=== PATIENT | male | born 1960 | race American Indian/Alaskan Native ===

== ENCOUNTER 2016-04-18 22:01 | Emergency (ER) | payer MEDICAID ==
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
--- NOTE | 2016-04-19 03:00 | XRay Report ---
FINAL REPORT EXAM: XR ELBOW 3 LT HISTORY: Injury - Pain TECHNIQUE: Three views of the left elbow PRIORS: None. FINDINGS: The bones are normally aligned and mineralized. The joint spaces are well-preserved. There is no evidence of acute fracture. There is diffuse atherosclerotic calcification. IMPRESSION: No evidence of acute fracture or subluxation.
--- NOTE | 2016-04-19 03:55 | XRay Report ---
FINAL REPORT PROCEDURE: XR ANKLE 3 LT TECHNIQUE: Left ankle radiographs, AP, lateral, and oblique views. CPT 87865 HISTORY: Injury - Pain LT ANKLE COMPARISON: No prior studies are available for comparison. FINDINGS: Fracture (s) and/or Dislocation(s): There is a fracture of the left in the fibula. The tibia is intact.. Alignment: Normal . Joint space(s): Normal . Soft tissues: There are diffuse vascular calcifications.. Bone mineralization: Normal . Foreign bodies: None . Calcaneal spurring: None . IMPRESSION: The nondisplaced fracture of the fibula..
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
[2016-04-19] MEDS ORDERED: CATAPRES PO ONE (04:15)
[2016-04-19 05:15] VITALS: BP 159/108
== END 2016-04-19 06:08 | disposition home or self-care (01) ==
LOC: ED 22:01
DX: S82.832A Other fracture of upper and lower end of left fibula, initial encounter for closed fracture (principal); I10 Essential (primary) hypertension; S50.312A Abrasion of left elbow, initial encounter; X58.XXXA Exposure to other specified factors, initial encounter; Y93.89 Activity, other specified; Y99.8 Other external cause status; Y92.89 Other specified places as the place of occurrence of the external cause
CPT/HCPCS: 99283

== ENCOUNTER 2016-04-19 20:11 | Emergency (ER) | payer MEDICAID ==
[~2016-04-19 20:11] MED LIST: AMIDATE IV ONE; ZEMURON IV ONE
[2016-04-19] MEDS ORDERED: SUBLIMAZE IV ONE ×2 (20:45→23:27)
[2016-04-19] MEDS ORDERED: VASELINE LIP THERAPY TP PRN (20:45)
[2016-04-19] MEDS ORDERED: ZEMURON IV ONE (20:45)
[2016-04-19] MEDS ORDERED: DECADRON IV ONE (20:45)
[2016-04-19] MEDS ORDERED: KEPPRA 1,000 MG/NS 0.75% 100ML 1,000 MG/100 ML BAG IV ONE (20:45)
[2016-04-19] MEDS ORDERED: ARTIFICIAL TEARS OPHTH OINT OU PRN (20:45)
[2016-04-19] MEDS ORDERED: VANCOMYCIN VIAL IV ONE (20:45)
[2016-04-19] MEDS ORDERED: AMIDATE IV ONE (20:45)
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
[2016-04-19] MEDS ORDERED: NACL 0.9% 500 ML IV SCH (21:00)
[2016-04-19] MEDS ORDERED: VANCOMYCIN PHARMACY TO DOSE IV SCH (21:00)
[2016-04-19] MEDS ORDERED: DIPRIVAN 10 MG/ML 1,000 MG/100 ML BOTTLE IV SCH (21:00)
[2016-04-19] MEDS ORDERED: ROCEPHIN/NS 2 GM/100 ML 2 GM/100 ML BAG IV ONE (21:45)
[2016-04-19 22:01] LABS: Basophils % (Auto) 0.5 % (0.0-1.8); Mean Corpuscular HGB Conc 33 % (32-34); Mean Corpuscular Hemoglobin 30 pg (28-32); Mean Corpuscular Volume 94 fl (84-94); Red Cell Distribution Width 12.6 % (13.2-15.2); White Blood Count 7.5 K/mm3 (4.5-11.0)
[2016-04-19 22:10] LABS: INR 1.02 (0.87-1.13); Partial Thromboplastin Time 23.6 Sec. (24.2-36.6)
[2016-04-19] MEDS ORDERED: VANCOMYCIN VIAL 1,750 MG in NACL 0.9% 500 ML 500 ML IV ONE (22:15)
--- NOTE | 2016-04-19 22:20 | XRay Report ---
FINAL REPORT EXAM: XR CHEST 1V AP HISTORY: ETT placement TECHNIQUE: AP portable view of the chest. PRIORS: None. FINDINGS: There is endotracheal tube in place which appears adequately positioned in the mid to distal trachea. The cardiac appears normal. There is a right upper lobe opacification most likely representing complete right upper lobe atelectasis. The bones and soft tissues are unremarkable. IMPRESSION: Right upper lobe opacity may represent complete right upper lobe atelectasis that may be due to bronchial obstruction. Further evaluation with CT of the chest is recommended.
[2016-04-19 22:27] LABS: Magnesium 2.7 mg/dL (1.7-2.3)
[2016-04-19 22:28] LABS: Alanine Aminotransferase 116 units/L (7-56); Albumin 4.8 g/dL (3.9-5); Albumin/Globulin Ratio 1.2 %; Alkaline Phosphatase 77 units/L (35-129); Anion Gap 29 mmol/L; BUN/Creatinine Ratio 11.66; Bilirubin,Total 0.6 mg/dL (0.1-1.2); Blood Urea Nitrogen 14 mg/dL (9-20); Calcium 9.2 mg/dL (8.4-10.2); Carbon Dioxide 19 mmol/L (22-30); Chloride 90.5 mmol/L (98-107); Glucose 169 mg/dL (75-100); Potassium 4.5 mmol/L (3.6-5.0); Sodium 134 mmol/L (137-145); Total Protein 8.8 g/dL (6.3-8.2)
[2016-04-19 22:32] LABS: Platelet Count 72 K/mm3 (140-440)
[2016-04-19] MEDS ORDERED: SUBLIMAZE 2,000 MCG in NACL 0.9% 60 ML IV SCH (23:00)
[2016-04-19] MEDS ORDERED: CARDENE DRIP 40 MG/200 ML 40 MG/200 ML BAG IV SCH (23:00)
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
--- NOTE | 2016-04-19 23:31 | Cat Scan Report ---
FINAL REPORT EXAM: CT CERVICAL SPINE WO CON HISTORY: ams TECHNIQUE: Helical axial CT imaging of the cervical spine. Images are reconstructed in the sagittal and coronal planes. PRIORS: 04/01/2015 FINDINGS: There is reversal of cervical lordosis at C6 secondary to advanced degenerative disc disease. There is severe loss of disc height at C5-6, C6-7 and C7-T1. These findings are unchanged. The vertebral bodies are normal in height. There is no evidence of fracture or subluxation. There is atherosclerotic calcification in the bilateral carotid bulbs. At C2-3 there is posterior osteophyte disc complex and bilateral uncovertebral hypertrophy with bilateral facet hypertrophy. At C3-4 there is prominent right uncovertebral and facet hypertrophy resulting in moderate to severe right neural foraminal stenosis. At C5-6 there is posterior osteophyte disc complex without spinal or foraminal stenosis. At C6-7 there is posterior osteophyte disc complex and bilateral facet and ligamentum flavum hypertrophy with mild bilateral neural foraminal narrowing. At C7-T1 there is posterior osteophyte disc complex and uncovertebral hypertrophy with moderate to severe right neural foraminal narrowing. Images through the lung apices show a patchy posterior right upper lobe infiltrate and parenchymal thickening. IMPRESSION: 1. No evidence of acute fracture or subluxation 2. Multilevel degenerative disc and facet disease of the cervical spine without significant interval change. Please see the full description of findings above. 3. Patchy posterior right upper lobe infiltrate and parenchymal thickening. The lungs were not completely evaluated.
[2016-04-19 23:33] LABS: ISTAT Base Excess 1; ISTAT HCO3 26.5; ISTAT PCO2 47.6 (35-45); ISTAT PH 7.353 (7.35-7.45); ISTAT PO2 370 (80-105); ISTAT SO2 100; ISTAT TCO2 28
[2016-04-19 23:39] LABS: Urine Drugs of Abuse Note Disclamer
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
[2016-04-19 23:53] LABS: Bilirubin,Urine NEG (Negative); Blood,Urine LG (Negative); Ketones,Urine TR mg/dL (Negative); Leukocyte Esterase,Urine NEG (Negative); Mucus,Urine FEW /HPF; Nitrite,Urine NEG (Negative); Urobilinogen,Urine < 2.0 mg/dL (<2.0)
[2016-04-20 00:39] VITALS: BP 154/101
--- NOTE | 2016-04-20 09:58 | XRay Report ---
LEFT ELBOW, 2 VIEWS History: Ecchymosis, pain. Findings: 2 nonstandard views of the left shoulder demonstrate moderate subcutaneous edema in the medial soft tissues. No acute osseous findings are appreciated. The joint space is unremarkable. Impression: Soft tissue swelling. No acute osseous findings are appreciated.
== END 2016-04-20 01:46 | disposition short-term general hospital (02) ==
LOC: ED 20:11
DX: I62.9 Nontraumatic intracranial hemorrhage, unspecified (principal); G40.901 Epilepsy, unspecified, not intractable, with status epilepticus; I10 Essential (primary) hypertension
CPT/HCPCS: 31500; 36569; 51702; 70450; 71010; 72125; 73070; 74176; 80053; 80307; 81001; 82140; 82550; 82803; 83735; 84443; 84484; 85025; 85610; 85730; 87040; 87070; 87086; 87205; 93005; 93010; 96361; 96365; 96366; 96375; 96376; 99291; G0480; J0696; J1100; J1953; J2704; J3010; J3370; J7040; 80320; 94002

== ENCOUNTER 2016-07-07 02:43 | Emergency (ER) | payer MEDICAID ==
[2016-07-07] MEDS ORDERED: CATAPRES PO ONE (03:02)
[2016-07-07 04:42] VITALS: BP 162/96
[2016-07-07] MEDS ORDERED: DECADRON IM ONE (05:53)
--- NOTE | 2016-07-07 06:02 | Emergency Department Report ---
- General Chief Complaint: Upper Respiratory Infection Stated Complaint: JONES Time Seen by Provider: 07/07/16 05:35 Source: patient Mode of arrival: Ambulatory Limitations: No Limitations - History of Present Illness Initial Comments: Patient comes in the ER tonight with complaints of shortness of breath, cough, nasal congestion, sore throat for the past 2 days. Patient states that he felt like he was running a fever the other night. Patient in the room with his sister who states that patient is very noncompliant with his medicines. Sister states that patient has been prescribed Symbicort but that he does not take it on a regular basis as well as he has been prescribed some blood pressure medicines in the past but patient does not take those either. Patient denies any chest pain, edema, hemoptysis. MD Complaint: cough, sore throat, nasal congestion -: days(s) (2) Consistency: intermittent Treatments Prior to Arrival: none - Related Data Previous Rx's Medication Instructions Recorded Last Taken Type Azithromycin [Zithromax TAB] 500 mg PO QDAY #5 tablet 07/07/16 Unknown Rx Lisinopril [Zestril TAB] 20 mg PO QDAY #30 tablet 07/07/16 Unknown Rx Allergies Allergy/AdvReac Type Severity Reaction Status Date / Time No Known Allergies Allergy Verified 10/24/14 23:18 ED Review of Systems ROS: Stated complaint: JONES Other details as noted in HPI Constitutional: fever. denies: chills Eyes: denies: eye pain, eye discharge, vision change ENT: throat pain, congestion. denies: ear pain, epistaxis Respiratory: cough. denies: shortness of breath, SOB with exertion, SOB at rest , wheezing Cardiovascular: denies: chest pain, palpitations, dyspnea on exertion, edema, syncope Endocrine: no symptoms reported Gastrointestinal: denies: abdominal pain, nausea, diarrhea Genitourinary: denies: urgency, dysuria Musculoskeletal: denies: back pain, joint swelling, arthralgia Skin: denies: rash, lesions Neurological: denies: headache, weakness, paresthesias Psychiatric: denies: anxiety, depression Hematological/Lymphatic: denies: easy bleeding, easy bruising ED Past Medical Hx - Past Medical History Hx Hypertension: Yes - Surgical History Additional Surgical History: PEG tube - Social History Smoking Status: Never Smoker Substance Use Type: None - Medications Home Medications: Home Medications Medication Instructions Recorded Confirmed Last Taken Type Azithromycin [Zithromax TAB] 500 mg PO QDAY #5 tablet 07/07/16 Unknown Rx Lisinopril [Zestril TAB] 20 mg PO QDAY #30 tablet 07/07/16 Unknown Rx ED Physical Exam - General Limitations: No Limitations General appearance: alert, in no apparent distress - Head Head exam: Present: atraumatic, normocephalic - Eye Eye exam: Present: normal appearance - ENT ENT exam: Present: mucous membranes moist, TM's normal bilaterally, normal external ear exam, other (bilateral nasal mucosa erythematous with turbinate swelling.) - Neck Neck exam: Present: normal inspection, full ROM. Absent: tenderness, lymphadenopathy, thyromegaly - Respiratory Respiratory exam: Present: normal lung sounds bilaterally, rhonchi. Absent: respiratory distress, wheezes, rales - Cardiovascular Cardiovascular Exam: Present: regular rate, normal rhythm, normal heart sounds. Absent: systolic murmur, diastolic murmur, rubs, gallop - GI/Abdominal GI/Abdominal exam: Present: soft, distended, normal bowel sounds, other (intact and in place feeding tube noted just left lateral of midline upper abdomen. Non -tender, non-erythematous at insertion.). Absent: tenderness, guarding, rebound - Rectal Rectal exam: Present: deferred - Extremities Exam Extremities exam: Present: normal inspection, normal capillary refill. Absent: pedal edema, joint swelling, calf tenderness - Back Exam Back exam: Present: normal inspection - Neurological Exam Neurological exam: Present: alert, oriented X3 - Psychiatric Psychiatric exam: Present: normal affect, normal mood - Skin Skin exam: Present: warm, dry, intact, normal color. Absent: rash ED Course Vital Signs 07/07/16 07/07/16 07/07/16 02:50 03:07 04:42 Temperature 98.9 F Pulse Rate 99 H 99 H 81 Respiratory 20 18 Rate Blood Pressure 185/114 185/114 Blood Pressure 162/96 [Right] O2 Sat by Pulse 98 96 Oximetry ED Medical Decision Making - Radiology Data Radiology results: image reviewed interpreted by me: Increased bronchial markings suggestive of bronchitis. No obvious infiltrate noted. - Medical Decision Making Upon triage in the ER, patient noted to have elevated blood pressure. Patient is very noncompliant with any prescribed medications. Patient has not taken his blood pressure medicines ever since they were prescribed. Patient was given 0.2 mg of clonidine here in the ER with improvement to his blood pressure. Patient was given Decadron 10 mg IM in the ER to help open up his chest and sinus congestion. I spent several minutes with patient discussing with him the importance of controlling his blood pressure. I will start patient on a short course of antibiotics as I don't believe he will maintain compliance with a long course of antibiotic. I will also prescribe patient some more blood pressure medicine with hopes that he will follow-up with his primary care physician to ensure adequate control. Patient is nontoxic and hemodynamically stable. Patient and sister are in agreement with treatment plan and patient is stable for discharge. Critical care attestation.: If time is entered above; I have spent that time in minutes in the direct care of this critically ill patient, excluding procedure time. ED Disposition Clinical Impression: Bronchitis, Sinusitis, HTN (hypertension) Disposition: DISCHARGED TO HOME OR SELFCARE Is pt being admited?: No Does the pt Need Aspirin: No Condition: Stable Instructions: Chronic Bronchitis (ED), Hypertension (ED), Acute Bronchitis (ED) , Sinusitis (ED) Prescriptions: Azithromycin [Zithromax TAB] 500 mg PO QDAY #5 tablet Lisinopril [Zestril TAB] 20 mg PO QDAY #30 tablet Referrals: KARINA HUNT MD [Primary Care Provider] - 3-5 Days Time of Disposition: 06:07
--- NOTE | 2016-07-07 10:09 | XRay Report ---
CHEST TWO VIEWS: 07/07/16 02:43:00 CLINICAL: Difficulty breathing and cough. COMPARISON: 04/19/16 FINDINGS: No tubes or lines. The right upper lobe has reexpanded since the prior exam. Both lungs are normally expanded and clear. Normal heart and pulmonary vessels. The bones and soft tissues are normal. IMPRESSION: Normal chest.
== END 2016-07-07 06:17 | disposition home or self-care (01) ==
LOC: ED 02:43
DX: J40 Bronchitis, not specified as acute or chronic (principal); I10 Essential (primary) hypertension; J32.9 Chronic sinusitis, unspecified
CPT/HCPCS: 71020; 93005; 93010; 96372; 99283; J1100

== ENCOUNTER 2018-04-09 10:01 | Inpatient (IN) | payer MEDICAID ==
[2018-04-09] MEDS ORDERED: ATIVAN IV ONE ×4 (10:06→11:40)
[2018-04-09] MEDS ORDERED: ATIVAN ONE ×2 (10:06→14:52)
[2018-04-09] MEDS ORDERED: KEPPRA 1,000 MG/NS 0.75% 100ML 1,000 MG/100 ML BAG IV ONE ×2 (10:39→10:58)
[2018-04-09 10:48] LABS: Hematocrit 47.9 % (35.5-45.6); Mean Corpuscular HGB Conc 31 % (32-34); Mean Corpuscular Volume 102 fl (84-94); Platelet Count 134 K/mm3 (140-440); Red Blood Count 4.69 M/mm3 (3.65-5.03); Red Cell Distribution Width 13.7 % (13.2-15.2)
[2018-04-09] MEDS ORDERED: QUELICIN IV ONE (10:48)
[2018-04-09] MEDS ORDERED: AMIDATE IV ONE ×2 (10:48→22:53)
[2018-04-09] MEDS ORDERED: DIPRIVAN 10 MG/ML 1,000 MG/100 ML BOTTLE IV ONE ×2 (10:56→21:09)
[2018-04-09] MEDS ORDERED: ARTIFICIAL TEARS OPHTH OINT OU PRN (11:00)
[2018-04-09] MEDS ORDERED: VASELINE LIP THERAPY TP PRN (11:00)
[2018-04-09] MEDS: DIPRIVAN 10 MG/ML 1,000 MG/100 ML BOTTLE IV SCH (11:00)
[2018-04-09 11:09] LABS: INR 1.12 (0.87-1.13)
[2018-04-09 11:09] LABS: BUN/Creatinine Ratio 10; Blood Urea Nitrogen 12 mg/dL (9-20); Calcium 9.8 mg/dL (8.4-10.2); Hemolysis Index 19
[2018-04-09 11:10] LABS: Partial Thromboplastin Time 24.1 Sec. (24.2-36.6)
[2018-04-09 11:17] LABS: Creatine Kinase MB 9.6 ng/mL (0.0-4.0)
[2018-04-09] MEDS ORDERED: VITAMIN B-1 100 MG, FOLVITE 1 MG, INFUVITE 10 ML in NACL 0.9% 1000 ML 1,000 ML IV ONE (11:24)
[2018-04-09 11:32] LABS: Albumin 4.7 g/dL (3.9-5); Bilirubin,Direct 0.2 mg/dL (0-0.2)
--- NOTE | 2018-04-09 11:51 | XRay Report ---
AP CHEST: HISTORY: Altered mental status, endotracheal tube placement Compared to 05/15/17. The endotracheal tube is in good position terminating 3.2 cm superior to the helen. The nasogastric tube terminates in the antrum of the stomach. The lungs are clear. Heart and mediastinal structures are within normal limits. The bony thorax is grossly intact. IMPRESSION: Unremarkable AP chest. Adequate placement of lines and tubes.
[2018-04-09 11:52] LABS: Bilirubin,Urine NEG (Negative); Blood,Urine MOD (Negative); Color,Urine Straw (Yellow); Mucus,Urine FEW /HPF; Urobilinogen,Urine < 2.0 mg/dL (<2.0); WBC,Urine < 1.0 /HPF (0.0-6.0)
[2018-04-09 11:59] LABS: Amphetamine Screen,Urine PRESUMPTIVE NEGATIVE; Benzodiazepines Screen,Urine PRESUMPTIVE NEGATIVE; Cannabinoid Screen,Urine PRESUMPTIVE NEGATIVE; Cocaine Screen,Urine PRESUMPTIVE NEGATIVE; Methadone Screen,Urine PRESUMPTIVE NEGATIVE; Opiate Screen,Urine PRESUMPTIVE NEGATIVE
[2018-04-09] MEDS ORDERED: NACL 0.9% 1000 ML 1,000 ML IV ONE (12:51)
[2018-04-09] MEDS ORDERED: FOLVITE 1 MG, INFUVITE 10 ML in NACL 0.9% 1000 ML 1,000 ML IV ONE (13:00)
[2018-04-09] MEDS ORDERED: TYLENOL PR ONE ×4 (13:52→19:08)
[2018-04-09] MEDS ORDERED: VANCOMYCIN/NS 1 GM/250 ML 1 GM/250 ML BAG IV ONE (13:53)
[2018-04-09] MEDS ORDERED: ROCEPHIN/NS 2 GM/100 ML 2 GM/100 ML BAG IV ONE (14:00)
[2018-04-09] MEDS ORDERED: VANCOMYCIN 2,000 MG in NACL 0.9% 500 ML 500 ML IV ONE (14:30)
[2018-04-09] MEDS ORDERED: VITAMIN B-1 FEEDTUBE ONE (14:40)
--- NOTE | 2018-04-09 14:42 | Emergency Department Report ---
ED Seizure HPI - General Chief Complaint: Seizure Stated Complaint: SEIZURES Time Seen by Provider: 04/09/18 10:30 Source: EMS Mode of arrival: Stretcher Limitations: No Limitations - History of Present Illness Initial Comments: 58yo male with a past medical history alcohol abuse, hepatitis, alcohol withdrawal and hypertension presents with complaints of seizures, alterations in mental status. Patient received 2 mg of Ativan just prior to my evaluation he continues to have seizure activity with left gaze preference. Additional Ativan provided medication he continues to seize. Further history of present illness is available at this time. - Related Data Previous Rx's Medication Instructions Recorded Last Taken Type ALBUTEROL NEB's [Proventil 0.083% 2.5 mg IH Q6HRT PRN nebu 05/22/17 Unknown Rx NEBS] Apixaban [Eliquis] 5 mg PO Q12HR tablet 05/22/17 Unknown Rx Docusate Sodium [Colace ORAL LIQ] 100 mg PO BID oral.liqd 05/22/17 Unknown Rx Famotidine [Pepcid] 20 mg PO BID tablet 05/22/17 Unknown Rx Metoprolol [Lopressor TAB] 25 mg PO BID tablet 05/22/17 Unknown Rx Min Oil/Petrolatum [Artificial 1 applic OU Q4HR PRN tube 05/22/17 Unknown Rx Tears Ophth Oint] Sennosides/Docusate [Senokot S] 2 tab PO BID tablet 05/22/17 Unknown Rx cloNIDine [Catapres] 0.1 mg PO Q8H tablet 05/22/17 Unknown Rx hydrALAZINE [Apresoline TAB] 25 mg PO Q8HR tablet 05/22/17 Unknown Rx Allergies Allergy/AdvReac Type Severity Reaction Status Date / Time No Known Allergies Allergy Verified 10/24/14 23:18 ED Review of Systems ROS: Stated complaint: SEIZURES Other details as noted in HPI Comment: Unobtainable due to pts medical conditions ED Past Medical Hx - Past Medical History Previous Medical History?: Yes Hx Hypertension: Yes Hx Seizures: Yes Additional medical history: hepatitis. history obtained by sister - Surgical History Past Surgical History?: Yes Additional Surgical History: PEG tube - Social History Smoking Status: Unknown if ever smoked - Medications Home Medications: Home Medications Medication Instructions Recorded Confirmed Last Taken Type ALBUTEROL NEB's [Proventil 0.083% 2.5 mg IH Q6HRT PRN nebu 05/22/17 Unknown Rx NEBS] Apixaban [Eliquis] 5 mg PO Q12HR tablet 05/22/17 Unknown Rx Docusate Sodium [Colace ORAL LIQ] 100 mg PO BID oral.liqd 05/22/17 Unknown Rx Famotidine [Pepcid] 20 mg PO BID tablet 05/22/17 Unknown Rx Metoprolol [Lopressor TAB] 25 mg PO BID tablet 05/22/17 Unknown Rx Min Oil/Petrolatum [Artificial 1 applic OU Q4HR PRN tube 05/22/17 Unknown Rx Tears Ophth Oint] Sennosides/Docusate [Senokot S] 2 tab PO BID tablet 05/22/17 Unknown Rx cloNIDine [Catapres] 0.1 mg PO Q8H tablet 05/22/17 Unknown Rx hydrALAZINE [Apresoline TAB] 25 mg PO Q8HR tablet 05/22/17 Unknown Rx ED Physical Exam - General Limitations: No Limitations - Other Other exam information: General: No limitations, patient is alert in no acute distress Head exam: Atraumatic, normocephalic Eyes exam: Normal appearance, left gaze preference during seizure ENT: Moist mucous membrane Neck exam: Normal inspection Respiratory exam: Clear to auscultation bilateral, no wheezes, rales, crackles Cardiovascular: Tachycardic regular rhythm Abdomen: Soft, nondistended, and nontender, with normal bowel sounds, no rebound, or guarding Extremity: Right arm yaritza during seizure activity Back: Normal Inspection, full range of motion, no tenderness Neurologic: Unresponsive, actively seizing Skin: Warm, dry, intact ED Course Vital Signs 04/09/18 04/09/18 04/09/18 10:00 10:44 10:45 Temperature Pulse Rate 131 H 134 H 135 H Respiratory 26 H 20 23 Rate Blood Pressure 176/96 155/105 O2 Sat by Pulse 96 91 Oximetry 04/09/18 04/09/18 04/09/18 11:00 11:01 11:07 Temperature Pulse Rate 145 H 142 H Respiratory 20 Rate Blood Pressure 221/141 172/103 O2 Sat by Pulse 100 99 96 Oximetry 04/09/18 04/09/18 04/09/18 11:16 11:30 11:45 Temperature Pulse Rate 146 H 142 H 137 H Respiratory 53 H 15 19 Rate Blood Pressure 172/103 145/110 134/107 O2 Sat by Pulse 95 96 97 Oximetry 04/09/18 04/09/18 04/09/18 12:00 12:15 12:30 Temperature Pulse Rate 125 H 115 H 110 H Respiratory 19 18 18 Rate Blood Pressure 140/103 147/108 154/109 O2 Sat by Pulse 100 99 100 Oximetry 04/09/18 04/09/18 04/09/18 12:45 13:00 13:15 Temperature Pulse Rate 112 H 114 H 124 H Respiratory 17 13 21 Rate Blood Pressure 165/117 165/117 173/116 O2 Sat by Pulse 100 100 100 Oximetry 04/09/18 04/09/18 04/09/18 13:30 13:42 13:45 Temperature 102.3 F H Pulse Rate 123 H 120 H Respiratory 11 L 15 Rate Blood Pressure 159/127 179/122 O2 Sat by Pulse 99 99 Oximetry 04/09/18 04/09/18 04/09/18 14:00 14:15 14:30 Temperature Pulse Rate 127 H 121 H 126 H Respiratory 21 15 13 Rate Blood Pressure 172/121 180/113 182/118 O2 Sat by Pulse 100 100 100 Oximetry 04/09/18 04/09/18 04/09/18 15:12 15:16 15:30 Temperature Pulse Rate 135 H 134 H 129 H Respiratory 24 22 22 Rate Blood Pressure 182/118 152/103 146/102 O2 Sat by Pulse 99 99 100 Oximetry 04/09/18 04/09/18 04/09/18 15:45 16:00 16:15 Temperature Pulse Rate 124 H 111 H 115 H Respiratory 22 22 22 Rate Blood Pressure 142/99 158/109 154/107 O2 Sat by Pulse 99 100 100 Oximetry 04/09/18 04/09/18 04/09/18 16:22 16:30 16:44 Temperature Pulse Rate 117 H 116 H 110 H Respiratory 22 Rate Blood Pressure 154/107 138/99 138/99 O2 Sat by Pulse 100 100 Oximetry 04/09/18 04/09/18 04/09/18 16:45 18:11 18:54 Temperature 103 F H Pulse Rate 108 H 109 H Respiratory 22 Rate Blood Pressure 148/103 162/11 O2 Sat by Pulse 100 100 Oximetry - Reevaluation(s) Reevaluation #1: 04/09/18 14:41 Injectable thiamine is not available at the hospital. Banana bag prepared without thiamine and thiamine by mouth ordered via NG tube. Reevaluation #2: 04/09/18 19:09 Patient still has a fever. Additional rectal Tylenol order. I'm hesitant to provide ibuprofen and given coffee ground gastric aspirate - Consultations Consultation #1: 04/09/18 18:[address] 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 - Intubation Time Out Performed: Yes Sedative: Etomidate Mg Given: 20 Paralytic: Succinylcholine Mg Given: 100 Size: 4 ET Tube Size: 7.5 Tube Secured Depth (cm): 22 Tube Secured Location: lips Tube Placement Confirmation: visualized tube passing t, equal breath sounds bilat, no breath sounds over epi, confirmation by capnometr Patient Tolerated Procedure: well Intubation Complications: none - Lumbar Puncture Consent Obtained: emergent situation Time Out Performed: Yes Indication for Procedure: fever work up Patient Position: left lateral decubitus Skin Prep: Povidone-Iodine 1% Local Anesthetic Used: Lidocaine 1% Spinal Needle Gauge: 20G Spinal Needle Length: 3.5in Interspace Used: L3-L4 Fluid Initially Obtained: bloody, other (traumatic tap) Complications: none Patient Tolerated Procedure: well ED Medical Decision Making - Lab Data Result diagrams: 04/09/18 10:15 04/09/18 15:25 Lab Results 04/09/18 04/09/18 04/09/18 Range/Units 10:15 10:15 10:15 WBC 8.2 (4.5-11.0) K/mm3 RBC 4.69 (3.65-5.03) M/mm3 Hgb 15.0 (11.8-15.2) gm/dl Hct 47.9 H (35.5-45.6) % MCV 102 H (84-94) fl MCH 32 (28-32) pg MCHC 31 L (32-34) % RDW 13.7 (13.2-15.2) % Plt Count 134 L (140-440) K/mm3 PT (12.2-14.9) Sec. INR (0.87-1.13) APTT (24.2-36.6) Sec. POC ABG pH (7.35-7.45) POC ABG pCO2 (35-45) POC ABG pO2 (80-105) POC ABG HCO3 POC ABG Total CO2 POC ABG O2 Sat POC ABG Base Excess VBG pH (7.320-7.420) FiO2 % Sodium 146 H (137-145) mmol/L Potassium 4.0 (3.6-5.0) mmol/L Chloride 100.5 (98-107) mmol/L Carbon Dioxide 7 L* (22-30) mmol/L Anion Gap 43 mmol/L BUN 12 (9-20) mg/dL Creatinine 1.2 (0.8-1.5) mg/dL Estimated GFR > 60 ml/min BUN/Creatinine Ratio 10 % Glucose 160 H (75-100) mg/dL Lactic Acid (0.7-2.0) mmol/L Calcium 9.8 (8.4-10.2) mg/dL Magnesium 2.20 (1.7-2.3) mg/dL Total Bilirubin 0.40 (0.1-1.2) mg/dL Direct Bilirubin 0.2 (0-0.2) mg/dL Indirect Bilirubin 0.2 mg/dL AST 184 H (5-40) units/L ALT 116 H (7-56) units/L Alkaline Phosphatase 83 (35-129) units/L Total Creatine Kinase (55-170) units/L CK-MB (CK-2) (0.0-4.0) ng/mL CK-MB (CK-2) Rel Index (0-4) Total Protein 8.8 H (6.3-8.2) g/dL Albumin 4.7 (3.9-5) g/dL Albumin/Globulin Ratio 1.1 % Urine Color (Yellow) Urine Turbidity (Clear) Urine pH (5.0-7.0) Ur Specific [place] (1.003-1.030) Urine Protein (Negative) mg/dL Urine Glucose (UA) (Negative) mg/dL Urine Ketones (Negative) mg/dL Urine Blood (Negative) Urine Nitrite (Negative) Urine Bilirubin (Negative) Urine Urobilinogen (<2.0) mg/dL Ur Leukocyte Esterase (Negative) Urine WBC (Auto) (0.0-6.0) /HPF Urine RBC (Auto) (0.0-6.0) /HPF Urine Mucus /HPF Urine Opiates Screen Urine Methadone Screen Ur Barbiturates Screen Ur Phencyclidine Scrn Ur Amphetamines Screen U Benzodiazepines Scrn Urine Cocaine Screen U Marijuana (THC) Screen Drugs of Abuse Note Plasma/Serum Alcohol (0-0.07) % 04/09/18 04/09/18 04/09/18 Range/Units 10:38 10:57 11:15 WBC (4.5-11.0) K/mm3 RBC (3.65-5.03) M/mm3 Hgb (11.8-15.2) gm/dl Hct (35.5-45.6) % MCV (84-94) fl MCH (28-32) pg MCHC (32-34) % RDW (13.2-15.2) % Plt Count (140-440) K/mm3 PT 15.1 H (12.2-14.9) Sec. INR 1.12 (0.87-1.13) APTT 24.1 L (24.2-36.6) Sec. POC ABG pH (7.35-7.45) POC ABG pCO2 (35-45) POC ABG pO2 (80-105) POC ABG HCO3 POC ABG Total CO2 POC ABG O2 Sat POC ABG Base Excess VBG pH (7.320-7.420) FiO2 % Sodium (137-145) mmol/L Potassium (3.6-5.0) mmol/L Chloride (98-107) mmol/L Carbon Dioxide (22-30) mmol/L Anion Gap mmol/L BUN (9-20) mg/dL Creatinine (0.8-1.5) mg/dL Estimated GFR ml/min BUN/Creatinine Ratio % Glucose (75-100) mg/dL Lactic Acid (0.7-2.0) mmol/L Calcium (8.4-10.2) mg/dL Magnesium (1.7-2.3) mg/dL Total Bilirubin (0.1-1.2) mg/dL Direct Bilirubin (0-0.2) mg/dL Indirect Bilirubin mg/dL AST (5-40) units/L ALT (7-56) units/L Alkaline Phosphatase (35-129) units/L Total Creatine Kinase 913 H (55-170) units/L CK-MB (CK-2) 9.6 H (0.0-4.0) ng/mL CK-MB (CK-2) Rel Index 1.0 (0-4) Total Protein (6.3-8.2) g/dL Albumin (3.9-5) g/dL Albumin/Globulin Ratio % Urine Color Straw (Yellow) Urine Turbidity Clear (Clear) Urine pH 6.0 (5.0-7.0) Ur Specific [place] 1.009 (1.003-1.030) Urine Protein 100 mg/dl (Negative) mg/dL Urine Glucose (UA) Neg (Negative) mg/dL Urine Ketones Neg (Negative) mg/dL Urine Blood Mod (Negative) Urine Nitrite Neg (Negative) Urine Bilirubin Neg (Negative) Urine Urobilinogen < 2.0 (<2.0) mg/dL Ur Leukocyte Esterase Neg (Negative) Urine WBC (Auto) < 1.0 (0.0-6.0) /HPF Urine RBC (Auto) 2.0 (0.0-6.0) /HPF Urine Mucus Few /HPF Urine Opiates Screen Urine Methadone Screen Ur Barbiturates Screen Ur Phencyclidine Scrn Ur Amphetamines Screen U Benzodiazepines Scrn Urine Cocaine Screen U Marijuana (THC) Screen Drugs of Abuse Note Plasma/Serum Alcohol (0-0.07) % 04/09/18 04/09/18 04/09/18 Range/Units 11:15 11:36 11:36 WBC (4.5-11.0) K/mm3 RBC (3.65-5.03) M/mm3 Hgb (11.8-15.2) gm/dl Hct (35.5-45.6) % MCV (84-94) fl MCH (28-32) pg MCHC (32-34) % RDW (13.2-15.2) % Plt Count (140-440) K/mm3 PT (12.2-14.9) Sec. INR (0.87-1.13) APTT (24.2-36.6) Sec. POC ABG pH (7.35-7.45) POC ABG pCO2 (35-45) POC ABG pO2 (80-105) POC ABG HCO3 POC ABG Total CO2 POC ABG O2 Sat POC ABG Base Excess VBG pH (7.320-7.420) FiO2 % Sodium (137-145) mmol/L Potassium (3.6-5.0) mmol/L Chloride (98-107) mmol/L Carbon Dioxide (22-30) mmol/L Anion Gap mmol/L BUN (9-20) mg/dL Creatinine (0.8-1.5) mg/dL Estimated GFR ml/min BUN/Creatinine Ratio % Glucose (75-100) mg/dL Lactic Acid 5.10 H* (0.7-2.0) mmol/L Calcium (8.4-10.2) mg/dL Magnesium (1.7-2.3) mg/dL Total Bilirubin (0.1-1.2) mg/dL Direct Bilirubin (0-0.2) mg/dL Indirect Bilirubin mg/dL AST (5-40) units/L ALT (7-56) units/L Alkaline Phosphatase (35-129) units/L Total Creatine Kinase (55-170) units/L CK-MB (CK-2) (0.0-4.0) ng/mL CK-MB (CK-2) Rel Index (0-4) Total Protein (6.3-8.2) g/dL Albumin (3.9-5) g/dL Albumin/Globulin Ratio % Urine Color (Yellow) Urine Turbidity (Clear) Urine pH (5.0-7.0) Ur Specific [place] (1.003-1.030) Urine Protein (Negative) mg/dL Urine Glucose (UA) (Negative) mg/dL Urine Ketones (Negative) mg/dL Urine Blood (Negative) Urine Nitrite (Negative) Urine Bilirubin (Negative) Urine Urobilinogen (<2.0) mg/dL Ur Leukocyte Esterase (Negative) Urine WBC (Auto) (0.0-6.0) /HPF Urine RBC (Auto) (0.0-6.0) /HPF Urine Mucus /HPF Urine Opiates Screen Presumptive negative Urine Methadone Screen Presumptive negative Ur Barbiturates Screen Presumptive negative Ur Phencyclidine Scrn Presumptive negative Ur Amphetamines Screen Presumptive negative U Benzodiazepines Scrn Presumptive negative Urine Cocaine Screen Presumptive negative U Marijuana (THC) Screen Presumptive negative Drugs of Abuse Note Disclamer Plasma/Serum Alcohol < 0.01 (0-0.07) % 04/09/18 04/09/18 04/09/18 Range/Units 11:36 12:24 12:44 WBC (4.5-11.0) K/mm3 RBC (3.65-5.03) M/mm3 Hgb (11.8-15.2) gm/dl Hct (35.5-45.6) % MCV (84-94) fl MCH (28-32) pg MCHC (32-34) % RDW (13.2-15.2) % Plt Count (140-440) K/mm3 PT (12.2-14.9) Sec. INR (0.87-1.13) APTT (24.2-36.6) Sec. POC ABG pH 7.282 L (7.35-7.45) POC ABG pCO2 55.1 H (35-45) POC ABG pO2 96 (80-105) POC ABG HCO3 26.0 POC ABG Total CO2 28 POC ABG O2 Sat 96 POC ABG Base Excess -1 VBG pH 7.296 L (7.320-7.420) FiO2 50 % Sodium (137-145) mmol/L Potassium (3.6-5.0) mmol/L Chloride (98-107) mmol/L Carbon Dioxide (22-30) mmol/L Anion Gap mmol/L BUN (9-20) mg/dL Creatinine (0.8-1.5) mg/dL Estimated GFR ml/min BUN/Creatinine Ratio % Glucose (75-100) mg/dL Lactic Acid 1.50 (0.7-2.0) mmol/L Calcium (8.4-10.2) mg/dL Magnesium (1.7-2.3) mg/dL Total Bilirubin (0.1-1.2) mg/dL Direct Bilirubin (0-0.2) mg/dL Indirect Bilirubin mg/dL AST (5-40) units/L ALT (7-56) units/L Alkaline Phosphatase (35-129) units/L Total Creatine Kinase (55-170) units/L CK-MB (CK-2) (0.0-4.0) ng/mL CK-MB (CK-2) Rel Index (0-4) Total Protein (6.3-8.2) g/dL Albumin (3.9-5) g/dL Albumin/Globulin Ratio % Urine Color (Yellow) Urine Turbidity (Clear) Urine pH (5.0-7.0) Ur Specific [place] (1.003-1.030) Urine Protein (Negative) mg/dL Urine Glucose (UA) (Negative) mg/dL Urine Ketones (Negative) mg/dL Urine Blood (Negative) Urine Nitrite (Negative) Urine Bilirubin (Negative) Urine Urobilinogen (<2.0) mg/dL Ur Leukocyte Esterase (Negative) Urine WBC (Auto) (0.0-6.0) /HPF Urine RBC (Auto) (0.0-6.0) /HPF Urine Mucus /HPF Urine Opiates Screen Urine Methadone Screen Ur Barbiturates Screen Ur Phencyclidine Scrn Ur Amphetamines Screen U Benzodiazepines Scrn Urine Cocaine Screen U Marijuana (THC) Screen Drugs of Abuse Note Plasma/Serum Alcohol (0-0.07) % 04/09/18 04/09/18 Range/Units 15:25 18:11 WBC (4.5-11.0) K/mm3 RBC (3.65-5.03) M/mm3 Hgb (11.8-15.2) gm/dl Hct (35.5-45.6) % MCV (84-94) fl MCH (28-32) pg MCHC (32-34) % RDW (13.2-15.2) % Plt Count (140-440) K/mm3 PT (12.2-14.9) Sec. INR (0.87-1.13) APTT (24.2-36.6) Sec. POC ABG pH 7.397 (7.35-7.45) POC ABG pCO2 39.6 (35-45) POC ABG pO2 160 H (80-105) POC ABG HCO3 24.4 POC ABG Total CO2 26 POC ABG O2 Sat 99 POC ABG Base Excess 0 VBG pH (7.320-7.420) FiO2 50 % Sodium 141 (137-145) mmol/L Potassium 4.7 (3.6-5.0) mmol/L Chloride 100.6 (98-107) mmol/L Carbon Dioxide 25 D (22-30) mmol/L Anion Gap 20 mmol/L BUN 13 (9-20) mg/dL Creatinine 1.1 (0.8-1.5) mg/dL Estimated GFR > 60 ml/min BUN/Creatinine Ratio 12 % Glucose 100 (75-100) mg/dL Lactic Acid (0.7-2.0) mmol/L Calcium 10.0 (8.4-10.2) mg/dL Magnesium (1.7-2.3) mg/dL Total Bilirubin (0.1-1.2) mg/dL Direct Bilirubin (0-0.2) mg/dL Indirect Bilirubin mg/dL AST (5-40) units/L ALT (7-56) units/L Alkaline Phosphatase (35-129) units/L Total Creatine Kinase (55-170) units/L CK-MB (CK-2) (0.0-4.0) ng/mL CK-MB (CK-2) Rel Index (0-4) Total Protein (6.3-8.2) g/dL Albumin (3.9-5) g/dL Albumin/Globulin Ratio % Urine Color (Yellow) Urine Turbidity (Clear) Urine pH (5.0-7.0) Ur Specific [place] (1.003-1.030) Urine Protein (Negative) mg/dL Urine Glucose (UA) (Negative) mg/dL Urine Ketones (Negative) mg/dL Urine Blood (Negative) Urine Nitrite (Negative) Urine Bilirubin (Negative) Urine Urobilinogen (<2.0) mg/dL Ur Leukocyte Esterase (Negative) Urine WBC (Auto) (0.0-6.0) /HPF Urine RBC (Auto) (0.0-6.0) /HPF Urine Mucus /HPF Urine Opiates Screen Urine Methadone Screen Ur Barbiturates Screen Ur Phencyclidine Scrn Ur Amphetamines Screen U Benzodiazepines Scrn Urine Cocaine Screen U Marijuana (THC) Screen Drugs of Abuse Note Plasma/Serum Alcohol (0-0.07) % - EKG Data -: EKG Interpreted by Ar EKG shows normal: sinus rhythm, axis, intervals (qrs 65), QRS complexes (qrsd 80), ST-T waves (no stemi) Rate: tachycardia (133) - Radiology Data Radiology results: report reviewed AP CHEST: HISTORY: Altered mental status, endotracheal tube placement Compared to 05/15/17. The endotracheal tube is in good position terminating 3.2 cm superior to the helen. The nasogastric tube terminates in the antrum of the stomach. The lungs are clear. Heart and mediastinal structures are within normal limits. The bony thorax is grossly intact. IMPRESSION: Unremarkable AP chest. Adequate placement of lines and tubes. CT HEAD WITHOUT CONTRAST: HISTORY: Prolonged seizures, alcohol abuse history. TECHNIQUE: Sequential CT images without contrast. FINDINGS: Compared to 05/05/17. Mild cortical volume loss and mild chronic white matter changes are again noted and unchanged. A chronic focal infarct in the posterior, inferior right frontal white matter measures 2.0 x 1.9 cm on image 34 which is also unchanged. There is no evidence for hemorrhage, mass, large area of acute ischemia or extra axial fluid collection. The posterior fossa and contents are unremarkable. The visualized sinuses and mastoid air cells are well-aerated. Chronic left inferior orbital wall fracture and atrophy of the left eye is noted. IMPRESSION: No acute intracranial process. No significant change since 05/05/17. Mild volume loss and chronic white matter changes. 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 - Medical Decision Making Patient was intubated for airway protection. He received Ativan 4 mg and Keppra 1 g was initiated and he continued to be have seizures with alteration in mental status. Saturation 100% on nasal cannula 2-4 L However, decision made to intubate for airway protection and for status epilepticus. Patient remained agitated and fighting the vent despite being maxed out on propofol and required multiple boluses of Ativan IV push for adequate sedation. Once adequately sedated, patient's blood pressure still remained elevated uncontrolled. They've been a large drip ordered for additional blood pressure control. Once fever was identified, Tylenol, Rocephin and vancomycin ordered empirically since no signs of infection on chest x-ray or urine patient has seizures with alteration in mental status. Fever could also be due to recurrent seizures. Initial lactic acidosis improved with IV hydration intubation. Patient's CT head without acute findings and awaiting fluoroscopy guided LP for CSF fluid. Patient does have a history of alcohol abuse and alcohol withdrawal seizures. Dr. Webb was not able to perform LP tonight. LP was performed in the ED. Traumatic tap noted initially bloody but cleared by tube 4. Sent to the lab for evaluation. - Differential Diagnosis intracranial hemorrhage, primary seizure, alcohol withdrawal, encephalopath Critical Care Time: No Critical care attestation.: If time is entered above; I have spent that time in minutes in the direct care of this critically ill patient, excluding procedure time. ED Disposition Clinical Impression: EtOH dependence, Encephalopathy, Schizophrenia, Status epilepticus, HTN (hypertension), malignant, Fever Disposition: OP ADMIT IP TO THIS HOSP Is pt being admited?: Yes Condition: Stable Referrals: PRIMARY CARE, [Primary Care Provider] - 3-5 Days Time of Disposition: 16:08 (DR kim/hosp)
[2018-04-09] MEDS ORDERED: NORMODYNE 200 MG in D5W 160 ML IV ONE (15:00)
--- NOTE | 2018-04-09 15:27 | Cat Scan Report ---
CT HEAD WITHOUT CONTRAST: HISTORY: Prolonged seizures, alcohol abuse history. TECHNIQUE: Sequential CT images without contrast. FINDINGS: Compared to 05/05/17. Mild cortical volume loss and mild chronic white matter changes are again noted and unchanged. A chronic focal infarct in the posterior, inferior right frontal white matter measures 2.0 x 1.9 cm on image 34 which is also unchanged. There is no evidence for hemorrhage, mass, large area of acute ischemia or extra axial fluid collection. The posterior fossa and contents are unremarkable. The visualized sinuses and mastoid air cells are well-aerated. Chronic left inferior orbital wall fracture and atrophy of the left eye is noted. IMPRESSION: No acute intracranial process. No significant change since 05/05/17. Mild volume loss and chronic white matter changes. 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
[2018-04-09] MEDS ORDERED: XYLOCAINE 1% 20 mL ONE (15:32)
[2018-04-09 15:57] LABS: BUN/Creatinine Ratio 12; Blood Urea Nitrogen 13 mg/dL (9-20); Hemolysis Index 20
[2018-04-09] MEDS ORDERED: MOTRIN FEEDTUBE ONE (19:08)
[2018-04-09 19:50] LABS: Glucose,CSF 82 mg/dL
--- NOTE | 2018-04-09 19:54 | History and Physical Report ---
History of Present Illness Chief complaint: He had a seizure History of present illness: 58 YO Male with HTN, Seizure Disorder, ETOH Dependence, Hepatitis, Cirrhosis, RUE DVT on Therapeutic Anticoagulation presents to ED for evaluation. Pt is intubated at time of exam and unable to provide history. Pt history provided by ED staff, EMS, and family members. As per family, the patient had a witnessed seizure this morning. EMS notified and uopn arrival the patient was found to be post ictal, and transported to [facility] for further care and evaluation. Pt seen and evaluated in ED and found to have ETOH Withdrawl seizures, Sepsis, Acidosis, as well as Acute Respiratory Failure. Pt underwent Lumbar puncture in ED. Pt admi tted to ICU. Pulmonary team consulted in ED. Pt initiated on sepsis protocol. No further history obtainable. Medications Reviewed. Past History Past Medical History: DVT, hepatitis, hypertension, seizures Past Surgical History: Other (PEG tube) Social history: single, alcohol abuse Family history: hypertension Medications and Allergies Allergies Allergy/AdvReac Type Severity Reaction Status Date / Time No Known Allergies Allergy Verified 10/24/14 23:18 Home Medications Medication Instructions Recorded Confirmed Last Taken Type Unobtainable 04/09/18 04/09/18 Unknown History Active Meds: Active Medications Hydrophilic Ointment (Vaseline Lip Therapy) 1 applic TP Q2HR PRN PRN Reason: Dry Lips Propofol (Diprivan 10 Mg/Ml) 1,000 mg in 100 mls @ 3.078 mls/hr IV TITR MINGO; Protocol Last Titration: 04/09/18 11:50 Dose: 50 mcg/kg/min, 30.78 mls/hr Documented by: Multi-Ingred Cream/Lotion/Oil/Oint (Artificial Tears Ophth Oint) 1 applic OU Q4HR PRN PRN Reason: Dry Eye(s) Review of Systems ROS unobtainable: due to endotracheal tube Exam - Constitutional Vitals: Temp Pulse Resp BP Pulse Ox 103 F H 109 H 22 143/99 100 04/09/18 18:54 04/09/18 19:32 04/09/18 19:32 04/09/18 19:32 04/09/18 19:32 General appearance: Present: severe distress - EENT Eyes: Present: miosis - Neck Neck: Present: supple, normal ROM - Respiratory Respiratory effort: labored Respiratory: bilateral: diminished, rhonchi - Cardiovascular Rhythm: other (tachycardia) Heart Sounds: Present: S1 & S2. Absent: rub, click - Extremities Extremities: pulses symmetrical, No edema Extremity abnormal: edema Peripheral Pulses: abnormal (capillary refill greater than 3.5 seconds') - Abdominal General gastrointestinal: Present: soft, non-tender, non-distended, normal bowel sounds Male genitourinary: Present: normal - Integumentary Integumentary: Present: clear, dry, clammy, decreased turgor - Musculoskeletal Musculoskeletal: generalized weakness - Psychiatric Psychiatric: no appropriate mood/affect, no intact judgment & insight, no memory intact - Neurologic Neurologic: CNII-XII intact, moves all extremities, no gait normal Results - Labs CBC & Chem 7: 04/09/18 10:15 04/09/18 15:25 Labs: Abnormal lab results 04/09/18 04/09/18 04/09/18 Range/Units 10:15 10:15 10:15 Hct 47.9 H (35.5-45.6) % MCV 102 H (84-94) fl MCHC 31 L (32-34) % Plt Count 134 L (140-440) K/mm3 PT (12.2-14.9) Sec. APTT (24.2-36.6) Sec. POC ABG pH (7.35-7.45) POC ABG pCO2 (35-45) POC ABG pO2 (80-105) VBG pH (7.320-7.420) Sodium 146 H (137-145) mmol/L Carbon Dioxide 7 L* (22-30) mmol/L Glucose 160 H (75-100) mg/dL Lactic Acid (0.7-2.0) mmol/L AST 184 H (5-40) units/L ALT 116 H (7-56) units/L Total Creatine Kinase (55-170) units/L CK-MB (CK-2) (0.0-4.0) ng/mL Total Protein 8.8 H (6.3-8.2) g/dL 04/09/18 04/09/18 04/09/18 Range/Units 10:38 10:57 11:36 Hct (35.5-45.6) % MCV (84-94) fl MCHC (32-34) % Plt Count (140-440) K/mm3 PT 15.1 H (12.2-14.9) Sec. APTT 24.1 L (24.2-36.6) Sec. POC ABG pH (7.35-7.45) POC ABG pCO2 (35-45) POC ABG pO2 (80-105) VBG pH (7.320-7.420) Sodium (137-145) mmol/L Carbon Dioxide (22-30) mmol/L Glucose (75-100) mg/dL Lactic Acid 5.10 H* (0.7-2.0) mmol/L AST (5-40) units/L ALT (7-56) units/L Total Creatine Kinase 913 H (55-170) units/L CK-MB (CK-2) 9.6 H (0.0-4.0) ng/mL Total Protein (6.3-8.2) g/dL 04/09/18 04/09/18 04/09/18 Range/Units 11:36 12:24 18:11 Hct (35.5-45.6) % MCV (84-94) fl MCHC (32-34) % Plt Count (140-440) K/mm3 PT (12.2-14.9) Sec. APTT (24.2-36.6) Sec. POC ABG pH 7.282 L (7.35-7.45) POC ABG pCO2 55.1 H (35-45) POC ABG pO2 160 H (80-105) VBG pH 7.296 L (7.320-7.420) Sodium (137-145) mmol/L Carbon Dioxide (22-30) mmol/L Glucose (75-100) mg/dL Lactic Acid (0.7-2.0) mmol/L AST (5-40) units/L ALT (7-56) units/L Total Creatine Kinase (55-170) units/L CK-MB (CK-2) (0.0-4.0) ng/mL Total Protein (6.3-8.2) g/dL Assessment and Plan - Patient Problems (1) Sepsis Current Visit: Yes Status: Acute Qualifiers: Sepsis type: sepsis due to unspecified organism Qualified Code(s): A41.9 - Sepsis, unspecified organism Plan to address problem: IV antibiotic therapy, serial lactic acid, monitor uop q shift, blood cultures, urinalysis, CBC, CMP, chest x ray, urinalysis, Lumbar Puncture, The high probability of a clinically significant, sudden or life threatening deterioration of the [neuro, respiratory, pulmonary] system(s) required my full and direct attention, intervention and personal management. The aggregate critical care time was [65] minutes. This time is in addition to time spent performing reported procedures but includes the following: [x] Data Review and interpretation [x] Patient assessment and monitoring of vital signs [x] Documentation [x] Medication orders and management (2) Respiratory failure Current Visit: Yes Status: Acute Qualifiers: Chronicity: acute Respiratory failure complication: hypoxia Qualified Code(s): J96.01 - Acute respiratory failure with hypoxia Plan to address problem: Pt intubated, placed on vent support, ABG, Pulmonary team consulted, chest x ray, wean vent as tolerated, daily SBT, sedation holiday, pulse oximetry, (3) Acidosis Current Visit: Yes Status: Acute Plan to address problem: IVF resuscitation therapy, monitor serial lactic acid level (4) Encephalopathy Current Visit: Yes Status: Acute Plan to address problem: CT Head, neuro check, Lumbar puncture, IV antibiotic therapy. treat sepsis, neuro checks, (5) EtOH dependence Current Visit: Yes Status: Chronic Qualifiers: Complication of substance-induced condition: with unspecified complication Plan to address problem: CIWA protocol, banana bag, supportive care. (6) DVT prophylaxis Current Visit: No Status: Acute Plan to address problem: SCD to BLE while in bed.
--- NOTE | 2018-04-09 19:56 | Consultation ---
History of Present Illness Consult date: 04/09/18 Requesting physician: URBANO SANDERS Reason for consult: other (Acute Hypoxemic Respiratory Failure on MVS) History of present illness: PCCM Consult note (Full dictation # [id number]) Please see dictated notes for full details Medications and Allergies Allergies Allergy/AdvReac Type Severity Reaction Status Date / Time No Known Allergies Allergy Verified 10/24/14 23:18 Home Medications Medication Instructions Recorded Confirmed Last Taken Type Unobtainable 04/09/18 04/09/18 Unknown History Active Meds: Active Medications Hydrophilic Ointment (Vaseline Lip Therapy) 1 applic TP Q2HR PRN PRN Reason: Dry Lips Propofol (Diprivan 10 Mg/Ml) 1,000 mg in 100 mls @ 3.078 mls/hr IV TITR MINGO; Protocol Last Titration: 04/09/18 11:50 Dose: 50 mcg/kg/min, 30.78 mls/hr Documented by: Multi-Ingred Cream/Lotion/Oil/Oint (Artificial Tears Ophth Oint) 1 applic OU Q4HR PRN PRN Reason: Dry Eye(s) Physical Examination Vital signs: Vital Signs Pulse Resp BP 131 H 26 H 176/96 04/09/18 10:00 04/09/18 10:00 04/09/18 10:00 Results - Laboratory Findings CBC and BMP: 04/10/18 08:24 04/10/18 08:24 ABG POC ABG pH 7.397 (7.35-7.45) 04/09/18 18:11 POC ABG pCO2 39.6 (35-45) 04/09/18 18:11 POC ABG pO2 160 (80-105) H 04/09/18 18:11 POC ABG HCO3 24.4 04/09/18 18:11 POC ABG Total CO2 26 04/09/18 18:11 POC ABG O2 Sat 99 04/09/18 18:11 PT/INR, D-dimer PT 15.1 Sec. (12.2-14.9) H 04/09/18 10:38 INR 1.12 (0.87-1.13) 04/09/18 10:38 Abnormal lab findings: Abnormal Labs 04/09/18 04/09/18 04/09/18 10:15 10:15 10:15 Hct 47.9 H MCV 102 H MCHC 31 L Plt Count 134 L PT APTT POC ABG pH POC ABG pCO2 POC ABG pO2 VBG pH Sodium 146 H Carbon Dioxide 7 L* Glucose 160 H Lactic Acid AST 184 H ALT 116 H Total Creatine Kinase CK-MB (CK-2) Total Protein 8.8 H 04/09/18 04/09/18 04/09/18 10:38 10:57 11:36 Hct MCV MCHC Plt Count PT 15.1 H APTT 24.1 L POC ABG pH POC ABG pCO2 POC ABG pO2 VBG pH Sodium Carbon Dioxide Glucose Lactic Acid 5.10 H* AST ALT Total Creatine Kinase 913 H CK-MB (CK-2) 9.6 H Total Protein 04/09/18 04/09/18 04/09/18 11:36 12:24 18:11 Hct MCV MCHC Plt Count PT APTT POC ABG pH 7.282 L POC ABG pCO2 55.1 H POC ABG pO2 160 H VBG pH 7.296 L Sodium Carbon Dioxide Glucose Lactic Acid AST ALT Total Creatine Kinase CK-MB (CK-2) Total Protein
[2018-04-09] MEDS ORDERED: SODIUM CHLORIDE FLUSH SYRINGE 10 ML IV PRN (19:57)
[2018-04-09] MEDS ORDERED: NACL 0.9% 1000 ML IV ONE (19:57)
[2018-04-09] MEDS ORDERED: PROVENTIL IH PRN (19:57)
[2018-04-09 20:40] LABS: Appearance,CSF Clear; Red Blood Cell,CSF 63 /mm3 (0-0); White Blood Cell,CSF 1 /mm3 (1-10)
[2018-04-09 20:41] LABS: Appearance,CSF Hazy
[2018-04-09 20:42] LABS: Red Blood Cell,CSF 1675 /mm3 (0-0)
[2018-04-09 20:43] LABS: White Blood Cell,CSF 3 /mm3 (1-10)
[2018-04-09 21:02] LABS: Total Cells Counted 5 /mm3
[2018-04-09 21:04] LABS: Total Cells Counted 5 /mm3
[2018-04-09 21:06] LABS: Basophils CSF 0 %
[2018-04-09 21:07] LABS: Basophils CSF 0 %
[2018-04-09] MEDS ORDERED: NACL 0.9% 1000 ML 3,000 ML ONE (22:18)
[2018-04-09] MEDS: SODIUM CHLORIDE FLUSH SYRINGE 10 ML IV SCH (22:20)
[2018-04-09] MEDS ORDERED: QUELICIN ONE (22:53)
[2018-04-10] MEDS: LOPRESSOR IV PRN ×3 (01:19→11:13)
[2018-04-10] MEDS: DIPRIVAN 10 MG/ML 1,000 MG/100 ML BOTTLE IV SCH ×3 (03:06→17:22)
[2018-04-10] MEDS: PEPCID IV SCH ×2 (10:27→22:07)
[2018-04-10] MEDS: SODIUM CHLORIDE FLUSH SYRINGE 10 ML IV SCH ×2 (10:28→22:13)
[2018-04-10] MEDS: ROCEPHIN/NS 2 GM/100 ML 2 GM/100 ML BAG IV SCH (10:28)
[2018-04-10 11:01] LABS: Hematocrit 41.2 % (35.5-45.6); Hemoglobin 13.7 gm/dl (11.8-15.2); Mean Corpuscular HGB Conc 33 % (32-34); Mean Corpuscular Volume 96 fl (84-94); Red Blood Count 4.29 M/mm3 (3.65-5.03); Red Cell Distribution Width 13.4 % (13.2-15.2)
[2018-04-10 11:18] LABS: Alanine Aminotransferase 78 units/L (7-56); Albumin 3.7 g/dL (3.9-5); BUN/Creatinine Ratio 16; Blood Urea Nitrogen 14 mg/dL (9-20); Calcium 8.9 mg/dL (8.4-10.2); Hemolysis Index 29
[2018-04-10 11:43] LABS: Basophils % (Manual) 0 % (0.0-1.8); Eosinophils % (Manual) 0 % (0.0-4.3); Total Cells Counted 100
[2018-04-10 11:47] LABS: Anisocytosis 1+; Macrocytosis 1+
[2018-04-10 11:48] LABS: Ovalocytes Few; Platelet Estimate Consistent w Auto; Poikilocytosis 1+; Smudge Cells Few; Tear Drop Cells Few
[2018-04-10 11:49] LABS: Mean Platelet Volume 8.7 fl (6-12); Platelet Count 96 K/mm3 (140-440)
--- NOTE | 2018-04-10 11:57 | Progress Note ---
Assessment and Plan Assessment and plan: SIRS/Suspected sepsis -exact source of infection unknown -Urinalysis and chest x-ray negative -On IV antibiotic with Rocephin -Off vancomycin since CSF analysis not indicative of bacterial meningitis -CSF culture negative so far -Blood and sputum cultures pending Acute respiratory failure with hypoxia and hypercapnea -s/p intubation and on MV -Pulmonology following Acute alcohol withdrawal -On CIWA protocol Seizure disorder with breakthrough seizure -Seizure likely 2/2 to alcohol withdrawal -On propofol drip Lactic acidosis -Probably secondary to the seizures -Level trended down Hypernatremia -Improved, will monitor Severe acute metabolic acidosis -Resolved Uncontrolled hypertension -On when necessary antihypertensives History of right upper extremity DVT -Home anticoagulation to be reconciled when available History of cirrhosis/hepatitis -For outpatient follow-up History of alcohol dependence -Cessation recommended GI prophylaxis with Protonix Disp: pt remains critical. Cont management in the ICU TIME SPENT: 38 minutes History Interval history: Patient is intubated and sedated. Hospitalist Physical - Constitutional Vitals: Temp Pulse Resp BP Pulse Ox 98.9 F 79 20 172/111 100 04/10/18 02:52 04/10/18 11:13 04/10/18 09:02 04/10/18 11:13 04/10/18 10:21 General appearance: Present: no acute distress, other (patient is intubated and sedated) - EENT Eyes: Present: PERRL, EOM intact ENT: other (patient is intubated) - Neck Neck: Present: supple - Respiratory Respiratory: bilateral: CTA - Cardiovascular Rhythm: regular Heart Sounds: Present: S1 & S2 - Extremities Extremities: No edema - Abdominal General gastrointestinal: soft, non-tender, normal bowel sounds - Neurologic Neurologic: other (patient is intubated and sedated but opens eyes intermittently) Results - Labs CBC & Chem 7: 04/10/18 08:24 04/10/18 08:24 Labs: Laboratory Last Values WBC 4.5 K/mm3 (4.5-11.0) 04/10/18 08:24 RBC 4.29 M/mm3 (3.65-5.03) 04/10/18 08:24 Hgb 13.7 gm/dl (11.8-15.2) 04/10/18 08:24 Hct 41.2 % (35.5-45.6) D 04/10/18 08:24 MCV 96 fl (84-94) H 04/10/18 08:24 MCH 32 pg (28-32) 04/10/18 08:24 MCHC 33 % (32-34) 04/10/18 08:24 RDW 13.4 % (13.2-15.2) 04/10/18 08:24 Plt Count 96 K/mm3 (140-440) L 04/10/18 08:24 Lymph % (Auto) Facing [place]aster 04/10/18 08:24 [place] % (Auto) Facing Baster 04/10/18 08:24 Eos % (Auto) Facing [place]aster 04/10/18 08:24 Baso % (Auto) Facing [place]aster 04/10/18 08:24 Lymph # Facing [place]aster 04/10/18 08:24 [place] # Facing Baster 04/10/18 08:24 Eos # Facing [place]aster 04/10/18 08:24 Baso # Facing [place]aster 04/10/18 08:24 Add Manual Diff Complete 04/10/18 08:24 Total Counted 100 04/10/18 08:24 Seg Neutrophils % Facing [place] 04/10/18 08:24 Seg Neuts % (Manual) 69.0 % (40.0-70.0) 04/10/18 08:24 Band Neutrophils % 0 % 04/10/18 08:24 Lymphocytes % (Manual) 16.0 % (13.4-35.0) 04/10/18 08:24 Reactive Lymphs % (Man) 3.0 % 04/10/18 08:24 Monocytes % (Manual) 12.0 % (0.0-7.3) H 04/10/18 08:24 Eosinophils % (Manual) 0 % (0.0-4.3) 04/10/18 08:24 Basophils % (Manual) 0 % (0.0-1.8) 04/10/18 08:24 Metamyelocytes % 0 % 04/10/18 08:24 Myelocytes % 0 % 04/10/18 08:24 Promyelocytes % 0 % 04/10/18 08:24 Blast Cells % 0 % 04/10/18 08:24 Nucleated RBC % Not Reportable 04/10/18 08:24 Seg Neutrophils # Facing [place] 04/10/18 08:24 Seg Neutrophils # Man 3.1 K/mm3 (1.8-7.7) 04/10/18 08:24 Band Neutrophils # 0.0 K/mm3 04/10/18 08:24 Lymphocytes # (Manual) 0.7 K/mm3 (1.2-5.4) L 04/10/18 08:24 Abs React Lymphs (Man) 0.1 K/mm3 04/10/18 08:24 Monocytes # (Manual) 0.5 K/mm3 (0.0-0.8) 04/10/18 08:24 Eosinophils # (Manual) 0.0 K/mm3 (0.0-0.4) 04/10/18 08:24 Basophils # (Manual) 0.0 K/mm3 (0.0-0.1) 04/10/18 08:24 Metamyelocytes # 0.0 K/mm3 04/10/18 08:24 Myelocytes # 0.0 K/mm3 04/10/18 08:24 Promyelocytes # 0.0 K/mm3 04/10/18 08:24 Blast Cells # 0.0 K/mm3 04/10/18 08:24 WBC Morphology Not Reportable 04/10/18 08:24 Hypersegmented Neuts Not Reportable 04/10/18 08:24 Hyposegmented Neuts Not Reportable 04/10/18 08:24 Hypogranular Neuts Not Reportable 04/10/18 08:24 Smudge Cells Few 04/10/18 08:24 Toxic Granulation Not Reportable 04/10/18 08:24 Toxic Vacuolation Not Reportable 04/10/18 08:24 Dohle Bodies Not Reportable 04/10/18 08:24 Pelger-Huet Anomaly Not Reportable 04/10/18 08:24 [place]o Rods Not Reportable 04/10/18 08:24 Platelet Estimate Consistent w auto 04/10/18 08:24 Clumped Platelets Not Reportable 04/10/18 08:24 Plt Clumps, EDTA Not Reportable 04/10/18 08:24 Large Platelets Not Reportable 04/10/18 08:24 Giant Platelets Not Reportable 04/10/18 08:24 Platelet Satelliting Not Reportable 04/10/18 08:24 Plt Morphology Comment Not Reportable 04/10/18 08:24 RBC Morphology Not Reportable 04/10/18 08:24 Dimorphic RBCs Not Reportable 04/10/18 08:24 Polychromasia Not Reportable 04/10/18 08:24 Hypochromasia Not Reportable 04/10/18 08:24 Poikilocytosis 1+ 04/10/18 08:24 Anisocytosis 1+ 04/10/18 08:24 Microcytosis Not Reportable 04/10/18 08:24 Macrocytosis 1+ 04/10/18 08:24 Spherocytes Not Reportable 04/10/18 08:24 Pappenheimer Bodies Not Reportable 04/10/18 08:24 Sickle Cells Not Reportable 04/10/18 08:24 Target Cells Not Reportable 04/10/18 08:24 Tear Drop Cells Few 04/10/18 08:24 Ovalocytes Few 04/10/18 08:24 Helmet Cells Not Reportable 04/10/18 08:24 [place] Bodies Not Reportable 04/10/18 08:24 [place] Rings Not Reportable 04/10/18 08:24 [place] Cells Not Reportable 04/10/18 08:24 Bite Cells Not Reportable 04/10/18 08:24 Crenated Cell Not Reportable 04/10/18 08:24 Elliptocytes Not Reportable 04/10/18 08:24 Acanthocytes (Spur) Not Reportable 04/10/18 08:24 Rouleaux Not Reportable 04/10/18 08:24 Hemoglobin C Crystals Not Reportable 04/10/18 08:24 Schistocytes Not Reportable 04/10/18 08:24 Malaria parasites Not Reportable 04/10/18 08:24 Angus Bodies Not Reportable 04/10/18 08:24 Hem Pathologist Commnt No 04/10/18 08:24 PT 15.1 Sec. (12.2-14.9) H 04/09/18 10:38 INR 1.12 (0.87-1.13) 04/09/18 10:38 APTT 24.1 Sec. (24.2-36.6) L 04/09/18 10:38 POC ABG pH 7.450 (7.35-7.45) 04/10/18 04:42 POC ABG pCO2 32.7 (35-45) L 04/10/18 04:42 POC ABG pO2 117 (80-105) H 04/10/18 04:42 POC ABG HCO3 22.8 04/10/18 04:42 POC ABG Total CO2 24 04/10/18 04:42 POC ABG O2 Sat 99 04/10/18 04:42 POC ABG Base Excess -1 04/10/18 04:42 VBG pH 7.296 (7.320-7.420) L 04/09/18 11:36 FiO2 30 % 04/10/18 04:42 Sodium 141 mmol/L (137-145) 04/10/18 08:24 Potassium 3.7 mmol/L (3.6-5.0) D 04/10/18 08:24 Chloride 105.7 mmol/L (98-107) 04/10/18 08:24 Carbon Dioxide 21 mmol/L (22-30) L 04/10/18 08:24 Anion Gap 18 mmol/L 04/10/18 08:24 BUN 14 mg/dL (9-20) 04/10/18 08:24 Creatinine 0.9 mg/dL (0.8-1.5) 04/10/18 08:24 Estimated GFR > 60 ml/min 04/10/18 08:24 BUN/Creatinine Ratio 16 % 04/10/18 08:24 Glucose 92 mg/dL (75-100) 04/10/18 08:24 Lactic Acid 1.80 mmol/L (0.7-2.0) 04/10/18 01:25 Calcium 8.9 mg/dL (8.4-10.2) 04/10/18 08:24 Magnesium 2.20 mg/dL (1.7-2.3) 04/09/18 10:15 Total Bilirubin 0.80 mg/dL (0.1-1.2) 04/10/18 08:24 Direct Bilirubin 0.2 mg/dL (0-0.2) 04/09/18 10:15 Indirect Bilirubin 0.2 mg/dL 04/09/18 10:15 AST 101 units/L (5-40) H 04/10/18 08:24 ALT 78 units/L (7-56) H 04/10/18 08:24 Alkaline Phosphatase 52 units/L (35-129) 04/10/18 08:24 Total Creatine Kinase 913 units/L (55-170) H 04/09/18 10:57 CK-MB (CK-2) 9.6 ng/mL (0.0-4.0) H 04/09/18 10:57 CK-MB (CK-2) Rel Index 1.0 (0-4) 04/09/18 10:57 Total Protein 6.9 g/dL (6.3-8.2) D 04/10/18 08:24 Albumin 3.7 g/dL (3.9-5) L 04/10/18 08:24 Albumin/Globulin Ratio 1.2 % 04/10/18 08:24 Urine Color Straw (Yellow) 04/09/18 11:15 Urine Turbidity Clear (Clear) 04/09/18 11:15 Urine pH 6.0 (5.0-7.0) 04/09/18 11:15 Ur Specific [place] 1.009 (1.003-1.030) 04/09/18 11:15 Urine Protein 100 mg/dl mg/dL (Negative) 04/09/18 11:15 Urine Glucose (UA) Neg mg/dL (Negative) 04/09/18 11:15 Urine Ketones Neg mg/dL (Negative) 04/09/18 11:15 Urine Blood Mod (Negative) 04/09/18 11:15 Urine Nitrite Neg (Negative) 04/09/18 11:15 Urine Bilirubin Neg (Negative) 04/09/18 11:15 Urine Urobilinogen < 2.0 mg/dL (<2.0) 04/09/18 11:15 Ur Leukocyte Esterase Neg (Negative) 04/09/18 11:15 Urine WBC (Auto) < 1.0 /HPF (0.0-6.0) 04/09/18 11:15 Urine RBC (Auto) 2.0 /HPF (0.0-6.0) 04/09/18 11:15 Urine Mucus Few /HPF 04/09/18 11:15 CSF Appearance Hazy 04/09/18 19:06 CSF Color [place] 04/09/18 19:06 CSF WBC 3 /mm3 (1-10) 04/09/18 19:06 CSF RBC 1675 /mm3 (0-0) 04/09/18 19:06 CSF Seg Neutrophils 40.0 % (0-6) 04/09/18 19:06 CSF Lymphocytes % 0 % (40-80) 04/09/18 19:06 CSF Reactive Lymphs 0 % 04/09/18 19:06 CSF Monocytes % 40.0 % (15-45) 04/09/18 19:06 CSF Eosinophils % 0 % 04/09/18 19:06 CSF Basophils 0 % 04/09/18 19:06 CSF Comment Less than 10 04/09/18 19:06 CSF Pathologist Review C 04/09/18 19:06 CSF Glucose 82 mg/dL 04/09/18 19:06 CSF Total Protein 88 mg/dL 04/09/18 19:06 Urine Opiates Screen Presumptive negative 04/09/18 11:15 Urine Methadone Screen Presumptive negative 04/09/18 11:15 Ur Barbiturates Screen Presumptive negative 04/09/18 11:15 Ur Phencyclidine Scrn Presumptive negative 04/09/18 11:15 Ur Amphetamines Screen Presumptive negative 04/09/18 11:15 U Benzodiazepines Scrn Presumptive negative 04/09/18 11:15 Urine Cocaine Screen Presumptive negative 04/09/18 11:15 U Marijuana (THC) Screen Presumptive negative 04/09/18 11:15 Drugs of Abuse Note Disclamer 04/09/18 11:15 Plasma/Serum Alcohol < 0.01 % (0-0.07) 04/09/18 11:36
[2018-04-10] MEDS ORDERED: APRESOLINE IV PRN (12:24)
[2018-04-10] MEDS ORDERED: fentaNYL DRIP Premix 2,000 MCG/100 ML BAG IV SCH (13:00)
[2018-04-10] MEDS ORDERED: PROTONIX IV SCH (13:00)
[2018-04-10] MEDS ORDERED: SIMPLE SYRUP FEEDTUBE PRN ×2 (14:58)
[2018-04-10] MEDS ORDERED: SODIUM BICARBONATE FEEDTUBE PRN (14:58)
[2018-04-10] MEDS: D5/0.45NS 1,000 ML IV SCH (14:58)
[2018-04-10] MEDS ORDERED: PANCREAZE DR 10,500 UNIT FEEDTUBE PRN (14:58)
--- NOTE | 2018-04-10 16:48 | XRay Report ---
FINAL REPORT EXAM: XR CHEST 1V AP HISTORY: follow up respiratory failure TECHNIQUE: Frontal chest radiograph. PRIORS: 05/11/2017. FINDINGS: The endotracheal tube tip projects in the mid thoracic trachea. The enteric tube tip lies off study. The cardiomediastinal silhouette is normal. No focal consolidation. No pleural effusion. No pneumothorax. No acute osseous abnormality. IMPRESSION: No acute cardiopulmonary process.
--- NOTE | 2018-04-10 18:47 | XRay Report ---
FINAL REPORT EXAM: XR ABDOMEN 1V AP HISTORY: for NGT placement TECHNIQUE: One view of the abdomen PRIORS: Portable chest 04/10/2018 FINDINGS: Distal tip gastric tube is present in the central upper abdomen, in the expected region of the mid st omach. It is coiled back on itself with side port projected in gastric antral region. Pneumoperitoneum: None visible. Visceromegaly: None visible. Mass: None visible. Abnormal calcification: Tiny nonspecific 2 mm calcification in right mid abdomen may be renal Intestinal gas pattern: Within normal limits Stool volume: Within normal limits IMPRESSION: Nonspecific bowel gas pattern without intestinal distention. Distal tip gastric tube is present in the central upper abdomen, in the expected region of the mid st omach. Nonspecific tiny 2 mm calcification in right mid abdomen may be renal
[2018-04-10] MEDS ORDERED: ATIVAN IV PRN ×2 (19:27)
[2018-04-10] MEDS ORDERED: TYLENOL PO PRN (19:27)
[2018-04-10] MEDS: ATIVAN IV PRN ×2 (19:55→21:55)
--- NOTE | 2018-04-10 20:06 | Progress Note ---
Assessment and Plan Acute hypoxemic respiratory failure. Seizure disorder, presumably secondary to alcohol withdrawal. Alcohol withdrawal. Early sepsis syndrome with the systemic inflammatory response syndrome. Hypernatremia. Lactic acidosis. Acute metabolic acidosis. Elevated serum transaminases. Elevated creatinine kinase. Acute encephalopathy. Obesity - get CRP level to aid clinical decision making / AB's de-escalation - begin Fentanyl GTT for RASS 0 to -1 - add CIWA protocol with IV ativan - begin enteral nutrition as tolerated - discontinue mcdonald catheter - reduce set rate to 12/min - resume eliquis re: DVT history - wean supplemental oxygen for O2 sats > 90% - continue bronchodilators with pulmonary hygiene per RT - VAP bundle addressed - daily SAT's - daily SBT's - PT/OT/ROM exercises - mobility protocol for pressure ulcer prophylaxis - continue GI prophylaxis - continue other care per attending / other consultants .... re-evaluate in am & prn The high probability of a clinically significant, sudden or life threatening deterioration of the [CVS, respiratory & neurologic system(s) required my full and direct attention, intervention and personal management. The aggregate critic al care time was [32] minutes. This time is in addition to time spent performing reported procedures but includes the following: [x] Data Review and interpretation [x] Patient assessment and monitoring of vital signs [x] Documentation [x] Medication orders and management Subjective Date of service: 04/10/18 Principal diagnosis: Ac Hypoxemic Resp Failure; Sz disorder; EtOH withdrawal; Ac Encephalopathy Interval history: Patient is seen today for: Acute hypoxemic respiratory failure; Seizure disorder (presumably secondary to alcohol withdrawal); Alcohol withdrawal; Early sepsis syndrome with SIRS; Hypernatremia; Lactic acidosis; Acute Encephalopathy Seen and examined at bedside; 24hour events reviewed; nursing and respiratory care staff consulted; no adverse overnight events reported to me; remains on MVS; intermittently agitated; no emesis or overt aspiration; no seizures reported; no gross bleeding; off vasopressors Objective Vital Signs - 12hr 04/10/18 04/10/18 04/10/18 08:15 08:30 08:45 Temperature Pulse Rate 62 63 62 Pulse Rate [ Right Dorsalis Pedis] Respiratory Rate Respiratory Rate [DEAN] Blood Pressure 127/91 127/91 121/86 O2 Sat by Pulse 97 97 99 Oximetry 04/10/18 04/10/18 04/10/18 09:01 09:02 09:15 Temperature Pulse Rate 72 70 78 Pulse Rate [ Right Dorsalis Pedis] Respiratory 15 20 11 L Rate Respiratory Rate [DEAN] Blood Pressure 172/97 172/96 175/106 O2 Sat by Pulse 100 100 Oximetry 04/10/18 04/10/18 04/10/18 09:30 09:45 10:00 Temperature Pulse Rate 82 76 73 Pulse Rate [ Right Dorsalis Pedis] Respiratory 18 15 14 Rate Respiratory 22 Rate [DEAN] Blood Pressure 185/110 191/115 180/113 O2 Sat by Pulse 100 100 100 Oximetry 04/10/18 04/10/18 04/10/18 10:15 10:21 10:30 Temperature Pulse Rate 79 72 77 Pulse Rate [ Right Dorsalis Pedis] Respiratory 14 22 Rate Respiratory Rate [DEAN] Blood Pressure 171/114 171/114 169/110 O2 Sat by Pulse 100 100 100 Oximetry 04/10/18 04/10/18 04/10/18 10:45 11:00 11:13 Temperature Pulse Rate 80 72 79 Pulse Rate [ Right Dorsalis Pedis] Respiratory 23 22 Rate Respiratory Rate [DEAN] Blood Pressure 176/113 165/111 172/111 O2 Sat by Pulse 100 100 Oximetry 04/10/18 04/10/18 04/10/18 11:15 11:30 11:45 Temperature Pulse Rate 75 67 70 Pulse Rate [ Right Dorsalis Pedis] Respiratory 22 22 21 Rate Respiratory Rate [DEAN] Blood Pressure 165/108 166/110 164/109 O2 Sat by Pulse 100 100 100 Oximetry 04/10/18 04/10/18 04/10/18 12:00 12:01 12:15 Temperature 100.5 F H Pulse Rate 65 68 Pulse Rate [ Right Dorsalis Pedis] Respiratory 22 22 22 Rate Respiratory Rate [DEAN] Blood Pressure 163/99 165/96 O2 Sat by Pulse 99 100 100 Oximetry 04/10/18 04/10/18 04/10/18 12:30 12:45 13:00 Temperature Pulse Rate 67 64 63 Pulse Rate [ Right Dorsalis Pedis] Respiratory 22 22 22 Rate Respiratory Rate [DEAN] Blood Pressure 174/99 169/103 171/100 O2 Sat by Pulse 100 100 100 Oximetry 04/10/18 04/10/18 04/10/18 13:15 13:30 13:45 Temperature Pulse Rate 67 67 74 Pulse Rate [ Right Dorsalis Pedis] Respiratory 22 22 18 Rate Respiratory Rate [DEAN] Blood Pressure 161/97 161/95 176/105 O2 Sat by Pulse 100 100 100 Oximetry 04/10/18 04/10/18 04/10/18 14:00 14:14 14:15 Temperature Pulse Rate 77 83 85 Pulse Rate [ Right Dorsalis Pedis] Respiratory 17 23 Rate Respiratory Rate [DEAN] Blood Pressure 173/103 216/125 162/77 O2 Sat by Pulse 100 98 Oximetry 04/10/18 04/10/18 04/10/18 14:30 14:45 15:00 Temperature Pulse Rate 105 H 109 H 107 H Pulse Rate [ Right Dorsalis Pedis] Respiratory 15 14 15 Rate Respiratory Rate [DEAN] Blood Pressure 156/92 180/109 170/95 O2 Sat by Pulse 99 99 99 Oximetry 04/10/18 04/10/18 04/10/18 15:15 15:23 15:30 Temperature Pulse Rate 108 H 118 H 107 H Pulse Rate [ Right Dorsalis Pedis] Respiratory 18 25 H Rate Respiratory Rate [DEAN] Blood Pressure 162/94 162/94 172/110 O2 Sat by Pulse 98 100 99 Oximetry 04/10/18 04/10/18 04/10/18 15:45 16:00 16:15 Temperature 101.4 F H Pulse Rate 110 H 112 H 107 H Pulse Rate [ 110 H Right Dorsalis Pedis] Respiratory 21 22 14 Rate Respiratory Rate [DEAN] Blood Pressure 182/99 182/89 166/97 O2 Sat by Pulse 99 99 98 Oximetry 04/10/18 04/10/18 04/10/18 16:30 16:45 17:00 Temperature Pulse Rate 113 H 114 H 114 H Pulse Rate [ Right Dorsalis Pedis] Respiratory 12 19 22 Rate Respiratory Rate [DEAN] Blood Pressure 162/92 169/98 177/95 O2 Sat by Pulse 98 97 97 Oximetry 04/10/18 04/10/18 04/10/18 17:15 17:30 17:45 Temperature Pulse Rate 120 H 112 H 130 H Pulse Rate [ Right Dorsalis Pedis] Respiratory 22 20 19 Rate Respiratory Rate [DEAN] Blood Pressure 161/74 161/67 161/67 O2 Sat by Pulse 96 97 99 Oximetry 04/10/18 04/10/18 04/10/18 17:48 18:00 18:15 Temperature Pulse Rate 114 H 117 H 123 H Pulse Rate [ 112 H Right Dorsalis Pedis] Respiratory 20 17 Rate Respiratory Rate [DEAN] Blood Pressure 171/93 163/85 159/84 O2 Sat by Pulse 99 99 99 Oximetry 04/10/18 04/10/18 04/10/18 18:30 18:45 19:00 Temperature Pulse Rate 115 H 122 H 119 H Pulse Rate [ Right Dorsalis Pedis] Respiratory 20 12 15 Rate Respiratory Rate [DEAN] Blood Pressure 152/77 141/69 145/65 O2 Sat by Pulse 97 99 98 Oximetry 04/10/18 04/10/18 04/10/18 19:15 19:35 19:36 Temperature 103 F H Pulse Rate 117 H 115 H Pulse Rate [ Right Dorsalis Pedis] Respiratory 16 Rate Respiratory Rate [DEAN] Blood Pressure 155/63 165/71 O2 Sat by Pulse 100 98 Oximetry 04/10/18 20:01 Temperature Pulse Rate Pulse Rate [ Right Dorsalis Pedis] Respiratory 23 Rate Respiratory Rate [DEAN] Blood Pressure O2 Sat by Pulse Oximetry Constitutional: appears uncomfortable, other (middle aged obese AAM, normocephalic and atraumatic with mildly increased respiratory effort) Eyes: non-icteric ENT: oropharynx moist, other (ETT 23 cm HUSEYIN) Neck: supple, no lymphadenopathy, no JVD, other (large neck circumference) Effort: mildly labored Ascultation: Bilateral: diminished breath sounds, rhonchi Percussion: Bilateral: not dull Cardiovascular: regular rate and rhythm Gastrointestinal: normoactive bowel sounds, soft, non-tender, non-distended, other (protuberant) Integumentary: rash Extremities: no cyanosis, pulses normal, no ischemia or petechiae, edema (trace) Neurologic: non-focal exam (grossly), CN II-XII normal, motor strength normal and, other (delirious) Psychiatric: other (unable to assess) CBC and BMP: 04/10/18 08:24 04/11/18 11:17 ABG, PT/INR, D-dimer: ABG POC ABG pH 7.450 (7.35-7.45) 04/10/18 04:42 POC ABG pCO2 32.7 (35-45) L 04/10/18 04:42 POC ABG pO2 117 (80-105) H 04/10/18 04:42 POC ABG HCO3 22.8 04/10/18 04:42 POC ABG Total CO2 24 04/10/18 04:42 POC ABG O2 Sat 99 04/10/18 04:42 PT/INR, D-dimer PT 15.1 Sec. (12.2-14.9) H 04/09/18 10:38 INR 1.12 (0.87-1.13) 04/09/18 10:38 Abnormal lab findings: Abnormal Labs 04/09/18 04/09/18 04/09/18 10:15 10:15 10:15 Hct 47.9 H MCV 102 H MCHC 31 L Plt Count 134 L Monocytes % (Manual) Lymphocytes # (Manual) PT APTT POC ABG pH POC ABG pCO2 POC ABG pO2 VBG pH Sodium 146 H Carbon Dioxide 7 L* Glucose 160 H Lactic Acid AST 184 H ALT 116 H Total Creatine Kinase CK-MB (CK-2) C-Reactive Protein Total Protein 8.8 H Albumin Salicylates Acetaminophen 04/09/18 04/09/18 04/09/18 10:38 10:57 11:36 Hct MCV MCHC Plt Count Monocytes % (Manual) Lymphocytes # (Manual) PT 15.1 H APTT 24.1 L POC ABG pH POC ABG pCO2 POC ABG pO2 VBG pH Sodium Carbon Dioxide Glucose Lactic Acid 5.10 H* AST ALT Total Creatine Kinase 913 H CK-MB (CK-2) 9.6 H C-Reactive Protein Total Protein Albumin Salicylates Acetaminophen 04/09/18 04/09/18 04/09/18 11:36 12:24 18:11 Hct MCV MCHC Plt Count Monocytes % (Manual) Lymphocytes # (Manual) PT APTT POC ABG pH 7.282 L POC ABG pCO2 55.1 H POC ABG pO2 160 H VBG pH 7.296 L Sodium Carbon Dioxide Glucose Lactic Acid AST ALT Total Creatine Kinase CK-MB (CK-2) C-Reactive Protein Total Protein Albumin Salicylates Acetaminophen 04/09/18 04/10/18 04/10/18 21:09 04:42 08:24 Hct MCV 96 H MCHC Plt Count 96 L Monocytes % (Manual) 12.0 H Lymphocytes # (Manual) 0.7 L PT APTT POC ABG pH POC ABG pCO2 32.7 L POC ABG pO2 143 H 117 H VBG pH Sodium Carbon Dioxide Glucose Lactic Acid AST ALT Total Creatine Kinase CK-MB (CK-2) C-Reactive Protein Total Protein Albumin Salicylates Acetaminophen 04/10/18 04/10/18 04/10/18 08:24 18:21 18:21 Hct MCV MCHC Plt Count Monocytes % (Manual) Lymphocytes # (Manual) PT APTT POC ABG pH POC ABG pCO2 POC ABG pO2 VBG pH Sodium Carbon Dioxide 21 L Glucose Lactic Acid AST 101 H ALT 78 H Total Creatine Kinase CK-MB (CK-2) C-Reactive Protein 2.70 H Total Protein Albumin 3.7 L Salicylates < 0.3 L Acetaminophen 04/10/18 18:21 Hct MCV MCHC Plt Count Monocytes % (Manual) Lymphocytes # (Manual) PT APTT POC ABG pH POC ABG pCO2 POC ABG pO2 VBG pH Sodium Carbon Dioxide Glucose Lactic Acid AST ALT Total Creatine Kinase CK-MB (CK-2) C-Reactive Protein Total Protein Albumin Salicylates Acetaminophen < 5.0 L Chest x-ray: image reviewed (ETT in good position; no focal infiltrate) Allied health notes reviewed: nursing
[2018-04-10] MEDS ORDERED: BENADRYL IV ONE (22:01)
[2018-04-10] MEDS ORDERED: SOLU-Medrol IV ONE (22:04)
[2018-04-10] MEDS: SOLU-Medrol IV SCH (22:12)
[2018-04-10] MEDS: ELIQUIS PO SCH (22:13)
--- NOTE | 2018-04-10 22:52 | Consultation ---
PULMONARY CRITICAL CARE CONSULT NOTE CONSULTING PHYSICIAN: Dr. Mcneal. REASON FOR CONSULTATION: Acute hypoxemic respiratory failure, on mechanical ventilator support. CHIEF COMPLAINT AND HISTORY OF PRESENT ILLNESS: The patient is a 58-year-old -[place] male with past medical history significant for alcohol dependence with intermittently severe withdrawal symptoms. He is also on therapeutic anticoagulation for right upper extremity deep venous thrombosis. He presented to the Emergency Room. Family has had witnessed the patient having a seizure in the morning. Emergency medical services were notified on their arrival, he was found to be postictal. He was transported to the ER. In the ED, he was diagnosed with alcohol withdrawal seizures as well as sepsis. He required intubation. He also did undergo a lumbar puncture in the Emergency Room and was treated empirically for meningitis. We were asked to see the patient in the Emergency Room. When I stopped by to see him, he was sedated on a propofol drip. No active seizures. I do not have any history of vomiting or overt aspiration. The patient's current tobacco use/abuse history is unknown. The above is as much of the history of presentation as I have. PAST MEDICAL HISTORY: DVT, hepatitis, hypertension, seizure disorder, and alcohol abuse. PAST SURGICAL HISTORY: He has had a PEG tube placed in the past. MEDICATIONS: He was on at the time I stopped by to see him were reviewed. Pertinent medications included the following: He was on a propofol drip going I think about 20 mcg per kilogram per minute. Rocephin 2 g IV daily, Pepcid 20 mg IV b.i.d., hydralazine 10 mg IV q.4 hours p.r.n. elevated blood pressure, and metoprolol 5 mg IV q.6 hours p.r.n. elevated blood pressure. ALLERGIES: No known drug allergies. DIET: Well-built gentleman, acute weight loss or gain history is unknown. FAMILY AND SOCIAL HISTORY: Lives in the community. He does have a history of alcohol abuse, tobacco use, or illicit drug use or abuse history is unknown. REVIEW OF SYSTEMS: Difficult to obtain secondary to the patient's medical and mental condition. Since he has been here, no gross hematochezia or melena, no gross hematuria, no hematemesis, no bloody tracheal secretions, no witnessed seizures in the intensive care unit. Review of systems is otherwise unobtainable. PHYSICAL EXAMINATION: VITAL SIGNS: At presentation in the Emergency Room, vital signs: His first temperature was 102.3 degrees Fahrenheit with a pulse of 120, respiratory rate of 15, blood pressure 179/122, O2 sats are 99%, inspired oxygen concentration at that time was not recorded. When I stopped by to see him, he was about 98% that was on the assist control mode of ventilation. Tidal volumes, I believe was 500, rate of 22 and PEEP of 6 with an FiO2 when I saw him of about 50%. GENERAL: He is a middle-aged -[place] male, somewhat chronically ill looking. HEENT: Normocephalic, intubated on the mechanical ventilator with mildly increased respiratory effort. Sedated. HEAD, EYES, EARS, NOSE AND THROAT: His left pupil of I believe his irregular and right pupil was about 3 mm, sluggishly reactive to light. Extraocular muscle movements could not be assessed. No thyromegaly, no gross jugular venous distention. Endotracheal tube was in place, taped at the lips around 23 cm. LUNGS: Auscultation of both lung cochran was significant for diminished bilateral breath sounds, faint inspiratory rales in the bases. No wheezing. HEART: Heart sounds 1 and 2 are heard at the time of my evaluation, regular rate and rhythm without rubs or murmurs. ABDOMEN: Soft, full, protuberant. Bowel sounds are positive, nontender. No palpable hepatosplenomegaly. EXTREMITIES: Without overt digital clubbing or cyanosis. He had trace pedal edema. Dorsalis pedis pulses are palpable bilaterally. NEUROLOGIC: Again pupils were as described above. Irregular on the left and about 3 mm on the right, sluggishly reactive to light. Extraocular muscle movements could not be assessed. He had some spontaneous movements to withdrawals to all extremities, but he was sedated at the time I saw him. The skin was of poor turgor without overt cellulitis or rash. LABORATORY DATA: From my review are as follows: Admission white cell count 8200, hemoglobin 15.0, hematocrit 47.9, and platelet count 134. INR 1.12. Initial blood gas showed a pH of 7.28, pCO2 of 55, pO2 of 96 and that was on 50% on the above-mentioned vent settings. Repeat gas has him in the normal range with a pH of 7.40, pCO2 of 40, pO2 of 160. Serum sodium was 146, potassium 4.0, chloride 101, bicarbonate 7, BUN was 12, creatinine 1.2, glucose 160. Lactic acid initially was 5.1. AST elevated at 184, ALT 116. CPK 913. No troponin was done. Urinalysis negative for nitrites and leukocyte esterase. Lumbar puncture was just about to be done. Urine drug screen presumptive negative. Plasma and serum alcohol levels were nondetectable. Two sets of blood cultures have been sent, no growth to date. Chest x-ray has been reviewed. ET tube is in good position about 4 cm above the helen. A very slight increase in interstitial markings at the worst, it is a lordotic film, no focal infiltrate that I can see. He also had a CT scan of his head done. I have reviewed the radiologist's interpretation, no acute intracranial process. Just chronic age-related changes. ASSESSMENT AND PLAN: 1. Acute hypoxemic respiratory failure. 2. Seizure disorder, presumably secondary to alcohol withdrawal. 3. Alcohol withdrawal. 4. Early sepsis syndrome with the systemic inflammatory response syndrome. 5. Hypernatremia. 6. Lactic acidosis. 7. Acute metabolic acidosis. 8. Elevated serum transaminases. 9. Elevated creatinine kinase. 10. Acute encephalopathy. 11. Obesity. PLAN: We will keep him on full mechanical ventilator support in the short time while continuing to wean oxygen to keep sats greater than or equal to about 90%. Ventilator-associated pneumonia bundle has been introduced. Bronchodilators will be scheduled in the short time and then p.r.n. thereafter. He will be continued on empiric antibiotic therapy. Infectious disease consultation will be at the behest of the attending physician. I will order a CRP level along with lactic acid level used to help make clinical decisions as well as deescalate antibiotics. Follow cultures. He has been placed on an acute alcohol withdrawal, CIWA protocol. Lactic acidosis is improving. Hypernatremia, free water will be given to try and get that under better control. The metabolic acidosis is improved. He does have a history of upper extremity DVT. We will consider resuming his anticoagulation. I believe he was on Eliquis at home and that will be restarted. I will order Tylenol and aspirin levels just to complete this workup. He will be placed on GI and DVT prophylaxis. Fentanyl will be added to help sedation with a target RASS scale of 0 to -1. Flu and pneumonia vaccination will be addressed per protocol. Thank you very much for the consult Dr. Mcneal. We will follow along and make further recommendations as picture progresses/becomes clearer. He is critically ill on life-sustaining interventions including mechanical ventilatory support at high risk of /deterioration. At this time, I have spent about 35-40 minutes of critical care time without overlap excluding any procedural time that may be necessary. I should mention enteral nutrition will be the feeding modality of choice. Oral antihypertensives will be started to control his blood pressure. JOB# [id number] [facility]/DALE MAE
--- NOTE | 2018-04-11 | Event Note ---
Date: 04/10/18 PATIENT NOTED BY NURSE ON DUTY TO HAVE BLISTERS ON LEFT FORE ARM WITH SWELLING OF LEFT UPPER EXTREMITY. PATIENT RECIVED I.V ROCEPHINE ON THE LEFT I.V SIGHT AND HAD I.V LINE SECURED WITH AN ADHESIVE TAPE DIFFERENT FROM THE ONE ON THE RIGHT FOREARM. EXAMINATION SHOWED STABLE VITAL SIGN WITH PATIENT INTUBATED, SEDATED AND MECHANICALLY VENTILATED. LEFT FOREARM HAD MULTIPLE BLISTERS AND SWOLLEN BUT FEELS WARM WITH NO COLOR CAHNGE AND NEUROVASCULAR SYSTEM INTACT. IMPRESSION: CONTACT DERMATITIS PLAN. 1. I.V SOLUMEDROL 125MG STAT THEN 60MG Q8H 2. I.V BENADRYL 50MG STAT 3. I. V PEPCID 20MG 4. REMOVAL OF ADHESIVE TAPE. 5. MOPNITORING OF VITAL SIGNS
[2018-04-11] MEDS: DIPRIVAN 10 MG/ML 1,000 MG/100 ML BOTTLE IV SCH (00:10)
[2018-04-11] MEDS: D5/0.45NS 1,000 ML IV SCH ×3 (01:02→22:16)
[2018-04-11] MEDS: SOLU-Medrol IV SCH ×5 (05:09→22:21)
--- NOTE | 2018-04-11 07:29 | XRay Report ---
FINAL REPORT PROCEDURE: XR CHEST 1V AP TECHNIQUE: Chest radiograph anteroposterior view. CPT 14341 HISTORY: follow up respiratory failure COMPARISON: 04/10/2018 FINDINGS: Heart: Normal. Mediastinum/Vessels: Normal. Lungs/Pleural space: Normal. Bony thorax: No acute osseous abnormality. Life support devices: ET tube is in the trachea approximately 5 centimeters above the helen. The NG tube is in the stomach.. IMPRESSION: There is no acute cardiopulmonary abnormality.. ET tube is in the trachea approximately 5 centimeters above the helen. The NG tube is in the stomach ..
[2018-04-11] MEDS: ROCEPHIN/NS 2 GM/100 ML 2 GM/100 ML BAG IV SCH (10:23)
[2018-04-11] MEDS: SODIUM CHLORIDE FLUSH SYRINGE 10 ML IV SCH ×2 (10:23→22:22)
[2018-04-11] MEDS: PEPCID IV SCH ×2 (10:23→22:22)
[2018-04-11] MEDS: ELIQUIS PO SCH ×2 (10:23→22:22)
[2018-04-11 11:42] LABS: BUN/Creatinine Ratio 20; Blood Urea Nitrogen 18 mg/dL (9-20); Calcium 9.4 mg/dL (8.4-10.2); Hemolysis Index 27
--- NOTE | 2018-04-11 13:50 | Progress Note ---
Assessment and Plan Assessment and plan: SIRS/Suspected sepsis -exact source of infection unknown -Urinalysis and chest x-ray negative -On IV antibiotic with Rocephin -Off vancomycin since CSF analysis not indicative of bacterial meningitis -CSF and blood cultures negative son far -sputum cultures positive for hadley albicans Acute respiratory failure with hypoxia and hypercapnea -s/p intubation and on MV -Pulmonology following Acute alcohol withdrawal -On CIWA protocol Seizure disorder with breakthrough seizure -Seizure likely 2/2 to alcohol withdrawal -On propofol drip Lactic acidosis -Probably secondary to the seizures -Level trended down Hypernatremia -Improved, will monitor Severe acute metabolic acidosis -Improved -We'll continue IV fluid and monitor Hypertension -Fairly controlled, amlodipine added -Continue PRN hydralazine History of right upper extremity DVT -on eliquis Probable allergic reaction on LT forearm -On IV steroid History of cirrhosis/hepatitis -For outpatient follow-up History of alcohol dependence -Cessation recommended Nutrition -On NG tube feeding GI prophylaxis with Famotidine Disp: Cont management in the ICU TIME SPENT: 35 minutes History Interval history: Patient is intubated and sedated. Overnight, he was noted to have blisters with swelling on his left forearm, probably reaction. He was placed on IV steroid. Hospitalist Physical - Constitutional Vitals: Temp Pulse Resp BP Pulse Ox 96.8 F L 75 16 152/80 100 04/11/18 12:00 04/11/18 11:31 04/11/18 11:31 04/11/18 11:31 04/11/18 11:31 General appearance: Present: no acute distress, other (patient is intubated and sedated) - EENT Eyes: Present: PERRL, EOM intact ENT: hearing intact, other (pt is intubated) - Neck Neck: Present: supple - Respiratory Respiratory effort: normal Respiratory: bilateral: CTA - Cardiovascular Rhythm: regular Heart Sounds: Present: S1 & S2 - Extremities Extremities: No edema (in BLE) Extremity abnormal: other (Blisters and swelling on the left forearm improving) - Abdominal General gastrointestinal: soft, non-tender, non-distended, normal bowel sounds - Neurologic Neurologic: other (patient is intubated and sedated but opens eyes to sternal rub) Results - Labs CBC & Chem 7: 04/10/18 08:24 04/11/18 11:17 Labs: Laboratory Last Values WBC 4.5 K/mm3 (4.5-11.0) 04/10/18 08:24 RBC 4.29 M/mm3 (3.65-5.03) 04/10/18 08:24 Hgb 13.7 gm/dl (11.8-15.2) 04/10/18 08:24 Hct 41.2 % (35.5-45.6) D 04/10/18 08:24 MCV 96 fl (84-94) H 04/10/18 08:24 MCH 32 pg (28-32) 04/10/18 08:24 MCHC 33 % (32-34) 04/10/18 08:24 RDW 13.4 % (13.2-15.2) 04/10/18 08:24 Plt Count 96 K/mm3 (140-440) L 04/10/18 08:24 Lymph % (Auto) [place]ene[place] 04/10/18 08:24 [place] % (Auto) Veneer Clipper 04/10/18 08:24 Eos % (Auto) [place]ene[place] 04/10/18 08:24 Baso % (Auto) [place]ene[place] 04/10/18 08:24 Lymph # [place] 04/10/18 08:24 [place] # Veneer Clipper 04/10/18 08:24 Eos # Veneer Clipper 04/10/18 08:24 Baso # [place] 04/10/18 08:24 Add Manual Diff Complete 04/10/18 08:24 Total Counted 100 04/10/18 08:24 Seg Neutrophils % [place] 04/10/18 08:24 Seg Neuts % (Manual) 69.0 % (40.0-70.0) 04/10/18 08:24 Band Neutrophils % 0 % 04/10/18 08:24 Lymphocytes % (Manual) 16.0 % (13.4-35.0) 04/10/18 08:24 Reactive Lymphs % (Man) 3.0 % 04/10/18 08:24 Monocytes % (Manual) 12.0 % (0.0-7.3) H 04/10/18 08:24 Eosinophils % (Manual) 0 % (0.0-4.3) 04/10/18 08:24 Basophils % (Manual) 0 % (0.0-1.8) 04/10/18 08:24 Metamyelocytes % 0 % 04/10/18 08:24 Myelocytes % 0 % 04/10/18 08:24 Promyelocytes % 0 % 04/10/18 08:24 Blast Cells % 0 % 04/10/18 08:24 Nucleated RBC % Not Reportable 04/10/18 08:24 Seg Neutrophils # Veneer Clipper 04/10/18 08:24 Seg Neutrophils # Man 3.1 K/mm3 (1.8-7.7) 04/10/18 08:24 Band Neutrophils # 0.0 K/mm3 04/10/18 08:24 Lymphocytes # (Manual) 0.7 K/mm3 (1.2-5.4) L 04/10/18 08:24 Abs React Lymphs (Man) 0.1 K/mm3 04/10/18 08:24 Monocytes # (Manual) 0.5 K/mm3 (0.0-0.8) 04/10/18 08:24 Eosinophils # (Manual) 0.0 K/mm3 (0.0-0.4) 04/10/18 08:24 Basophils # (Manual) 0.0 K/mm3 (0.0-0.1) 04/10/18 08:24 Metamyelocytes # 0.0 K/mm3 04/10/18 08:24 Myelocytes # 0.0 K/mm3 04/10/18 08:24 Promyelocytes # 0.0 K/mm3 04/10/18 08:24 Blast Cells # 0.0 K/mm3 04/10/18 08:24 WBC Morphology Not Reportable 04/10/18 08:24 Hypersegmented Neuts Not Reportable 04/10/18 08:24 Hyposegmented Neuts Not Reportable 04/10/18 08:24 Hypogranular Neuts Not Reportable 04/10/18 08:24 Smudge Cells Few 04/10/18 08:24 Toxic Granulation Not Reportable 04/10/18 08:24 Toxic Vacuolation Not Reportable 04/10/18 08:24 Dohle Bodies Not Reportable 04/10/18 08:24 Pelger-Huet Anomaly Not Reportable 04/10/18 08:24 Wicho Rods Not Reportable 04/10/18 08:24 Platelet Estimate Consistent w auto 04/10/18 08:24 Clumped Platelets Not Reportable 04/10/18 08:24 Plt Clumps, EDTA Not Reportable 04/10/18 08:24 Large Platelets Not Reportable 04/10/18 08:24 Giant Platelets Not Reportable 04/10/18 08:24 Platelet Satelliting Not Reportable 04/10/18 08:24 Plt Morphology Comment Not Reportable 04/10/18 08:24 RBC Morphology Not Reportable 04/10/18 08:24 Dimorphic RBCs Not Reportable 04/10/18 08:24 Polychromasia Not Reportable 04/10/18 08:24 Hypochromasia Not Reportable 04/10/18 08:24 Poikilocytosis 1+ 04/10/18 08:24 Anisocytosis 1+ 04/10/18 08:24 Microcytosis Not Reportable 04/10/18 08:24 Macrocytosis 1+ 04/10/18 08:24 Spherocytes Not Reportable 04/10/18 08:24 Pappenheimer Bodies Not Reportable 04/10/18 08:24 Sickle Cells Not Reportable 04/10/18 08:24 Target Cells Not Reportable 04/10/18 08:24 Tear Drop Cells Few 04/10/18 08:24 Ovalocytes Few 04/10/18 08:24 Helmet Cells Not Reportable 04/10/18 08:24 Nelson-Nichols Bodies Not Reportable 04/10/18 08:24 Baldwin Rings Not Reportable 04/10/18 08:24 Bienvenido Cells Not Reportable 04/10/18 08:24 Bite Cells Not Reportable 04/10/18 08:24 Crenated Cell Not Reportable 04/10/18 08:24 Elliptocytes Not Reportable 04/10/18 08:24 Acanthocytes (Spur) Not Reportable 04/10/18 08:24 Rouleaux Not Reportable 04/10/18 08:24 Hemoglobin C Crystals Not Reportable 04/10/18 08:24 Schistocytes Not Reportable 04/10/18 08:24 Malaria parasites Not Reportable 04/10/18 08:24 Angus Bodies Not Reportable 04/10/18 08:24 Hem Pathologist Commnt No 04/10/18 08:24 PT 15.1 Sec. (12.2-14.9) H 04/09/18 10:38 INR 1.12 (0.87-1.13) 04/09/18 10:38 APTT 24.1 Sec. (24.2-36.6) L 04/09/18 10:38 POC ABG pH 7.342 (7.35-7.45) L 04/11/18 04:19 POC ABG pCO2 41.1 (35-45) 04/11/18 04:19 POC ABG pO2 113 (80-105) H 04/11/18 04:19 POC ABG HCO3 22.2 04/11/18 04:19 POC ABG Total CO2 23 04/11/18 04:19 POC ABG O2 Sat 98 04/11/18 04:19 POC ABG Base Excess -3 04/11/18 04:19 VBG pH 7.296 (7.320-7.420) L 04/09/18 11:36 FiO2 30 % 04/11/18 04:19 Sodium 138 mmol/L (137-145) 04/11/18 11:17 Potassium 4.9 mmol/L (3.6-5.0) D 04/11/18 11:17 Chloride 102.8 mmol/L (98-107) 04/11/18 11:17 Carbon Dioxide 19 mmol/L (22-30) L 04/11/18 11:17 Anion Gap 21 mmol/L 04/11/18 11:17 BUN 18 mg/dL (9-20) 04/11/18 11:17 Creatinine 0.9 mg/dL (0.8-1.5) 04/11/18 11:17 Estimated GFR > 60 ml/min 04/11/18 11:17 BUN/Creatinine Ratio 20 % 04/11/18 11:17 Glucose 144 mg/dL (75-100) H 04/11/18 11:17 POC Glucose 97 (70-105) 04/10/18 18:04 Lactic Acid 1.80 mmol/L (0.7-2.0) 04/10/18 01:25 Calcium 9.4 mg/dL (8.4-10.2) 04/11/18 11:17 Phosphorus 2.60 mg/dL (2.5-4.5) 04/10/18 18:23 Magnesium 1.80 mg/dL (1.7-2.3) 04/10/18 18:23 Total Bilirubin 0.80 mg/dL (0.1-1.2) 04/10/18 08:24 Direct Bilirubin 0.2 mg/dL (0-0.2) 04/09/18 10:15 Indirect Bilirubin 0.2 mg/dL 04/09/18 10:15 AST 101 units/L (5-40) H 04/10/18 08:24 ALT 78 units/L (7-56) H 04/10/18 08:24 Alkaline Phosphatase 52 units/L (35-129) 04/10/18 08:24 Total Creatine Kinase 913 units/L (55-170) H 04/09/18 10:57 CK-MB (CK-2) 9.6 ng/mL (0.0-4.0) H 04/09/18 10:57 CK-MB (CK-2) Rel Index 1.0 (0-4) 04/09/18 10:57 Troponin T < 0.010 ng/mL (0.00-0.029) 04/10/18 18:21 C-Reactive Protein 2.70 mg/dL (0.00-1.30) H 04/10/18 18:21 Total Protein 6.9 g/dL (6.3-8.2) D 04/10/18 08:24 Albumin 3.7 g/dL (3.9-5) L 04/10/18 08:24 Albumin/Globulin Ratio 1.2 % 04/10/18 08:24 Urine Color Straw (Yellow) 04/09/18 11:15 Urine Turbidity Clear (Clear) 04/09/18 11:15 Urine pH 6.0 (5.0-7.0) 04/09/18 11:15 Ur Specific [place] 1.009 (1.003-1.030) 04/09/18 11:15 Urine Protein 100 mg/dl mg/dL (Negative) 04/09/18 11:15 Urine Glucose (UA) Neg mg/dL (Negative) 04/09/18 11:15 Urine Ketones Neg mg/dL (Negative) 04/09/18 11:15 Urine Blood Mod (Negative) 04/09/18 11:15 Urine Nitrite Neg (Negative) 04/09/18 11:15 Urine Bilirubin Neg (Negative) 04/09/18 11:15 Urine Urobilinogen < 2.0 mg/dL (<2.0) 04/09/18 11:15 Ur Leukocyte Esterase Neg (Negative) 04/09/18 11:15 Urine WBC (Auto) < 1.0 /HPF (0.0-6.0) 04/09/18 11:15 Urine RBC (Auto) 2.0 /HPF (0.0-6.0) 04/09/18 11:15 Urine Mucus Few /HPF 04/09/18 11:15 CSF Appearance Hazy 04/09/18 19:06 CSF Color [place] 04/09/18 19:06 CSF WBC 3 /mm3 (1-10) 04/09/18 19:06 CSF RBC 1675 /mm3 (0-0) 04/09/18 19:06 CSF Seg Neutrophils 40.0 % (0-6) 04/09/18 19:06 CSF Lymphocytes % 0 % (40-80) 04/09/18 19:06 CSF Reactive Lymphs 0 % 04/09/18 19:06 CSF Monocytes % 40.0 % (15-45) 04/09/18 19:06 CSF Eosinophils % 0 % 04/09/18 19:06 CSF Basophils 0 % 04/09/18 19:06 CSF Comment Less than 10 04/09/18 19:06 CSF Pathologist Review C 04/09/18 19:06 CSF Glucose 82 mg/dL 04/09/18 19:06 CSF Total Protein 88 mg/dL 04/09/18 19:06 Salicylates < 0.3 mg/dL (2.8-20.0) L 04/10/18 18:21 Urine Opiates Screen Presumptive negative 04/09/18 11:15 Urine Methadone Screen Presumptive negative 04/09/18 11:15 Acetaminophen < 5.0 ug/mL (10.0-30.0) L 04/10/18 18:21 Ur Barbiturates Screen Presumptive negative 04/09/18 11:15 Ur Phencyclidine Scrn Presumptive negative 04/09/18 11:15 Ur Amphetamines Screen Presumptive negative 04/09/18 11:15 U Benzodiazepines Scrn Presumptive negative 04/09/18 11:15 Urine Cocaine Screen Presumptive negative 04/09/18 11:15 U Marijuana (THC) Screen Presumptive negative 04/09/18 11:15 Drugs of Abuse Note Disclamer 04/09/18 11:15 Plasma/Serum Alcohol < 0.01 % (0-0.07) 04/09/18 11:36 Nutrition/Malnutrition Assess - Dietary Evaluation Nutrition/Malnutrition Findings: Nutrition Notes Start: 04/10/18 10:05 Freq: Status: Active Protocol: Document 04/10/18 10:05 CP (Rec: 04/10/18 12:27 CP [id number]) Co-Sign 04/10/18 10:05 LP Nutrition Notes Need for Assessment generated from: MD Order Initial or Follow up Assessment Current Diagnosis Sepsis Hypertension Respiratory Failure Other Pertinent Diagnosis Alcohol dependence, encephalopathy, schizophrenia, cirrhosis, acidosis Current Diet NPO Labs/Tests Reviewed Pertinent Medications Propofol Height 6 ft 1 in Weight 102.6 kg [place] Body Weight (kg) 83.63 BMI 29.8 Weight Status Overweight Subjective/Other Information RD consult for TF. Pt on vent. Thiamine supplement recommendation d/t alcohol dependence. Propofol was not running at time of visit. Percent of energy/protein needs met: 0%/0% Burn Absent Trauma Absent #1 Nutrition Diagnosis Inadequate oral intake Etiology Mechanical vent As Evidenced by Signs and Symptoms Acute RF, NPO status, TF consult Is patient on ventilator? Yes Is Patient Ambulatory and/or Out of Bed No REE-(Coleman-St. Jeor-confined to bed) [phone] Calculation Used for Recommendations [facility] Additional Notes PRO:123-205 g (1.2-2 g/kg) Fluids: 1mL/kcal Nutrition Intervention Change Diet Order: TF Nutrition Support: Osmolite 1.5 at 65 mL/hr. Kcal 2,340 Protein (gm) 98 Carbohydrates (gm) 318 Fat (gm) 77 Fluid (mL) 1,189 Fiber (gm) 0 Goal #1 TF to meet at least 80% of protein and energy needs Goal #2 TF tolerance Anticipated Discharge Needs: Unable to determine at this time Follow-Up By: 04/13/18 Additional Comments F/U: TF start and TF tolerance
[2018-04-11] MEDS: NORVASC FEEDTUBE SCH (16:03)
--- NOTE | 2018-04-11 16:49 | Progress Note ---
Assessment and Plan Acute hypoxemic respiratory failure. Seizure disorder, presumably secondary to alcohol withdrawal. Alcohol withdrawal. Early sepsis syndrome with the systemic inflammatory response syndrome. Hypernatremia. Lactic acidosis. Acute metabolic acidosis. Elevated serum transaminases. Elevated creatinine kinase. Acute encephalopathy. Obesity - CRP unremarkable; will stop empiric rocephin after 5 days - continue to target sedation for RASS 0 to -1 - continue CIWA protocol with IV ativan - continue enteral nutrition as tolerated - discontinued mcdonald catheter - reduce set rate to 12/min - resume eliquis re: DVT history - continue to wean supplemental oxygen for O2 sats > 90% - continue bronchodilators with pulmonary hygiene per RT - VAP bundle addressed - continue daily SAT's - continue daily SBT's - PT/OT/ROM exercises - mobility protocol for pressure ulcer prophylaxis - continue GI prophylaxis - continue other care per attending / other consultants ...... tentative extubation in am if continues to do well .... re-evaluate in am & prn The high probability of a clinically significant, sudden or life threatening deterioration of the [CVS, respiratory & neurologic system(s) required my full and direct attention, intervention and personal management. The aggregate critical care time was [34] minutes. This time is in addition to time spent performing reported procedures but includes the following: [x] Data Review and interpretation [x] Patient assessment and monitoring of vital signs [x] Documentation [x] Medication orders and management Subjective Date of service: 04/11/18 Principal diagnosis: Ac Hypoxemic Resp Failure; Sz disorder; EtOH withdrawal; Ac Encephalopathy Interval history: Patient is seen today for: Acute hypoxemic respiratory failure; Seizure disorder (presumably secondary to alcohol withdrawal); Alcohol withdrawal; Early sepsis syndrome with SIRS; Hypernatremia; Lactic acidosis; Acute Encephalopathy Seen and examined at bedside; 24hour events reviewed; nursing and respiratory care staff consulted; no adverse overnight events reported to me; remains on MVS; resting peacefully in bed; No N/V/F/C; tolerating SBT well but at Psupp of 12 cm H2O; no seizures; denies acute chest or other pain Objective Vital Signs - 12hr 04/11/18 04/11/18 04/11/18 05:01 05:15 05:23 Temperature Pulse Rate 52 L 52 L 52 L Pulse Rate [ Apical] Pulse Rate [ 112 H Right Dorsalis Pedis] Respiratory 15 17 20 Rate Blood Pressure 129/46 123/48 O2 Sat by Pulse 99 100 99 Oximetry 04/11/18 04/11/18 04/11/18 05:31 05:45 06:01 Temperature Pulse Rate 51 L 56 L 57 L Pulse Rate [ Apical] Pulse Rate [ Right Dorsalis Pedis] Respiratory 16 16 17 Rate Blood Pressure 108/38 123/60 110/36 O2 Sat by Pulse 99 99 99 Oximetry 04/11/18 04/11/18 04/11/18 06:15 06:31 06:45 Temperature Pulse Rate 54 L 54 L 51 L Pulse Rate [ Apical] Pulse Rate [ Right Dorsalis Pedis] Respiratory 17 19 17 Rate Blood Pressure 114/39 112/36 111/48 O2 Sat by Pulse 99 99 99 Oximetry 04/11/18 04/11/18 04/11/18 07:00 07:01 07:15 Temperature Pulse Rate 52 L 49 L Pulse Rate [ 52 L Apical] Pulse Rate [ Right Dorsalis Pedis] Respiratory 17 18 18 Rate Blood Pressure 123/45 123/45 O2 Sat by Pulse 100 99 99 Oximetry 04/11/18 04/11/18 04/11/18 07:31 07:45 08:00 Temperature 98.8 F Pulse Rate 55 L 55 L Pulse Rate [ Apical] Pulse Rate [ Right Dorsalis Pedis] Respiratory 17 16 Rate Blood Pressure 138/44 139/54 O2 Sat by Pulse 100 100 Oximetry 04/11/18 04/11/18 04/11/18 08:01 08:15 08:31 Temperature Pulse Rate 58 L 62 83 Pulse Rate [ Apical] Pulse Rate [ Right Dorsalis Pedis] Respiratory 14 20 13 Rate Blood Pressure 124/38 140/67 210/153 O2 Sat by Pulse 100 100 100 Oximetry 04/11/18 04/11/18 04/11/18 08:42 08:45 09:00 Temperature Pulse Rate 63 61 Pulse Rate [ 72 Apical] Pulse Rate [ Right Dorsalis Pedis] Respiratory 17 21 20 Rate Blood Pressure 161/67 175/88 O2 Sat by Pulse 100 100 100 Oximetry 04/11/18 04/11/18 04/11/18 09:01 09:15 09:31 Temperature Pulse Rate 63 66 65 Pulse Rate [ Apical] Pulse Rate [ Right Dorsalis Pedis] Respiratory 18 16 17 Rate Blood Pressure 160/64 155/71 166/73 O2 Sat by Pulse 100 100 100 Oximetry 04/11/18 04/11/18 04/11/18 09:45 10:00 10:01 Temperature Pulse Rate 72 66 67 Pulse Rate [ Apical] Pulse Rate [ Right Dorsalis Pedis] Respiratory 17 16 Rate Blood Pressure 156/63 160/58 O2 Sat by Pulse 100 Oximetry 04/11/18 04/11/18 04/11/18 10:15 10:31 10:45 Temperature Pulse Rate 66 68 77 Pulse Rate [ Apical] Pulse Rate [ Right Dorsalis Pedis] Respiratory 20 19 20 Rate Blood Pressure 142/53 162/63 162/63 O2 Sat by Pulse 100 100 100 Oximetry 04/11/18 04/11/18 04/11/18 11:00 11:01 11:15 Temperature Pulse Rate 74 69 Pulse Rate [ 69 Apical] Pulse Rate [ Right Dorsalis Pedis] Respiratory 16 19 17 Rate Blood Pressure 182/83 142/53 O2 Sat by Pulse 100 100 100 Oximetry 04/11/18 04/11/18 04/11/18 11:31 11:45 12:00 Temperature 96.8 F L Pulse Rate 74 73 Pulse Rate [ Apical] Pulse Rate [ Right Dorsalis Pedis] Respiratory 19 19 Rate Blood Pressure 152/80 152/80 O2 Sat by Pulse 100 100 Oximetry 04/11/18 04/11/18 04/11/18 12:01 12:15 12:31 Temperature Pulse Rate 72 86 73 Pulse Rate [ Apical] Pulse Rate [ Right Dorsalis Pedis] Respiratory 16 19 23 Rate Blood Pressure 159/69 159/69 159/69 O2 Sat by Pulse 100 100 100 Oximetry 04/11/18 04/11/18 04/11/18 12:45 13:00 13:01 Temperature Pulse Rate 74 75 Pulse Rate [ 63 Apical] Pulse Rate [ Right Dorsalis Pedis] Respiratory 13 15 14 Rate Blood Pressure 132/73 175/87 O2 Sat by Pulse 100 100 100 Oximetry 04/11/18 04/11/18 04/11/18 13:15 13:31 13:45 Temperature Pulse Rate 73 76 72 Pulse Rate [ Apical] Pulse Rate [ Right Dorsalis Pedis] Respiratory 12 18 18 Rate Blood Pressure 172/75 184/89 170/80 O2 Sat by Pulse 99 100 100 Oximetry 04/11/18 04/11/18 04/11/18 14:01 14:15 14:30 Temperature Pulse Rate 63 70 72 Pulse Rate [ Apical] Pulse Rate [ Right Dorsalis Pedis] Respiratory 16 15 19 Rate Blood Pressure 163/58 158/81 179/66 O2 Sat by Pulse 100 100 100 Oximetry 04/11/18 04/11/18 04/11/18 14:45 15:00 15:01 Temperature Pulse Rate 70 69 Pulse Rate [ 83 Apical] Pulse Rate [ Right Dorsalis Pedis] Respiratory 17 19 15 Rate Blood Pressure 183/69 144/77 O2 Sat by Pulse 100 100 100 Oximetry 04/11/18 04/11/18 04/11/18 15:15 15:30 15:45 Temperature Pulse Rate 72 68 67 Pulse Rate [ Apical] Pulse Rate [ Right Dorsalis Pedis] Respiratory 18 15 14 Rate Blood Pressure 164/76 134/85 134/85 O2 Sat by Pulse 100 100 100 Oximetry 04/11/18 04/11/18 16:00 16:03 Temperature 98.4 F Pulse Rate 69 78 Pulse Rate [ Apical] Pulse Rate [ Right Dorsalis Pedis] Respiratory 17 Rate Blood Pressure 158/74 158/74 O2 Sat by Pulse 100 Oximetry Constitutional: appears uncomfortable, other (middle aged obese AAM, normocephalic and atraumatic with mildly increased respiratory effort) Eyes: non-icteric ENT: oropharynx moist, other (ETT 23 cm HUSEYIN) Neck: supple, no lymphadenopathy, no JVD, other (large neck circumference) Effort: mildly labored Ascultation: Bilateral: diminished breath sounds, rhonchi Percussion: Bilateral: not dull Cardiovascular: regular rate and rhythm Gastrointestinal: normoactive bowel sounds, soft, non-tender, non-distended, other (protuberant) Integumentary: rash Extremities: no cyanosis, pulses normal, no ischemia or petechiae, edema (trace) Neurologic: non-focal exam (grossly), CN II-XII normal, motor strength normal and, other (delirious) Psychiatric: other (unable to assess) CBC and BMP: 04/10/18 08:24 04/11/18 11:17 ABG, PT/INR, D-dimer: ABG POC ABG pH 7.342 (7.35-7.45) L 04/11/18 04:19 POC ABG pCO2 41.1 (35-45) 04/11/18 04:19 POC ABG pO2 113 (80-105) H 04/11/18 04:19 POC ABG HCO3 22.2 04/11/18 04:19 POC ABG Total CO2 23 04/11/18 04:19 POC ABG O2 Sat 98 04/11/18 04:19 PT/INR, D-dimer PT 15.1 Sec. (12.2-14.9) H 04/09/18 10:38 INR 1.12 (0.87-1.13) 04/09/18 10:38 Abnormal lab findings: Abnormal Labs 04/09/18 04/09/18 04/09/18 10:15 10:15 10:15 Hct 47.9 H MCV 102 H MCHC 31 L Plt Count 134 L Monocytes % (Manual) Lymphocytes # (Manual) PT APTT POC ABG pH POC ABG pCO2 POC ABG pO2 VBG pH Sodium 146 H Carbon Dioxide 7 L* Glucose 160 H Lactic Acid AST 184 H ALT 116 H Total Creatine Kinase CK-MB (CK-2) C-Reactive Protein Total Protein 8.8 H Albumin Salicylates Acetaminophen 04/09/18 04/09/18 04/09/18 10:38 10:57 11:36 Hct MCV MCHC Plt Count Monocytes % (Manual) Lymphocytes # (Manual) PT 15.1 H APTT 24.1 L POC ABG pH POC ABG pCO2 POC ABG pO2 VBG pH Sodium Carbon Dioxide Glucose Lactic Acid 5.10 H* AST ALT Total Creatine Kinase 913 H CK-MB (CK-2) 9.6 H C-Reactive Protein Total Protein Albumin Salicylates Acetaminophen 04/09/18 04/09/18 04/09/18 11:36 12:24 18:11 Hct MCV MCHC Plt Count Monocytes % (Manual) Lymphocytes # (Manual) PT APTT POC ABG pH 7.282 L POC ABG pCO2 55.1 H POC ABG pO2 160 H VBG pH 7.296 L Sodium Carbon Dioxide Glucose Lactic Acid AST ALT Total Creatine Kinase CK-MB (CK-2) C-Reactive Protein Total Protein Albumin Salicylates Acetaminophen 04/09/18 04/10/18 04/10/18 21:09 04:42 08:24 Hct MCV 96 H MCHC Plt Count 96 L Monocytes % (Manual) 12.0 H Lymphocytes # (Manual) 0.7 L PT APTT POC ABG pH POC ABG pCO2 32.7 L POC ABG pO2 143 H 117 H VBG pH Sodium Carbon Dioxide Glucose Lactic Acid AST ALT Total Creatine Kinase CK-MB (CK-2) C-Reactive Protein Total Protein Albumin Salicylates Acetaminophen 04/10/18 04/10/18 04/10/18 08:24 18:21 18:21 Hct MCV MCHC Plt Count Monocytes % (Manual) Lymphocytes # (Manual) PT APTT POC ABG pH POC ABG pCO2 POC ABG pO2 VBG pH Sodium Carbon Dioxide 21 L Glucose Lactic Acid AST 101 H ALT 78 H Total Creatine Kinase CK-MB (CK-2) C-Reactive Protein 2.70 H Total Protein Albumin 3.7 L Salicylates < 0.3 L Acetaminophen 04/10/18 04/11/18 04/11/18 18:21 04:19 11:17 Hct MCV MCHC Plt Count Monocytes % (Manual) Lymphocytes # (Manual) PT APTT POC ABG pH 7.342 L POC ABG pCO2 POC ABG pO2 113 H VBG pH Sodium Carbon Dioxide 19 L Glucose 144 H Lactic Acid AST ALT Total Creatine Kinase CK-MB (CK-2) C-Reactive Protein Total Protein Albumin Salicylates Acetaminophen < 5.0 L Allied health notes reviewed: nursing
[2018-04-12] MEDS: SOLU-Medrol IV SCH ×2 (05:29→21:51)
[2018-04-12] MEDS: D5/0.45NS 1,000 ML IV SCH (09:05)
--- NOTE | 2018-04-12 10:02 | XRay Report ---
FINAL REPORT EXAM: XR CHEST 1V AP HISTORY: follow up respiratory failure TECHNIQUE: Frontal chest x-ray. PRIORS: Chest x-ray April 11, 2018. FINDINGS: Cardiac silhouette is within normal limits and unchanged. There is no effusion. There is no pneumothorax. There is no consolidation. There are no suspicious osseous lesions. Endotracheal tube tip is approximately 4.7 cm above the helen. Satisfactory. Enteric tube extends into the stomach with the tip beyond the margins of the film. IMPRESSION: No acute pulmonary findings. Stable exam.
--- NOTE | 2018-04-12 10:03 | XRay Report ---
FINAL REPORT EXAM: XR ABDOMEN 1V AP HISTORY: NGT PLACEMENT TECHNIQUE: Single view of the abdomen. PRIORS: None currently available. FINDINGS: Enteric tube tip is present in the proximal stomach. Side hole is near the GE junction. Bowel gas appearance is nonspecific and non-distended. There is no pneumoperitoneum. There is no air fluid level. There is no obstructive pattern. There are no suspicious calcifications overlying the renal shadows. IMPRESSION: Nonspecific nonobstructive bowel gas pattern. Advancement of the enteric tube is recommended. Malcom level II reporting initiated.
[2018-04-12] MEDS: SODIUM CHLORIDE FLUSH SYRINGE 10 ML IV SCH ×2 (10:08→21:51)
[2018-04-12] MEDS: ROCEPHIN/NS 2 GM/100 ML 2 GM/100 ML BAG IV SCH (10:18)
[2018-04-12] MEDS: PEPCID IV SCH ×2 (10:18→21:51)
--- NOTE | 2018-04-12 11:06 | XRay Report ---
FINAL REPORT EXAM: XR ABDOMEN 1V AP HISTORY: Tube placement TECHNIQUE: Single view of the abdomen. PRIORS: Abdomen x-ray April 12, 2018. FINDINGS: Enteric tube tip and side hole are present within the mid to distal stomach. Bowel gas appearance is nonspecific and non-distended. There is no pneumoperitoneum. There is no air fluid level. There is no obstructive pattern. Mild stool is present. There are no suspicious calcifications overlying the renal shadows. IMPRESSION: Nonspecific nonobstructive bowel gas pattern.
--- NOTE | 2018-04-12 12:19 | Progress Note ---
Assessment and Plan Assessment and plan: SIRS/Suspected sepsis -exact source of infection unknown -Urinalysis and chest x-ray negative -On IV antibiotic with Rocephin -Off vancomycin since CSF analysis not indicative of bacterial meningitis -CSF and blood cultures negative son far -sputum cultures positive for hadley albicans-insignificant Acute respiratory failure with hypoxia and hypercapnea -s/p intubation and on MV -Pulmonology following Acute alcohol withdrawal -On CIWA protocol Seizure disorder with breakthrough seizure -Seizure likely 2/2 to alcohol withdrawal -On propofol drip Lactic acidosis -Probably secondary to the seizures -Level trended down Hypernatremia -resolved Severe acute metabolic acidosis -Improved -We'll continue IV fluid and monitor Hypertension -BP improved -cont amlodipine, add meds as needed History of right upper extremity DVT -on eliquis Probable allergic reaction on LT forearm -On IV steroid Transaminitis -Likely secondary to alcohol abuse/cirrhosis History of cirrhosis/hepatitis -For outpatient follow-up History of alcohol dependence -Cessation recommended Nutrition -On NG tube feeding GI prophylaxis with Famotidine Disp: Cont management in the ICU. Discharge will depend on clinical course History Interval history: Patient is intubated and sedated. He continues to be on restraints. No other issues reported. Hospitalist Physical - Constitutional Vitals: Temp Pulse Resp BP Pulse Ox 99.0 F 81 18 156/68 98 04/12/18 12:00 04/12/18 11:49 04/12/18 11:49 04/12/18 11:49 04/12/18 11:49 General appearance: Present: no acute distress, other (patient is intubated and sedated but opens eyes to voice with mild agitation) - EENT Eyes: Present: PERRL, EOM intact ENT: hearing intact, clear oral mucosa - Neck Neck: Present: supple - Respiratory Respiratory effort: normal Respiratory: bilateral: CTA - Cardiovascular Rhythm: regular Heart Sounds: Present: S1 & S2 - Extremities Extremity abnormal: other (Blisters and swelling in LUE improving) - Abdominal General gastrointestinal: soft, non-tender, non-distended, normal bowel sounds - Neurologic Neurologic: other (patient is intubated and sedated but opens eyes to voice with mild agitation) Results - Labs CBC & Chem 7: 04/10/18 08:24 04/11/18 11:17 Labs: Laboratory Last Values WBC 4.5 K/mm3 (4.5-11.0) 04/10/18 08:24 RBC 4.29 M/mm3 (3.65-5.03) 04/10/18 08:24 Hgb 13.7 gm/dl (11.8-15.2) 04/10/18 08:24 Hct 41.2 % (35.5-45.6) D 04/10/18 08:24 MCV 96 fl (84-94) H 04/10/18 08:24 MCH 32 pg (28-32) 04/10/18 08:24 MCHC 33 % (32-34) 04/10/18 08:24 RDW 13.4 % (13.2-15.2) 04/10/18 08:24 Plt Count 96 K/mm3 (140-440) L 04/10/18 08:24 Lymph % (Auto) [employer] 04/10/18 08:24 [place] % (Auto) [employer] 04/10/18 08:24 Eos % (Auto) [employer] 04/10/18 08:24 Baso % (Auto) [employer] 04/10/18 08:24 Lymph # [employer] 04/10/18 08:24 [place] # [employer] 04/10/18 08:24 Eos # [employer] 04/10/18 08:24 Baso # [employer] 04/10/18 08:24 Add Manual Diff Complete 04/10/18 08:24 Total Counted 100 04/10/18 08:24 Seg Neutrophils % [employer] 04/10/18 08:24 Seg Neuts % (Manual) 69.0 % (40.0-70.0) 04/10/18 08:24 Band Neutrophils % 0 % 04/10/18 08:24 Lymphocytes % (Manual) 16.0 % (13.4-35.0) 04/10/18 08:24 Reactive Lymphs % (Man) 3.0 % 04/10/18 08:24 Monocytes % (Manual) 12.0 % (0.0-7.3) H 04/10/18 08:24 Eosinophils % (Manual) 0 % (0.0-4.3) 04/10/18 08:24 Basophils % (Manual) 0 % (0.0-1.8) 04/10/18 08:24 Metamyelocytes % 0 % 04/10/18 08:24 Myelocytes % 0 % 04/10/18 08:24 Promyelocytes % 0 % 04/10/18 08:24 Blast Cells % 0 % 04/10/18 08:24 Nucleated RBC % Not Reportable 04/10/18 08:24 Seg Neutrophils # [employer] 04/10/18 08:24 Seg Neutrophils # Man 3.1 K/mm3 (1.8-7.7) 04/10/18 08:24 Band Neutrophils # 0.0 K/mm3 04/10/18 08:24 Lymphocytes # (Manual) 0.7 K/mm3 (1.2-5.4) L 04/10/18 08:24 Abs React Lymphs (Man) 0.1 K/mm3 04/10/18 08:24 Monocytes # (Manual) 0.5 K/mm3 (0.0-0.8) 04/10/18 08:24 Eosinophils # (Manual) 0.0 K/mm3 (0.0-0.4) 04/10/18 08:24 Basophils # (Manual) 0.0 K/mm3 (0.0-0.1) 04/10/18 08:24 Metamyelocytes # 0.0 K/mm3 04/10/18 08:24 Myelocytes # 0.0 K/mm3 04/10/18 08:24 Promyelocytes # 0.0 K/mm3 04/10/18 08:24 Blast Cells # 0.0 K/mm3 04/10/18 08:24 WBC Morphology Not Reportable 04/10/18 08:24 Hypersegmented Neuts Not Reportable 04/10/18 08:24 Hyposegmented Neuts Not Reportable 04/10/18 08:24 Hypogranular Neuts Not Reportable 04/10/18 08:24 Smudge Cells Few 04/10/18 08:24 Toxic Granulation Not Reportable 04/10/18 08:24 Toxic Vacuolation Not Reportable 04/10/18 08:24 Dohle Bodies Not Reportable 04/10/18 08:24 Pelger-Huet Anomaly Not Reportable 04/10/18 08:24 Wicho Rods Not Reportable 04/10/18 08:24 Platelet Estimate Consistent w auto 04/10/18 08:24 Clumped Platelets Not Reportable 04/10/18 08:24 Plt Clumps, EDTA Not Reportable 04/10/18 08:24 Large Platelets Not Reportable 04/10/18 08:24 Giant Platelets Not Reportable 04/10/18 08:24 Platelet Satelliting Not Reportable 04/10/18 08:24 Plt Morphology Comment Not Reportable 04/10/18 08:24 RBC Morphology Not Reportable 04/10/18 08:24 Dimorphic RBCs Not Reportable 04/10/18 08:24 Polychromasia Not Reportable 04/10/18 08:24 Hypochromasia Not Reportable 04/10/18 08:24 Poikilocytosis 1+ 04/10/18 08:24 Anisocytosis 1+ 04/10/18 08:24 Microcytosis Not Reportable 04/10/18 08:24 Macrocytosis 1+ 04/10/18 08:24 Spherocytes Not Reportable 04/10/18 08:24 Pappenheimer Bodies Not Reportable 04/10/18 08:24 Sickle Cells Not Reportable 04/10/18 08:24 Target Cells Not Reportable 04/10/18 08:24 Tear Drop Cells Few 04/10/18 08:24 Ovalocytes Few 04/10/18 08:24 Helmet Cells Not Reportable 04/10/18 08:24 [place] Bodies Not Reportable 04/10/18 08:24 [place] Rings Not Reportable 04/10/18 08:24 [place] Cells Not Reportable 04/10/18 08:24 Bite Cells Not Reportable 04/10/18 08:24 Crenated Cell Not Reportable 04/10/18 08:24 Elliptocytes Not Reportable 04/10/18 08:24 Acanthocytes (Spur) Not Reportable 04/10/18 08:24 Rouleaux Not Reportable 04/10/18 08:24 Hemoglobin C Crystals Not Reportable 04/10/18 08:24 Schistocytes Not Reportable 04/10/18 08:24 Malaria parasites Not Reportable 04/10/18 08:24 Angus Bodies Not Reportable 04/10/18 08:24 Hem Pathologist Commnt No 04/10/18 08:24 PT 15.1 Sec. (12.2-14.9) H 04/09/18 10:38 INR 1.12 (0.87-1.13) 04/09/18 10:38 APTT 24.1 Sec. (24.2-36.6) L 04/09/18 10:38 POC ABG pH 7.406 (7.35-7.45) 04/12/18 04:29 POC ABG pCO2 37.0 (35-45) 04/12/18 04:29 POC ABG pO2 106 (80-105) H 04/12/18 04:29 POC ABG HCO3 23.2 04/12/18 04:29 POC ABG Total CO2 24 04/12/18 04:29 POC ABG O2 Sat 98 04/12/18 04:29 POC ABG Base Excess -1 04/12/18 04:29 VBG pH 7.296 (7.320-7.420) L 04/09/18 11:36 FiO2 30 % 04/12/18 04:29 Sodium 138 mmol/L (137-145) 04/11/18 11:17 Potassium 4.9 mmol/L (3.6-5.0) D 04/11/18 11:17 Chloride 102.8 mmol/L (98-107) 04/11/18 11:17 Carbon Dioxide 19 mmol/L (22-30) L 04/11/18 11:17 Anion Gap 21 mmol/L 04/11/18 11:17 BUN 18 mg/dL (9-20) 04/11/18 11:17 Creatinine 0.9 mg/dL (0.8-1.5) 04/11/18 11:17 Estimated GFR > 60 ml/min 04/11/18 11:17 BUN/Creatinine Ratio 20 % 04/11/18 11:17 Glucose 144 mg/dL (75-100) H 04/11/18 11:17 POC Glucose 97 (70-105) 04/10/18 18:04 Lactic Acid 1.80 mmol/L (0.7-2.0) 04/10/18 01:25 Calcium 9.4 mg/dL (8.4-10.2) 04/11/18 11:17 Phosphorus 2.60 mg/dL (2.5-4.5) 04/10/18 18:23 Magnesium 1.80 mg/dL (1.7-2.3) 04/10/18 18:23 Total Bilirubin 0.80 mg/dL (0.1-1.2) 04/10/18 08:24 Direct Bilirubin 0.2 mg/dL (0-0.2) 04/09/18 10:15 Indirect Bilirubin 0.2 mg/dL 04/09/18 10:15 AST 101 units/L (5-40) H 04/10/18 08:24 ALT 78 units/L (7-56) H 04/10/18 08:24 Alkaline Phosphatase 52 units/L (35-129) 04/10/18 08:24 Total Creatine Kinase 913 units/L (55-170) H 04/09/18 10:57 CK-MB (CK-2) 9.6 ng/mL (0.0-4.0) H 04/09/18 10:57 CK-MB (CK-2) Rel Index 1.0 (0-4) 04/09/18 10:57 Troponin T < 0.010 ng/mL (0.00-0.029) 04/10/18 18:21 C-Reactive Protein 2.70 mg/dL (0.00-1.30) H 04/10/18 18:21 Total Protein 6.9 g/dL (6.3-8.2) D 04/10/18 08:24 Albumin 3.7 g/dL (3.9-5) L 04/10/18 08:24 Albumin/Globulin Ratio 1.2 % 04/10/18 08:24 Urine Color Straw (Yellow) 04/09/18 11:15 Urine Turbidity Clear (Clear) 04/09/18 11:15 Urine pH 6.0 (5.0-7.0) 04/09/18 11:15 Ur Specific [place] 1.009 (1.003-1.030) 04/09/18 11:15 Urine Protein 100 mg/dl mg/dL (Negative) 04/09/18 11:15 Urine Glucose (UA) Neg mg/dL (Negative) 04/09/18 11:15 Urine Ketones Neg mg/dL (Negative) 04/09/18 11:15 Urine Blood Mod (Negative) 04/09/18 11:15 Urine Nitrite Neg (Negative) 04/09/18 11:15 Urine Bilirubin Neg (Negative) 04/09/18 11:15 Urine Urobilinogen < 2.0 mg/dL (<2.0) 04/09/18 11:15 Ur Leukocyte Esterase Neg (Negative) 04/09/18 11:15 Urine WBC (Auto) < 1.0 /HPF (0.0-6.0) 04/09/18 11:15 Urine RBC (Auto) 2.0 /HPF (0.0-6.0) 04/09/18 11:15 Urine Mucus Few /HPF 04/09/18 11:15 CSF Appearance Hazy 04/09/18 19:06 CSF Color [place] 04/09/18 19:06 CSF WBC 3 /mm3 (1-10) 04/09/18 19:06 CSF RBC 1675 /mm3 (0-0) 04/09/18 19:06 CSF Seg Neutrophils 40.0 % (0-6) 04/09/18 19:06 CSF Lymphocytes % 0 % (40-80) 04/09/18 19:06 CSF Reactive Lymphs 0 % 04/09/18 19:06 CSF Monocytes % 40.0 % (15-45) 04/09/18 19:06 CSF Eosinophils % 0 % 04/09/18 19:06 CSF Basophils 0 % 04/09/18 19:06 CSF Comment Less than 10 04/09/18 19:06 CSF Pathologist Review C 04/09/18 19:06 CSF Glucose 82 mg/dL 04/09/18 19:06 CSF Total Protein 88 mg/dL 04/09/18 19:06 Salicylates < 0.3 mg/dL (2.8-20.0) L 04/10/18 18:21 Urine Opiates Screen Presumptive negative 04/09/18 11:15 Urine Methadone Screen Presumptive negative 04/09/18 11:15 Acetaminophen < 5.0 ug/mL (10.0-30.0) L 04/10/18 18:21 Ur Barbiturates Screen Presumptive negative 04/09/18 11:15 Ur Phencyclidine Scrn Presumptive negative 04/09/18 11:15 Ur Amphetamines Screen Presumptive negative 04/09/18 11:15 U Benzodiazepines Scrn Presumptive negative 04/09/18 11:15 Urine Cocaine Screen Presumptive negative 04/09/18 11:15 U Marijuana (THC) Screen Presumptive negative 04/09/18 11:15 Drugs of Abuse Note Disclamer 04/09/18 11:15 Plasma/Serum Alcohol < 0.01 % (0-0.07) 04/09/18 11:36 Nutrition/Malnutrition Assess - Dietary Evaluation Nutrition/Malnutrition Findings: Nutrition Notes Start: 04/10/18 10:05 Freq: Status: Active Protocol: Document 04/10/18 10:05 CP (Rec: 04/10/18 12:27 CP [id number]) Co-Sign 04/10/18 10:05 LP Nutrition Notes Need for Assessment generated from: MD Order Initial or Follow up Assessment Current Diagnosis Sepsis Hypertension Respiratory Failure Other Pertinent Diagnosis Alcohol dependence, encephalopathy, schizophrenia, cirrhosis, acidosis Current Diet NPO Labs/Tests Reviewed Pertinent Medications Propofol Height 6 ft 1 in Weight 102.6 kg [place] Body Weight (kg) 83.63 BMI 29.8 Weight Status Overweight Subjective/Other Information RD consult for TF. Pt on vent. Thiamine supplement recommendation d/t alcohol dependence. Propofol was not running at time of visit. Percent of energy/protein needs met: 0%/0% Burn Absent Trauma Absent #1 Nutrition Diagnosis Inadequate oral intake Etiology Mechanical vent As Evidenced by Signs and Symptoms Acute RF, NPO status, TF consult Is patient on ventilator? Yes Is Patient Ambulatory and/or Out of Bed No REE-([facility]-confined to bed) [phone] Calculation Used for Recommendations [facility] Additional Notes PRO:123-205 g (1.2-2 g/kg) Fluids: 1mL/kcal Nutrition Intervention Change Diet Order: TF Nutrition Support: Osmolite 1.5 at 65 mL/hr. Kcal 2,340 Protein (gm) 98 Carbohydrates (gm) 318 Fat (gm) 77 Fluid (mL) 1,189 Fiber (gm) 0 Goal #1 TF to meet at least 80% of protein and energy needs Goal #2 TF tolerance Anticipated Discharge Needs: Unable to determine at this time Follow-Up By: 04/13/18 Additional Comments F/U: TF start and TF tolerance
[2018-04-12] MEDS: ELIQUIS PO SCH ×2 (14:13→21:51)
[2018-04-12] MEDS: NORVASC FEEDTUBE SCH (14:14)
--- NOTE | 2018-04-12 17:51 | Progress Note ---
Assessment and Plan Acute hypoxemic respiratory failure. Seizure disorder, presumably secondary to alcohol withdrawal. Alcohol withdrawal. Early sepsis syndrome with the systemic inflammatory response syndrome. Hypernatremia. Lactic acidosis. Acute metabolic acidosis. Elevated serum transaminases. Elevated creatinine kinase. Acute encephalopathy. Obesity - continue PSV trial as tolerated but add Seroquel - tentative extubation in am - CRP unremarkable; will stop empiric rocephin after 5 days - continue to target sedation for RASS 0 to -1 - continue CIWA protocol with IV ativan - continue enteral nutrition as tolerated - discontinued mcdonald catheter - reduce set rate to 12/min - resume eliquis re: DVT history - continue to wean supplemental oxygen for O2 sats > 90% - continue bronchodilators with pulmonary hygiene per RT - VAP bundle addressed - continue daily SAT's - continue daily SBT's - PT/OT/ROM exercises - mobility protocol for pressure ulcer prophylaxis - continue GI prophylaxis - continue other care per attending / other consultants ...... tentative extubation in am if continues to do well .... re-evaluate in am & prn The high probability of a clinically significant, sudden or life threatening deterioration of the [CVS, respiratory & neurologic system(s) required my full and direct attention, intervention and personal management. The aggregate critical care time was [32] minutes. This time is in addition to time spent performing reported procedures but includes the following: [x] Data Review and interpretation [x] Patient assessment and monitoring of vital signs [x] Documentation [x] Medication orders and management Subjective Date of service: 04/12/18 Principal diagnosis: Ac Hypoxemic Resp Failure; Sz disorder; EtOH withdrawal; Ac Encephalopathy Interval history: Patient is seen today for: Acute hypoxemic respiratory failure; Seizure disorder (presumably secondary to alcohol withdrawal); Alcohol withdrawal; Early sepsis syndrome with SIRS; Hypernatremia; Lactic acidosis; Acute Encephalopathy Seen and examined at bedside; 24hour events reviewed; nursing and respiratory care staff consulted; no adverse overnight events reported to me; remains on MVS; still with intermittent agitation; in restraints now; denies acute chest pains; tolerating tube feeds; No N/V/F/C Objective Vital Signs - 12hr 04/12/18 04/12/18 04/12/18 06:00 07:00 08:00 Temperature 98.3 F Pulse Rate 93 H 80 82 Respiratory 18 19 21 Rate Blood Pressure 161/75 146/69 154/83 O2 Sat by Pulse 100 100 100 Oximetry 04/12/18 04/12/18 04/12/18 08:39 09:00 11:49 Temperature Pulse Rate 86 81 81 Respiratory 20 21 18 Rate Blood Pressure 125/69 158/71 156/68 O2 Sat by Pulse 100 100 98 Oximetry 04/12/18 04/12/18 12:00 17:11 Temperature 99.0 F Pulse Rate 83 Respiratory 21 Rate Blood Pressure 158/67 O2 Sat by Pulse 100 Oximetry Constitutional: appears uncomfortable, other (middle aged obese AAM, normocephalic and atraumatic with mildly increased respiratory effort) Eyes: non-icteric ENT: oropharynx moist, other (ETT 23 cm HUSEYIN) Neck: supple, no lymphadenopathy, no JVD, other (large neck circumference) Effort: mildly labored Ascultation: Bilateral: diminished breath sounds, rhonchi Percussion: Bilateral: not dull Cardiovascular: regular rate and rhythm Gastrointestinal: normoactive bowel sounds, soft, non-tender, non-distended, other (protuberant) Integumentary: rash Extremities: no cyanosis, pulses normal, no ischemia or petechiae, edema (trace) Neurologic: non-focal exam (grossly), CN II-XII normal, motor strength normal and, other (delirious) Psychiatric: other (delirious) CBC and BMP: 04/10/18 08:24 04/13/18 04:37 ABG, PT/INR, D-dimer: ABG POC ABG pH 7.406 (7.35-7.45) 04/12/18 04:29 POC ABG pCO2 37.0 (35-45) 04/12/18 04:29 POC ABG pO2 106 (80-105) H 04/12/18 04:29 POC ABG HCO3 23.2 04/12/18 04:29 POC ABG Total CO2 24 04/12/18 04:29 POC ABG O2 Sat 98 04/12/18 04:29 PT/INR, D-dimer PT 15.1 Sec. (12.2-14.9) H 04/09/18 10:38 INR 1.12 (0.87-1.13) 04/09/18 10:38 Abnormal lab findings: Abnormal Labs 0204/09/18 04/09/18 10:15 10:15 10:15 Hct 47.9 H MCV 102 H MCHC 31 L Plt Count 134 L Monocytes % (Manual) Lymphocytes # (Manual) PT APTT POC ABG pH POC ABG pCO2 POC ABG pO2 VBG pH Sodium 146 H Carbon Dioxide 7 L* Glucose 160 H Lactic Acid AST 184 H ALT 116 H Total Creatine Kinase CK-MB (CK-2) C-Reactive Protein Total Protein 8.8 H Albumin Salicylates Acetaminophen 04/09/18 04/09/18 04/09/18 10:38 10:57 11:36 Hct MCV MCHC Plt Count Monocytes % (Manual) Lymphocytes # (Manual) PT 15.1 H APTT 24.1 L POC ABG pH POC ABG pCO2 POC ABG pO2 VBG pH Sodium Carbon Dioxide Glucose Lactic Acid 5.10 H* AST ALT Total Creatine Kinase 913 H CK-MB (CK-2) 9.6 H C-Reactive Protein Total Protein Albumin Salicylates Acetaminophen 04/09/18 04/09/18 04/09/18 11:36 12:24 18:11 Hct MCV MCHC Plt Count Monocytes % (Manual) Lymphocytes # (Manual) PT APTT POC ABG pH 7.282 L POC ABG pCO2 55.1 H POC ABG pO2 160 H VBG pH 7.296 L Sodium Carbon Dioxide Glucose Lactic Acid AST ALT Total Creatine Kinase CK-MB (CK-2) C-Reactive Protein Total Protein Albumin Salicylates Acetaminophen 04/09/18 04/10/18 04/10/18 21:09 04:42 08:24 Hct MCV 96 H MCHC Plt Count 96 L Monocytes % (Manual) 12.0 H Lymphocytes # (Manual) 0.7 L PT APTT POC ABG pH POC ABG pCO2 32.7 L POC ABG pO2 143 H 117 H VBG pH Sodium Carbon Dioxide Glucose Lactic Acid AST ALT Total Creatine Kinase CK-MB (CK-2) C-Reactive Protein Total Protein Albumin Salicylates Acetaminophen 04/10/18 04/10/18 04/10/18 08:24 18:21 18:21 Hct MCV MCHC Plt Count Monocytes % (Manual) Lymphocytes # (Manual) PT APTT POC ABG pH POC ABG pCO2 POC ABG pO2 VBG pH Sodium Carbon Dioxide 21 L Glucose Lactic Acid AST 101 H ALT 78 H Total Creatine Kinase CK-MB (CK-2) C-Reactive Protein 2.70 H Total Protein Albumin 3.7 L Salicylates < 0.3 L Acetaminophen 04/10/18 04/11/18 04/11/18 18:21 04:19 11:17 Hct MCV MCHC Plt Count Monocytes % (Manual) Lymphocytes # (Manual) PT APTT POC ABG pH 7.342 L POC ABG pCO2 POC ABG pO2 113 H VBG pH Sodium Carbon Dioxide 19 L Glucose 144 H Lactic Acid AST ALT Total Creatine Kinase CK-MB (CK-2) C-Reactive Protein Total Protein Albumin Salicylates Acetaminophen < 5.0 L 04/12/18 04/12/18 04:06 04:29 Hct MCV MCHC Plt Count Monocytes % (Manual) Lymphocytes # (Manual) PT APTT POC ABG pH POC ABG pCO2 POC ABG pO2 45 L 106 H VBG pH Sodium Carbon Dioxide Glucose Lactic Acid AST ALT Total Creatine Kinase CK-MB (CK-2) C-Reactive Protein Total Protein Albumin Salicylates Acetaminophen Chest x-ray: image reviewed (clear lung cochran; ETT in good position) Allied health notes reviewed: nursing
[2018-04-13] MEDS: HALDOL IV PRN (02:05)
--- NOTE | 2018-04-13 06:17 | XRay Report ---
FINAL REPORT PROCEDURE: XR CHEST 1V AP TECHNIQUE: Chest radiograph anteroposterior view. CPT 46999 HISTORY: follow up respiratory failure COMPARISON: 04/12/2018 FINDINGS: Heart: Normal. Mediastinum/Vessels: Normal. Lungs/Pleural space: Normal. Bony thorax: No acute osseous abnormality. Life support devices: ET tube is in the mid trachea. NG tube is in the stomach.. IMPRESSION: No acute cardiopulmonary abnormality. ET tube is in the mid trachea. NG tube is in the stomach..
[2018-04-13 06:52] LABS: BUN/Creatinine Ratio 24; Blood Urea Nitrogen 22 mg/dL (9-20); Calcium 9.3 mg/dL (8.4-10.2); Hemolysis Index 19
[2018-04-13] MEDS ORDERED: KIONEX PO ONE (09:00)
[2018-04-13] MEDS: NORVASC FEEDTUBE SCH (10:12)
[2018-04-13] MEDS: ELIQUIS PO SCH ×2 (10:12→22:49)
[2018-04-13] MEDS: SOLU-Medrol IV SCH ×2 (10:12→22:49)
[2018-04-13] MEDS: SODIUM CHLORIDE FLUSH SYRINGE 10 ML IV SCH ×2 (10:13→22:00)
[2018-04-13] MEDS: PEPCID PO SCH ×2 (10:13→22:49)
[2018-04-13] MEDS: ROCEPHIN/NS 2 GM/100 ML 2 GM/100 ML BAG IV SCH (10:56)
[2018-04-13] MEDS ORDERED: PANCREAZE DR 10,500 UNIT FEEDTUBE PRN (11:50)
[2018-04-13] MEDS ORDERED: SIMPLE SYRUP FEEDTUBE PRN ×2 (11:50)
[2018-04-13] MEDS ORDERED: SODIUM BICARBONATE FEEDTUBE PRN (11:50)
--- NOTE | 2018-04-13 14:49 | Progress Note ---
Assessment and Plan Acute hypoxemic respiratory failure. Seizure disorder, presumably secondary to alcohol withdrawal. Alcohol withdrawal. Early sepsis syndrome with the systemic inflammatory response syndrome. Hypernatremia. Lactic acidosis. Acute metabolic acidosis. Elevated serum transaminases. Elevated creatinine kinase. Acute encephalopathy. Obesity - extubate - ST evaluation and begin diet thereafter - begin lopressor 12.5 mg p.o. bid and discontine scheduled IV toprol - CRP unremarkable; will stop empiric rocephin after 5 days - continue CIWA protocol with IV ativan - discontinued mcdonald catheter - resumed eliquis re: DVT history - continue to wean supplemental oxygen for O2 sats > 90% - continue bronchodilators with pulmonary hygiene per RT - PT/OT/ROM exercises - mobility protocol for pressure ulcer prophylaxis - continue GI prophylaxis - continue other care per attending / other consultants ...... tentative extubation in am if continues to do well .... re-evaluate in am & prn The high probability of a clinically significant, sudden or life threatening deterioration of the [CVS, respiratory & neurologic system(s) required my full and direct attention, intervention and personal management. The aggregate critical care time was [34] minutes. This time is in addition to time spent performing reported procedures but includes the following: [x] Data Review and interpretation [x] Patient assessment and monitoring of vital signs [x] Documentation [x] Medication orders and management Subjective Date of service: 04/13/18 Principal diagnosis: Ac Hypoxemic Resp Failure; Sz disorder; EtOH withdrawal; Ac Encephalopathy Interval history: Patient is seen today for: Acute hypoxemic respiratory failure; Seizure disorder (presumably secondary to alcohol withdrawal); Alcohol withdrawal; Early sepsis syndrome with SIRS; Hypernatremia; Lactic acidosis; Acute Encephalopathy Seen and examined at bedside; 24hour events reviewed; nursing and respiratory care staff consulted; no adverse overnight events reported to me; remains on MVS; tolerating PSV well; No N/V/F/C; still on CIWA protocol Objective Vital Signs - 12hr 04/13/18 04/13/18 04/13/18 03:00 03:59 04:00 Temperature 99.2 F Pulse Rate 62 63 Respiratory 15 Rate Blood Pressure 132/65 115/44 O2 Sat by Pulse 100 100 Oximetry 04/13/18 04/13/18 04/13/18 04:01 05:01 06:01 Temperature Pulse Rate 63 65 64 Respiratory 15 17 16 Rate Blood Pressure 114/57 129/51 123/47 O2 Sat by Pulse 100 100 100 Oximetry 04/13/18 04/13/18 04/13/18 07:01 07:46 07:49 Temperature Pulse Rate 67 98 H 83 Respiratory 14 15 Rate Blood Pressure 131/55 120/93 120/93 O2 Sat by Pulse 100 100 100 Oximetry 04/13/18 04/13/18 04/13/18 10:09 10:12 14:02 Temperature Pulse Rate 72 73 Respiratory 18 Rate Blood Pressure 149/58 149/58 O2 Sat by Pulse 100 100 Oximetry Constitutional: appears uncomfortable, other (middle aged obese AAM, normocephalic and atraumatic with mildly increased respiratory effort) Eyes: non-icteric ENT: oropharynx moist, other (ETT 23 cm HUSEYIN) Neck: supple, no lymphadenopathy, no JVD, other (large neck circumference) Effort: mildly labored Ascultation: Bilateral: diminished breath sounds, rhonchi Percussion: Bilateral: not dull Cardiovascular: regular rate and rhythm Gastrointestinal: normoactive bowel sounds, soft, non-tender, non-distended, other (protuberant) Integumentary: rash Extremities: no cyanosis, pulses normal, no ischemia or petechiae, edema (trace) Neurologic: non-focal exam (grossly), CN II-XII normal, motor strength normal and, other (delirious) Psychiatric: other (delirious) CBC and BMP: 04/14/18 04:50 04/14/18 04:50 ABG, PT/INR, D-dimer: ABG POC ABG pH 7.403 (7.35-7.45) 04/13/18 10:12 POC ABG pCO2 41.7 (35-45) 04/13/18 10:12 POC ABG pO2 112 (80-105) H 04/13/18 10:12 POC ABG HCO3 26.0 04/13/18 10:12 POC ABG Total CO2 27 04/13/18 10:12 POC ABG O2 Sat 98 04/13/18 10:12 PT/INR, D-dimer PT 15.1 Sec. (12.2-14.9) H 04/09/18 10:38 INR 1.12 (0.87-1.13) 04/09/18 10:38 Abnormal lab findings: Abnormal Labs 04/09/18 04/09/18 04/09/18 10:15 10:15 10:15 Hct 47.9 H MCV 102 H MCHC 31 L Plt Count 134 L Monocytes % (Manual) Lymphocytes # (Manual) PT APTT POC ABG pH POC ABG pCO2 POC ABG pO2 VBG pH Sodium 146 H Potassium Chloride Carbon Dioxide 7 L* BUN Glucose 160 H POC Glucose Lactic Acid AST 184 H ALT 116 H Total Creatine Kinase CK-MB (CK-2) C-Reactive Protein Total Protein 8.8 H Albumin Salicylates Acetaminophen 04/09/18 04/09/18 04/09/18 10:38 10:57 11:36 Hct MCV MCHC Plt Count Monocytes % (Manual) Lymphocytes # (Manual) PT 15.1 H APTT 24.1 L POC ABG pH POC ABG pCO2 POC ABG pO2 VBG pH Sodium Potassium Chloride Carbon Dioxide BUN Glucose POC Glucose Lactic Acid 5.10 H* AST ALT Total Creatine Kinase 913 H CK-MB (CK-2) 9.6 H C-Reactive Protein Total Protein Albumin Salicylates Acetaminophen 04/09/18 04/09/18 04/09/18 11:36 12:24 18:11 Hct MCV MCHC Plt Count Monocytes % (Manual) Lymphocytes # (Manual) PT APTT POC ABG pH 7.282 L POC ABG pCO2 55.1 H POC ABG pO2 160 H VBG pH 7.296 L Sodium Potassium Chloride Carbon Dioxide BUN Glucose POC Glucose Lactic Acid AST ALT Total Creatine Kinase CK-MB (CK-2) C-Reactive Protein Total Protein Albumin Salicylates Acetaminophen 04/09/18 04/10/18 04/10/18 21:09 04:42 08:24 Hct MCV 96 H MCHC Plt Count 96 L Monocytes % (Manual) 12.0 H Lymphocytes # (Manual) 0.7 L PT APTT POC ABG pH POC ABG pCO2 32.7 L POC ABG pO2 143 H 117 H VBG pH Sodium Potassium Chloride Carbon Dioxide BUN Glucose POC Glucose Lactic Acid AST ALT Total Creatine Kinase CK-MB (CK-2) C-Reactive Protein Total Protein Albumin Salicylates Acetaminophen 04/10/18 04/10/18 04/10/18 08:24 18:21 18:21 Hct MCV MCHC Plt Count Monocytes % (Manual) Lymphocytes # (Manual) PT APTT POC ABG pH POC ABG pCO2 POC ABG pO2 VBG pH Sodium Potassium Chloride Carbon Dioxide 21 L BUN Glucose POC Glucose Lactic Acid AST 101 H ALT 78 H Total Creatine Kinase CK-MB (CK-2) C-Reactive Protein 2.70 H Total Protein Albumin 3.7 L Salicylates < 0.3 L Acetaminophen 04/10/18 04/11/18 04/11/18 18:21 04:19 11:17 Hct MCV MCHC Plt Count Monocytes % (Manual) Lymphocytes # (Manual) PT APTT POC ABG pH 7.342 L POC ABG pCO2 POC ABG pO2 113 H VBG pH Sodium Potassium Chloride Carbon Dioxide 19 L BUN Glucose 144 H POC Glucose Lactic Acid AST ALT Total Creatine Kinase CK-MB (CK-2) C-Reactive Protein Total Protein Albumin Salicylates Acetaminophen < 5.0 L 04/12/18 04/12/18 04/13/18 04:06 04:29 04:37 Hct MCV MCHC Plt Count Monocytes % (Manual) Lymphocytes # (Manual) PT APTT POC ABG pH POC ABG pCO2 POC ABG pO2 45 L 106 H VBG pH Sodium Potassium 6.0 H D Chloride 109.5 H Carbon Dioxide 20 L BUN 22 H Glucose 149 H POC Glucose Lactic Acid AST ALT Total Creatine Kinase CK-MB (CK-2) C-Reactive Protein Total Protein Albumin Salicylates Acetaminophen 04/13/18 04/13/18 10:12 11:29 Hct MCV MCHC Plt Count Monocytes % (Manual) Lymphocytes # (Manual) PT APTT POC ABG pH POC ABG pCO2 POC ABG pO2 112 H VBG pH Sodium Potassium Chloride Carbon Dioxide BUN Glucose POC Glucose 115 H Lactic Acid AST ALT Total Creatine Kinase CK-MB (CK-2) C-Reactive Protein Total Protein Albumin Salicylates Acetaminophen Allied health notes reviewed: nursing
--- NOTE | 2018-04-13 18:14 | Progress Note ---
Subjective Date of service: 04/13/18 Principal diagnosis: Ac Hypoxemic Resp Failure; Sz disorder; EtOH withdrawal; Ac Encephalopathy Interval history: Patient is intubated and sedated, not arousable to voice stimulation Chart reviewed Lab results and all interdisciplinary notes reviewed Assessment and plan: SIRS/Suspected sepsis -exact source of infection unknown -Urinalysis and chest x-ray negative -On IV antibiotic with Rocephin -Off vancomycin since CSF analysis not indicative of bacterial meningitis -CSF and blood cultures negative son far -sputum cultures positive for hadley albicans-insignificant Acute respiratory failure with hypoxia and hypercapnea -s/p intubation and on MV -Pulmonology following Acute alcohol withdrawal -On CIWA protocol Seizure disorder with breakthrough seizure -Seizure likely 2/2 to alcohol withdrawal -On propofol drip Lactic acidosis -Probably secondary to the seizures -Level trended down Hypernatremia -resolved Severe acute metabolic acidosis -Improved -We'll continue IV fluid and monitor Hypertension -BP improved -cont amlodipine, add meds as needed History of right upper extremity DVT -on eliquis Probable allergic reaction on LT forearm -On IV steroid Transaminitis -Likely secondary to alcohol abuse/cirrhosis History of cirrhosis/hepatitis -For outpatient follow-up History of alcohol dependence -Cessation recommended Nutrition -On NG tube feeding GI prophylaxis with Famotidine Objective Patient is intubated and sedated HEENT normocephalic pupils are round reacting to light Throat unable to evaluate Neck no significant adenopathy Lungs clear to auscultation Heart S1-S2 regular rate and rhythm Abdomen is soft nontender Extremities trace bilateral leg edema Objective - Constitutional Vitals: Vital Signs - 12hr 04/13/18 04/13/18 04/13/18 07:01 07:46 07:49 Pulse Rate 67 98 H 83 Respiratory 14 15 Rate Blood Pressure 131/55 120/93 120/93 O2 Sat by Pulse 100 100 100 Oximetry 04/13/18 04/13/18 04/13/18 08:01 09:00 10:01 Pulse Rate 79 64 77 Respiratory 17 15 15 Rate Blood Pressure 154/58 142/61 149/58 O2 Sat by Pulse 100 100 100 Oximetry 04/13/18 04/13/18 04/13/18 10:09 10:12 11:01 Pulse Rate 72 73 77 Respiratory 18 19 Rate Blood Pressure 149/58 149/58 134/95 O2 Sat by Pulse 100 100 Oximetry 04/13/18 04/13/18 04/13/18 12:01 13:00 14:01 Pulse Rate 68 79 87 Respiratory 11 L 14 31 H Rate Blood Pressure 156/62 154/80 118/72 O2 Sat by Pulse 100 100 Oximetry 04/13/18 04/13/18 04/13/18 14:02 15:01 16:00 Pulse Rate 84 75 Respiratory 20 17 Rate Blood Pressure 153/105 159/84 O2 Sat by Pulse 100 Oximetry 04/13/18 17:01 Pulse Rate 80 Respiratory 14 Rate Blood Pressure 171/84 O2 Sat by Pulse 99 Oximetry - Labs CBC & Chem 7: 04/10/18 08:24 04/13/18 04:37 Labs: Abnormal lab results 04/13/18 04/13/18 04/13/18 Range/Units 04:37 10:12 11:29 POC ABG pO2 112 H (80-105) Potassium 6.0 H D (3.6-5.0) mmol/L Chloride 109.5 H (98-107) mmol/L Carbon Dioxide 20 L (22-30) mmol/L BUN 22 H (9-20) mg/dL Glucose 149 H (75-100) mg/dL POC Glucose 115 H (70-105)
[2018-04-13] MEDS: LOPRESSOR IV PRN (21:04)
[2018-04-14] MEDS: LOPRESSOR IV PRN ×3 (01:58→22:47)
[2018-04-14] MEDS: ATIVAN IV PRN (02:02)
[2018-04-14 06:02] LABS: Hemoglobin 15.5 gm/dl (11.8-15.2); Mean Corpuscular HGB Conc 34 % (32-34); Mean Corpuscular Volume 97 fl (84-94); Platelet Count 201 K/mm3 (140-440); Red Blood Count 4.77 M/mm3 (3.65-5.03)
[2018-04-14 06:16] LABS: BUN/Creatinine Ratio 28; Blood Urea Nitrogen 22 mg/dL (9-20); Hemolysis Index 14
--- NOTE | 2018-04-14 08:14 | Progress Note ---
Assessment and Plan Assessment and plan: --Acute respiratory failure with hypoxia and hypercapnea s/p intubation and on MV, extubated yesterday continue oxygen nebulizers supportive care and pulmonary following --Hyperkalemia; resolved, potassium level 3.5 --Mild Hypokalemia: Closely monitor --SIRS/Suspected sepsis source of infection unknown, probably blisters on the skin Urinalysis and chest x-ray negative On IV antibiotic Rocephin , CSF and blood cultures negative so far sputum cultures positive for hadley albicans-insignificant --Acute alcohol withdrawal On CIWA protocol --Seizure disorder with breakthrough seizure Seizure likely due to alcohol withdrawal On propofol drip --Lactic acidosis:resolved Probably secondary to the seizures --Hypernatremia: Free water, D5 W if no improvement --Severe acute metabolic acidosis Resolved continue IV fluid and monitor --Accelerated Hypertension; Continue current antihypertensives and when necessary medications --History of right upper extremity DVT Continue eliquis --Blisters on the extremities ;Probable allergic reaction Continue steroid --Transaminitis: Likely secondary to alcohol abuse/cirrhosis Trending down --History of cirrhosis/hepatitis outpatient follow-up with GI --History of alcohol dependence Strongly adviced to quit, recommend alcohol rehabilitation program --Mild malnutrition ; Supportive care, nutrition supplements --GI prophylaxis with Famotidine --DVT prophylaxis; patient is already on Eliquis Critical care time 35 minutes History Interval history: Patient seen and examined medical records reviewed Patient slightly better no new complaints Vital signs noted Hospitalist Physical - Constitutional Vitals: Temp Pulse Resp BP Pulse Ox 97.4 F L 84 28 H 172/116 97 04/14/18 08:00 04/14/18 08:00 04/14/18 08:00 04/14/18 08:00 04/14/18 08:00 General appearance: Present: no acute distress, well-nourished, other (extubated) - EENT Eyes: Present: PERRL, EOM intact - Neck Neck: Present: supple, normal ROM - Respiratory Respiratory effort: normal Respiratory: bilateral: diminished, negative: rales, rhonchi, wheezing - Cardiovascular Rhythm: regular Heart Sounds: Present: S1 & S2 - Extremities Extremities: no ischemia, No edema Peripheral Pulses: within normal limits - Abdominal General gastrointestinal: soft, non-tender, non-distended, normal bowel sounds - Integumentary Integumentary: Present: clear, warm - Psychiatric Psychiatric: appropriate mood/affect, cooperative - Neurologic Neurologic: CNII-XII intact, moves all extremities Results - Labs CBC & Chem 7: 04/15/18 04:21 04/15/18 04:21 Labs: Laboratory Last Values WBC 10.0 K/mm3 (4.5-11.0) 04/14/18 04:50 RBC 4.77 M/mm3 (3.65-5.03) 04/14/18 04:50 Hgb 15.5 gm/dl (11.8-15.2) H 04/14/18 04:50 Hct 46.0 % (35.5-45.6) H 04/14/18 04:50 MCV 97 fl (84-94) H 04/14/18 04:50 MCH 33 pg (28-32) H 04/14/18 04:50 MCHC 34 % (32-34) 04/14/18 04:50 RDW 13.0 % (13.2-15.2) L 04/14/18 04:50 Plt Count 201 K/mm3 (140-440) 04/14/18 04:50 Lymph % (Auto) Cosmetic Consultant 04/10/18 08:24 [place] % (Auto) Cosmetic Consultant 04/10/18 08:24 Eos % (Auto) Cosmetic Consultant 04/10/18 08:24 Baso % (Auto) Cosmetic Consultant 04/10/18 08:24 Lymph # Cosmetic Consultant 04/10/18 08:24 [place] # Cosmetic Consultant 04/10/18 08:24 Eos # Cosmetic Consultant 04/10/18 08:24 Baso # Cosmetic Consultant 04/10/18 08:24 Add Manual Diff Complete 04/10/18 08:24 Total Counted 100 04/10/18 08:24 Seg Neutrophils % Cosmetic Consultant 04/10/18 08:24 Seg Neuts % (Manual) 69.0 % (40.0-70.0) 04/10/18 08:24 Band Neutrophils % 0 % 04/10/18 08:24 Lymphocytes % (Manual) 16.0 % (13.4-35.0) 04/10/18 08:24 Reactive Lymphs % (Man) 3.0 % 04/10/18 08:24 Monocytes % (Manual) 12.0 % (0.0-7.3) H 04/10/18 08:24 Eosinophils % (Manual) 0 % (0.0-4.3) 04/10/18 08:24 Basophils % (Manual) 0 % (0.0-1.8) 04/10/18 08:24 Metamyelocytes % 0 % 04/10/18 08:24 Myelocytes % 0 % 04/10/18 08:24 Promyelocytes % 0 % 04/10/18 08:24 Blast Cells % 0 % 04/10/18 08:24 Nucleated RBC % Not Reportable 04/10/18 08:24 Seg Neutrophils # Cosmetic Consultant 04/10/18 08:24 Seg Neutrophils # Man 3.1 K/mm3 (1.8-7.7) 04/10/18 08:24 Band Neutrophils # 0.0 K/mm3 04/10/18 08:24 Lymphocytes # (Manual) 0.7 K/mm3 (1.2-5.4) L 04/10/18 08:24 Abs React Lymphs (Man) 0.1 K/mm3 04/10/18 08:24 Monocytes # (Manual) 0.5 K/mm3 (0.0-0.8) 04/10/18 08:24 Eosinophils # (Manual) 0.0 K/mm3 (0.0-0.4) 04/10/18 08:24 Basophils # (Manual) 0.0 K/mm3 (0.0-0.1) 04/10/18 08:24 Metamyelocytes # 0.0 K/mm3 04/10/18 08:24 Myelocytes # 0.0 K/mm3 04/10/18 08:24 Promyelocytes # 0.0 K/mm3 04/10/18 08:24 Blast Cells # 0.0 K/mm3 04/10/18 08:24 WBC Morphology Not Reportable 04/10/18 08:24 Hypersegmented Neuts Not Reportable 04/10/18 08:24 Hyposegmented Neuts Not Reportable 04/10/18 08:24 Hypogranular Neuts Not Reportable 04/10/18 08:24 Smudge Cells Few 04/10/18 08:24 Toxic Granulation Not Reportable 04/10/18 08:24 Toxic Vacuolation Not Reportable 04/10/18 08:24 Dohle Bodies Not Reportable 04/10/18 08:24 Pelger-Huet Anomaly Not Reportable 04/10/18 08:24 W[place]o Rods Not Reportable 04/10/18 08:24 Platelet Estimate Consistent w auto 04/10/18 08:24 Clumped Platelets Not Reportable 04/10/18 08:24 Plt Clumps, EDTA Not Reportable 04/10/18 08:24 Large Platelets Not Reportable 04/10/18 08:24 Giant Platelets Not Reportable 04/10/18 08:24 Platelet Satelliting Not Reportable 04/10/18 08:24 Plt Morphology Comment Not Reportable 04/10/18 08:24 RBC Morphology Not Reportable 04/10/18 08:24 Dimorphic RBCs Not Reportable 04/10/18 08:24 Polychromasia Not Reportable 04/10/18 08:24 Hypochromasia Not Reportable 04/10/18 08:24 Poikilocytosis 1+ 04/10/18 08:24 Anisocytosis 1+ 04/10/18 08:24 Microcytosis Not Reportable 04/10/18 08:24 Macrocytosis 1+ 04/10/18 08:24 Spherocytes Not Reportable 04/10/18 08:24 Pappenheimer Bodies Not Reportable 04/10/18 08:24 Sickle Cells Not Reportable 04/10/18 08:24 Target Cells Not Reportable 04/10/18 08:24 Tear Drop Cells Few 04/10/18 08:24 Ovalocytes Few 04/10/18 08:24 Helmet Cells Not Reportable 04/10/18 08:24 [place] Bodies Not Reportable 04/10/18 08:24 [place] Rings Not Reportable 04/10/18 08:24 [place] Cells Not Reportable 04/10/18 08:24 Bite Cells Not Reportable 04/10/18 08:24 Crenated Cell Not Reportable 04/10/18 08:24 Elliptocytes Not Reportable 04/10/18 08:24 Acanthocytes (Spur) Not Reportable 04/10/18 08:24 Rouleaux Not Reportable 04/10/18 08:24 Hemoglobin C Crystals Not Reportable 04/10/18 08:24 Schistocytes Not Reportable 04/10/18 08:24 Malaria parasites Not Reportable 04/10/18 08:24 Angus Bodies Not Reportable 04/10/18 08:24 Hem Pathologist Commnt No 04/10/18 08:24 PT 15.1 Sec. (12.2-14.9) H 04/09/18 10:38 INR 1.12 (0.87-1.13) 04/09/18 10:38 APTT 24.1 Sec. (24.2-36.6) L 04/09/18 10:38 POC ABG pH 7.403 (7.35-7.45) 04/13/18 10:12 POC ABG pCO2 41.7 (35-45) 04/13/18 10:12 POC ABG pO2 112 (80-105) H 04/13/18 10:12 POC ABG HCO3 26.0 04/13/18 10:12 POC ABG Total CO2 27 04/13/18 10:12 POC ABG O2 Sat 98 04/13/18 10:12 POC ABG Base Excess 1 04/13/18 10:12 VBG pH 7.296 (7.320-7.420) L 04/09/18 11:36 FiO2 30 % 04/13/18 10:12 Sodium 149 mmol/L (137-145) H 04/14/18 04:50 Potassium 3.5 mmol/L (3.6-5.0) L D 04/14/18 04:50 Chloride 104.1 mmol/L (98-107) 04/14/18 04:50 Carbon Dioxide 30 mmol/L (22-30) D 04/14/18 04:50 Anion Gap 18 mmol/L 04/14/18 04:50 BUN 22 mg/dL (9-20) H 04/14/18 04:50 Creatinine 0.8 mg/dL (0.8-1.5) 04/14/18 04:50 Estimated GFR > 60 ml/min 04/14/18 04:50 BUN/Creatinine Ratio 28 % 04/14/18 04:50 Glucose 146 mg/dL (75-100) H 04/14/18 04:50 POC Glucose 128 (70-105) H 04/13/18 16:57 Lactic Acid 1.80 mmol/L (0.7-2.0) 04/10/18 01:25 Calcium 10.0 mg/dL (8.4-10.2) 04/14/18 04:50 Phosphorus 2.60 mg/dL (2.5-4.5) 04/10/18 18:23 Magnesium 1.80 mg/dL (1.7-2.3) 04/10/18 18:23 Total Bilirubin 0.80 mg/dL (0.1-1.2) 04/10/18 08:24 Direct Bilirubin 0.2 mg/dL (0-0.2) 04/09/18 10:15 Indirect Bilirubin 0.2 mg/dL 04/09/18 10:15 AST 101 units/L (5-40) H 04/10/18 08:24 ALT 78 units/L (7-56) H 04/10/18 08:24 Alkaline Phosphatase 52 units/L (35-129) 04/10/18 08:24 Total Creatine Kinase 913 units/L (55-170) H 04/09/18 10:57 CK-MB (CK-2) 9.6 ng/mL (0.0-4.0) H 04/09/18 10:57 CK-MB (CK-2) Rel Index 1.0 (0-4) 04/09/18 10:57 Troponin T < 0.010 ng/mL (0.00-0.029) 04/10/18 18:21 C-Reactive Protein 2.70 mg/dL (0.00-1.30) H 04/10/18 18:21 Total Protein 6.9 g/dL (6.3-8.2) D 04/10/18 08:24 Albumin 3.7 g/dL (3.9-5) L 04/10/18 08:24 Albumin/Globulin Ratio 1.2 % 04/10/18 08:24 Urine Color Straw (Yellow) 04/09/18 11:15 Urine Turbidity Clear (Clear) 04/09/18 11:15 Urine pH 6.0 (5.0-7.0) 04/09/18 11:15 Ur Specific [place] 1.009 (1.003-1.030) 04/09/18 11:15 Urine Protein 100 mg/dl mg/dL (Negative) 04/09/18 11:15 Urine Glucose (UA) Neg mg/dL (Negative) 04/09/18 11:15 Urine Ketones Neg mg/dL (Negative) 04/09/18 11:15 Urine Blood Mod (Negative) 04/09/18 11:15 Urine Nitrite Neg (Negative) 04/09/18 11:15 Urine Bilirubin Neg (Negative) 04/09/18 11:15 Urine Urobilinogen < 2.0 mg/dL (<2.0) 04/09/18 11:15 Ur Leukocyte Esterase Neg (Negative) 04/09/18 11:15 Urine WBC (Auto) < 1.0 /HPF (0.0-6.0) 04/09/18 11:15 Urine RBC (Auto) 2.0 /HPF (0.0-6.0) 04/09/18 11:15 Urine Mucus Few /HPF 04/09/18 11:15 CSF Appearance Hazy 04/09/18 19:06 CSF Color [place] 04/09/18 19:06 CSF WBC 3 /mm3 (1-10) 04/09/18 19:06 CSF RBC 1675 /mm3 (0-0) 04/09/18 19:06 CSF Seg Neutrophils 40.0 % (0-6) 04/09/18 19:06 CSF Lymphocytes % 0 % (40-80) 04/09/18 19:06 CSF Reactive Lymphs 0 % 04/09/18 19:06 CSF Monocytes % 40.0 % (15-45) 04/09/18 19:06 CSF Eosinophils % 0 % 04/09/18 19:06 CSF Basophils 0 % 04/09/18 19:06 CSF Comment Less than 10 04/09/18 19:06 CSF Pathologist Review C 04/09/18 19:06 CSF Glucose 82 mg/dL 04/09/18 19:06 CSF Total Protein 88 mg/dL 04/09/18 19:06 Salicylates < 0.3 mg/dL (2.8-20.0) L 04/10/18 18:21 Urine Opiates Screen Presumptive negative 04/09/18 11:15 Urine Methadone Screen Presumptive negative 04/09/18 11:15 Acetaminophen < 5.0 ug/mL (10.0-30.0) L 04/10/18 18:21 Ur Barbiturates Screen Presumptive negative 04/09/18 11:15 Ur Phencyclidine Scrn Presumptive negative 04/09/18 11:15 Ur Amphetamines Screen Presumptive negative 04/09/18 11:15 U Benzodiazepines Scrn Presumptive negative 04/09/18 11:15 Urine Cocaine Screen Presumptive negative 04/09/18 11:15 U Marijuana (THC) Screen Presumptive negative 04/09/18 11:15 Drugs of Abuse Note Disclamer 04/09/18 11:15 Plasma/Serum Alcohol < 0.01 % (0-0.07) 04/09/18 11:36 Nutrition/Malnutrition Assess - Dietary Evaluation Nutrition/Malnutrition Findings: Nutrition Notes Start: 04/10/18 10:05 Freq: Status: Active Protocol: Document 04/13/18 11:41 VALENTINA (Rec: 04/13/18 11:50 NHTIN [email or web address]) Nutrition Notes Initial or Follow up Reassessment Current Diagnosis Hypertension Respiratory Failure Other Pertinent Diagnosis EtOH withdrawal, Seizuer d/o Current Diet TF - Osmolite 1.5 at 65ml/hr Labs/Tests K 6 BUN 22 Pertinent Medications Propofol not infusing at time of visit (10:31) Height 6 ft 1 in Weight 117.5 kg [place] Body Weight (kg) 83.63 BMI 34.2 Weight change and time frame Current wt obtained from bed scale Weight Status Obese Subjective/Other Information TF infusing at goal rate and pt tolerating. Pt remains on vent support. Burn Absent Trauma Absent #1 Nutrition Diagnosis Inadequate oral intake Diagnosis Progress(for reassessment Continues documentation) Is patient on ventilator? Yes Is Patient Ambulatory and/or Out of Bed No REE-([facility]-confined to bed) 2474.616 Kcal/Kg value to use for calculation 16 Approximate Energy Requirements Using 1880 kcal/Kg Calculation Used for Recommendations Kcal/kg Additional Notes Pro needs 2g/kg IBW: 167g/day Fluid needs 1ml/kcal Nutrition Intervention Nutrition Support: Change TF formula to Vital High Protein at 70ml/hr with 50ml water flush q4h. Kcal 1,680 Protein (gm) 147 Fluid (mL) 1,404 Goal #1 TF tolerance Goal #2 TF to meet 65-70% energy and 80-100% pro needs Follow-Up By: 04/14/18 Additional Comments F/U: TF formula change, K lab, vent status
[2018-04-14 09:27] LABS: Albumin 4.2 g/dL (3.9-5); Bilirubin,Direct 0.3 mg/dL (0-0.2)
[2018-04-14] MEDS: SOLU-Medrol IV SCH (10:35)
[2018-04-14] MEDS: NORVASC FEEDTUBE SCH (10:35)
[2018-04-14] MEDS: PEPCID PO SCH ×2 (10:36→22:00)
[2018-04-14] MEDS: SODIUM CHLORIDE FLUSH SYRINGE 10 ML IV SCH ×2 (10:36→22:00)
[2018-04-14] MEDS: ELIQUIS PO SCH ×2 (10:36→22:00)
[2018-04-14] MEDS: ROCEPHIN/NS 2 GM/100 ML 2 GM/100 ML BAG IV SCH (10:39)
--- NOTE | 2018-04-14 10:59 | XRay Report ---
AP ABDOMEN: HISTORY: Abdominal distention, vomiting. The nasogastric tube has been removed since 04/12/18. There is moderate gaseous distention of the stomach and proximal small bowel loops concerning for partial small bowel obstruction. There is normal gas and stool in the colon. IMPRESSION: Finding suggestive of a partial small bowel obstruction.
[2018-04-14] MEDS: D5W 1,000 ML IV SCH ×2 (12:46→22:54)
--- NOTE | 2018-04-14 13:02 | Progress Note ---
Assessment and Plan Acute hypoxemic respiratory failure. Seizure disorder, presumably secondary to alcohol withdrawal. Alcohol withdrawal. Early sepsis syndrome with the systemic inflammatory response syndrome. Hypernatremia. Lactic acidosis. Acute metabolic acidosis. Elevated serum transaminases. Elevated creatinine kinase. Acute encephalopathy. Obesity - BIPAP qhs with prn daytime use - begin Reglan re: emesis - advance diet per [place] therapist - continue lopressor 12.5 mg p.o. bid - CRP unremarkable; will stop empiric rocephin after 5 days - continue CIWA protocol with IV ativan - discontinued mcdonald catheter - resumed eliquis re: DVT history - continue to wean supplemental oxygen for O2 sats > 90% - continue bronchodilators with pulmonary hygiene per RT - PT/OT/ROM exercises - mobility protocol for pressure ulcer prophylaxis - continue GI prophylaxis - continue other care per attending / other consultants ...... tentative transfer out of ICU today .... re-evaluate in am & prn Subjective Date of service: 04/14/18 Principal diagnosis: Ac Hypoxemic Resp Failure; Sz disorder; EtOH withdrawal; Ac Encephalopathy Interval history: Patient is seen today for: Acute hypoxemic respiratory failure; Seizure disorder (presumably secondary to alcohol withdrawal); Alcohol withdrawal; Early sepsis syndrome with SIRS; Hypernatremia; Lactic acidosis; Acute Encephalopathy Seen and examined at bedside; 24hour events reviewed; nursing and respiratory ca re staff consulted; no adverse overnight events reported to me; extubated and doing well: + episode of emesis overnight; has received ativan 4mg IV re: CIWA protocol; No N/V/F/C Objective Vital Signs - 12hr 04/14/18 04/14/18 04/14/18 01:58 02:01 03:00 Temperature Pulse Rate 98 H 85 92 H Pulse Rate [ Apical] Respiratory 14 26 H Rate Blood Pressure 198/126 161/125 181/115 O2 Sat by Pulse 98 97 Oximetry 04/14/18 04/14/18 04/14/18 03:04 04:00 04:01 Temperature 99 F Pulse Rate 90 Pulse Rate [ Apical] Respiratory 17 Rate Blood Pressure 168/114 O2 Sat by Pulse 100 99 Oximetry 04/14/18 04/14/18 04/14/18 05:01 06:00 07:00 Temperature Pulse Rate 90 92 H 100 H Pulse Rate [ Apical] Respiratory 14 24 16 Rate Blood Pressure 167/114 180/119 181/120 O2 Sat by Pulse 100 99 99 Oximetry 04/14/18 04/14/18 04/14/18 07:32 08:00 08:32 Temperature 97.4 F L Pulse Rate 87 84 Pulse Rate [ 84 Apical] Respiratory 15 Rate Blood Pressure 171/103 172/116 O2 Sat by Pulse 97 97 Oximetry 04/14/18 04/14/18 04/14/18 09:00 10:00 10:35 Temperature Pulse Rate 84 102 H 105 H Pulse Rate [ Apical] Respiratory 26 H 29 H Rate Blood Pressure 188/126 160/122 165/112 O2 Sat by Pulse 98 95 Oximetry 04/14/18 04/14/18 11:01 12:00 Temperature 99.0 F Pulse Rate 99 H 105 H Pulse Rate [ 106 H Apical] Respiratory 29 H 33 H Rate Blood Pressure 177/117 175/121 O2 Sat by Pulse 97 95 Oximetry Constitutional: appears uncomfortable, other (middle aged obese AAM, normocephalic and atraumatic with mildly increased respiratory effort) Eyes: non-icteric ENT: oropharynx moist, other (extubated) Neck: supple, no lymphadenopathy, no JVD, other (large neck circumference) Effort: mildly labored Ascultation: Bilateral: diminished breath sounds, rhonchi Percussion: Bilateral: not dull Cardiovascular: regular rate and rhythm Gastrointestinal: normoactive bowel sounds, soft, non-tender, non-distended, other (protuberant) Integumentary: rash Extremities: no cyanosis, pulses normal, no ischemia or petechiae, edema (trace) Neurologic: non-focal exam (grossly), CN II-XII normal, motor strength normal and, other (delirious) Psychiatric: other (delirious) CBC and BMP: 04/15/18 04:21 04/15/18 04:21 ABG, PT/INR, D-dimer: ABG POC ABG pH 7.403 (7.35-7.45) 04/13/18 10:12 POC ABG pCO2 41.7 (35-45) 04/13/18 10:12 POC ABG pO2 112 (80-105) H 04/13/18 10:12 POC ABG HCO3 26.0 04/13/18 10:12 POC ABG Total CO2 27 04/13/18 10:12 POC ABG O2 Sat 98 04/13/18 10:12 PT/INR, D-dimer PT 15.1 Sec. (12.2-14.9) H 04/09/18 10:38 INR 1.12 (0.87-1.13) 04/09/18 10:38 Abnormal lab findings: Abnormal Labs 04/09/18 04/09/18 04/09/18 10:15 10:15 10:15 Hgb Hct 47.9 H MCV 102 H MCH MCHC 31 L RDW Plt Count 134 L Monocytes % (Manual) Lymphocytes # (Manual) PT APTT POC ABG pH POC ABG pCO2 POC ABG pO2 VBG pH Sodium 146 H Potassium Chloride Carbon Dioxide 7 L* BUN Glucose 160 H POC Glucose Lactic Acid Direct Bilirubin AST 184 H ALT 116 H Total Creatine Kinase CK-MB (CK-2) C-Reactive Protein Total Protein 8.8 H Albumin Salicylates Acetaminophen 04/09/18 04/09/18 04/09/18 10:38 10:57 11:36 Hgb Hct MCV MCH MCHC RDW Plt Count Monocytes % (Manual) Lymphocytes # (Manual) PT 15.1 H APTT 24.1 L POC ABG pH POC ABG pCO2 POC ABG pO2 VBG pH Sodium Potassium Chloride Carbon Dioxide BUN Glucose POC Glucose Lactic Acid 5.10 H* Direct Bilirubin AST ALT Total Creatine Kinase 913 H CK-MB (CK-2) 9.6 H C-Reactive Protein Total Protein Albumin Salicylates Acetaminophen 04/09/18 04/09/18 04/09/18 11:36 12:24 18:11 Hgb Hct MCV MCH MCHC RDW Plt Count Monocytes % (Manual) Lymphocytes # (Manual) PT APTT POC ABG pH 7.282 L POC ABG pCO2 55.1 H POC ABG pO2 160 H VBG pH 7.296 L Sodium Potassium Chloride Carbon Dioxide BUN Glucose POC Glucose Lactic Acid Direct Bilirubin AST ALT Total Creatine Kinase CK-MB (CK-2) C-Reactive Protein Total Protein Albumin Salicylates Acetaminophen 04/09/18 04/10/18 04/10/18 21:09 04:42 08:24 Hgb Hct MCV 96 H MCH MCHC RDW Plt Count 96 L Monocytes % (Manual) 12.0 H Lymphocytes # (Manual) 0.7 L PT APTT POC ABG pH POC ABG pCO2 32.7 L POC ABG pO2 143 H 117 H VBG pH Sodium Potassium Chloride Carbon Dioxide BUN Glucose POC Glucose Lactic Acid Direct Bilirubin AST ALT Total Creatine Kinase CK-MB (CK-2) C-Reactive Protein Total Protein Albumin Salicylates Acetaminophen 04/10/18 04/10/18 04/10/18 08:24 18:21 18:21 Hgb Hct MCV MCH MCHC RDW Plt Count Monocytes % (Manual) Lymphocytes # (Manual) PT APTT POC ABG pH POC ABG pCO2 POC ABG pO2 VBG pH Sodium Potassium Chloride Carbon Dioxide 21 L BUN Glucose POC Glucose Lactic Acid Direct Bilirubin AST 101 H ALT 78 H Total Creatine Kinase CK-MB (CK-2) C-Reactive Protein 2.70 H Total Protein Albumin 3.7 L Salicylates < 0.3 L Acetaminophen 04/10/18 04/11/18 04/11/18 18:21 04:19 11:17 Hgb Hct MCV MCH MCHC RDW Plt Count Monocytes % (Manual) Lymphocytes # (Manual) PT APTT POC ABG pH 7.342 L POC ABG pCO2 POC ABG pO2 113 H VBG pH Sodium Potassium Chloride Carbon Dioxide 19 L BUN Glucose 144 H POC Glucose Lactic Acid Direct Bilirubin AST ALT Total Creatine Kinase CK-MB (CK-2) C-Reactive Protein Total Protein Albumin Salicylates Acetaminophen < 5.0 L 04/12/18 04/13/18 04/13/18 04:29 04:37 10:12 Hgb Hct MCV MCH MCHC RDW Plt Count Monocytes % (Manual) Lymphocytes # (Manual) PT APTT POC ABG pH POC ABG pCO2 POC ABG pO2 106 H 112 H VBG pH Sodium Potassium 6.0 H D Chloride 109.5 H Carbon Dioxide 20 L BUN 22 H Glucose 149 H POC Glucose Lactic Acid Direct Bilirubin AST ALT Total Creatine Kinase CK-MB (CK-2) C-Reactive Protein Total Protein Albumin Salicylates Acetaminophen 04/13/18 04/13/18 04/14/18 11:29 16:57 04:50 Hgb 15.5 H Hct 46.0 H MCV 97 H MCH 33 H MCHC RDW 13.0 L Plt Count Monocytes % (Manual) Lymphocytes # (Manual) PT APTT POC ABG pH POC ABG pCO2 POC ABG pO2 VBG pH Sodium Potassium Chloride Carbon Dioxide BUN Glucose POC Glucose 115 H 128 H Lactic Acid Direct Bilirubin AST ALT Total Creatine Kinase CK-MB (CK-2) C-Reactive Protein Total Protein Albumin Salicylates Acetaminophen 04/14/18 04/14/18 04:50 04:50 Hgb Hct MCV MCH MCHC RDW Plt Count Monocytes % (Manual) Lymphocytes # (Manual) PT APTT POC ABG pH POC ABG pCO2 POC ABG pO2 VBG pH Sodium 149 H Potassium 3.5 L D Chloride Carbon Dioxide BUN 22 H Glucose 146 H POC Glucose Lactic Acid Direct Bilirubin 0.3 H AST 74 H ALT 89 H Total Creatine Kinase CK-MB (CK-2) C-Reactive Protein Total Protein Albumin Salicylates Acetaminophen Chest x-ray: image reviewed Allied health notes reviewed: nursing
[2018-04-14] MEDS: APRESOLINE PO SCH ×2 (14:17→22:00)
[2018-04-14] MEDS: REGLAN IV SCH (17:30)
[2018-04-14] MEDS ORDERED: ZOFRAN IV PRN (22:26)
[2018-04-15 05:21] LABS: Basophils % (Auto) 0.2 % (0.0-1.8); Hematocrit 44.4 % (35.5-45.6); Hemoglobin 14.8 gm/dl (11.8-15.2); Lymphocytes # (Auto) 0.9 K/mm3 (1.2-5.4); Lymphocytes % (Auto) 10.7 % (13.4-35.0); Mean Corpuscular HGB Conc 33 % (32-34); Mean Corpuscular Volume 96 fl (84-94); Monocytes # (Auto) 1.2 K/mm3 (0.0-0.8); Monocytes % (Auto) 13.9 % (0.0-7.3); Platelet Count 202 K/mm3 (140-440); Red Blood Count 4.65 M/mm3 (3.65-5.03); Red Cell Distribution Width 13.4 % (13.2-15.2)
[2018-04-15 05:42] LABS: Alanine Aminotransferase 62 units/L (7-56); Albumin 3.4 g/dL (3.9-5); BUN/Creatinine Ratio 26; Blood Urea Nitrogen 26 mg/dL (9-20); Calcium 9.2 mg/dL (8.4-10.2); Hemolysis Index 13
[2018-04-15] MEDS: APRESOLINE PO SCH ×3 (05:54→21:23)
[2018-04-15] MEDS: REGLAN IV SCH ×2 (09:00→13:04)
[2018-04-15] MEDS: DELTASONE PO SCH (10:00)
[2018-04-15] MEDS: ELIQUIS PO SCH ×2 (10:00→21:23)
[2018-04-15] MEDS: PEPCID PO SCH ×2 (10:00→21:23)
[2018-04-15] MEDS: SODIUM CHLORIDE FLUSH SYRINGE 10 ML IV SCH ×2 (10:01→21:24)
[2018-04-15] MEDS: NORVASC FEEDTUBE SCH (10:01)
--- NOTE | 2018-04-15 12:40 | Progress Note ---
Assessment and Plan Acute hypoxemic respiratory failure. Seizure disorder, presumably secondary to alcohol withdrawal. Alcohol withdrawal. Early sepsis syndrome with the systemic inflammatory response syndrome. Hypernatremia. Lactic acidosis. Acute metabolic acidosis. Elevated serum transaminases. Elevated creatinine kinase. Acute encephalopathy. Obesity - BIPAP qhs with prn daytime use - begin Reglan re: emesis - advance diet per [place] therapist - continue lopressor 12.5 mg p.o. bid - CRP unremarkable; will stop empiric rocephin after 5 days - continue CIWA protocol with IV ativan - discontinued mcdonald catheter - resumed eliquis re: DVT history - continue to wean supplemental oxygen for O2 sats > 90% - continue bronchodilators with pulmonary hygiene per RT - PT/OT/ROM exercises - mobility protocol for pressure ulcer prophylaxis - continue GI prophylaxis - continue other care per attending / other consultants ...... tentative transfer out of ICU today .... re-evaluate in am & prn Subjective Date of service: 04/15/18 Principal diagnosis: Ac Hypoxemic Resp Failure; Sz disorder; EtOH withdrawal; Ac Encephalopathy Interval history: Patient is seen today for: Acute hypoxemic respiratory failure; Seizure disorder (presumably secondary to alcohol withdrawal); Alcohol withdrawal; Early sepsis syndrome with SIRS; Hypernatremia; Lactic acidosis; Acute Encephalopathy Seen and examined at bedside; 24hour events reviewed; nursing and respiratory ca re staff consulted; no adverse overnight events reported to me; Objective Vital Signs - 12hr 04/15/18 04/15/18 04/15/18 01:01 02:01 03:00 Temperature Pulse Rate 109 H 110 H 106 H Pulse Rate [ Apical] Respiratory 22 25 H 25 H Rate Blood Pressure 158/80 131/98 147/74 O2 Sat by Pulse 96 97 96 Oximetry 04/15/18 04/15/18 04/15/18 04:00 04:01 05:00 Temperature 99.1 F Pulse Rate 100 H 102 H Pulse Rate [ 112 H Apical] Respiratory 18 23 25 H Rate Blood Pressure 142/103 146/84 O2 Sat by Pulse 100 95 96 Oximetry 04/15/18 04/15/18 04/15/18 05:54 06:00 07:00 Temperature Pulse Rate 100 H 98 H 109 H Pulse Rate [ Apical] Respiratory 22 20 Rate Blood Pressure 134/87 153/71 150/91 O2 Sat by Pulse 97 97 Oximetry 04/15/18 04/15/18 04/15/18 08:00 09:01 10:00 Temperature 97.9 F Pulse Rate 96 H 104 H 98 H Pulse Rate [ Apical] Respiratory 19 14 20 Rate Blood Pressure 149/77 145/127 114/85 O2 Sat by Pulse 96 99 96 Oximetry 04/15/18 04/15/18 10:01 11:01 Temperature Pulse Rate 96 H 106 H Pulse Rate [ Apical] Respiratory 31 H Rate Blood Pressure 145/85 104/59 O2 Sat by Pulse 97 Oximetry Constitutional: appears uncomfortable, other (middle aged obese AAM, normocephalic and atraumatic with mildly increased respiratory effort) Eyes: non-icteric ENT: oropharynx moist, other (extubated) Neck: supple, no lymphadenopathy, no JVD, other (large neck circumference) Effort: mildly labored Ascultation: Bilateral: diminished breath sounds, rhonchi Percussion: Bilateral: not dull Cardiovascular: regular rate and rhythm Gastrointestinal: normoactive bowel sounds, soft, non-tender, non-distended, other (protuberant) Integumentary: rash Extremities: no cyanosis, pulses normal, no ischemia or petechiae, edema (trace) Neurologic: non-focal exam (grossly), CN II-XII normal, motor strength normal and, other (delirious) Psychiatric: other (delirious) CBC and BMP: 04/15/18 04:21 04/15/18 04:21 ABG, PT/INR, D-dimer: ABG POC ABG pH 7.403 (7.35-7.45) 04/13/18 10:12 POC ABG pCO2 41.7 (35-45) 04/13/18 10:12 POC ABG pO2 112 (80-105) H 04/13/18 10:12 POC ABG HCO3 26.0 04/13/18 10:12 POC ABG Total CO2 27 04/13/18 10:12 POC ABG O2 Sat 98 04/13/18 10:12 PT/INR, D-dimer PT 15.1 Sec. (12.2-14.9) H 04/09/18 10:38 INR 1.12 (0.87-1.13) 04/09/18 10:38 Abnormal lab findings: Abnormal Labs 0204/09/18 04/09/18 10:15 10:15 10:15 Hgb Hct 47.9 H MCV 102 H MCH MCHC 31 L RDW Plt Count 134 L Lymph % (Auto) [place] % (Auto) Lymph # [place] # Seg Neutrophils % Monocytes % (Manual) Lymphocytes # (Manual) PT APTT Heparin Anti-Xa Level POC ABG pH POC ABG pCO2 POC ABG pO2 VBG pH Sodium 146 H Potassium Chloride Carbon Dioxide 7 L* BUN Glucose 160 H POC Glucose Lactic Acid Direct Bilirubin AST 184 H ALT 116 H Total Creatine Kinase CK-MB (CK-2) C-Reactive Protein Total Protein 8.8 H Albumin Salicylates Acetaminophen 04/09/18 04/09/18 04/09/18 10:38 10:57 11:36 Hgb Hct MCV MCH MCHC RDW Plt Count Lymph % (Auto) [place] % (Auto) Lymph # [place] # Seg Neutrophils % Monocytes % (Manual) Lymphocytes # (Manual) PT 15.1 H APTT 24.1 L Heparin Anti-Xa Level POC ABG pH POC ABG pCO2 POC ABG pO2 VBG pH Sodium Potassium Chloride Carbon Dioxide BUN Glucose POC Glucose Lactic Acid 5.10 H* Direct Bilirubin AST ALT Total Creatine Kinase 913 H CK-MB (CK-2) 9.6 H C-Reactive Protein Total Protein Albumin Salicylates Acetaminophen 04/09/18 04/09/18 04/09/18 11:36 12:24 18:11 Hgb Hct MCV MCH MCHC RDW Plt Count Lymph % (Auto) [place] % (Auto) Lymph # [place] # Seg Neutrophils % Monocytes % (Manual) Lymphocytes # (Manual) PT APTT Heparin Anti-Xa Level POC ABG pH 7.282 L POC ABG pCO2 55.1 H POC ABG pO2 160 H VBG pH 7.296 L Sodium Potassium Chloride Carbon Dioxide BUN Glucose POC Glucose Lactic Acid Direct Bilirubin AST ALT Total Creatine Kinase CK-MB (CK-2) C-Reactive Protein Total Protein Albumin Salicylates Acetaminophen 04/09/18 04/10/18 04/10/18 21:09 04:42 08:24 Hgb Hct MCV 96 H MCH MCHC RDW Plt Count 96 L Lymph % (Auto) [place] % (Auto) Lymph # [place] # Seg Neutrophils % Monocytes % (Manual) 12.0 H Lymphocytes # (Manual) 0.7 L PT APTT Heparin Anti-Xa Level POC ABG pH POC ABG pCO2 32.7 L POC ABG pO2 143 H 117 H VBG pH Sodium Potassium Chloride Carbon Dioxide BUN Glucose POC Glucose Lactic Acid Direct Bilirubin AST ALT Total Creatine Kinase CK-MB (CK-2) C-Reactive Protein Total Protein Albumin Salicylates Acetaminophen 04/10/18 04/10/18 04/10/18 08:24 18:21 18:21 Hgb Hct MCV MCH MCHC RDW Plt Count Lymph % (Auto) [place] % (Auto) Lymph # [place] # Seg Neutrophils % Monocytes % (Manual) Lymphocytes # (Manual) PT APTT Heparin Anti-Xa Level POC ABG pH POC ABG pCO2 POC ABG pO2 VBG pH Sodium Potassium Chloride Carbon Dioxide 21 L BUN Glucose POC Glucose Lactic Acid Direct Bilirubin AST 101 H ALT 78 H Total Creatine Kinase CK-MB (CK-2) C-Reactive Protein 2.70 H Total Protein Albumin 3.7 L Salicylates < 0.3 L Acetaminophen 04/10/18 04/11/18 04/11/18 18:21 04:19 11:17 Hgb Hct MCV MCH MCHC RDW Plt Count Lymph % (Auto) [place] % (Auto) Lymph # [place] # Seg Neutrophils % Monocytes % (Manual) Lymphocytes # (Manual) PT APTT Heparin Anti-Xa Level POC ABG pH 7.342 L POC ABG pCO2 POC ABG pO2 113 H VBG pH Sodium Potassium Chloride Carbon Dioxide 19 L BUN Glucose 144 H POC Glucose Lactic Acid Direct Bilirubin AST ALT Total Creatine Kinase CK-MB (CK-2) C-Reactive Protein Total Protein Albumin Salicylates Acetaminophen < 5.0 L 04/12/18 04/13/18 04/13/18 04:29 04:37 10:12 Hgb Hct MCV MCH MCHC RDW Plt Count Lymph % (Auto) [place] % (Auto) Lymph # [place] # Seg Neutrophils % Monocytes % (Manual) Lymphocytes # (Manual) PT APTT Heparin Anti-Xa Level POC ABG pH POC ABG pCO2 POC ABG pO2 106 H 112 H VBG pH Sodium Potassium 6.0 H D Chloride 109.5 H Carbon Dioxide 20 L BUN 22 H Glucose 149 H POC Glucose Lactic Acid Direct Bilirubin AST ALT Total Creatine Kinase CK-MB (CK-2) C-Reactive Protein Total Protein Albumin Salicylates Acetaminophen 04/13/18 04/13/18 04/14/18 11:29 16:57 04:50 Hgb 15.5 H Hct 46.0 H MCV 97 H MCH 33 H MCHC RDW 13.0 L Plt Count Lymph % (Auto) [place] % (Auto) Lymph # [place] # Seg Neutrophils % Monocytes % (Manual) Lymphocytes # (Manual) PT APTT Heparin Anti-Xa Level POC ABG pH POC ABG pCO2 POC ABG pO2 VBG pH Sodium Potassium Chloride Carbon Dioxide BUN Glucose POC Glucose 115 H 128 H Lactic Acid Direct Bilirubin AST ALT Total Creatine Kinase CK-MB (CK-2) C-Reactive Protein Total Protein Albumin Salicylates Acetaminophen 04/14/18 04/14/18 04/15/18 04:50 04:50 04:21 Hgb Hct MCV 96 H MCH MCHC RDW Plt Count Lymph % (Auto) 10.7 L [place] % (Auto) 13.9 H Lymph # 0.9 L [place] # 1.2 H Seg Neutrophils % 75.2 H Monocytes % (Manual) Lymphocytes # (Manual) PT APTT Heparin Anti-Xa Level POC ABG pH POC ABG pCO2 POC ABG pO2 VBG pH Sodium 149 H Potassium 3.5 L D Chloride Carbon Dioxide BUN 22 H Glucose 146 H POC Glucose Lactic Acid Direct Bilirubin 0.3 H AST 74 H ALT 89 H Total Creatine Kinase CK-MB (CK-2) C-Reactive Protein Total Protein Albumin Salicylates Acetaminophen 04/15/18 04/15/18 04:21 04:21 Hgb Hct MCV MCH MCHC RDW Plt Count Lymph % (Auto) [place] % (Auto) Lymph # [place] # Seg Neutrophils % Monocytes % (Manual) Lymphocytes # (Manual) PT APTT Heparin Anti-Xa Level 1.50 H POC ABG pH POC ABG pCO2 POC ABG pO2 VBG pH Sodium Potassium Chloride Carbon Dioxide BUN 26 H Glucose 128 H POC Glucose Lactic Acid Direct Bilirubin AST ALT 62 H Total Creatine Kinase CK-MB (CK-2) C-Reactive Protein Total Protein Albumin 3.4 L Salicylates Acetaminophen Allied health notes reviewed: nursing
--- NOTE | 2018-04-15 12:42 | Progress Note ---
Assessment and Plan Assessment and plan: --Acute respiratory failure with hypoxia and hypercapnea s/p intubation and on MV, extubated yesterday continue oxygen nebulizers supportive care and pulmonary following --Hyperkalemia; resolved, potassium level 3.5 --Mild Hypokalemia: Closely monitor --SIRS/Suspected sepsis source of infection unknown, probably blisters on the skin Urinalysis and chest x-ray negative On IV antibiotic Rocephin , CSF and blood cultures negative so far sputum cultures positive for hadley albicans-insignificant --Acute alcohol withdrawal On CIWA protocol --Seizure disorder with breakthrough seizure Seizure likely due to alcohol withdrawal On propofol drip --Lactic acidosis:resolved Probably secondary to the seizures --Hypernatremia: Free water, D5 W if no improvement --Severe acute metabolic acidosis Resolved continue IV fluid and monitor --Accelerated Hypertension; Continue current antihypertensives and when necessary medications --History of right upper extremity DVT Continue eliquis --Blisters on the extremities ;Probable allergic reaction Continue steroid --Transaminitis: Likely secondary to alcohol abuse/cirrhosis Trending down --History of cirrhosis/hepatitis outpatient follow-up with GI --History of alcohol dependence Strongly adviced to quit, recommend alcohol rehabilitation program --Mild malnutrition ; Supportive care, nutrition supplements --GI prophylaxis with Famotidine --DVT prophylaxis; patient is already on Eliquis Critical care time 35 minutes History Interval history: Patient seen and examined medical records reviewed Patient feels slightly better no new complaints Vital signs noted No new events reported by the nursing Patient was extubated yesterday Hospitalist Physical - Constitutional Vitals: Temp Pulse Resp BP Pulse Ox 97.9 F 106 H 31 H 104/59 97 04/15/18 08:00 04/15/18 11:01 04/15/18 11:01 04/15/18 11:01 04/15/18 11:01 General appearance: Present: no acute distress, well-nourished, other (patient is intubated and sedated but opens eyes to voice with mild agitation) - EENT Eyes: Present: PERRL, EOM intact - Neck Neck: Present: supple, normal ROM - Respiratory Respiratory effort: normal Respiratory: bilateral: diminished, rales, negative: rhonchi, wheezing - Cardiovascular Rhythm: regular Heart Sounds: Present: S1 & S2 - Extremities Extremities: no ischemia, No edema - Abdominal General gastrointestinal: soft, non-tender, non-distended, normal bowel sounds - Integumentary Integumentary: Present: clear, warm - Psychiatric Psychiatric: appropriate mood/affect, cooperative - Neurologic Neurologic: moves all extremities Results - Labs CBC & Chem 7: 04/15/18 04:21 04/15/18 04:21 Labs: Laboratory Last Values WBC 8.7 K/mm3 (4.5-11.0) 04/15/18 04:21 RBC 4.65 M/mm3 (3.65-5.03) 04/15/18 04:21 Hgb 14.8 gm/dl (11.8-15.2) 04/15/18 04:21 Hct 44.4 % (35.5-45.6) 04/15/18 04:21 MCV 96 fl (84-94) H 04/15/18 04:21 MCH 32 pg (28-32) 04/15/18 04:21 MCHC 33 % (32-34) 04/15/18 04:21 RDW 13.4 % (13.2-15.2) 04/15/18 04:21 Plt Count 202 K/mm3 (140-440) 04/15/18 04:21 Lymph % (Auto) 10.7 % (13.4-35.0) L 04/15/18 04:21 [place] % (Auto) 13.9 % (0.0-7.3) H 04/15/18 04:21 Eos % (Auto) 0.0 % (0.0-4.3) 04/15/18 04:21 Baso % (Auto) 0.2 % (0.0-1.8) 04/15/18 04:21 Lymph # 0.9 K/mm3 (1.2-5.4) L 04/15/18 04:21 [place] # 1.2 K/mm3 (0.0-0.8) H 04/15/18 04:21 Eos # 0.0 K/mm3 (0.0-0.4) 04/15/18 04:21 Baso # 0.0 K/mm3 (0.0-0.1) 04/15/18 04:21 Add Manual Diff Complete 04/10/18 08:24 Total Counted 100 04/10/18 08:24 Seg Neutrophils % 75.2 % (40.0-70.0) H 04/15/18 04:21 Seg Neuts % (Manual) 69.0 % (40.0-70.0) 04/10/18 08:24 Band Neutrophils % 0 % 04/10/18 08:24 Lymphocytes % (Manual) 16.0 % (13.4-35.0) 04/10/18 08:24 Reactive Lymphs % (Man) 3.0 % 04/10/18 08:24 Monocytes % (Manual) 12.0 % (0.0-7.3) H 04/10/18 08:24 Eosinophils % (Manual) 0 % (0.0-4.3) 04/10/18 08:24 Basophils % (Manual) 0 % (0.0-1.8) 04/10/18 08:24 Metamyelocytes % 0 % 04/10/18 08:24 Myelocytes % 0 % 04/10/18 08:24 Promyelocytes % 0 % 04/10/18 08:24 Blast Cells % 0 % 04/10/18 08:24 Nucleated RBC % Not Reportable 04/10/18 08:24 Seg Neutrophils # 6.5 K/mm3 (1.8-7.7) 04/15/18 04:21 Seg Neutrophils # Man 3.1 K/mm3 (1.8-7.7) 04/10/18 08:24 Band Neutrophils # 0.0 K/mm3 04/10/18 08:24 Lymphocytes # (Manual) 0.7 K/mm3 (1.2-5.4) L 04/10/18 08:24 Abs React Lymphs (Man) 0.1 K/mm3 04/10/18 08:24 Monocytes # (Manual) 0.5 K/mm3 (0.0-0.8) 04/10/18 08:24 Eosinophils # (Manual) 0.0 K/mm3 (0.0-0.4) 04/10/18 08:24 Basophils # (Manual) 0.0 K/mm3 (0.0-0.1) 04/10/18 08:24 Metamyelocytes # 0.0 K/mm3 04/10/18 08:24 Myelocytes # 0.0 K/mm3 04/10/18 08:24 Promyelocytes # 0.0 K/mm3 04/10/18 08:24 Blast Cells # 0.0 K/mm3 04/10/18 08:24 WBC Morphology Not Reportable 04/10/18 08:24 Hypersegmented Neuts Not Reportable 04/10/18 08:24 Hyposegmented Neuts Not Reportable 04/10/18 08:24 Hypogranular Neuts Not Reportable 04/10/18 08:24 Smudge Cells Few 04/10/18 08:24 Toxic Granulation Not Reportable 04/10/18 08:24 Toxic Vacuolation Not Reportable 04/10/18 08:24 Dohle Bodies Not Reportable 04/10/18 08:24 Pelger-Huet Anomaly Not Reportable 04/10/18 08:24 Wicho Rods Not Reportable 04/10/18 08:24 Platelet Estimate Consistent w auto 04/10/18 08:24 Clumped Platelets Not Reportable 04/10/18 08:24 Plt Clumps, EDTA Not Reportable 04/10/18 08:24 Large Platelets Not Reportable 04/10/18 08:24 Giant Platelets Not Reportable 04/10/18 08:24 Platelet Satelliting Not Reportable 04/10/18 08:24 Plt Morphology Comment Not Reportable 04/10/18 08:24 RBC Morphology Not Reportable 04/10/18 08:24 Dimorphic RBCs Not Reportable 04/10/18 08:24 Polychromasia Not Reportable 04/10/18 08:24 Hypochromasia Not Reportable 04/10/18 08:24 Poikilocytosis 1+ 04/10/18 08:24 Anisocytosis 1+ 04/10/18 08:24 Microcytosis Not Reportable 04/10/18 08:24 Macrocytosis 1+ 04/10/18 08:24 Spherocytes Not Reportable 04/10/18 08:24 Pappenheimer Bodies Not Reportable 04/10/18 08:24 Sickle Cells Not Reportable 04/10/18 08:24 Target Cells Not Reportable 04/10/18 08:24 Tear Drop Cells Few 04/10/18 08:24 Ovalocytes Few 04/10/18 08:24 Helmet Cells Not Reportable 04/10/18 08:24 [place] Bodies Not Reportable 04/10/18 08:24 [place] Rings Not Reportable 04/10/18 08:24 [place] Cells Not Reportable 04/10/18 08:24 Bite Cells Not Reportable 04/10/18 08:24 Crenated Cell Not Reportable 04/10/18 08:24 Elliptocytes Not Reportable 04/10/18 08:24 Acanthocytes (Spur) Not Reportable 04/10/18 08:24 Rouleaux Not Reportable 04/10/18 08:24 Hemoglobin C Crystals Not Reportable 04/10/18 08:24 Schistocytes Not Reportable 04/10/18 08:24 Malaria parasites Not Reportable 04/10/18 08:24 Angus Bodies Not Reportable 04/10/18 08:24 Hem Pathologist Commnt No 04/10/18 08:24 PT 15.1 Sec. (12.2-14.9) H 04/09/18 10:38 INR 1.12 (0.87-1.13) 04/09/18 10:38 APTT 24.1 Sec. (24.2-36.6) L 04/09/18 10:38 Heparin Anti-Xa Level 1.50 U.I./ml (0.3-0.7) H 04/15/18 04:21 POC ABG pH 7.403 (7.35-7.45) 04/13/18 10:12 POC ABG pCO2 41.7 (35-45) 04/13/18 10:12 POC ABG pO2 112 (80-105) H 04/13/18 10:12 POC ABG HCO3 26.0 04/13/18 10:12 POC ABG Total CO2 27 04/13/18 10:12 POC ABG O2 Sat 98 04/13/18 10:12 POC ABG Base Excess 1 04/13/18 10:12 VBG pH 7.296 (7.320-7.420) L 04/09/18 11:36 FiO2 30 % 04/13/18 10:12 Sodium 143 mmol/L (137-145) 04/15/18 04:21 Potassium 3.8 mmol/L (3.6-5.0) 04/15/18 04:21 Chloride 103.4 mmol/L (98-107) 04/15/18 04:21 Carbon Dioxide 27 mmol/L (22-30) 04/15/18 04:21 Anion Gap 16 mmol/L 04/15/18 04:21 BUN 26 mg/dL (9-20) H 04/15/18 04:21 Creatinine 1.0 mg/dL (0.8-1.5) 04/15/18 04:21 Estimated GFR > 60 ml/min 04/15/18 04:21 BUN/Creatinine Ratio 26 % 04/15/18 04:21 Glucose 128 mg/dL (75-100) H 04/15/18 04:21 POC Glucose 128 (70-105) H 04/13/18 16:57 Lactic Acid 1.80 mmol/L (0.7-2.0) 04/10/18 01:25 Calcium 9.2 mg/dL (8.4-10.2) 04/15/18 04:21 Phosphorus 4.00 mg/dL (2.5-4.5) 04/15/18 04:21 Magnesium 2.10 mg/dL (1.7-2.3) 04/15/18 04:21 Total Bilirubin 0.50 mg/dL (0.1-1.2) 04/15/18 04:21 Direct Bilirubin 0.3 mg/dL (0-0.2) H 04/14/18 04:50 Indirect Bilirubin 0.2 mg/dL 04/14/18 04:50 AST 40 units/L (5-40) 04/15/18 04:21 ALT 62 units/L (7-56) H 04/15/18 04:21 Alkaline Phosphatase 51 units/L (35-129) 04/15/18 04:21 Total Creatine Kinase 913 units/L (55-170) H 04/09/18 10:57 CK-MB (CK-2) 9.6 ng/mL (0.0-4.0) H 04/09/18 10:57 CK-MB (CK-2) Rel Index 1.0 (0-4) 04/09/18 10:57 Troponin T < 0.010 ng/mL (0.00-0.029) 04/10/18 18:21 C-Reactive Protein 2.70 mg/dL (0.00-1.30) H 04/10/18 18:21 Total Protein 6.7 g/dL (6.3-8.2) 04/15/18 04:21 Albumin 3.4 g/dL (3.9-5) L 04/15/18 04:21 Albumin/Globulin Ratio 1.0 % 04/15/18 04:21 Urine Color Straw (Yellow) 04/09/18 11:15 Urine Turbidity Clear (Clear) 04/09/18 11:15 Urine pH 6.0 (5.0-7.0) 04/09/18 11:15 Ur Specific [place] 1.009 (1.003-1.030) 04/09/18 11:15 Urine Protein 100 mg/dl mg/dL (Negative) 04/09/18 11:15 Urine Glucose (UA) Neg mg/dL (Negative) 04/09/18 11:15 Urine Ketones Neg mg/dL (Negative) 04/09/18 11:15 Urine Blood Mod (Negative) 04/09/18 11:15 Urine Nitrite Neg (Negative) 04/09/18 11:15 Urine Bilirubin Neg (Negative) 04/09/18 11:15 Urine Urobilinogen < 2.0 mg/dL (<2.0) 04/09/18 11:15 Ur Leukocyte Esterase Neg (Negative) 04/09/18 11:15 Urine WBC (Auto) < 1.0 /HPF (0.0-6.0) 04/09/18 11:15 Urine RBC (Auto) 2.0 /HPF (0.0-6.0) 04/09/18 11:15 Urine Mucus Few /HPF 04/09/18 11:15 CSF Appearance Hazy 04/09/18 19:06 CSF Color [place] 04/09/18 19:06 CSF WBC 3 /mm3 (1-10) 04/09/18 19:06 CSF RBC 1675 /mm3 (0-0) 04/09/18 19:06 CSF Seg Neutrophils 40.0 % (0-6) 04/09/18 19:06 CSF Lymphocytes % 0 % (40-80) 04/09/18 19:06 CSF Reactive Lymphs 0 % 04/09/18 19:06 CSF Monocytes % 40.0 % (15-45) 04/09/18 19:06 CSF Eosinophils % 0 % 04/09/18 19:06 CSF Basophils 0 % 04/09/18 19:06 CSF Comment Less than 10 04/09/18 19:06 CSF Pathologist Review C 04/09/18 19:06 CSF Glucose 82 mg/dL 04/09/18 19:06 CSF Total Protein 88 mg/dL 04/09/18 19:06 Salicylates < 0.3 mg/dL (2.8-20.0) L 04/10/18 18:21 Urine Opiates Screen Presumptive negative 04/09/18 11:15 Urine Methadone Screen Presumptive negative 04/09/18 11:15 Acetaminophen < 5.0 ug/mL (10.0-30.0) L 04/10/18 18:21 Ur Barbiturates Screen Presumptive negative 04/09/18 11:15 Ur Phencyclidine Scrn Presumptive negative 04/09/18 11:15 Ur Amphetamines Screen Presumptive negative 04/09/18 11:15 U Benzodiazepines Scrn Presumptive negative 04/09/18 11:15 Urine Cocaine Screen Presumptive negative 04/09/18 11:15 U Marijuana (THC) Screen Presumptive negative 04/09/18 11:15 Drugs of Abuse Note Disclamer 04/09/18 11:15 Plasma/Serum Alcohol < 0.01 % (0-0.07) 04/09/18 11:36 Nutrition/Malnutrition Assess - Dietary Evaluation Nutrition/Malnutrition Findings: Nutrition Notes Start: 04/10/18 10:05 Freq: Status: Active Protocol: Document 04/14/18 10:39 CP (Rec: 04/14/18 10:43 CP [id number]) Co-Sign 04/14/18 10:39 LP Nutrition Notes Initial or Follow up Brief Note Current Diet Clear Liquid Diet Labs/Tests K: 3.5 Subjective/Other Information No TF running at time of visit . Diet advanced to clear liquid. Nutrition Intervention Goal #1 PO tolerance Goal #2 Diet advancement to meet nutrient needs Anticipated Discharge Needs: Unable to determine at this time Follow-Up By: 04/16/18 Additional Comments F/U: PO tolerance, diet advancement
[2018-04-16] MEDS: APRESOLINE PO SCH ×2 (06:38→13:45)
[2018-04-16 08:14] LABS: Bilirubin,Urine NEG (Negative); Blood,Urine NEG (Negative); Color,Urine Yellow (Yellow); Mucus,Urine FEW /HPF; Protein,Urine <15 mg/dL mg/dL (Negative); RBC,Urine < 1.0 /HPF (0.0-6.0); WBC,Urine < 1.0 /HPF (0.0-6.0)
[2018-04-16] MEDS: NORVASC FEEDTUBE SCH (09:18)
[2018-04-16] MEDS: DELTASONE PO SCH (09:18)
[2018-04-16] MEDS: ELIQUIS PO SCH (09:18)
[2018-04-16] MEDS: PEPCID PO SCH (09:18)
--- NOTE | 2018-04-16 09:55 | Progress Note ---
Assessment and Plan Acute hypoxemic respiratory failure s/p MVS Seizure disorder, presumably secondary to alcohol withdrawal. Alcohol withdrawal. Early sepsis syndrome with the systemic inflammatory response syndrome. Hypernatremia, resolved Lactic acidosis, resolved Acute metabolic acidosis. Elevated serum transaminases. Elevated creatinine kinase. Acute encephalopathy, resolved Obesity - BIPAP qhs with prn daytime use - conitnue regular consistency diet - continue lopressor 12.5 mg p.o. bid - disconitnue antibiotic therapy - continue CIWA protocol - conitnue eliquis re: DVT history - continue to wean supplemental oxygen for O2 sats > 90% - continue bronchodilators with pulmonary hygiene per RT - PT/OT/ROM exercises - continue GI prophylaxis - continue other care per attending / other consultants -discharge planning Subjective Date of service: 04/16/18 Principal diagnosis: Ac Hypoxemic Resp Failure; Sz disorder; EtOH withdrawal; Ac Encephalopathy Interval history: Patient is seen today for: Acute hypoxemic respiratory failure; Seizure disorder (presumably secondary to alcohol withdrawal); Alcohol withdrawal; SIRS; Hypernatremia; Lactic acidosis; Acute Encephalopathy Seen and examined at bedside; 24hour events reviewed; nursing and respiratory care staff consulted; no adverse overnight events reported to me; Denies nay chest pain, no shortness of breath, no fevers or chills. No nausea, n o vomiting, no abdominal pain Objective Vital Signs - 12hr 04/15/18 04/15/18 04/16/18 22:11 23:35 05:37 Temperature 98.5 F Pulse Rate 88 94 H 75 Respiratory 16 17 Rate Blood Pressure 154/98 Blood Pressure 141/97 [Left] O2 Sat by Pulse 97 93 97 Oximetry 04/16/18 04/16/18 05:39 06:38 Temperature 97.8 F Pulse Rate 80 Respiratory Rate Blood Pressure 154/98 Blood Pressure [Left] O2 Sat by Pulse Oximetry Constitutional: appears uncomfortable, other (middle aged obese AAM, normocephalic and atraumatic) Eyes: non-icteric ENT: oropharynx moist Neck: supple, no lymphadenopathy, no JVD, other (large neck circumference) Effort: normal Ascultation: Bilateral: diminished breath sounds, rhonchi Percussion: Bilateral: not dull Cardiovascular: regular rate and rhythm Gastrointestinal: normoactive bowel sounds, soft, non-tender, rebound tenderness, non-distended, other (protuberant) Integumentary: rash Extremities: no cyanosis, pulses normal, no ischemia or petechiae, edema (trace) Neurologic: non-focal exam (grossly), pupils equal and round, CN II-XII normal, motor strength normal and, other (delirious) Psychiatric: mood appropriate, affect normal, other CBC and BMP: 04/15/18 04:21 04/15/18 04:21 ABG, PT/INR, D-dimer: ABG POC ABG pH 7.403 (7.35-7.45) 04/13/18 10:12 POC ABG pCO2 41.7 (35-45) 04/13/18 10:12 POC ABG pO2 112 (80-105) H 04/13/18 10:12 POC ABG HCO3 26.0 04/13/18 10:12 POC ABG Total CO2 27 04/13/18 10:12 POC ABG O2 Sat 98 04/13/18 10:12 PT/INR, D-dimer PT 15.1 Sec. (12.2-14.9) H 04/09/18 10:38 INR 1.12 (0.87-1.13) 04/09/18 10:38 Abnormal lab findings: Abnormal Labs 04/09/18 04/09/18 04/09/18 10:15 10:15 10:15 Hgb Hct 47.9 H MCV 102 H MCH MCHC 31 L RDW Plt Count 134 L Lymph % (Auto) [place] % (Auto) Lymph # [place] # Seg Neutrophils % Monocytes % (Manual) Lymphocytes # (Manual) PT APTT Heparin Anti-Xa Level POC ABG pH POC ABG pCO2 POC ABG pO2 VBG pH Sodium 146 H Potassium Chloride Carbon Dioxide 7 L* BUN Glucose 160 H POC Glucose Lactic Acid Direct Bilirubin AST 184 H ALT 116 H Total Creatine Kinase CK-MB (CK-2) C-Reactive Protein Total Protein 8.8 H Albumin Salicylates Acetaminophen 04/09/18 04/09/18 04/09/18 10:38 10:57 11:36 Hgb Hct MCV MCH MCHC RDW Plt Count Lymph % (Auto) [place] % (Auto) Lymph # [place] # Seg Neutrophils % Monocytes % (Manual) Lymphocytes # (Manual) PT 15.1 H APTT 24.1 L Heparin Anti-Xa Level POC ABG pH POC ABG pCO2 POC ABG pO2 VBG pH Sodium Potassium Chloride Carbon Dioxide BUN Glucose POC Glucose Lactic Acid 5.10 H* Direct Bilirubin AST ALT Total Creatine Kinase 913 H CK-MB (CK-2) 9.6 H C-Reactive Protein Total Protein Albumin Salicylates Acetaminophen 04/09/18 04/09/18 04/09/18 11:36 12:24 18:11 Hgb Hct MCV MCH MCHC RDW Plt Count Lymph % (Auto) [place] % (Auto) Lymph # [place] # Seg Neutrophils % Monocytes % (Manual) Lymphocytes # (Manual) PT APTT Heparin Anti-Xa Level POC ABG pH 7.282 L POC ABG pCO2 55.1 H POC ABG pO2 160 H VBG pH 7.296 L Sodium Potassium Chloride Carbon Dioxide BUN Glucose POC Glucose Lactic Acid Direct Bilirubin AST ALT Total Creatine Kinase CK-MB (CK-2) C-Reactive Protein Total Protein Albumin Salicylates Acetaminophen 04/09/18 04/10/18 04/10/18 21:09 04:42 08:24 Hgb Hct MCV 96 H MCH MCHC RDW Plt Count 96 L Lymph % (Auto) [place] % (Auto) Lymph # [place] # Seg Neutrophils % Monocytes % (Manual) 12.0 H Lymphocytes # (Manual) 0.7 L PT APTT Heparin Anti-Xa Level POC ABG pH POC ABG pCO2 32.7 L POC ABG pO2 143 H 117 H VBG pH Sodium Potassium Chloride Carbon Dioxide BUN Glucose POC Glucose Lactic Acid Direct Bilirubin AST ALT Total Creatine Kinase CK-MB (CK-2) C-Reactive Protein Total Protein Albumin Salicylates Acetaminophen 04/10/18 04/10/18 04/10/18 08:24 18:21 18:21 Hgb Hct MCV MCH MCHC RDW Plt Count Lymph % (Auto) [place] % (Auto) Lymph # [place] # Seg Neutrophils % Monocytes % (Manual) Lymphocytes # (Manual) PT APTT Heparin Anti-Xa Level POC ABG pH POC ABG pCO2 POC ABG pO2 VBG pH Sodium Potassium Chloride Carbon Dioxide 21 L BUN Glucose POC Glucose Lactic Acid Direct Bilirubin AST 101 H ALT 78 H Total Creatine Kinase CK-MB (CK-2) C-Reactive Protein 2.70 H Total Protein Albumin 3.7 L Salicylates < 0.3 L Acetaminophen 04/10/18 04/11/18 04/11/18 18:21 04:19 11:17 Hgb Hct MCV MCH MCHC RDW Plt Count Lymph % (Auto) [place] % (Auto) Lymph # [place] # Seg Neutrophils % Monocytes % (Manual) Lymphocytes # (Manual) PT APTT Heparin Anti-Xa Level POC ABG pH 7.342 L POC ABG pCO2 POC ABG pO2 113 H VBG pH Sodium Potassium Chloride Carbon Dioxide 19 L BUN Glucose 144 H POC Glucose Lactic Acid Direct Bilirubin AST ALT Total Creatine Kinase CK-MB (CK-2) C-Reactive Protein Total Protein Albumin Salicylates Acetaminophen < 5.0 L 04/12/18 04/13/18 04/13/18 04:29 04:37 10:12 Hgb Hct MCV MCH MCHC RDW Plt Count Lymph % (Auto) [place] % (Auto) Lymph # [place] # Seg Neutrophils % Monocytes % (Manual) Lymphocytes # (Manual) PT APTT Heparin Anti-Xa Level POC ABG pH POC ABG pCO2 POC ABG pO2 106 H 112 H VBG pH Sodium Potassium 6.0 H D Chloride 109.5 H Carbon Dioxide 20 L BUN 22 H Glucose 149 H POC Glucose Lactic Acid Direct Bilirubin AST ALT Total Creatine Kinase CK-MB (CK-2) C-Reactive Protein Total Protein Albumin Salicylates Acetaminophen 04/13/18 04/13/18 04/14/18 11:29 16:57 04:50 Hgb 15.5 H Hct 46.0 H MCV 97 H MCH 33 H MCHC RDW 13.0 L Plt Count Lymph % (Auto) [place] % (Auto) Lymph # [place] # Seg Neutrophils % Monocytes % (Manual) Lymphocytes # (Manual) PT APTT Heparin Anti-Xa Level POC ABG pH POC ABG pCO2 POC ABG pO2 VBG pH Sodium Potassium Chloride Carbon Dioxide BUN Glucose POC Glucose 115 H 128 H Lactic Acid Direct Bilirubin AST ALT Total Creatine Kinase CK-MB (CK-2) C-Reactive Protein Total Protein Albumin Salicylates Acetaminophen 04/14/18 04/14/18 04/15/18 04:50 04:50 04:21 Hgb Hct MCV 96 H MCH MCHC RDW Plt Count Lymph % (Auto) 10.7 L [place] % (Auto) 13.9 H Lymph # 0.9 L [place] # 1.2 H Seg Neutrophils % 75.2 H Monocytes % (Manual) Lymphocytes # (Manual) PT APTT Heparin Anti-Xa Level POC ABG pH POC ABG pCO2 POC ABG pO2 VBG pH Sodium 149 H Potassium 3.5 L D Chloride Carbon Dioxide BUN 22 H Glucose 146 H POC Glucose Lactic Acid Direct Bilirubin 0.3 H AST 74 H ALT 89 H Total Creatine Kinase CK-MB (CK-2) C-Reactive Protein Total Protein Albumin Salicylates Acetaminophen 04/15/18 04/15/18 04:21 04:21 Hgb Hct MCV MCH MCHC RDW Plt Count Lymph % (Auto) [place] % (Auto) Lymph # [place] # Seg Neutrophils % Monocytes % (Manual) Lymphocytes # (Manual) PT APTT Heparin Anti-Xa Level 1.50 H POC ABG pH POC ABG pCO2 POC ABG pO2 VBG pH Sodium Potassium Chloride Carbon Dioxide BUN 26 H Glucose 128 H POC Glucose Lactic Acid Direct Bilirubin AST ALT 62 H Total Creatine Kinase CK-MB (CK-2) C-Reactive Protein Total Protein Albumin 3.4 L Salicylates Acetaminophen Allied health notes reviewed: nursing
[2018-04-16] MEDS: HALDOL IV PRN (11:56)
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
[2018-04-16 18:31] VITALS: BP 148/89
== END 2018-04-16 18:40 | disposition home health service (06) | DRG 870 ==
LOC: ED 10:01 → CC1 19:57 → 3A 04-15 16:23
PROVIDERS: ADMIT Internal Medicine; ATTEND Internal Medicine
PROC: 5A1955Z Respiratory Ventilation, Greater than 96 Consecutive Hours (ICD-10-PCS; principal; 2018-04-09)
PROC: 0BH17EZ Insertion of Endotracheal Airway into Trachea, Via Natural or Artificial Opening (ICD-10-PCS; 2018-04-09)
PROC: 4A033R1 Measurement of Arterial Saturation, Peripheral, Percutaneous Approach (ICD-10-PCS; 2018-04-09)
PROC: 009U3ZZ Drainage of Spinal Canal, Percutaneous Approach (ICD-10-PCS; 2018-04-09)
DX: A41.9 Sepsis, unspecified organism (principal); J96.01 Acute respiratory failure with hypoxia; J96.02 Acute respiratory failure with hypercapnia; E87.2 Acidosis; F10.239 Alcohol dependence with withdrawal, unspecified; I10 Essential (primary) hypertension; Y90.0 Blood alcohol level of less than 20 mg/100 ml; K74.60 Unspecified cirrhosis of liver; F20.9 Schizophrenia, unspecified; G40.901 Epilepsy, unspecified, not intractable, with status epilepticus; E87.6 Hypokalemia; E44.1 Mild protein-calorie malnutrition; E87.0 Hyperosmolality and hypernatremia; G93.40 Encephalopathy, unspecified; E66.9 Obesity, unspecified; Z86.718 Personal history of other venous thrombosis and embolism; Z79.01 Long term (current) use of anticoagulants; Z82.49 Family history of ischemic heart disease and other diseases of the circulatory system; Z68.34 Body mass index [BMI] 34.0-34.9, adult; Z79.51 Long term (current) use of inhaled steroids; Z79.899 Other long term (current) drug therapy; T65.891A Toxic effect of other specified substances, accidental (unintentional), initial encounter; L23.1 Allergic contact dermatitis due to adhesives; Y92.230 Patient room in hospital as the place of occurrence of the external cause
CPT/HCPCS: 36415; 36600; 70450; 71045; 74018; 80048; 80053; 80076; 80307; 80320; 81001; 82140; 82550; 82553; 82803; 82805; 82947; 82962; 83735; 84100; 84160; 84484; 85007; 85025; 85027; 85520; 85610; 85730; 86140; 87040; 87070; 87086; 87116; 87205; 89051; 93005; 93010; 94002; 94003; 94760; G0378; G0480; J0330; J0360; J0696; J1200; J1630; J1953; J2060; J2405; J2704; J2765; J2920; J2930; J3370; J3411; J7030; J7040; J7070; J7512

== ENCOUNTER 2018-05-13 14:24 | Inpatient (IN) | payer MEDICAID ==
[~2018-05-13 14:24] MED LIST changes: -AMIDATE IV ONE; +KEPPRA 1,000 MG/NS 0.75% 100ML 1,000 MG/100 ML BAG IV SCH; -ZEMURON IV ONE
[2018-05-13] MEDS ORDERED: NACL 0.9% 1000 ML 1,000 ML IV ONE (14:50)
[2018-05-13] MEDS ORDERED: KEPPRA 1,000 MG/NS 0.75% 100ML 1,000 MG/100 ML BAG IV ONE (14:54)
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
[2018-05-13 15:45] LABS: Mean Corpuscular HGB Conc 31 % (32-34); Mean Corpuscular Volume 103 fl (84-94); Red Cell Distribution Width 14.2 % (13.2-15.2)
[2018-05-13 15:46] LABS: Hemolysis Index 0
[2018-05-13 15:50] LABS: Hematocrit 48.5 % (35.5-45.6); Hemoglobin 15.1 gm/dl (11.8-15.2); Platelet Count 137 K/mm3 (140-440)
[2018-05-13 16:14] LABS: Alanine Aminotransferase 139 units/L (7-56); BUN/Creatinine Ratio 60; Blood Urea Nitrogen 12 mg/dL (9-20)
[2018-05-13 16:15] LABS: Albumin 4.2 g/dL (3.9-5)
[2018-05-13] MEDS ORDERED: ATIVAN IV PRN (16:29)
[2018-05-13 17:34] LABS: Bilirubin,Urine NEG (Negative); Blood,Urine SM (Negative); Color,Urine Yellow (Yellow); Granular Casts,Urine 15 /LPF; Mucus,Urine FEW /HPF
[2018-05-13 17:36] LABS: Anisocytosis 1+; Band Neutrophils # (Manual) 0.1 K/mm3; Basophils % (Manual) 0 % (0.0-1.8); Eosinophils % (Manual) 0 % (0.0-4.3); Platelet Estimate Consistent w Auto; Total Cells Counted 100
[2018-05-13 17:38] LABS: Macrocytosis 1+
[2018-05-13 17:43] LABS: Amphetamine Screen,Urine PRESUMPTIVE NEGATIVE; Benzodiazepines Screen,Urine PRESUMPTIVE NEGATIVE; Cannabinoid Screen,Urine PRESUMPTIVE NEGATIVE; Cocaine Screen,Urine PRESUMPTIVE NEGATIVE; Methadone Screen,Urine PRESUMPTIVE NEGATIVE; Opiate Screen,Urine PRESUMPTIVE NEGATIVE
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
[2018-05-13] MEDS ORDERED: KEPPRA 1,000 MG in NACL 0.9% 100 ML IV SCH (22:00)
[2018-05-13] MEDS ORDERED: TYLENOL PO PRN (22:10)
[2018-05-13] MEDS ORDERED: ZOFRAN IV PRN (22:10)
[2018-05-13] MEDS ORDERED: PERCOCET 5/325 PO PRN (22:10)
[2018-05-13] MEDS ORDERED: SODIUM CHLORIDE FLUSH SYRINGE 10 ML IV PRN (22:10)
[2018-05-13] MEDS ORDERED: DILAUDID IV PRN (22:10)
--- NOTE | 2018-05-13 22:10 | History and Physical Report ---
History of Present Illness Date of examination: 05/13/18 Date of admission: 05/13/18 17:25 Chief complaint: Seizures x 1 in EMS enroute 30 mins ago History of present illness: 58-year-old -[place] male presents to ED via EMS for seizures.Witnessed seizure by EMS.Patient wascoming by EMS for'" constipation". Patient consumes Alcohol regularly.Very poor historian.Says he consumes large beer bottles 3 of them everyday.Patient with altered sensorium.Unable to give history. Past Medical History Hypertension: Yes Seizures: Yes Psychiatric Treatment: Yes (ETOH) Additional medical history: hepatitis. history obtained by sister Surgical History Additional Surgical History: PEG tube Social History Smoking Status: Unknown if ever smoked Substance Use Type: Alcohol Medications Home Medications: Home Medications Medication Instructions Recorded Confirmed Last Taken Type Apixaban [Eliquis] 5 mg PO Q12HR #60 tablet 04/16/18 Unknown Rx Famotidine [Pepcid] 20 mg PO BID #60 tablet 04/16/18 Unknown Rx Quetiapine Fumarate [Seroquel] 100 mg PO BID #30 tablet 04/16/18 Unknown Rx amLODIPine [Norvasc] 10 mg FEEDTUBE QDAY #30 tablet 04/16/18 Unknown Rx hydrALAZINE [Apresoline TAB] 25 mg PO Q8HR #90 tablet 04/16/18 Unknown Rx predniSONE [Deltasone] 20 mg PO QDAY #7 tablet 04/16/18 Unknown Rx Review of Systems ROS: Stated complaint: SEIZURE Other details as noted in HPI Comment: Unobtainable due to pts medical conditions Medications and Allergies Allergies Allergy/AdvReac Type Severity Reaction Status Date / Time No Known Allergies Allergy Verified 10/24/14 23:18 Home Medications Medication Instructions Recorded Confirmed Last Taken Type Apixaban [Eliquis] 5 mg PO Q12HR #60 tablet 04/16/18 05/13/18 Unknown Rx Famotidine [Pepcid] 20 mg PO BID #60 tablet 04/16/18 05/13/18 Unknown Rx Quetiapine Fumarate [Seroquel] 100 mg PO BID #30 tablet 04/16/18 05/13/18 Unknown Rx amLODIPine [Norvasc] 10 mg FEEDTUBE QDAY #30 tablet 04/16/18 05/13/18 Unknown Rx hydrALAZINE [Apresoline TAB] 25 mg PO Q8HR #90 tablet 04/16/18 05/13/18 Unknown Rx predniSONE [Deltasone] 20 mg PO QDAY #7 tablet 04/16/18 05/13/18 Unknown Rx Active Meds: Active Medications Lorazepam (Ativan) 2 mg IV Q1HR PRN PRN Reason: CIWA-Ar 8-15 Lorazepam (Ativan) 4 mg IV Q1HR PRN PRN Reason: CIWA-Ar 16-25 Exam - Constitutional Vitals: Temp Pulse Resp BP Pulse Ox 98.9 F 112 H 18 141/94 100 05/13/18 19:15 05/13/18 19:15 05/13/18 19:15 05/13/18 19:15 05/13/18 19:15 General appearance: Present: no acute distress, well-nourished - EENT Eyes: Present: PERRL ENT: hearing intact, clear oral mucosa - Neck Neck: Present: supple, normal ROM - Respiratory Respiratory effort: normal Respiratory: bilateral: CTA - Cardiovascular Heart rate: 76 Rhythm: regular Heart Sounds: Present: S1 & S2. Absent: rub, click - Extremities Extremities: no ischemia, pulses intact, pulses symmetrical, No edema Peripheral Pulses: within normal limits - Abdominal General gastrointestinal: Present: soft, non-tender, non-distended, normal bowel sounds Male genitourinary: Present: normal - Rectal Rectal Exam: deferred - Integumentary Integumentary: Present: clear, warm, dry - Musculoskeletal Musculoskeletal: gait normal, strength equal bilaterally - Psychiatric Psychiatric: agitated, depressed, other (Post ictal) - Neurologic Neurologic: CNII-XII intact, moves all extremities, gait normal Results - Labs CBC & Chem 7: 05/13/18 15:11 05/13/18 15:11 Labs: Laboratory Last Values WBC 6.6 K/mm3 (4.5-11.0) 05/13/18 15:11 RBC 4.70 M/mm3 (3.65-5.03) 05/13/18 15:11 Hgb 15.1 gm/dl (11.8-15.2) 05/13/18 15:11 Hct 48.5 % (35.5-45.6) H 05/13/18 15:11 MCV 103 fl (84-94) H 05/13/18 15:11 MCH 32 pg (28-32) 05/13/18 15:11 MCHC 31 % (32-34) L 05/13/18 15:11 RDW 14.2 % (13.2-15.2) 05/13/18 15:11 Plt Count 137 K/mm3 (140-440) L 05/13/18 15:11 Lymph % (Auto) Training Consultant 05/13/18 15:11 [place] % (Auto) Training Consultant 05/13/18 15:11 Eos % (Auto) Training Consultant 05/13/18 15:11 Baso % (Auto) Training Consultant 05/13/18 15:11 Lymph # Training Consultant 05/13/18 15:11 [place] # Training Consultant 05/13/18 15:11 Eos # Training Consultant 05/13/18 15:11 Baso # Training Consultant 05/13/18 15:11 Add Manual Diff Complete 05/13/18 15:11 Total Counted 100 05/13/18 15:11 Seg Neutrophils % Training Consultant 05/13/18 15:11 Seg Neuts % (Manual) 78.0 % (40.0-70.0) H 05/13/18 15:11 Band Neutrophils % 1.0 % 05/13/18 15:11 Lymphocytes % (Manual) 15.0 % (13.4-35.0) 05/13/18 15:11 Reactive Lymphs % (Man) 2.0 % 05/13/18 15:11 Monocytes % (Manual) 4.0 % (0.0-7.3) 05/13/18 15:11 Eosinophils % (Manual) 0 % (0.0-4.3) 05/13/18 15:11 Basophils % (Manual) 0 % (0.0-1.8) 05/13/18 15:11 Metamyelocytes % 0 % 05/13/18 15:11 Myelocytes % 0 % 05/13/18 15:11 Promyelocytes % 0 % 05/13/18 15:11 Blast Cells % 0 % 05/13/18 15:11 Nucleated RBC % Not Reportable 05/13/18 15:11 Seg Neutrophils # Training Consultant 05/13/18 15:11 Seg Neutrophils # Man 5.1 K/mm3 (1.8-7.7) 05/13/18 15:11 Band Neutrophils # 0.1 K/mm3 05/13/18 15:11 Lymphocytes # (Manual) 1.0 K/mm3 (1.2-5.4) L 05/13/18 15:11 Abs React Lymphs (Man) 0.1 K/mm3 05/13/18 15:11 Monocytes # (Manual) 0.3 K/mm3 (0.0-0.8) 05/13/18 15:11 Eosinophils # (Manual) 0.0 K/mm3 (0.0-0.4) 05/13/18 15:11 Basophils # (Manual) 0.0 K/mm3 (0.0-0.1) 05/13/18 15:11 Metamyelocytes # 0.0 K/mm3 05/13/18 15:11 Myelocytes # 0.0 K/mm3 05/13/18 15:11 Promyelocytes # 0.0 K/mm3 05/13/18 15:11 Blast Cells # 0.0 K/mm3 05/13/18 15:11 WBC Morphology Not Reportable 05/13/18 15:11 Hypersegmented Neuts Not Reportable 05/13/18 15:11 Hyposegmented Neuts Not Reportable 05/13/18 15:11 Hypogranular Neuts Not Reportable 05/13/18 15:11 Smudge Cells Not Reportable 05/13/18 15:11 Toxic Granulation Not Reportable 05/13/18 15:11 Toxic Vacuolation Not Reportable 05/13/18 15:11 Dohle Bodies Not Reportable 05/13/18 15:11 Pelger-Huet Anomaly Not Reportable 05/13/18 15:11 Wicho Rods Not Reportable 05/13/18 15:11 Platelet Estimate Consistent w auto 05/13/18 15:11 Clumped Platelets Not Reportable 05/13/18 15:11 Plt Clumps, EDTA Not Reportable 05/13/18 15:11 Large Platelets Not Reportable 05/13/18 15:11 Giant Platelets Not Reportable 05/13/18 15:11 Platelet Satelliting Not Reportable 05/13/18 15:11 Plt Morphology Comment Not Reportable 05/13/18 15:11 RBC Morphology Not Reportable 05/13/18 15:11 Dimorphic RBCs Not Reportable 05/13/18 15:11 Polychromasia Not Reportable 05/13/18 15:11 Hypochromasia Not Reportable 05/13/18 15:11 Poikilocytosis Not Reportable 05/13/18 15:11 Anisocytosis 1+ 05/13/18 15:11 Microcytosis Not Reportable 05/13/18 15:11 Macrocytosis 1+ 05/13/18 15:11 Spherocytes Not Reportable 05/13/18 15:11 Pappenheimer Bodies Not Reportable 05/13/18 15:11 Sickle Cells Not Reportable 05/13/18 15:11 Target Cells Not Reportable 05/13/18 15:11 Tear Drop Cells Not Reportable 05/13/18 15:11 Ovalocytes Not Reportable 05/13/18 15:11 Helmet Cells Not Reportable 05/13/18 15:11 [place] Bodies Not Reportable 05/13/18 15:11 [place] Rings Not Reportable 05/13/18 15:11 Bienvenido Cells Not Reportable 05/13/18 15:11 Bite Cells Not Reportable 05/13/18 15:11 Crenated Cell Not Reportable 05/13/18 15:11 Elliptocytes Not Reportable 05/13/18 15:11 Acanthocytes (Spur) Not Reportable 05/13/18 15:11 Rouleaux Not Reportable 05/13/18 15:11 Hemoglobin C Crystals Not Reportable 05/13/18 15:11 Schistocytes Not Reportable 05/13/18 15:11 Malaria parasites Not Reportable 05/13/18 15:11 Angus Bodies Not Reportable 05/13/18 15:11 Hem Pathologist Commnt No 05/13/18 15:11 Sodium 139 mmol/L (137-145) 05/13/18 15:11 Potassium 5.1 mmol/L (3.6-5.0) H 05/13/18 15:11 Chloride 93.2 mmol/L (98-107) L 05/13/18 15:11 Carbon Dioxide 15 mmol/L (22-30) L 05/13/18 15:11 Anion Gap 36 mmol/L 05/13/18 15:11 BUN 12 mg/dL (9-20) 05/13/18 15:11 Creatinine < 0.2 mg/dL (0.8-1.5) L 05/13/18 15:11 Estimated GFR > 60 ml/min 05/13/18 15:11 BUN/Creatinine Ratio 60 % 05/13/18 15:11 Glucose 238 mg/dL (75-100) H 05/13/18 15:11 Calcium 10.0 mg/dL (8.4-10.2) 05/13/18 15:11 Phosphorus 5.60 mg/dL (2.5-4.5) H 05/13/18 16:32 Magnesium 2.70 mg/dL (1.7-2.3) H 05/13/18 16:32 Total Bilirubin < 0.20 mg/dL (0.1-1.2) 05/13/18 15:11 AST 201 units/L (5-40) H 05/13/18 15:11 ALT 139 units/L (7-56) H 05/13/18 15:11 Alkaline Phosphatase 77 units/L (35-129) 05/13/18 15:11 Total Creatine Kinase 507 units/L (55-170) H 05/13/18 15:11 Troponin T < 0.010 ng/mL (0.00-0.029) 05/13/18 15:11 Total Protein 7.8 g/dL (6.3-8.2) 05/13/18 15:11 Albumin 4.2 g/dL (3.9-5) 05/13/18 15:11 Albumin/Globulin Ratio 1.2 % 05/13/18 15:11 TSH 2.780 mlU/mL (0.270-4.200) 05/13/18 15:26 Urine Color Yellow (Yellow) 05/13/18 17:11 Urine Turbidity Slightly-cloudy (Clear) 05/13/18 17:11 Urine pH 6.0 (5.0-7.0) 05/13/18 17:11 Ur Specific [place] 1.020 (1.003-1.030) 05/13/18 17:11 Urine Protein 100 mg/dl mg/dL (Negative) 05/13/18 17:11 Urine Glucose (UA) 50 mg/dL (Negative) 05/13/18 17:11 Urine Ketones Tr mg/dL (Negative) 05/13/18 17:11 Urine Blood Sm (Negative) 05/13/18 17:11 Urine Nitrite Neg (Negative) 05/13/18 17:11 Urine Bilirubin Neg (Negative) 05/13/18 17:11 Urine Urobilinogen 2.0 mg/dL (<2.0) 05/13/18 17:11 Ur Leukocyte Esterase Neg (Negative) 05/13/18 17:11 Urine WBC (Auto) 2.0 /HPF (0.0-6.0) 05/13/18 17:11 Urine RBC (Auto) 3.0 /HPF (0.0-6.0) 05/13/18 17:11 U Epithel Cells (Auto) < 1.0 /HPF (0-13.0) 05/13/18 17:11 Granular Casts 15 /LPF 05/13/18 17:11 Urine Mucus Few /HPF 05/13/18 17:11 Urine Opiates Screen Presumptive negative 05/13/18 17:11 Urine Methadone Screen Presumptive negative 05/13/18 17:11 Ur Barbiturates Screen Presumptive negative 05/13/18 17:11 Ur Phencyclidine Scrn Presumptive negative 05/13/18 17:11 Ur Amphetamines Screen Presumptive negative 05/13/18 17:11 U Benzodiazepines Scrn Presumptive negative 05/13/18 17:11 Urine Cocaine Screen Presumptive negative 05/13/18 17:11 U Marijuana (THC) Screen Presumptive negative 05/13/18 17:11 Drugs of Abuse Note Disclamer 05/13/18 17:11 Plasma/Serum Alcohol < 0.01 % (0-0.07) 05/13/18 15:11 Short CBC 05/13/18 Range/Units 15:11 WBC 6.6 (4.5-11.0) K/mm3 Hgb 15.1 (11.8-15.2) gm/dl Hct 48.5 H (35.5-45.6) % Plt Count 137 L (140-440) K/mm3 BMP 05/13/18 15:11 Sodium 139 Potassium 5.1 H Chloride 93.2 L Carbon Dioxide 15 L BUN 12 Creatinine < 0.2 L Glucose 238 H Calcium 10.0 Cardiac Enzymes 05/13/18 Range/Units 15:11 Total Creatine Kinase 507 H (55-170) units/L Troponin T < 0.010 (0.00-0.029) ng/mL Liver Function 05/13/18 Range/Units 15:11 Total Bilirubin < 0.20 (0.1-1.2) mg/dL AST 201 H (5-40) units/L ALT 139 H (7-56) units/L Alkaline Phosphatase 77 (35-129) units/L Albumin 4.2 (3.9-5) g/dL Urine 05/13/18 Range/Units 17:11 Urine Color Yellow (Yellow) Urine pH 6.0 (5.0-7.0) Ur Specific [place] 1.020 (1.003-1.030) Urine Protein 100 mg/dl (Negative) mg/dL Urine Glucose (UA) 50 (Negative) mg/dL - Imaging and Cardiology EKG: report reviewed (sinus Tachycardia) CT Scan - head: report reviewed (NAF) Assessment and Plan Advance Directives: Yes (Full code) VTE prophylaxis?: Chemical Plan of care discussed with patient/family: Yes - Patient Problems (1) Seizure due to alcohol withdrawal Current Visit: No Status: Acute Qualifiers: Complication of substance-induced condition: with delirium Qualified Code(s): F10.231 - Alcohol dependence with withdrawal delirium Plan to address problem: Initiated on IV Keppra Needs to be on Po Keppra lifelong Cannot drive (2) Encephalopathy Current Visit: No Status: Acute Plan to address problem: Sec to ETOH and Seizures ETOH level is zero (3) EtOH dependence Current Visit: No Status: Chronic Qualifiers: Complication of substance-induced condition: with unspecified complication Plan to address problem: CIWA protocol initiated (4) Hypertension Current Visit: Yes Status: Chronic Qualifiers: Hypertension type: essential hypertension Qualified Code(s): I10 - Essential (primary) hypertension Plan to address problem: Adjust antihypertensives BP High (5) Bipolar 1 disorder Current Visit: Yes Status: Chronic Plan to address problem: Cont seroquel (6) Transaminitis Current Visit: Yes Status: Acute Plan to address problem: Sec to ETOH Check Hepatitis profile (7) Hyperkalemia Current Visit: Yes Status: Acute Plan to address problem: Mild' Should correct with IV fluids (8) T2DM (type 2 diabetes mellitus) Current Visit: Yes Status: Acute Qualifiers: Diabetes mellitus [employer] insulin use: without longterm use Plan to address problem: New onset Accucheks Metformin added Primary team to adress the problem Patient confused -hence did not discuss Diabetes with the patient (9) DVT prophylaxis Current Visit: No Status: Acute Plan to address problem: On Eliquis and GI prophylaxis Reason for WEliquis unclear--No A fib
[2018-05-13] MEDS ORDERED: APRESOLINE PO SCH (23:00)
[2018-05-14] MEDS: PEPCID IV SCH ×3 (00:22→22:28)
[2018-05-14] MEDS: ELIQUIS PO SCH ×3 (00:22→22:20)
[2018-05-14] MEDS: KEPPRA 750 MG in NACL 0.9% 100 ML IV SCH ×3 (00:23→22:19)
[2018-05-14] MEDS: D5NS 1,000 ML IV SCH ×3 (00:23→22:20)
[2018-05-14 07:36] LABS: Hematocrit TNR % (35.5-45.6); Hemoglobin TNR gm/dl (11.8-15.2); Mean Corpuscular Volume TNR fl (84-94); Red Blood Count TNR M/mm3 (3.65-5.03)
[2018-05-14 07:37] LABS: Basophils % (Auto) TNR % (0.0-1.8); Eosinophils % (Auto) TNR % (0.0-4.3); Lymphocytes # (Auto) TNR K/mm3 (1.2-5.4); Lymphocytes % (Auto) TNR % (13.4-35.0); Mean Corpuscular HGB Conc TNR % (32-34); Monocytes % (Auto) TNR % (0.0-7.3); Platelet Count TNR K/mm3 (140-440); Red Cell Distribution Width TNR % (13.2-15.2)
[2018-05-14 07:38] LABS: Basophils # (Auto) TNR K/mm3 (0.0-0.1); Eosinophils # (Auto) TNR K/mm3 (0.0-0.4); Monocytes # (Auto) TNR K/mm3 (0.0-0.8)
[2018-05-14 07:51] LABS: Alanine Aminotransferase 102 units/L (7-56); BUN/Creatinine Ratio 14; Blood Urea Nitrogen 14 mg/dL (9-20); Calcium 8.7 mg/dL (8.4-10.2); Hemolysis Index 17
[2018-05-14] MEDS ORDERED: GLUCOPHAGE PO SCH (08:00)
[2018-05-14] MEDS: HumaLOG SUB-Q SCH ×4 (08:22→22:30)
[2018-05-14] MEDS ORDERED: D50W (25GM) Syringe IV PRN (08:39)
[2018-05-14 10:30] LABS: Hepatitis B Surface Antigen Non-Reactive (Negative); Hepatitis C Virus Antibody Reactive (NonReactive)
[2018-05-14] MEDS: DELTASONE PO SCH (10:38)
[2018-05-14] MEDS: NORVASC FEEDTUBE SCH (10:38)
[2018-05-14] MEDS: SODIUM CHLORIDE FLUSH SYRINGE 10 ML IV SCH ×2 (10:38→22:28)
[2018-05-14 10:56] LABS: Basophils % (Auto) 0.5 % (0.0-1.8); Eosinophils # (Auto) 0.1 K/mm3 (0.0-0.4); Eosinophils % (Auto) 2.4 % (0.0-4.3); Hematocrit 43.1 % (35.5-45.6); Hemoglobin 14.3 gm/dl (11.8-15.2); Lymphocytes # (Auto) 1.2 K/mm3 (1.2-5.4); Lymphocytes % (Auto) 21.5 % (13.4-35.0); Mean Corpuscular HGB Conc 33 % (32-34); Mean Corpuscular Volume 97 fl (84-94); Monocytes # (Auto) 0.7 K/mm3 (0.0-0.8); Monocytes % (Auto) 12.7 % (0.0-7.3); Red Blood Count 4.44 M/mm3 (3.65-5.03); Red Cell Distribution Width 13.7 % (13.2-15.2)
--- NOTE | 2018-05-14 13:31 | Progress Note ---
Subjective Date of service: 05/14/18 Interval history: patient is seen and neuro exam except for mild confusion is normal he ias on IV keppra which shoulde be continued await EEG see ED work up I will follow up with report of EEG patient appears to have had focal seizure of the right leg/ arm Thanks Objective - Vital Sign Vital Signs - 12hr 05/14/18 05/14/18 05/14/18 05:55 10:00 12:06 Temperature 98.2 F 98.4 F Pulse Rate 84 92 H Respiratory 20 20 20 Rate Blood Pressure 155/110 144/94 O2 Sat by Pulse 99 99 98 Oximetry 05/14/18 12:40 Temperature 98.2 F Pulse Rate Respiratory Rate Blood Pressure 146/99 O2 Sat by Pulse Oximetry - Laboratory Findings CBC and BMP: 05/14/18 10:26 05/14/18 06:36 Abnormal Lab Findings: Abnormal Labs 05/13/18 05/13/18 05/13/18 15:11 15:11 15:11 Hct 48.5 H MCV 103 H MCHC 31 L Plt Count 137 L [place] % (Auto) Seg Neuts % (Manual) 78.0 H Lymphocytes # (Manual) 1.0 L Potassium 5.1 H Chloride 93.2 L Carbon Dioxide 15 L Creatinine < 0.2 L Glucose 238 H Hemoglobin A1c Phosphorus Magnesium AST 201 H ALT 139 H Total Creatine Kinase 507 H Hepatitis C Antibody 05/13/18 05/13/18 05/14/18 16:32 22:20 06:36 Hct MCV MCHC Plt Count [place] % (Auto) Seg Neuts % (Manual) Lymphocytes # (Manual) Potassium Chloride Carbon Dioxide Creatinine Glucose 114 H Hemoglobin A1c 6.5 H Phosphorus 5.60 H Magnesium 2.70 H AST 124 H ALT 102 H Total Creatine Kinase Hepatitis C Antibody 05/14/18 05/14/18 06:36 10:26 Hct MCV 97 H MCHC Plt Count [place] % (Auto) 12.7 H Seg Neuts % (Manual) Lymphocytes # (Manual) Potassium Chloride Carbon Dioxide Creatinine Glucose Hemoglobin A1c Phosphorus Magnesium AST ALT Total Creatine Kinase Hepatitis C Antibody Reactive A
[2018-05-14 14:34] LABS: Platelet Count 185 K/mm3 (140-440)
--- NOTE | 2018-05-14 17:39 | Event Note ---
Date: 05/14/18 Hep C reactive on Hepatitis profile
--- NOTE | 2018-05-14 21:12 | Progress Note ---
Assessment and Plan Assessment and plan: Patient is a 58-year-old -[place] male with history of recurrent EtOH related seizures, bipolar disorder, type 2 diabetes mellitus,, history of right upper extremity DVT, liver cirrhosis with hepatitis C presents to the emergency department via EMS from home with complaint of a seizure. Patient reports that he lives with his sister called EMS due to seizure activity which was also witnessed in route to the ER. It appeared to be a focal seizure based on description. On arrival to the ER patient was postictal but gradually improved. He suddenly developed for further evaluation and follow-up. Of note patient was recently in the hospital and discharged in generally about that time had se izure also required mechanical ventilation. He also had that time had a lumbar puncture to rule out meningitis. (1) Seizure due to alcohol withdrawal (2)Metabolic Encephalopathy Secondary to seizure disorder (3) EtOH dependence (4) Liver Cirrhosis secondary to etoh (4) Hypertension (5) Bipolar 1 disorder (6) Transaminitis (7) Hyperkalemia (8) T2DM (type 2 diabetes mellitus) (9) Hepatitis C (10) Hx of DVT Plan Supportive care Seizure Precautions EEG pending, Neurology eval noted Information from family respect to DVT history and timing and if patient is still an appropriate candidate for DVT treatment considering recurrent seizure and non compliance with alcohol cessation Accucheck Q6h AND Insulin therapy Continue CIWA protocol Continue SEROQUE Monitor and replace electrolytes as needed Continue ELUQUIS DVT/GI prophy Poor overall prognosis if he does not quit etoh. This has been discussed with him No family present at this time History Interval history: Patient is examined this morning and no acute distress although still intermittently confused and unable to provide adequate medical record but knows that he is in the hospital. But does not know why. Hospitalist Physical - Physical exam Narrative exam: VITAL SIGNS: Reviewed. GENERAL: The patient appeared chronically ill appearing, tremulous, Vital signs as documented. HEAD: No signs of head trauma. EYES: Pupils are equal. Extraocular motions intact. EARS: Hearing grossly intact. MOUTH: Oropharynx is normal. NECK: No adenopathy, no JVD. CHEST: Chest with clear breath sounds bilaterally. No wheezes, rales, or rhonchi. CARDIAC: Regular rate and rhythm. S1 and S2, without murmurs, gallops, or rubs. VASCULAR: No Edema. Peripheral pulses normal and equal in all extremities. ABDOMEN: Soft, non tender and non distended. No rebound or guarding, and no masses palpated. Bowel Sounds normal. MUSCULOSKELETAL: Good range of motion of all major joints. Extremities without clubbing, cyanosis or edema. NEUROLOGIC EXAM: Alert and oriented x to person and place, poor insight of medical condition No focal sensory or strength deficits. Speech normal. Fol lows commands. PSYCHIATRIC: Mood normal. SKIN: No rash or lesions. - Constitutional Vitals: Temp Pulse Resp BP Pulse Ox 97.5 F L 94 H 22 146/95 98 05/14/18 16:55 05/14/18 16:55 05/14/18 16:55 05/14/18 16:55 05/14/18 16:55 General appearance: Present: no acute distress, well-nourished Results - Labs CBC & Chem 7: 05/14/18 10:26 05/14/18 06:36 Labs: Laboratory Last Values WBC 5.5 K/mm3 (4.5-11.0) 05/14/18 10:26 RBC 4.44 M/mm3 (3.65-5.03) 05/14/18 10:26 Hgb 14.3 gm/dl (11.8-15.2) 05/14/18 10:26 Hct 43.1 % (35.5-45.6) 05/14/18 10:26 MCV 97 fl (84-94) H 05/14/18 10:26 MCH 32 pg (28-32) 05/14/18 10:26 MCHC 33 % (32-34) 05/14/18 10:26 RDW 13.7 % (13.2-15.2) 05/14/18 10:26 Plt Count 185 K/mm3 (140-440) 05/14/18 10:26 Lymph % (Auto) 21.5 % (13.4-35.0) 05/14/18 10:26 Wise % (Auto) 12.7 % (0.0-7.3) H 05/14/18 10:26 Eos % (Auto) 2.4 % (0.0-4.3) 05/14/18 10:26 Baso % (Auto) 0.5 % (0.0-1.8) 05/14/18 10:26 Lymph # 1.2 K/mm3 (1.2-5.4) 05/14/18 10: Wise # 0.7 K/mm3 (0.0-0.8) 05/14/18 10: Eos # 0.1 K/mm3 (0.0-0.4) 05/14/18 10: Baso # 0.0 K/mm3 (0.0-0.1) 05/14/18 10:26 Add Manual Diff Complete 05/13/18 15:11 Total Counted 100 05/13/18 15:11 Seg Neutrophils % 62.9 % (40.0-70.0) 05/14/18 10:26 Seg Neuts % (Manual) 78.0 % (40.0-70.0) H 05/13/18 15:11 Band Neutrophils % 1.0 % 05/13/18 15:11 Lymphocytes % (Manual) 15.0 % (13.4-35.0) 05/13/18 15:11 Reactive Lymphs % (Man) 2.0 % 05/13/18 15:11 Monocytes % (Manual) 4.0 % (0.0-7.3) 05/13/18 15:11 Eosinophils % (Manual) 0 % (0.0-4.3) 05/13/18 15:11 Basophils % (Manual) 0 % (0.0-1.8) 05/13/18 15:11 Metamyelocytes % 0 % 05/13/18 15:11 Myelocytes % 0 % 05/13/18 15:11 Promyelocytes % 0 % 05/13/18 15:11 Blast Cells % 0 % 05/13/18 15:11 Nucleated RBC % Not Reportable 05/13/18 15:11 Seg Neutrophils # 3.5 K/mm3 (1.8-7.7) 05/14/18 10:26 Seg Neutrophils # Man 5.1 K/mm3 (1.8-7.7) 05/13/18 15:11 Band Neutrophils # 0.1 K/mm3 05/13/18 15:11 Lymphocytes # (Manual) 1.0 K/mm3 (1.2-5.4) L 05/13/18 15:11 Abs React Lymphs (Man) 0.1 K/mm3 05/13/18 15:11 Monocytes # (Manual) 0.3 K/mm3 (0.0-0.8) 05/13/18 15:11 Eosinophils # (Manual) 0.0 K/mm3 (0.0-0.4) 05/13/18 15:11 Basophils # (Manual) 0.0 K/mm3 (0.0-0.1) 05/13/18 15:11 Metamyelocytes # 0.0 K/mm3 05/13/18 15:11 Myelocytes # 0.0 K/mm3 05/13/18 15:11 Promyelocytes # 0.0 K/mm3 05/13/18 15:11 Blast Cells # 0.0 K/mm3 05/13/18 15:11 WBC Morphology Not Reportable 05/13/18 15:11 Hypersegmented Neuts Not Reportable 05/13/18 15:11 Hyposegmented Neuts Not Reportable 05/13/18 15:11 Hypogranular Neuts Not Reportable 05/13/18 15:11 Smudge Cells Not Reportable 05/13/18 15:11 Toxic Granulation Not Reportable 05/13/18 15:11 Toxic Vacuolation Not Reportable 05/13/18 15:11 Dohle Bodies Not Reportable 05/13/18 15:11 Pelger-Huet Anomaly Not Reportable 05/13/18 15:11 Wicho Rods Not Reportable 05/13/18 15:11 Platelet Estimate Consistent w auto 05/13/18 15:11 Clumped Platelets Not Reportable 05/13/18 15:11 Plt Clumps, EDTA Not Reportable 05/13/18 15:11 Large Platelets Not Reportable 05/13/18 15:11 Giant Platelets Not Reportable 05/13/18 15:11 Platelet Satelliting Not Reportable 05/13/18 15:11 Plt Morphology Comment Not Reportable 05/13/18 15:11 RBC Morphology Not Reportable 05/13/18 15:11 Dimorphic RBCs Not Reportable 05/13/18 15:11 Polychromasia Not Reportable 05/13/18 15:11 Hypochromasia Not Reportable 05/13/18 15:11 Poikilocytosis Not Reportable 05/13/18 15:11 Anisocytosis 1+ 05/13/18 15:11 Microcytosis Not Reportable 05/13/18 15:11 Macrocytosis 1+ 05/13/18 15:11 Spherocytes Not Reportable 05/13/18 15:11 Pappenheimer Bodies Not Reportable 05/13/18 15:11 Sickle Cells Not Reportable 05/13/18 15:11 Target Cells Not Reportable 05/13/18 15:11 Tear Drop Cells Not Reportable 05/13/18 15:11 Ovalocytes Not Reportable 05/13/18 15:11 Helmet Cells Not Reportable 05/13/18 15:11 [place] Bodies Not Reportable 05/13/18 15:11 [place] Rings Not Reportable 05/13/18 15:11 [place] Cells Not Reportable 05/13/18 15:11 Bite Cells Not Reportable 05/13/18 15:11 Crenated Cell Not Reportable 05/13/18 15:11 Elliptocytes Not Reportable 05/13/18 15:11 Acanthocytes (Spur) Not Reportable 05/13/18 15:11 Rouleaux Not Reportable 05/13/18 15:11 Hemoglobin C Crystals Not Reportable 05/13/18 15:11 Schistocytes Not Reportable 05/13/18 15:11 Malaria parasites Not Reportable 05/13/18 15:11 Angus Bodies Not Reportable 05/13/18 15:11 Hem Pathologist Commnt No 05/13/18 15:11 Sodium 142 mmol/L (137-145) 05/14/18 06:36 Potassium 3.9 mmol/L (3.6-5.0) D 05/14/18 06:36 Chloride 103.7 mmol/L (98-107) 05/14/18 06:36 Carbon Dioxide 22 mmol/L (22-30) D 05/14/18 06:36 Anion Gap 20 mmol/L 05/14/18 06:36 BUN 14 mg/dL (9-20) 05/14/18 06:36 Creatinine 1.0 mg/dL (0.8-1.5) D 05/14/18 06:36 Estimated GFR > 60 ml/min 05/14/18 06:36 BUN/Creatinine Ratio 14 % 05/14/18 06:36 Glucose 114 mg/dL (75-100) H 05/14/18 06:36 POC Glucose 115 (70-105) H 05/14/18 16:27 Hemoglobin A1c 6.5 % (4-6) H 05/13/18 22:20 Calcium 8.7 mg/dL (8.4-10.2) 05/14/18 06:36 Phosphorus 5.60 mg/dL (2.5-4.5) H 05/13/18 16:32 Magnesium 2.70 mg/dL (1.7-2.3) H 05/13/18 16:32 Total Bilirubin 0.70 mg/dL (0.1-1.2) 05/14/18 06:36 AST 124 units/L (5-40) H 05/14/18 06:36 ALT 102 units/L (7-56) H 05/14/18 06:36 Alkaline Phosphatase 58 units/L (35-129) 05/14/18 06:36 Total Creatine Kinase 507 units/L (55-170) H 05/13/18 15:11 Troponin T < 0.010 ng/mL (0.00-0.029) 05/13/18 15:11 Total Protein 6.6 g/dL (6.3-8.2) 05/14/18 06:36 Albumin 4.0 g/dL (3.9-5) 05/14/18 06:36 Albumin/Globulin Ratio 1.5 % 05/14/18 06:36 TSH 2.780 mlU/mL (0.270-4.200) 05/13/18 15:26 Urine Color Yellow (Yellow) 05/13/18 17:11 Urine Turbidity Slightly-cloudy (Clear) 05/13/18 17:11 Urine pH 6.0 (5.0-7.0) 05/13/18 17:11 Ur Specific [place] 1.020 (1.003-1.030) 05/13/18 17:11 Urine Protein 100 mg/dl mg/dL (Negative) 05/13/18 17:11 Urine Glucose (UA) 50 mg/dL (Negative) 05/13/18 17:11 Urine Ketones Tr mg/dL (Negative) 05/13/18 17:11 Urine Blood Sm (Negative) 05/13/18 17:11 Urine Nitrite Neg (Negative) 05/13/18 17:11 Urine Bilirubin Neg (Negative) 05/13/18 17:11 Urine Urobilinogen 2.0 mg/dL (<2.0) 05/13/18 17:11 Ur Leukocyte Esterase Neg (Negative) 05/13/18 17:11 Urine WBC (Auto) 2.0 /HPF (0.0-6.0) 05/13/18 17:11 Urine RBC (Auto) 3.0 /HPF (0.0-6.0) 05/13/18 17:11 U Epithel Cells (Auto) < 1.0 /HPF (0-13.0) 05/13/18 17:11 Granular Casts 15 /LPF 05/13/18 17:11 Urine Mucus Few /HPF 05/13/18 17:11 Urine Opiates Screen Presumptive negative 05/13/18 17:11 Urine Methadone Screen Presumptive negative 05/13/18 17:11 Ur Barbiturates Screen Presumptive negative 05/13/18 17:11 Ur Phencyclidine Scrn Presumptive negative 05/13/18 17:11 Ur Amphetamines Screen Presumptive negative 05/13/18 17:11 U Benzodiazepines Scrn Presumptive negative 05/13/18 17:11 Urine Cocaine Screen Presumptive negative 05/13/18 17:11 U Marijuana (THC) Screen Presumptive negative 05/13/18 17:11 Drugs of Abuse Note Disclamer 05/13/18 17:11 Plasma/Serum Alcohol < 0.01 % (0-0.07) 05/13/18 15:11 Hepatitis A IgM Ab Non-reactive (NonReactive) 05/14/18 06:36 Hep Bs Antigen Non-reactive (Negative) 05/14/18 06:36 Hep B Core IgM Ab Non-reactive (NonReactive) 05/14/18 06:36 Hepatitis C Antibody Reactive (NonReactive) A 05/14/18 06:36 Active Medications - Current Medications Current Medications: Generic Name Dose Route Start Last Admin Trade Name Freq PRN Reason Stop Dose Admin Acetaminophen 650 mg 05/13/18 22:10 Tylenol PO Q4H PRN Pain MILD(1-3)/Fever >100.5/ODONNELL Amlodipine Besylate 10 mg 05/14/18 10:00 05/14/18 10:38 Norvasc FEEDTUBE 10 mg QDAY MINGO Administration Apixaban 5 mg 05/13/18 23:00 05/14/18 10:38 Eliquis PO 5 mg Q12HR MINGO Administration Protocol Dextrose 50 ml 05/14/18 08:39 D50w (25gm) Syringe IV PRN PRN Hypoglycemia Famotidine 20 mg 05/13/18 23:00 05/14/18 10:38 Pepcid IV 20 mg BID MINGO Administration Hydralazine HCl 50 mg 05/14/18 20:00 Apresoline PO Q8HR MINGO Dextrose/Sodium Chloride 1,000 mls @ 100 mls/hr 05/13/18 23:00 05/14/18 10:37 D5ns IV 100 mls/hr DIRECT MINGO Administration Levetiracetam 750 mg/ Sodium 107.5 mls @ 400 mls/hr 05/13/18 23:00 05/14/18 10:39 Chloride IV 400 mls/hr Q12HR MINGO Administration Insulin Human Lispro 0 unit 05/14/18 07:30 05/14/18 08:22 Humalog SUB-Q Not Given ACHS MINGO Protocol Lorazepam 2 mg 05/13/18 16:29 Ativan IV Q1HR PRN CIWA-Ar 8-15 Lorazepam 4 mg 05/13/18 16:29 Ativan IV Q1HR PRN CIWA-Ar 16-25 Ondansetron HCl 4 mg 05/13/18 22:10 Zofran IV Q8H PRN Nausea And Vomiting Prednisone 20 mg 05/14/18 10:00 05/14/18 10:38 Deltasone PO 20 mg QDAY MINGO Administration Quetiapine Fumarate 100 mg 05/13/18 23:00 05/14/18 10:38 Seroquel PO 100 mg BID MINGO Administration Sodium Chloride 10 ml 05/14/18 10:00 05/14/18 10:38 Sodium Chloride Flush Syringe 10 Ml IV 10 ml BID MINGO Administration Sodium Chloride 10 ml 05/13/18 22:10 Sodium Chloride Flush Syringe 10 Ml IV PRN PRN LINE FLUSH Nutrition/Malnutrition Assess - Dietary Evaluation Nutrition/Malnutrition Findings: Nutrition Notes Start: 05/14/18 11:59 Freq: Status: Active Protocol: Document 05/14/18 11:59 TW (Rec: 05/14/18 12:04 TW [id number]) Co-Sign 05/14/18 11:59 LP Nutrition Notes Need for Assessment generated from: Education Initial or Follow up Brief Note Current Diagnosis Diabetes Current Diet Regular Labs/Tests A1c: 6.5 Pertinent Medications reviewed Subjective/Other Information Consult for new onset DM education. Pt reports not having prior DM education. Discussedwith pt CHO conataining foods and appropriate CHO servings. Burn Absent Trauma Absent #1 Nutrition Diagnosis Food and nutrition-related knowledge deficit Etiology lack of prior DM education As Evidenced by Signs and Symptoms A1c of 6.5, pt report of not having prior DM education Nutrition Intervention Change Diet Order: Change to CHO consistent Teaching Recipient Patient Learning Readiness Fair Teaching Methods Discussion,Handout Response to Teaching Verbalize understanding Education Handouts Provided DM plate, CHO counting for people with DM Barriers to Learning Motivation,Physical, Environmental RD phone number provided Yes Patient aware of follow up options Yes Goal #1 Adherence to CHO consistent diet Anticipated Discharge Needs: CHO consistent diet Revisit per MD consult or patient Sign Off request:
[2018-05-14] MEDS: APRESOLINE PO SCH (22:27)
[2018-05-15] MEDS: ATIVAN IV PRN ×2 (01:01→19:11)
[2018-05-15] MEDS: APRESOLINE PO SCH ×3 (05:25→21:21)
[2018-05-15] MEDS: D5NS 1,000 ML IV SCH (06:19)
[2018-05-15] MEDS: HumaLOG SUB-Q SCH ×4 (09:22→21:40)
[2018-05-15] MEDS: SODIUM CHLORIDE FLUSH SYRINGE 10 ML IV SCH ×2 (11:00→21:24)
[2018-05-15] MEDS: NORVASC FEEDTUBE SCH (11:00)
[2018-05-15] MEDS: DELTASONE PO SCH (11:00)
[2018-05-15] MEDS: ELIQUIS PO SCH ×2 (11:00→21:23)
[2018-05-15] MEDS: PEPCID IV SCH ×2 (11:00→21:23)
[2018-05-15] MEDS: KEPPRA 750 MG in NACL 0.9% 100 ML IV SCH ×2 (12:05→21:28)
--- NOTE | 2018-05-15 13:24 | Consultation ---
History of Present Illness - Reason for Consult Consult date: 05/15/18 Reason for consult: Mental Health Evaluation Requesting physician: ЕЛЕНА FRIEDMAN - Chief Complaint Chief complaint: "The patient is somewhat confused" - History of Present Psychiatric Illness 58-year-old -[place] male who presented to the ER for seizure activity. Today the patient is calm, but somewhat confused during the assessment. . His answers to most questions were not logical. Per collateral information from his sister Juliana Ramirez who was at the bedside, she stated that her brother has a hx of alcohol abuse. She isn't aware if the patient has a hx of a mood/psychotic do when asked. No gestures of SI/HI's by the patient. Medications and Allergies Allergies Allergy/AdvReac Type Severity Reaction Status Date / Time No Known Allergies Allergy Verified 10/24/14 23:18 Home Medications Medication Instructions Recorded Confirmed Last Taken Type Apixaban [Eliquis] 5 mg PO Q12HR #60 tablet 04/16/18 05/13/18 Unknown Rx Famotidine [Pepcid] 20 mg PO BID #60 tablet 04/16/18 05/13/18 Unknown Rx Quetiapine Fumarate [Seroquel] 100 mg PO BID #30 tablet 04/16/18 05/13/18 Unknown Rx amLODIPine [Norvasc] 10 mg FEEDTUBE QDAY #30 tablet 04/16/18 05/13/18 Unknown Rx hydrALAZINE [Apresoline TAB] 25 mg PO Q8HR #90 tablet 04/16/18 05/13/18 Unknown Rx predniSONE [Deltasone] 20 mg PO QDAY #7 tablet 04/16/18 05/13/18 Unknown Rx Active Meds: Active Medications Amlodipine Besylate (Norvasc) 10 mg FEEDTUBE QDAY [facility] Last Admin: 05/15/18 11:00 Dose: 10 mg Documented by: Apixaban (Eliquis) 5 mg PO Q12HR [facility]; Protocol Last Admin: 05/15/18 11:00 Dose: 5 mg Documented by: Dextrose (D50w (25gm) Syringe) 50 ml IV PRN PRN PRN Reason: Hypoglycemia Famotidine (Pepcid) 20 mg IV BID [facility] Last Admin: 05/15/18 11:00 Dose: 20 mg Documented by: Hydralazine HCl (Apresoline) 50 mg PO Q8HR [facility] Last Admin: 05/15/18 05:25 Dose: 50 mg Documented by: Levetiracetam 750 mg/ Sodium (Chloride) 107.5 mls @ 400 mls/hr IV Q12HR [facility] Last Admin: 05/15/18 12:05 Dose: 400 mls/hr Documented by: Insulin Human Lispro (Humalog) 0 unit SUB-Q ACHS [facility]; Protocol Last Admin: 05/15/18 09:22 Dose: Not Given Documented by: Lorazepam (Ativan) 2 mg IV Q1HR PRN PRN Reason: BUDDY-Yohannes 8-15 Last Admin: 05/15/18 01:01 Dose: 2 mg Documented by: Lorazepam (Ativan) 4 mg IV Q1HR PRN PRN Reason: BUDDY-Yohannes 16-25 Ondansetron HCl (Zofran) 4 mg IV Q8H PRN PRN Reason: Nausea And Vomiting Prednisone (Deltasone) 20 mg PO QDAY [facility] Last Admin: 05/15/18 11:00 Dose: 20 mg Documented by: Quetiapine Fumarate (Seroquel) 100 mg PO BID [facility] Last Admin: 05/15/18 11:00 Dose: 100 mg Documented by: Sodium Chloride (Sodium Chloride Flush Syringe 10 Ml) 10 ml IV BID [facility] Last Admin: 05/15/18 11:00 Dose: 10 ml Documented by: Sodium Chloride (Sodium Chloride Flush Syringe 10 Ml) 10 ml IV PRN PRN PRN Reason: LINE FLUSH Mental Status Exam - Vital signs Last Vital Signs Temp 98.1 F 05/15/18 11:07 Pulse 81 05/15/18 11:32 Resp 20 05/15/18 11:07 BP 158/104 05/15/18 11:07 Pulse Ox 98 05/15/18 11:32 Results Result Diagrams: 05/14/18 10:26 05/14/18 06:36 Abnormal lab results 05/14/18 05/14/18 05/14/18 Range/Units 13:24 16:27 21:30 POC Glucose 107 H 115 H 110 H (70-105) All other labs normal. Assessment and Plan Assessment and plan: Impression: Delirium. Alcohol Use DO. Today the patient is calm, but somewhat confused during the assessment. Recommendation/Plan: Will reassess the patient in 24 hours. Recommend Delirium precautions below: 1. Frequently reorient patient and involve him/her in their care (simple explanations of procedures, tests, medications). 2. Lights on and shades open during daytime hours. 3. Write date and goals of care in a visible place. 4. Try to avoid unnecessary interruptions to sleep during nighttime hours. 5. Obtain glasses, hearing aids from home if patient uses these at baseline. 6. Avoid medications that may exacerbate delirium (especially narcotics, benzodiazepines, barbiturates, ambien, lunesta, and medications with excessive a nticholinergic properties). Dispo: Once a psy assessment is completed, proper dispo will be determined. Will staff with Dr Miriam Morgan.
--- NOTE | 2018-05-15 16:10 | Progress Note ---
Subjective Date of service: 05/15/18 Interval history: EEG is unremarkable no seizures activity Objective - Vital Sign Vital Signs - 12hr 05/15/18 05/15/18 05/15/18 05:25 05:34 10:00 Temperature 98.2 F Pulse Rate 79 Pulse Rate [ 90 Left Radial] Respiratory 20 Rate Blood Pressure 171/117 182/117 O2 Sat by Pulse Oximetry 05/15/18 05/15/18 05/15/18 11:07 11:32 15:22 Temperature 98.1 F Pulse Rate 81 Pulse Rate [ Left Radial] Respiratory 20 Rate Blood Pressure 158/104 158/104 O2 Sat by Pulse 98 Oximetry - Laboratory Findings CBC and BMP: 05/14/18 10:26 05/14/18 06:36 Abnormal Lab Findings: Abnormal Labs 05/13/18 05/13/18 05/13/18 15:11 15:11 15:11 Hct 48.5 H MCV 103 H MCHC 31 L Plt Count 137 L [place] % (Auto) Seg Neuts % (Manual) 78.0 H Lymphocytes # (Manual) 1.0 L Potassium 5.1 H Chloride 93.2 L Carbon Dioxide 15 L Creatinine < 0.2 L Glucose 238 H POC Glucose Hemoglobin A1c Phosphorus Magnesium AST 201 H ALT 139 H Total Creatine Kinase 507 H Hepatitis C Antibody 05/13/18 05/13/18 05/14/18 16:32 22:20 06:36 Hct MCV MCHC Plt Count [place] % (Auto) Seg Neuts % (Manual) Lymphocytes # (Manual) Potassium Chloride Carbon Dioxide Creatinine Glucose 114 H POC Glucose Hemoglobin A1c 6.5 H Phosphorus 5.60 H Magnesium 2.70 H AST 124 H ALT 102 H Total Creatine Kinase Hepatitis C Antibody 05/14/18 05/14/18 05/14/18 06:36 10:26 13:24 Hct MCV 97 H MCHC Plt Count [place] % (Auto) 12.7 H Seg Neuts % (Manual) Lymphocytes # (Manual) Potassium Chloride Carbon Dioxide Creatinine Glucose POC Glucose 107 H Hemoglobin A1c Phosphorus Magnesium AST ALT Total Creatine Kinase Hepatitis C Antibody Reactive A 05/14/18 05/14/18 16:27 21:30 Hct MCV MCHC Plt Count [place] % (Auto) Seg Neuts % (Manual) Lymphocytes # (Manual) Potassium Chloride Carbon Dioxide Creatinine Glucose POC Glucose 115 H 110 H Hemoglobin A1c Phosphorus Magnesium AST ALT Total Creatine Kinase Hepatitis C Antibody
[2018-05-15] MEDS ORDERED: MAGNESIUM SULFATE 2GM/50ML 2 GM/50 ML BAG IV ONE (18:01)
--- NOTE | 2018-05-15 18:12 | Progress Note ---
Assessment and Plan Assessment and plan: Patient is a Patient is a 58-year-old -Welsh male with history of recurrent EtOH related seizures, bipolar disorder, type 2 diabetes mellitus,, history of right upper extremity DVT, liver cirrhosis with hepatitis C presents to the emergency department via EMS from home with complaint of a seizure. Patient reports that he lives with his sister called EMS due to seizure activity which was also witnessed in route to the ER. It appeared to be a focal seizure based on description. On arrival to the ER patient was postictal but gradually improved. He suddenly developed for further evaluation and follow-up. Of note patient was recently in the hospital and discharged in generally about that time had seizure also required mechanical ventilation. He also had that time had a lumbar puncture to rule out meningitis. NEW issue: Uncontrolled tachycardia, ?NSVT vs DTs: ordered ekg, echo, consulted Cardiology, bmp, give iv magnesium, added BBlocker New issue: Hypertension urgency related to DTs: give iv labetalol /Seizure due to alcohol withdrawal /Metabolic Encephalopathy Secondary to seizure disorder /EtOH dependence / Liver Cirrhosis secondary to etoh /Hypertension /Bipolar 1 disorder /Transaminitis /Hyperkalemia /T2DM (type 2 diabetes mellitus) /Hepatitis C /Hx of DVT Plan Supportive care Seizure Precautions EEG pending, Neurology eval noted Information from family respect to DVT history and timing and if patient is still an appropriate candidate for DVT treatment considering recurrent seizure and non compliance with alcohol cessation Accucheck Q6h AND Insulin therapy Continue CIWA protocol Continue Seroquel Monitor and replace electrolytes as needed Continue ELiQUIS DVT/GI prophy Poor overall prognosis if he does not quit etoh. This has been discussed with him No family present at this time CCT 32 minutes History Interval history: Patient was seen and examined. Follow-up on current diagnosis. Overnight uneventful. Patient denies any chest pain, shortness breath, nausea/vomiting or severe headaches. Imaging, nursing note, chart, labs and old chart reviewed. Discussed with patient. Hospitalist Physical - Physical exam Narrative exam: Gen: ill appearing, WDWN, NAD, Awake, Alert, confused HEENT: NCAT, EOMI, PERRL, OP Clear Neck: supple, no adenopathy, no thyromegaly, no JVD CVS/Heart: regular tachycardia, normal S1S2, pulses present bilaterally Chest/Lungs: diminished Symmetrical chest expansion, good air entry bilaterally GI/Abdomen: distended, nontender, good bowel sounds, no guarding or rebound /Bladder: no suprapubic tenderness, no CVA or paraspinal tenderness Extermity/Skin: +edema, no obvious rash MSK: FROM x 4 Neuro: CN 2-12 grossly intact, no new focal deficits Psych: confused - Constitutional Vitals: Temp Pulse Resp BP Pulse Ox 98.6 F 115 H 20 163/109 96 05/15/18 16:54 05/15/18 16:54 05/15/18 16:54 05/15/18 16:54 05/15/18 16:54 General appearance: Present: no acute distress, well-nourished Results - Labs CBC & Chem 7: 05/14/18 10:26 05/14/18 06:36 Labs: Laboratory Last Values WBC 5.5 K/mm3 (4.5-11.0) 05/14/18 10:26 RBC 4.44 M/mm3 (3.65-5.03) 05/14/18 10:26 Hgb 14.3 gm/dl (11.8-15.2) 05/14/18 10:26 Hct 43.1 % (35.5-45.6) 05/14/18 10:26 MCV 97 fl (84-94) H 05/14/18 10:26 MCH 32 pg (28-32) 05/14/18 10:26 MCHC 33 % (32-34) 05/14/18 10:26 RDW 13.7 % (13.2-15.2) 05/14/18 10:26 Plt Count 185 K/mm3 (140-440) 05/14/18 10:26 Lymph % (Auto) 21.5 % (13.4-35.0) 05/14/18 10:26 Falls % (Auto) 12.7 % (0.0-7.3) H 05/14/18 10:26 Eos % (Auto) 2.4 % (0.0-4.3) 05/14/18 10:26 Baso % (Auto) 0.5 % (0.0-1.8) 05/14/18 10:26 Lymph # 1.2 K/mm3 (1.2-5.4) 05/14/18 10:26 Falls # 0.7 K/mm3 (0.0-0.8) 05/14/18 10: Eos # 0.1 K/mm3 (0.0-0.4) 05/14/18 10: Baso # 0.0 K/mm3 (0.0-0.1) 05/14/18 10:26 Add Manual Diff Complete 05/13/18 15:11 Total Counted 100 05/13/18 15:11 Seg Neutrophils % 62.9 % (40.0-70.0) 05/14/18 10:26 Seg Neuts % (Manual) 78.0 % (40.0-70.0) H 05/13/18 15:11 Band Neutrophils % 1.0 % 05/13/18 15:11 Lymphocytes % (Manual) 15.0 % (13.4-35.0) 05/13/18 15:11 Reactive Lymphs % (Man) 2.0 % 05/13/18 15:11 Monocytes % (Manual) 4.0 % (0.0-7.3) 05/13/18 15:11 Eosinophils % (Manual) 0 % (0.0-4.3) 05/13/18 15:11 Basophils % (Manual) 0 % (0.0-1.8) 05/13/18 15:11 Metamyelocytes % 0 % 05/13/18 15:11 Myelocytes % 0 % 05/13/18 15:11 Promyelocytes % 0 % 05/13/18 15:11 Blast Cells % 0 % 05/13/18 15:11 Nucleated RBC % Not Reportable 05/13/18 15:11 Seg Neutrophils # 3.5 K/mm3 (1.8-7.7) 05/14/18 10:26 Seg Neutrophils # Man 5.1 K/mm3 (1.8-7.7) 05/13/18 15:11 Band Neutrophils # 0.1 K/mm3 05/13/18 15:11 Lymphocytes # (Manual) 1.0 K/mm3 (1.2-5.4) L 05/13/18 15:11 Abs React Lymphs (Man) 0.1 K/mm3 05/13/18 15:11 Monocytes # (Manual) 0.3 K/mm3 (0.0-0.8) 05/13/18 15:11 Eosinophils # (Manual) 0.0 K/mm3 (0.0-0.4) 05/13/18 15:11 Basophils # (Manual) 0.0 K/mm3 (0.0-0.1) 05/13/18 15:11 Metamyelocytes # 0.0 K/mm3 05/13/18 15:11 Myelocytes # 0.0 K/mm3 05/13/18 15:11 Promyelocytes # 0.0 K/mm3 05/13/18 15:11 Blast Cells # 0.0 K/mm3 05/13/18 15:11 WBC Morphology Not Reportable 05/13/18 15:11 Hypersegmented Neuts Not Reportable 05/13/18 15:11 Hyposegmented Neuts Not Reportable 05/13/18 15:11 Hypogranular Neuts Not Reportable 05/13/18 15:11 Smudge Cells Not Reportable 05/13/18 15:11 Toxic Granulation Not Reportable 05/13/18 15:11 Toxic Vacuolation Not Reportable 05/13/18 15:11 Dohle Bodies Not Reportable 05/13/18 15:11 Pelger-Huet Anomaly Not Reportable 05/13/18 15:11 Wicho Rods Not Reportable 05/13/18 15:11 Platelet Estimate Consistent w auto 05/13/18 15:11 Clumped Platelets Not Reportable 05/13/18 15:11 Plt Clumps, EDTA Not Reportable 05/13/18 15:11 Large Platelets Not Reportable 05/13/18 15:11 Giant Platelets Not Reportable 05/13/18 15:11 Platelet Satelliting Not Reportable 05/13/18 15:11 Plt Morphology Comment Not Reportable 05/13/18 15:11 RBC Morphology Not Reportable 05/13/18 15:11 Dimorphic RBCs Not Reportable 05/13/18 15:11 Polychromasia Not Reportable 05/13/18 15:11 Hypochromasia Not Reportable 05/13/18 15:11 Poikilocytosis Not Reportable 05/13/18 15:11 Anisocytosis 1+ 05/13/18 15:11 Microcytosis Not Reportable 05/13/18 15:11 Macrocytosis 1+ 05/13/18 15:11 Spherocytes Not Reportable 05/13/18 15:11 Pappenheimer Bodies Not Reportable 05/13/18 15:11 Sickle Cells Not Reportable 05/13/18 15:11 Target Cells Not Reportable 05/13/18 15:11 Tear Drop Cells Not Reportable 05/13/18 15:11 Ovalocytes Not Reportable 05/13/18 15:11 Helmet Cells Not Reportable 05/13/18 15:11 [place] Bodies Not Reportable 05/13/18 15:11 [place] Rings Not Reportable 05/13/18 15:11 [place] Cells Not Reportable 05/13/18 15:11 Bite Cells Not Reportable 05/13/18 15:11 Crenated Cell Not Reportable 05/13/18 15:11 Elliptocytes Not Reportable 05/13/18 15:11 Acanthocytes (Spur) Not Reportable 05/13/18 15:11 Rouleaux Not Reportable 05/13/18 15:11 Hemoglobin C Crystals Not Reportable 05/13/18 15:11 Schistocytes Not Reportable 05/13/18 15:11 Malaria parasites Not Reportable 05/13/18 15:11 Angus Bodies Not Reportable 05/13/18 15:11 Hem Pathologist Commnt No 05/13/18 15:11 Sodium 142 mmol/L (137-145) 05/14/18 06:36 Potassium 3.9 mmol/L (3.6-5.0) D 05/14/18 06:36 Chloride 103.7 mmol/L (98-107) 05/14/18 06:36 Carbon Dioxide 22 mmol/L (22-30) D 05/14/18 06:36 Anion Gap 20 mmol/L 05/14/18 06:36 BUN 14 mg/dL (9-20) 05/14/18 06:36 Creatinine 1.0 mg/dL (0.8-1.5) D 05/14/18 06:36 Estimated GFR > 60 ml/min 05/14/18 06:36 BUN/Creatinine Ratio 14 % 05/14/18 06:36 Glucose 114 mg/dL (75-100) H 05/14/18 06:36 POC Glucose 110 (70-105) H 05/15/18 16:56 Hemoglobin A1c 6.5 % (4-6) H 05/13/18 22:20 Calcium 8.7 mg/dL (8.4-10.2) 05/14/18 06:36 Phosphorus 5.60 mg/dL (2.5-4.5) H 05/13/18 16:32 Magnesium 2.70 mg/dL (1.7-2.3) H 05/13/18 16:32 Total Bilirubin 0.70 mg/dL (0.1-1.2) 05/14/18 06:36 AST 124 units/L (5-40) H 05/14/18 06:36 ALT 102 units/L (7-56) H 05/14/18 06:36 Alkaline Phosphatase 58 units/L (35-129) 05/14/18 06:36 Total Creatine Kinase 507 units/L (55-170) H 05/13/18 15:11 Troponin T < 0.010 ng/mL (0.00-0.029) 05/13/18 15:11 Total Protein 6.6 g/dL (6.3-8.2) 05/14/18 06:36 Albumin 4.0 g/dL (3.9-5) 05/14/18 06:36 Albumin/Globulin Ratio 1.5 % 05/14/18 06:36 TSH 2.780 mlU/mL (0.270-4.200) 05/13/18 15:26 Urine Color Yellow (Yellow) 05/13/18 17:11 Urine Turbidity Slightly-cloudy (Clear) 05/13/18 17:11 Urine pH 6.0 (5.0-7.0) 05/13/18 17:11 Ur Specific [place] 1.020 (1.003-1.030) 05/13/18 17:11 Urine Protein 100 mg/dl mg/dL (Negative) 05/13/18 17:11 Urine Glucose (UA) 50 mg/dL (Negative) 05/13/18 17:11 Urine Ketones Tr mg/dL (Negative) 05/13/18 17:11 Urine Blood Sm (Negative) 05/13/18 17:11 Urine Nitrite Neg (Negative) 05/13/18 17:11 Urine Bilirubin Neg (Negative) 05/13/18 17:11 Urine Urobilinogen 2.0 mg/dL (<2.0) 05/13/18 17:11 Ur Leukocyte Esterase Neg (Negative) 05/13/18 17:11 Urine WBC (Auto) 2.0 /HPF (0.0-6.0) 05/13/18 17:11 Urine RBC (Auto) 3.0 /HPF (0.0-6.0) 05/13/18 17:11 U Epithel Cells (Auto) < 1.0 /HPF (0-13.0) 05/13/18 17:11 Granular Casts 15 /LPF 05/13/18 17:11 Urine Mucus Few /HPF 05/13/18 17:11 Urine Opiates Screen Presumptive negative 05/13/18 17:11 Urine Methadone Screen Presumptive negative 05/13/18 17:11 Ur Barbiturates Screen Presumptive negative 05/13/18 17:11 Ur Phencyclidine Scrn Presumptive negative 05/13/18 17:11 Ur Amphetamines Screen Presumptive negative 05/13/18 17:11 U Benzodiazepines Scrn Presumptive negative 05/13/18 17:11 Urine Cocaine Screen Presumptive negative 05/13/18 17:11 U Marijuana (THC) Screen Presumptive negative 05/13/18 17:11 Drugs of Abuse Note Disclamer 05/13/18 17:11 Plasma/Serum Alcohol < 0.01 % (0-0.07) 05/13/18 15:11 Hepatitis A IgM Ab Non-reactive (NonReactive) 05/14/18 06:36 Hep Bs Antigen Non-reactive (Negative) 05/14/18 06:36 Hep B Core IgM Ab Non-reactive (NonReactive) 05/14/18 06:36 Hepatitis C Antibody Reactive (NonReactive) A 05/14/18 06:36 Active Medications - Current Medications Current Medications: Generic Name Dose Route Start Last Admin Trade Name Freq PRN Reason Stop Dose Admin Amlodipine Besylate 10 mg 05/14/18 10:00 05/15/18 11:00 Norvasc FEEDTUBE 10 mg QDAY MINGO Administration Apixaban 5 mg 05/13/18 23:00 05/15/18 11:00 Eliquis PO 5 mg Q12HR MINGO Administration Protocol Dextrose 50 ml 05/14/18 08:39 D50w (25gm) Syringe IV PRN PRN Hypoglycemia Famotidine 20 mg 05/13/18 23:00 05/15/18 11:00 Pepcid IV 20 mg BID MINGO Administration Hydralazine HCl 50 mg 05/14/18 20:00 05/15/18 15:22 Apresoline PO 50 mg Q8HR MINGO Administration Levetiracetam 750 mg/ Sodium 107.5 mls @ 400 mls/hr 05/13/18 23:00 05/15/18 12:05 Chloride IV 400 mls/hr Q12HR MINGO Administration Magnesium Sulfate 2 gm in 50 mls @ 25 mls/hr 05/15/18 18:01 Magnesium Sulfate 2gm/50ml IV 05/15/18 20:00 ONCE ONE Insulin Human Lispro 0 unit 05/14/18 07:30 05/15/18 17:01 Humalog SUB-Q Not Given ACHS MINGO Protocol Lorazepam 2 mg 05/13/18 16:29 05/15/18 01:01 Ativan IV 2 mg Q1HR PRN Administration CIWA-Ar 8-15 Lorazepam 4 mg 05/13/18 16:29 Ativan IV Q1HR PRN CIWA-Ar 16-25 Ondansetron HCl 4 mg 05/13/18 22:10 Zofran IV Q8H PRN Nausea And Vomiting Prednisone 20 mg 05/14/18 10:00 05/15/18 11:00 Deltasone PO 20 mg QDAY MINGO Administration Quetiapine Fumarate 100 mg 05/13/18 23:00 05/15/18 11:00 Seroquel PO 100 mg BID MINGO Administration Sodium Chloride 10 ml 05/14/18 10:00 05/15/18 11:00 Sodium Chloride Flush Syringe 10 Ml IV 10 ml BID MINGO Administration Sodium Chloride 10 ml 05/13/18 22:10 Sodium Chloride Flush Syringe 10 Ml IV PRN PRN LINE FLUSH Nutrition/Malnutrition Assess - Dietary Evaluation Nutrition/Malnutrition Findings: Nutrition Notes Start: 05/14/18 11:59 Freq: Status: Active Protocol: Document 05/14/18 11:59 TW (Rec: 05/14/18 12:04 TW [id number]) Co-Sign 05/14/18 11:59 LP Nutrition Notes Need for Assessment generated from: Education Initial or Follow up Brief Note Current Diagnosis Diabetes Current Diet Regular Labs/Tests A1c: 6.5 Pertinent Medications reviewed Subjective/Other Information Consult for new onset DM education. Pt reports not having prior DM education. Discussedwith pt CHO conataining foods and appropriate CHO servings. Burn Absent Trauma Absent #1 Nutrition Diagnosis Food and nutrition-related knowledge deficit Etiology lack of prior DM education As Evidenced by Signs and Symptoms A1c of 6.5, pt report of not having prior DM education Nutrition Intervention Change Diet Order: Change to CHO consistent Teaching Recipient Patient Learning Readiness Fair Teaching Methods Discussion,Handout Response to Teaching Verbalize understanding Education Handouts Provided DM plate, CHO counting for people with DM Barriers to Learning Motivation,Physical, Environmental RD phone number provided Yes Patient aware of follow up options Yes Goal #1 Adherence to CHO consistent diet Anticipated Discharge Needs: CHO consistent diet Revisit per MD consult or patient Sign Off request:
[2018-05-15] MEDS ORDERED: NORMODYNE IV PRN (18:13)
[2018-05-15] MEDS: LOPRESSOR PO SCH ×2 (19:11→21:22)
[2018-05-15 21:13] LABS: Hematocrit 42.3 % (35.5-45.6); Hemoglobin 14.2 gm/dl (11.8-15.2); Mean Corpuscular HGB Conc 34 % (32-34); Mean Corpuscular Volume 97 fl (84-94); Platelet Count 145 K/mm3 (140-440); Red Blood Count 4.36 M/mm3 (3.65-5.03); Red Cell Distribution Width 13.6 % (13.2-15.2)
[2018-05-15 21:43] LABS: BUN/Creatinine Ratio 8; Blood Urea Nitrogen 7 mg/dL (9-20); Calcium 9.4 mg/dL (8.4-10.2)
[2018-05-15 21:44] LABS: Hemolysis Index 19
[2018-05-16] MEDS: APRESOLINE PO SCH ×4 (06:29→22:20)
[2018-05-16 06:57] LABS: Hematocrit 42.2 % (35.5-45.6); Hemoglobin 14.2 gm/dl (11.8-15.2); Mean Corpuscular HGB Conc 34 % (32-34); Mean Corpuscular Volume 96 fl (84-94); Platelet Count 138 K/mm3 (140-440); Red Blood Count 4.39 M/mm3 (3.65-5.03); Red Cell Distribution Width 13.4 % (13.2-15.2)
[2018-05-16 07:04] LABS: Blood Urea Nitrogen 9 mg/dL (9-20); Calcium 9.7 mg/dL (8.4-10.2); Hemolysis Index 9
[2018-05-16 07:09] LABS: BUN/Creatinine Ratio 11
[2018-05-16] MEDS: HumaLOG SUB-Q SCH ×4 (09:50→23:33)
[2018-05-16] MEDS: ELIQUIS PO SCH ×2 (09:55→21:54)
[2018-05-16] MEDS: PEPCID IV SCH ×2 (09:55→21:54)
[2018-05-16] MEDS: DELTASONE PO SCH (09:56)
[2018-05-16] MEDS: NORVASC FEEDTUBE SCH (10:01)
[2018-05-16] MEDS: SODIUM CHLORIDE FLUSH SYRINGE 10 ML IV SCH ×2 (10:02→21:56)
[2018-05-16] MEDS: LOPRESSOR PO SCH ×3 (10:02→21:54)
[2018-05-16] MEDS: KEPPRA 750 MG in NACL 0.9% 100 ML IV SCH ×2 (11:15→21:53)
--- NOTE | 2018-05-16 13:05 | Consultation ---
History of Present Illness Consult date: 05/16/18 Consult reason: arrhythmia History of present illness: The patient is a 58-year-old man with alcohol abuse, and a seizure disorder. He was admitted to the hospital 3 days ago following a suspected seizure episode at home, followed by a postictal state. Ongoing management by internal medicine and neurology. At this time, the patient is suspected to be suffering from alcohol withdrawal symptoms. Cardiology is consulted for the finding of a 14 beat run of nonsustained ventricular tachycardia, which occurred 2 days ago on May 14. There was no reported symptoms, patient has remained hemodynamically stable. A review of his laboratory values show his potassium has been in the high normal range, and magnesium has also been normal. TSH was also normal at 2.7. Patient's home medications include oral anticoagulation with Eliquis, is a poor historian unable to confirm history of atrial fibrillation, or less likely a history of venous thromboembolism as indication for this therapy. On the telemetry since his presentation, there has been a stable sinus rhythm interspersed with periods of sinus tachycardia, no significant atrial ectopy and no atrial fibrillation. Past History Past Medical History: atrial fib (possible paroxysmal atrial fibrillation, based on Eliquis therapy), hypertension, seizures, other (alcohol abuse) Medications and Allergies Allergies Allergy/AdvReac Type Severity Reaction Status Date / Time No Known Allergies Allergy Verified 10/24/14 23:18 Home Medications Medication Instructions Recorded Confirmed Last Taken Type Apixaban [Eliquis] 5 mg PO Q12HR #60 tablet 04/16/18 05/13/18 Unknown Rx Famotidine [Pepcid] 20 mg PO BID #60 tablet 04/16/18 05/13/18 Unknown Rx Quetiapine Fumarate [Seroquel] 100 mg PO BID #30 tablet 04/16/18 05/13/18 Unknown Rx amLODIPine [Norvasc] 10 mg FEEDTUBE QDAY #30 tablet 04/16/18 05/13/18 Unknown Rx hydrALAZINE [Apresoline TAB] 25 mg PO Q8HR #90 tablet 04/16/18 05/13/18 Unknown Rx predniSONE [Deltasone] 20 mg PO QDAY #7 tablet 04/16/18 05/13/18 Unknown Rx Active Meds: Active Medications Amlodipine Besylate (Norvasc) 10 mg FEEDTUBE QDAY MINGO Last Admin: 05/16/18 10:01 Dose: 10 mg Documented by: Apixaban (Eliquis) 5 mg PO Q12HR [facility]; Protocol Last Admin: 05/16/18 09:55 Dose: 5 mg Documented by: Dextrose (D50w (25gm) Syringe) 50 ml IV PRN PRN PRN Reason: Hypoglycemia Famotidine (Pepcid) 20 mg IV BID [facility] Last Admin: 05/16/18 09:55 Dose: 20 mg Documented by: Hydralazine HCl (Apresoline) 50 mg PO Q8HR [facility] Last Admin: 05/16/18 06:29 Dose: 50 mg Documented by: Levetiracetam 750 mg/ Sodium (Chloride) 107.5 mls @ 400 mls/hr IV Q12HR [facility] Last Admin: 05/16/18 11:15 Dose: 400 mls/hr Documented by: Insulin Human Lispro (Humalog) 0 unit SUB-Q ACHS [facility]; Protocol Last Admin: 05/16/18 12:40 Dose: Not Given Documented by: Labetalol HCl (Normodyne) 10 mg IV Q4H PRN PRN Reason: Blood Pressure Lorazepam (Ativan) 2 mg IV Q1HR PRN PRN Reason: CIWA-Ar 8-15 Last Admin: 05/15/18 19:11 Dose: 2 mg Documented by: Lorazepam (Ativan) 4 mg IV Q1HR PRN PRN Reason: CIWA-Ar 16-25 Metoprolol Tartrate (Lopressor) 25 mg PO TID [facility] Last Admin: 05/16/18 10:02 Dose: 25 mg Documented by: Ondansetron HCl (Zofran) 4 mg IV Q8H PRN PRN Reason: Nausea And Vomiting Prednisone (Deltasone) 20 mg PO QDAY [facility] Last Admin: 05/16/18 09:56 Dose: 20 mg Documented by: Quetiapine Fumarate (Seroquel) 100 mg PO BID [facility] Last Admin: 05/16/18 09:56 Dose: 100 mg Documented by: Sodium Chloride (Sodium Chloride Flush Syringe 10 Ml) 10 ml IV BID [facility] Last Admin: 05/16/18 10:02 Dose: 10 ml Documented by: Sodium Chloride (Sodium Chloride Flush Syringe 10 Ml) 10 ml IV PRN PRN PRN Reason: LINE FLUSH Review of Systems ROS unobtainable: due to mental status Physical Examination Vital Signs Pulse Resp Pulse Ox 143 H 22 100 05/13/18 14:41 05/13/18 14:41 05/13/18 14:41 General appearance: disheveled, other (confused, due to alcohol withdrawal symptoms) HEENT: Positive: PERRL Neck: Positive: neck supple Cardiac: Positive: Reg Rate and Rhythm Lungs: Positive: Decreased Breath Sounds Neuro: Positive: Grossly Intact Abdomen: Positive: Soft Male genitourinary: Positive: deferred Skin: Positive: Clear Extremities: Absent: edema Results 05/16/18 06:26 05/16/18 06:26 CBC 05/15/18 05/16/18 Range/Units 20:32 06:26 WBC 4.5 4.4 L (4.5-11.0) K/mm3 RBC 4.36 4.39 (3.65-5.03) M/mm3 Hgb 14.2 14.2 (11.8-15.2) gm/dl Hct 42.3 42.2 (35.5-45.6) % Plt Count 145 138 L (140-440) K/mm3 Comprehensive Metabolic Panel 05/15/18 05/16/18 Range/Units 20:32 06:26 Sodium 143 141 (137-145) mmol/L Potassium 4.3 3.6 (3.6-5.0) mmol/L Chloride 102.6 104.3 (98-107) mmol/L Carbon Dioxide 22 24 (22-30) mmol/L BUN 7 L 9 (9-20) mg/dL Creatinine 0.9 0.8 (0.8-1.5) mg/dL Glucose 110 H 101 H (75-100) mg/dL Calcium 9.4 9.7 (8.4-10.2) mg/dL EKG interpretations - Telemetry EKG Rhythm: Sinus Tachycardia Assessment and Plan - Patient Problems (1) Nonsustained ventricular tachycardia Current Visit: Yes Status: Acute Plan to address problem: Recommend keep the electrolytes are optimal, continue metoprolol 25 mg 3 times a day, and obtain an echocardiogram for left ventricular function assessment. (2) On continuous oral anticoagulation Current Visit: Yes Status: Acute Plan to address problem: Most likely indication at this time for chronic Eliquis therapy would be paroxysmal atrial fibrillation, but we need to obtain his outpatient records for confirmation.
[2018-05-16] MEDS: ATIVAN IV PRN ×2 (13:06→15:52)
--- NOTE | 2018-05-16 16:20 | Progress Note ---
Assessment and Plan Assessment and plan: Patient is a 58-year-old -Turk[place] man with history of recurrent ETOH related seizures, bipolar disorder, type 2 diabetes mellitus, right upper extremity DVT and liver cirrhosis with hepatitis C who presents [facility] ED with seizure activity. -NSVT on 05/14/18 (I started following patient on 05/15/18) I ordered ekg, echo, consulted Cardiology is following, bmp, give iv magnesium, added BBlocker -Hypertension urgency related to DTs: give iv labetalol -Seizure due to alcohol withdrawal: Continue CIWA protocol, EEG per Neurology, Neurology eval noted -Metabolic Encephalopathy Secondary to seizure disorder -EtOH dependence by history -Liver Cirrhosis secondary to etoh by history -Bipolar 1 disorder: Continue Seroquel -Transaminitis: monitor closely -Hyperkalemia: monitor bmp -T2DM (type 2 diabetes mellitus): SSI -Hepatitis C by history -Hx of DVT: Continue ELiQUIS -DVT/GI prophy Poor overall prognosis if he does not quit ETOH. This has been discussed with him History Interval history: Patient was seen and examined. Follow-up on current diagnosis SZ. Overnight uneventful. Patient denies any chest pain, shortness breath, nausea/vomiting or severe headaches. Imaging, nursing note, chart, labs and old chart reviewed. Discussed with patient. Hospitalist Physical - Physical exam Narrative exam: Gen: ill appearing, WDWN, NAD, Awake, Alert, confused HEENT: NCAT, EOMI, PERRL, OP Clear Neck: supple, no adenopathy, no thyromegaly, no JVD CVS/Heart: regular tachycardia, normal S1S2, pulses present bilaterally Chest/Lungs: diminished Symmetrical chest expansion, good air entry bilaterally GI/Abdomen: distended, nontender, good bowel sounds, no guarding or rebound /Bladder: no suprapubic tenderness, no CVA or paraspinal tenderness Extermity/Skin: +edema, no obvious rash MSK: FROM x 4 Neuro: CN 2-12 grossly intact, no new focal deficits Psych: confused - Constitutional Vitals: Temp Pulse Resp BP Pulse Ox 97.9 F 104 H 20 114/82 92 05/16/18 12:10 05/16/18 12:10 05/16/18 12:10 05/16/18 13:43 05/16/18 12:10 General appearance: Present: disheveled, other (confused, due to alcohol withdrawal symptoms) Results - Labs CBC & Chem 7: 05/16/18 06:26 05/16/18 06:26 Labs: Laboratory Last Values WBC 4.4 K/mm3 (4.5-11.0) L 05/16/18 06:26 RBC 4.39 M/mm3 (3.65-5.03) 05/16/18 06:26 Hgb 14.2 gm/dl (11.8-15.2) 05/16/18 06:26 Hct 42.2 % (35.5-45.6) 05/16/18 06:26 MCV 96 fl (84-94) H 05/16/18 06:26 MCH 32 pg (28-32) 05/16/18 06:26 MCHC 34 % (32-34) 05/16/18 06:26 RDW 13.4 % (13.2-15.2) 05/16/18 06:26 Plt Count 138 K/mm3 (140-440) L 05/16/18 06:26 Lymph % (Auto) 21.5 % (13.4-35.0) 05/14/18 10:26 Laurel % (Auto) 12.7 % (0.0-7.3) H 05/14/18 10:26 Eos % (Auto) 2.4 % (0.0-4.3) 05/14/18 10:26 Baso % (Auto) 0.5 % (0.0-1.8) 05/14/18 10:26 Lymph # 1.2 K/mm3 (1.2-5.4) 05/14/18 10:26 Laurel # 0.7 K/mm3 (0.0-0.8) 05/14/18 10:26 Eos # 0.1 K/mm3 (0.0-0.4) 05/14/18 10:26 Baso # 0.0 K/mm3 (0.0-0.1) 05/14/18 10:26 Add Manual Diff Complete 05/13/18 15:11 Total Counted 100 05/13/18 15:11 Seg Neutrophils % 62.9 % (40.0-70.0) 05/14/18 10:26 Seg Neuts % (Manual) 78.0 % (40.0-70.0) H 05/13/18 15:11 Band Neutrophils % 1.0 % 05/13/18 15:11 Lymphocytes % (Manual) 15.0 % (13.4-35.0) 05/13/18 15:11 Reactive Lymphs % (Man) 2.0 % 05/13/18 15:11 Monocytes % (Manual) 4.0 % (0.0-7.3) 05/13/18 15:11 Eosinophils % (Manual) 0 % (0.0-4.3) 05/13/18 15:11 Basophils % (Manual) 0 % (0.0-1.8) 05/13/18 15:11 Metamyelocytes % 0 % 05/13/18 15:11 Myelocytes % 0 % 05/13/18 15:11 Promyelocytes % 0 % 05/13/18 15:11 Blast Cells % 0 % 05/13/18 15:11 Nucleated RBC % Not Reportable 05/13/18 15:11 Seg Neutrophils # 3.5 K/mm3 (1.8-7.7) 05/14/18 10:26 Seg Neutrophils # Man 5.1 K/mm3 (1.8-7.7) 05/13/18 15:11 Band Neutrophils # 0.1 K/mm3 05/13/18 15:11 Lymphocytes # (Manual) 1.0 K/mm3 (1.2-5.4) L 05/13/18 15:11 Abs React Lymphs (Man) 0.1 K/mm3 05/13/18 15:11 Monocytes # (Manual) 0.3 K/mm3 (0.0-0.8) 05/13/18 15:11 Eosinophils # (Manual) 0.0 K/mm3 (0.0-0.4) 05/13/18 15:11 Basophils # (Manual) 0.0 K/mm3 (0.0-0.1) 05/13/18 15:11 Metamyelocytes # 0.0 K/mm3 05/13/18 15:11 Myelocytes # 0.0 K/mm3 05/13/18 15:11 Promyelocytes # 0.0 K/mm3 05/13/18 15:11 Blast Cells # 0.0 K/mm3 05/13/18 15:11 WBC Morphology Not Reportable 05/13/18 15:11 Hypersegmented Neuts Not Reportable 05/13/18 15:11 Hyposegmented Neuts Not Reportable 05/13/18 15:11 Hypogranular Neuts Not Reportable 05/13/18 15:11 Smudge Cells Not Reportable 05/13/18 15:11 Toxic Granulation Not Reportable 05/13/18 15:11 Toxic Vacuolation Not Reportable 05/13/18 15:11 Dohle Bodies Not Reportable 05/13/18 15:11 Pelger-Huet Anomaly Not Reportable 05/13/18 15:11 Wicho Rods Not Reportable 05/13/18 15:11 Platelet Estimate Consistent w auto 05/13/18 15:11 Clumped Platelets Not Reportable 05/13/18 15:11 Plt Clumps, EDTA Not Reportable 05/13/18 15:11 Large Platelets Not Reportable 05/13/18 15:11 Giant Platelets Not Reportable 05/13/18 15:11 Platelet Satelliting Not Reportable 05/13/18 15:11 Plt Morphology Comment Not Reportable 05/13/18 15:11 RBC Morphology Not Reportable 05/13/18 15:11 Dimorphic RBCs Not Reportable 05/13/18 15:11 Polychromasia Not Reportable 05/13/18 15:11 Hypochromasia Not Reportable 05/13/18 15:11 Poikilocytosis Not Reportable 05/13/18 15:11 Anisocytosis 1+ 05/13/18 15:11 Microcytosis Not Reportable 05/13/18 15:11 Macrocytosis 1+ 05/13/18 15:11 Spherocytes Not Reportable 05/13/18 15:11 Pappenheimer Bodies Not Reportable 05/13/18 15:11 Sickle Cells Not Reportable 05/13/18 15:11 Target Cells Not Reportable 05/13/18 15:11 Tear Drop Cells Not Reportable 05/13/18 15:11 Ovalocytes Not Reportable 05/13/18 15:11 Helmet Cells Not Reportable 05/13/18 15:11 Nelson-Seaton Bodies Not Reportable 05/13/18 15:11 Colony Rings Not Reportable 05/13/18 15:11 Bienvenido Cells Not Reportable 05/13/18 15:11 Bite Cells Not Reportable 05/13/18 15:11 Crenated Cell Not Reportable 05/13/18 15:11 Elliptocytes Not Reportable 05/13/18 15:11 Acanthocytes (Spur) Not Reportable 05/13/18 15:11 Rouleaux Not Reportable 05/13/18 15:11 Hemoglobin C Crystals Not Reportable 05/13/18 15:11 Schistocytes Not Reportable 05/13/18 15:11 Malaria parasites Not Reportable 05/13/18 15:11 Angus Bodies Not Reportable 05/13/18 15:11 Hem Pathologist Commnt No 05/13/18 15:11 Sodium 141 mmol/L (137-145) 05/16/18 06:26 Potassium 3.6 mmol/L (3.6-5.0) 05/16/18 06:26 Chloride 104.3 mmol/L (98-107) 05/16/18 06:26 Carbon Dioxide 24 mmol/L (22-30) 05/16/18 06:26 Anion Gap 16 mmol/L 05/16/18 06:26 BUN 9 mg/dL (9-20) 05/16/18 06:26 Creatinine 0.8 mg/dL (0.8-1.5) 05/16/18 06:26 Estimated GFR > 60 ml/min 05/16/18 06:26 BUN/Creatinine Ratio 11 % 05/16/18 06:26 Glucose 101 mg/dL (75-100) H 05/16/18 06:26 POC Glucose 88 (70-105) 05/16/18 10:52 Hemoglobin A1c 6.5 % (4-6) H 05/13/18 22:20 Calcium 9.7 mg/dL (8.4-10.2) 05/16/18 06:26 Phosphorus 5.60 mg/dL (2.5-4.5) H 05/13/18 16:32 Magnesium 1.80 mg/dL (1.7-2.3) 05/16/18 06:26 Total Bilirubin 0.70 mg/dL (0.1-1.2) 05/14/18 06:36 AST 124 units/L (5-40) H 05/14/18 06:36 ALT 102 units/L (7-56) H 05/14/18 06:36 Alkaline Phosphatase 58 units/L (35-129) 05/14/18 06:36 Total Creatine Kinase 507 units/L (55-170) H 05/13/18 15:11 Troponin T < 0.010 ng/mL (0.00-0.029) 05/16/18 06:26 Total Protein 6.6 g/dL (6.3-8.2) 05/14/18 06:36 Albumin 4.0 g/dL (3.9-5) 05/14/18 06:36 Albumin/Globulin Ratio 1.5 % 05/14/18 06:36 TSH 2.780 mlU/mL (0.270-4.200) 05/13/18 15:26 Urine Color Yellow (Yellow) 05/13/18 17:11 Urine Turbidity Slightly-cloudy (Clear) 05/13/18 17:11 Urine pH 6.0 (5.0-7.0) 05/13/18 17:11 Ur Specific Depue 1.020 (1.003-1.030) 05/13/18 17:11 Urine Protein 100 mg/dl mg/dL (Negative) 05/13/18 17:11 Urine Glucose (UA) 50 mg/dL (Negative) 05/13/18 17:11 Urine Ketones Tr mg/dL (Negative) 05/13/18 17:11 Urine Blood Sm (Negative) 05/13/18 17:11 Urine Nitrite Neg (Negative) 05/13/18 17:11 Urine Bilirubin Neg (Negative) 05/13/18 17:11 Urine Urobilinogen 2.0 mg/dL (<2.0) 05/13/18 17:11 Ur Leukocyte Esterase Neg (Negative) 05/13/18 17:11 Urine WBC (Auto) 2.0 /HPF (0.0-6.0) 05/13/18 17:11 Urine RBC (Auto) 3.0 /HPF (0.0-6.0) 05/13/18 17:11 U Epithel Cells (Auto) < 1.0 /HPF (0-13.0) 05/13/18 17:11 Granular Casts 15 /LPF 05/13/18 17:11 Urine Mucus Few /HPF 05/13/18 17:11 Urine Opiates Screen Presumptive negative 05/13/18 17:11 Urine Methadone Screen Presumptive negative 05/13/18 17:11 Ur Barbiturates Screen Presumptive negative 05/13/18 17:11 Ur Phencyclidine Scrn Presumptive negative 05/13/18 17:11 Ur Amphetamines Screen Presumptive negative 05/13/18 17:11 U Benzodiazepines Scrn Presumptive negative 05/13/18 17:11 Urine Cocaine Screen Presumptive negative 05/13/18 17:11 U Marijuana (THC) Screen Presumptive negative 05/13/18 17:11 Drugs of Abuse Note Disclamer 05/13/18 17:11 Plasma/Serum Alcohol < 0.01 % (0-0.07) 05/13/18 15:11 Hepatitis A IgM Ab Non-reactive (NonReactive) 05/14/18 06:36 Hep Bs Antigen Non-reactive (Negative) 05/14/18 06:36 Hep B Core IgM Ab Non-reactive (NonReactive) 05/14/18 06:36 Hepatitis C Antibody Reactive (NonReactive) A 05/14/18 06:36 Active Medications - Current Medications Current Medications: Generic Name Dose Route Start Last Admin Trade Name Freq PRN Reason Stop Dose Admin Amlodipine Besylate 10 mg 05/14/18 10:00 05/16/18 10:01 Norvasc FEEDTUBE 10 mg QDAY MINGO Administration Apixaban 5 mg 05/13/18 23:00 05/16/18 09:55 Eliquis PO 5 mg Q12HR MINGO Administration Protocol Dextrose 50 ml 05/14/18 08:39 D50w (25gm) Syringe IV PRN PRN Hypoglycemia Famotidine 20 mg 05/13/18 23:00 05/16/18 09:55 Pepcid IV 20 mg BID MINGO Administration Hydralazine HCl 50 mg 05/14/18 20:00 05/16/18 06:29 Apresoline PO 50 mg Q8HR MINGO Administration Levetiracetam 750 mg/ Sodium 107.5 mls @ 400 mls/hr 05/13/18 23:00 05/16/18 11:15 Chloride IV 400 mls/hr Q12HR MINGO Administration Insulin Human Lispro 0 unit 05/14/18 07:30 05/16/18 12:40 Humalog SUB-Q Not Given ACHS MINGO Protocol Labetalol HCl 10 mg 05/15/18 18:13 Normodyne IV Q4H PRN Blood Pressure Lorazepam 2 mg 05/13/18 16:29 05/16/18 15:52 Ativan IV 2 mg Q1HR PRN Administration CIWA-Ar 8-15 Lorazepam 4 mg 05/13/18 16:29 Ativan IV Q1HR PRN CIWA-Ar 16-25 Metoprolol Tartrate 25 mg 05/15/18 18:15 05/16/18 13:42 Lopressor PO 25 mg TID MINGO Administration Ondansetron HCl 4 mg 05/13/18 22:10 Zofran IV Q8H PRN Nausea And Vomiting Prednisone 20 mg 05/14/18 10:00 05/16/18 09:56 Deltasone PO 20 mg QDAY MINGO Administration Quetiapine Fumarate 100 mg 05/13/18 23:00 05/16/18 09:56 Seroquel PO 100 mg BID MINGO Administration Sodium Chloride 10 ml 05/14/18 10:00 05/16/18 10:02 Sodium Chloride Flush Syringe 10 Ml IV 10 ml BID MINGO Administration Sodium Chloride 10 ml 05/13/18 22:10 Sodium Chloride Flush Syringe 10 Ml IV PRN PRN LINE FLUSH Nutrition/Malnutrition Assess - Dietary Evaluation Nutrition/Malnutrition Findings: Nutrition Notes Start: 05/14/18 11:59 Freq: Status: Active Protocol: Document 05/14/18 11:59 TW (Rec: 05/14/18 12:04 TW [id number]) Co-Sign 05/14/18 11:59 LP Nutrition Notes Need for Assessment generated from: Education Initial or Follow up Brief Note Current Diagnosis Diabetes Current Diet Regular Labs/Tests A1c: 6.5 Pertinent Medications reviewed Subjective/Other Information Consult for new onset DM education. Pt reports not having prior DM education. Discussedwith pt CHO conataining foods and appropriate CHO servings. Burn Absent Trauma Absent #1 Nutrition Diagnosis Food and nutrition-related knowledge deficit Etiology lack of prior DM education As Evidenced by Signs and Symptoms A1c of 6.5, pt report of not having prior DM education Nutrition Intervention Change Diet Order: Change to CHO consistent Teaching Recipient Patient Learning Readiness Fair Teaching Methods Discussion,Handout Response to Teaching Verbalize understanding Education Handouts Provided DM plate, CHO counting for people with DM Barriers to Learning Motivation,Physical, Environmental RD phone number provided Yes Patient aware of follow up options Yes Goal #1 Adherence to CHO consistent diet Anticipated Discharge Needs: CHO consistent diet Revisit per MD consult or patient Sign Off request:
[2018-05-17] MEDS: APRESOLINE PO SCH ×3 (06:05→23:12)
[2018-05-17 07:41] LABS: Hematocrit 46.1 % (35.5-45.6); Hemoglobin 15.6 gm/dl (11.8-15.2); Mean Corpuscular HGB Conc 34 % (32-34); Mean Corpuscular Volume 96 fl (84-94); Platelet Count 162 K/mm3 (140-440); Red Cell Distribution Width 13.3 % (13.2-15.2)
[2018-05-17 07:50] LABS: BUN/Creatinine Ratio 16; Blood Urea Nitrogen 14 mg/dL (9-20); Calcium 9.9 mg/dL (8.4-10.2); Hemolysis Index 11
[2018-05-17] MEDS: HumaLOG SUB-Q SCH ×4 (08:22→22:00)
[2018-05-17] MEDS: LOPRESSOR PO SCH ×3 (08:35→23:23)
[2018-05-17] MEDS: KEPPRA 750 MG in NACL 0.9% 100 ML IV SCH ×2 (11:29→23:29)
[2018-05-17] MEDS: ELIQUIS PO SCH ×2 (11:30→23:11)
[2018-05-17] MEDS: PEPCID IV SCH ×2 (11:30→23:11)
[2018-05-17] MEDS: DELTASONE PO SCH (11:30)
[2018-05-17] MEDS: SODIUM CHLORIDE FLUSH SYRINGE 10 ML IV SCH ×2 (11:30→23:14)
[2018-05-17] MEDS: NORVASC FEEDTUBE SCH (11:30)
--- NOTE | 2018-05-17 14:06 | Progress Note ---
Assessment and Plan Assessment and plan: Patient is a 58-year-old -[place] man with history of recurrent ETOH related seizures, bipolar disorder, type 2 diabetes mellitus, right upper extremity DVT, liver cirrhosis and hepatitis C who presents [facility] with seizure activity. -NSVT on 05/14/18 (I started following patient on 05/15/18) Cardiology is following, added BBlocker -Hypertension urgency related to DTs: give iv labetalol -Seizure due to alcohol withdrawal: Continue CIWA protocol, EEG per Neurology, Neurology eval noted -Metabolic Encephalopathy Secondary to seizure disorder -EtOH dependence by history -Liver Cirrhosis secondary to etoh by history -Bipolar 1 disorder: Continue Seroquel -Transaminitis: monitor closely -Hyperkalemia: monitor bmp -T2DM (type 2 diabetes mellitus): SSI -Hepatitis C by history -Hx of DVT: Continue ELiQUIS -DVT/GI prophy History Interval history: Patient was seen and examined. Follow-up on current diagnosis SZ. Overnight uneventful. Patient denies any chest pain, shortness breath, nausea/vomiting or severe headaches. Imaging, nursing note, chart, labs and old chart reviewed. Discussed with patient. Hospitalist Physical - Physical exam Narrative exam: Gen: ill appearing, WDWN, NAD, Awake, Alert, orientated x 2 (self and hospital with hints) HEENT: NCAT, EOMI, PERRL, OP Clear Neck: supple, no adenopathy, no thyromegaly, no JVD CVS/Heart: regular tachycardia, normal S1S2, pulses present bilaterally Chest/Lungs: diminished Symmetrical chest expansion, good air entry bilaterally GI/Abdomen: distended, nontender, good bowel sounds, no guarding or rebound /Bladder: no suprapubic tenderness, no CVA or paraspinal tenderness Extermity/Skin: +edema, no obvious rash MSK: FROM x 4 Neuro: CN 2-12 grossly intact, no new focal deficits Psych: confused - Constitutional Vitals: Temp Pulse Resp BP Pulse Ox 98.2 F 84 18 139/98 93 05/17/18 12:05 05/17/18 12:05 05/17/18 12:05 05/17/18 12:05 05/17/18 12:05 General appearance: Present: disheveled, other (confused, due to alcohol wit hdrawal symptoms) Results - Labs CBC & Chem 7: 05/17/18 06:59 05/17/18 06:59 Labs: Laboratory Last Values WBC 4.5 K/mm3 (4.5-11.0) 05/17/18 06:59 RBC 4.80 M/mm3 (3.65-5.03) 05/17/18 06:59 Hgb 15.6 gm/dl (11.8-15.2) H 05/17/18 06:59 Hct 46.1 % (35.5-45.6) H 05/17/18 06:59 MCV 96 fl (84-94) H 05/17/18 06:59 MCH 33 pg (28-32) H 05/17/18 06:59 MCHC 34 % (32-34) 05/17/18 06:59 RDW 13.3 % (13.2-15.2) 05/17/18 06:59 Plt Count 162 K/mm3 (140-440) 05/17/18 06:59 Lymph % (Auto) 21.5 % (13.4-35.0) 05/14/18 10:26 Norman % (Auto) 12.7 % (0.0-7.3) H 05/14/18 10:26 Eos % (Auto) 2.4 % (0.0-4.3) 05/14/18 10:26 Baso % (Auto) 0.5 % (0.0-1.8) 05/14/18 10:26 Lymph # 1.2 K/mm3 (1.2-5.4) 05/14/18 10:26 Norman # 0.7 K/mm3 (0.0-0.8) 05/14/18 10:26 Eos # 0.1 K/mm3 (0.0-0.4) 05/14/18 10:26 Baso # 0.0 K/mm3 (0.0-0.1) 05/14/18 10:26 Add Manual Diff Complete 05/13/18 15:11 Total Counted 100 05/13/18 15:11 Seg Neutrophils % 62.9 % (40.0-70.0) 05/14/18 10:26 Seg Neuts % (Manual) 78.0 % (40.0-70.0) H 05/13/18 15:11 Band Neutrophils % 1.0 % 03/27/19 15:11 Lymphocytes % (Manual) 15.0 % (13.4-35.0) 05/13/18 15:11 Reactive Lymphs % (Man) 2.0 % 05/13/18 15:11 Monocytes % (Manual) 4.0 % (0.0-7.3) 05/13/18 15:11 Eosinophils % (Manual) 0 % (0.0-4.3) 05/13/18 15:11 Basophils % (Manual) 0 % (0.0-1.8) 05/13/18 15:11 Metamyelocytes % 0 % 05/13/18 15:11 Myelocytes % 0 % 05/13/18 15:11 Promyelocytes % 0 % 05/13/18 15:11 Blast Cells % 0 % 05/13/18 15:11 Nucleated RBC % Not Reportable 05/13/18 15:11 Seg Neutrophils # 3.5 K/mm3 (1.8-7.7) 05/14/18 10:26 Seg Neutrophils # Man 5.1 K/mm3 (1.8-7.7) 05/13/18 15:11 Band Neutrophils # 0.1 K/mm3 05/13/18 15:11 Lymphocytes # (Manual) 1.0 K/mm3 (1.2-5.4) L 05/13/18 15:11 Abs React Lymphs (Man) 0.1 K/mm3 05/13/18 15:11 Monocytes # (Manual) 0.3 K/mm3 (0.0-0.8) 05/13/18 15:11 Eosinophils # (Manual) 0.0 K/mm3 (0.0-0.4) 05/13/18 15:11 Basophils # (Manual) 0.0 K/mm3 (0.0-0.1) 05/13/18 15:11 Metamyelocytes # 0.0 K/mm3 05/13/18 15:11 Myelocytes # 0.0 K/mm3 05/13/18 15:11 Promyelocytes # 0.0 K/mm3 05/13/18 15:11 Blast Cells # 0.0 K/mm3 05/13/18 15:11 WBC Morphology Not Reportable 05/13/18 15:11 Hypersegmented Neuts Not Reportable 05/13/18 15:11 Hyposegmented Neuts Not Reportable 05/13/18 15:11 Hypogranular Neuts Not Reportable 05/13/18 15:11 Smudge Cells Not Reportable 05/13/18 15:11 Toxic Granulation Not Reportable 05/13/18 15:11 Toxic Vacuolation Not Reportable 05/13/18 15:11 Dohle Bodies Not Reportable 05/13/18 15:11 Pelger-Huet Anomaly Not Reportable 05/13/18 15:11 Wicho Rods Not Reportable 05/13/18 15:11 Platelet Estimate Consistent w auto 05/13/18 15:11 Clumped Platelets Not Reportable 05/13/18 15:11 Plt Clumps, EDTA Not Reportable 05/13/18 15:11 Large Platelets Not Reportable 05/13/18 15:11 Giant Platelets Not Reportable 05/13/18 15:11 Platelet Satelliting Not Reportable 05/13/18 15:11 Plt Morphology Comment Not Reportable 05/13/18 15:11 RBC Morphology Not Reportable 05/13/18 15:11 Dimorphic RBCs Not Reportable 05/13/18 15:11 Polychromasia Not Reportable 05/13/18 15:11 Hypochromasia Not Reportable 05/13/18 15:11 Poikilocytosis Not Reportable 05/13/18 15:11 Anisocytosis 1+ 05/13/18 15:11 Microcytosis Not Reportable 05/13/18 15:11 Macrocytosis 1+ 05/13/18 15:11 Spherocytes Not Reportable 05/13/18 15:11 Pappenheimer Bodies Not Reportable 05/13/18 15:11 Sickle Cells Not Reportable 05/13/18 15:11 Target Cells Not Reportable 05/13/18 15:11 Tear Drop Cells Not Reportable 05/13/18 15:11 Ovalocytes Not Reportable 05/13/18 15:11 Helmet Cells Not Reportable 05/13/18 15:11 [place] Bodies Not Reportable 05/13/18 15:11 Echo Rings Not Reportable 05/13/18 15:11 Bethel Cells Not Reportable 05/13/18 15:11 Bite Cells Not Reportable 05/13/18 15:11 Crenated Cell Not Reportable 05/13/18 15:11 Elliptocytes Not Reportable 05/13/18 15:11 Acanthocytes (Spur) Not Reportable 05/13/18 15:11 Rouleaux Not Reportable 05/13/18 15:11 Hemoglobin C Crystals Not Reportable 05/13/18 15:11 Schistocytes Not Reportable 05/13/18 15:11 Malaria parasites Not Reportable 05/13/18 15:11 Angus Bodies Not Reportable 05/13/18 15:11 Hem Pathologist Commnt No 05/13/18 15:11 Sodium 141 mmol/L (137-145) 05/17/18 06:59 Potassium 3.7 mmol/L (3.6-5.0) 05/17/18 06:59 Chloride 103.5 mmol/L (98-107) 05/17/18 06:59 Carbon Dioxide 22 mmol/L (22-30) 05/17/18 06:59 Anion Gap 19 mmol/L 05/17/18 06:59 BUN 14 mg/dL (9-20) 05/17/18 06:59 Creatinine 0.9 mg/dL (0.8-1.5) 05/17/18 06:59 Estimated GFR > 60 ml/min 05/17/18 06:59 BUN/Creatinine Ratio 16 % 05/17/18 06:59 Glucose 105 mg/dL (75-100) H 05/17/18 06:59 POC Glucose 101 (70-105) 05/17/18 11:24 Hemoglobin A1c 6.5 % (4-6) H 05/13/18 22:20 Calcium 9.9 mg/dL (8.4-10.2) 05/17/18 06:59 Phosphorus 5.60 mg/dL (2.5-4.5) H 05/13/18 16:32 Magnesium 1.80 mg/dL (1.7-2.3) 05/16/18 06:26 Total Bilirubin 0.70 mg/dL (0.1-1.2) 05/14/18 06:36 AST 124 units/L (5-40) H 05/14/18 06:36 ALT 102 units/L (7-56) H 05/14/18 06:36 Alkaline Phosphatase 58 units/L (35-129) 05/14/18 06:36 Total Creatine Kinase 507 units/L (55-170) H 05/13/18 15:11 Troponin T < 0.010 ng/mL (0.00-0.029) 05/16/18 06:26 Total Protein 6.6 g/dL (6.3-8.2) 05/14/18 06:36 Albumin 4.0 g/dL (3.9-5) 05/14/18 06:36 Albumin/Globulin Ratio 1.5 % 05/14/18 06:36 TSH 2.780 mlU/mL (0.270-4.200) 05/13/18 15:26 Urine Color Yellow (Yellow) 05/13/18 17:11 Urine Turbidity Slightly-cloudy (Clear) 05/13/18 17:11 Urine pH 6.0 (5.0-7.0) 05/13/18 17:11 Ur Specific [place] 1.020 (1.003-1.030) 05/13/18 17:11 Urine Protein 100 mg/dl mg/dL (Negative) 05/13/18 17:11 Urine Glucose (UA) 50 mg/dL (Negative) 05/13/18 17:11 Urine Ketones Tr mg/dL (Negative) 05/13/18 17:11 Urine Blood Sm (Negative) 05/13/18 17:11 Urine Nitrite Neg (Negative) 05/13/18 17:11 Urine Bilirubin Neg (Negative) 05/13/18 17:11 Urine Urobilinogen 2.0 mg/dL (<2.0) 05/13/18 17:11 Ur Leukocyte Esterase Neg (Negative) 05/13/18 17:11 Urine WBC (Auto) 2.0 /HPF (0.0-6.0) 05/13/18 17:11 Urine RBC (Auto) 3.0 /HPF (0.0-6.0) 05/13/18 17:11 U Epithel Cells (Auto) < 1.0 /HPF (0-13.0) 05/13/18 17:11 Granular Casts 15 /LPF 05/13/18 17:11 Urine Mucus Few /HPF 05/13/18 17:11 Urine Opiates Screen Presumptive negative 05/13/18 17:11 Urine Methadone Screen Presumptive negative 05/13/18 17:11 Ur Barbiturates Screen Presumptive negative 05/13/18 17:11 Ur Phencyclidine Scrn Presumptive negative 05/13/18 17:11 Ur Amphetamines Screen Presumptive negative 05/13/18 17:11 U Benzodiazepines Scrn Presumptive negative 05/13/18 17:11 Urine Cocaine Screen Presumptive negative 05/13/18 17:11 U Marijuana (THC) Screen Presumptive negative 05/13/18 17:11 Drugs of Abuse Note Disclamer 05/13/18 17:11 Plasma/Serum Alcohol < 0.01 % (0-0.07) 05/13/18 15:11 Hepatitis A IgM Ab Non-reactive (NonReactive) 05/14/18 06:36 Hep Bs Antigen Non-reactive (Negative) 05/14/18 06:36 Hep B Core IgM Ab Non-reactive (NonReactive) 05/14/18 06:36 Hepatitis C Antibody Reactive (NonReactive) A 05/14/18 06:36 Active Medications - Current Medications Current Medications: Generic Name Dose Route Start Last Admin Trade Name Freq PRN Reason Stop Dose Admin Amlodipine Besylate 10 mg 05/14/18 10:00 05/17/18 11:30 Norvasc FEEDTUBE 10 mg QDAY MINGO Administration Apixaban 5 mg 05/13/18 23:00 05/17/18 11:30 Eliquis PO 5 mg Q12HR MINGO Administration Protocol Dextrose 50 ml 05/14/18 08:39 D50w (25gm) Syringe IV PRN PRN Hypoglycemia Famotidine 20 mg 05/13/18 23:00 05/17/18 11:30 Pepcid IV 20 mg BID MINGO Administration Hydralazine HCl 50 mg 05/14/18 20:00 05/17/18 06:05 Apresoline PO 50 mg Q8HR MINGO Administration Levetiracetam 750 mg/ Sodium 107.5 mls @ 400 mls/hr 05/13/18 23:00 05/17/18 11:29 Chloride IV 400 mls/hr Q12HR MINGO Administration Insulin Human Lispro 0 unit 05/14/18 07:30 05/17/18 08:22 Humalog SUB-Q Not Given ACHS MINGO Protocol Labetalol HCl 10 mg 05/15/18 18:13 Normodyne IV Q4H PRN Blood Pressure Lorazepam 2 mg 05/13/18 16:29 05/16/18 15:52 Ativan IV 2 mg Q1HR PRN Administration CIWA-Ar 8-15 Lorazepam 4 mg 05/13/18 16:29 Ativan IV Q1HR PRN CIWA-Ar 16-25 Metoprolol Tartrate 25 mg 05/15/18 18:15 05/17/18 08:35 Lopressor PO 25 mg TID MINGO Administration Ondansetron HCl 4 mg 05/13/18 22:10 Zofran IV Q8H PRN Nausea And Vomiting Prednisone 20 mg 05/14/18 10:00 05/17/18 11:30 Deltasone PO 20 mg QDAY MINGO Administration Quetiapine Fumarate 100 mg 05/13/18 23:00 05/17/18 11:30 Seroquel PO 100 mg BID MINGO Administration Sodium Chloride 10 ml 05/14/18 10:00 05/17/18 11:30 Sodium Chloride Flush Syringe 10 Ml IV 10 ml BID MINGO Administration Sodium Chloride 10 ml 05/13/18 22:10 Sodium Chloride Flush Syringe 10 Ml IV PRN PRN LINE FLUSH Nutrition/Malnutrition Assess - Dietary Evaluation Nutrition/Malnutrition Findings: Nutrition Notes Start: 05/14/18 11:59 Freq: Status: Active Protocol: Document 05/14/18 11:59 TW (Rec: 05/14/18 12:04 TW [id number]) Co-Sign 05/14/18 11:59 LP Nutrition Notes Need for Assessment generated from: Education Initial or Follow up Brief Note Current Diagnosis Diabetes Current Diet Regular Labs/Tests A1c: 6.5 Pertinent Medications reviewed Subjective/Other Information Consult for new onset DM education. Pt reports not having prior DM education. Discussedwith pt CHO conataining foods and appropriate CHO servings. Burn Absent Trauma Absent #1 Nutrition Diagnosis Food and nutrition-related knowledge deficit Etiology lack of prior DM education As Evidenced by Signs and Symptoms A1c of 6.5, pt report of not having prior DM education Nutrition Intervention Change Diet Order: Change to CHO consistent Teaching Recipient Patient Learning Readiness Fair Teaching Methods Discussion,Handout Response to Teaching Verbalize understanding Education Handouts Provided DM plate, CHO counting for people with DM Barriers to Learning Motivation,Physical, Environmental RD phone number provided Yes Patient aware of follow up options Yes Goal #1 Adherence to CHO consistent diet Anticipated Discharge Needs: CHO consistent diet Revisit per MD consult or patient Sign Off request:
[2018-05-18] MEDS: APRESOLINE PO SCH ×3 (06:37→23:17)
[2018-05-18] MEDS: LOPRESSOR PO SCH ×3 (08:12→23:18)
[2018-05-18 08:27] LABS: Hematocrit 46.7 % (35.5-45.6); Hemoglobin 15.4 gm/dl (11.8-15.2); Mean Corpuscular HGB Conc 33 % (32-34); Mean Corpuscular Volume 97 fl (84-94); Platelet Count 170 K/mm3 (140-440); Red Blood Count 4.84 M/mm3 (3.65-5.03); Red Cell Distribution Width 13.4 % (13.2-15.2)
[2018-05-18] MEDS: HumaLOG SUB-Q SCH ×4 (08:30→23:35)
[2018-05-18 08:50] LABS: BUN/Creatinine Ratio 17; Blood Urea Nitrogen 15 mg/dL (9-20); Calcium 9.6 mg/dL (8.4-10.2); Hemolysis Index 8
[2018-05-18] MEDS: KEPPRA 750 MG in NACL 0.9% 100 ML IV SCH (11:05)
[2018-05-18] MEDS: ELIQUIS PO SCH ×2 (11:06→23:18)
[2018-05-18] MEDS: PEPCID PO SCH ×2 (11:06→23:18)
[2018-05-18] MEDS: DELTASONE PO SCH (11:07)
[2018-05-18] MEDS: SODIUM CHLORIDE FLUSH SYRINGE 10 ML IV SCH ×2 (11:07→23:19)
--- NOTE | 2018-05-18 13:05 | Progress Note ---
Subjective - Reason for Consult Consult date: 05/18/18 Reason for consult: Psychiatry Follow-up - Chief Complaint Chief complaint: "Hello" 58-year-old -[place]aced[place] male who presented to the ER for seizure activity. Today the patient was calm and cooperative during the assessment. He sated that he has a long hx of alcohol abuse and would like assistance with rehab services when discharged. He stated that he participated in rehab services many years ago, but relapsed because of family issues. He is adamant that he does not have bipolar do nor take Seroquel at a home medication. He stated that he drink (etoh) because he enjoy the taste. He stated that he must stop drinking (etoh) because he may not "live long." He denies SI/HI"s and AVH's. . Mental Status Exam - Vital signs Last Vital Signs Temp 98.1 F 05/18/18 05:12 Pulse 77 05/18/18 08:12 Resp 20 05/18/18 05:12 BP 134/96 05/18/18 08:12 Pulse Ox 97 05/18/18 05:12 - Exam Narrative exam: MSE: Appearance: calm, cooperative Behavior: regular eye contact Speech: regular rate and tone Mood: "okay" Affect: congruent to mood Thought Process: circumstantial Thought Content: denies SI/HI's with AVH's Motor Activity: ambulatory Cognition: A/Ox 3 Insight: fair Judgment: fair Assessment and Plan Impression: Delirium on admission to the hospital. Alcohol Use DO. Today the patient is calm and cooperative during the assessment. The patient mental status has improved. Recommendation/Plan: Discussed the importance to abstain from alcohol consumption (etoh) with the patient, he verbalized understanding. Psy sign off. Dispo: The patient can follow up with [facility] for rehab services. Will staff with Dr Miriam Morgan.
[2018-05-18] MEDS: NORVASC FEEDTUBE SCH (13:48)
--- NOTE | 2018-05-18 14:12 | Progress Note ---
Assessment and Plan Assessment and plan: Patient is a 58-year-old -[place] man with history of recurrent ETOH related seizures, bipolar disorder, type 2 diabetes mellitus, right upper extremity DVT, liver cirrhosis and hepatitis C who presents [facility] with seizure activity. -NSVT on 05/14/18 (I started following patient on 05/15/18) Cardiology is following, added BBlocker -Hypertension urgency related to DTs: give iv labetalol -Seizure due to alcohol withdrawal: Continue CIWA protocol, EEG per Neurology, Neurology eval noted -Metabolic Encephalopathy Secondary to seizure disorder -EtOH dependence by history -Liver Cirrhosis secondary to etoh by history -Bipolar 1 disorder: Continue Seroquel -Transaminitis: monitor closely -Hyperkalemia: monitor bmp -T2DM (type 2 diabetes mellitus): SSI -Hepatitis C by history -Hx of DVT: Continue ELiQUIS -DVT/GI prophy History Interval history: Patient was seen and examined. Follow-up on current diagnosis SZ. Overnight uneventful. Patient denies any chest pain, shortness breath, nausea/vomiting or severe headaches. Imaging, nursing note, chart, labs and old chart reviewed. Discussed with patient. Hospitalist Physical - Physical exam Narrative exam: Gen: ill appearing, WDWN, NAD, Awake, Alert, orientated x 2 (self and hospital with hints) HEENT: NCAT, EOMI, PERRL, OP Clear Neck: supple, no adenopathy, no thyromegaly, no JVD CVS/Heart: regular tachycardia, normal S1S2, pulses present bilaterally Chest/Lungs: diminished Symmetrical chest expansion, good air entry bilaterally GI/Abdomen: distended, nontender, good bowel sounds, no guarding or rebound /Bladder: no suprapubic tenderness, no CVA or paraspinal tenderness Extermity/Skin: +edema, no obvious rash MSK: FROM x 4 Neuro: CN 2-12 grossly intact, no new focal deficits Psych: confused - Constitutional Vitals: Temp Pulse Resp BP Pulse Ox 98.1 F 77 20 125/88 97 05/18/18 05:12 05/18/18 13:48 05/18/18 05:12 05/18/18 13:48 05/18/18 05:12 General appearance: Present: disheveled, other (confused, due to alcohol wit hdrawal symptoms) Results - Labs CBC & Chem 7: 05/18/18 07:45 05/18/18 07:45 Labs: Laboratory Last Values WBC 4.4 K/mm3 (4.5-11.0) L 05/18/18 07:45 RBC 4.84 M/mm3 (3.65-5.03) 05/18/18 07:45 Hgb 15.4 gm/dl (11.8-15.2) H 05/18/18 07:45 Hct 46.7 % (35.5-45.6) H 05/18/18 07:45 MCV 97 fl (84-94) H 05/18/18 07:45 MCH 32 pg (28-32) 05/18/18 07:45 MCHC 33 % (32-34) 05/18/18 07:45 RDW 13.4 % (13.2-15.2) 05/18/18 07:45 Plt Count 170 K/mm3 (140-440) 05/18/18 07:45 Lymph % (Auto) 21.5 % (13.4-35.0) 05/14/18 10:26 Hardy % (Auto) 12.7 % (0.0-7.3) H 05/14/18 10:26 Eos % (Auto) 2.4 % (0.0-4.3) 05/14/18 10:26 Baso % (Auto) 0.5 % (0.0-1.8) 05/14/18 10:26 Lymph # 1.2 K/mm3 (1.2-5.4) 05/14/18 10:26 Hardy # 0.7 K/mm3 (0.0-0.8) 05/14/18 10:26 Eos # 0.1 K/mm3 (0.0-0.4) 05/14/18 10:26 Baso # 0.0 K/mm3 (0.0-0.1) 05/14/18 10:26 Add Manual Diff Complete 05/13/18 15:11 Total Counted 100 05/13/18 15:11 Seg Neutrophils % 62.9 % (40.0-70.0) 05/14/18 10:26 Seg Neuts % (Manual) 78.0 % (40.0-70.0) H 05/13/18 15:11 Band Neutrophils % 1.0 % 03/27/19 15:11 Lymphocytes % (Manual) 15.0 % (13.4-35.0) 05/13/18 15:11 Reactive Lymphs % (Man) 2.0 % 05/13/18 15:11 Monocytes % (Manual) 4.0 % (0.0-7.3) 05/13/18 15:11 Eosinophils % (Manual) 0 % (0.0-4.3) 05/13/18 15:11 Basophils % (Manual) 0 % (0.0-1.8) 05/13/18 15:11 Metamyelocytes % 0 % 05/13/18 15:11 Myelocytes % 0 % 05/13/18 15:11 Promyelocytes % 0 % 05/13/18 15:11 Blast Cells % 0 % 05/13/18 15:11 Nucleated RBC % Not Reportable 05/13/18 15:11 Seg Neutrophils # 3.5 K/mm3 (1.8-7.7) 05/14/18 10:26 Seg Neutrophils # Man 5.1 K/mm3 (1.8-7.7) 05/13/18 15:11 Band Neutrophils # 0.1 K/mm3 05/13/18 15:11 Lymphocytes # (Manual) 1.0 K/mm3 (1.2-5.4) L 05/13/18 15:11 Abs React Lymphs (Man) 0.1 K/mm3 05/13/18 15:11 Monocytes # (Manual) 0.3 K/mm3 (0.0-0.8) 05/13/18 15:11 Eosinophils # (Manual) 0.0 K/mm3 (0.0-0.4) 05/13/18 15:11 Basophils # (Manual) 0.0 K/mm3 (0.0-0.1) 05/13/18 15:11 Metamyelocytes # 0.0 K/mm3 05/13/18 15:11 Myelocytes # 0.0 K/mm3 05/13/18 15:11 Promyelocytes # 0.0 K/mm3 05/13/18 15:11 Blast Cells # 0.0 K/mm3 05/13/18 15:11 WBC Morphology Not Reportable 05/13/18 15:11 Hypersegmented Neuts Not Reportable 05/13/18 15:11 Hyposegmented Neuts Not Reportable 05/13/18 15:11 Hypogranular Neuts Not Reportable 05/13/18 15:11 Smudge Cells Not Reportable 05/13/18 15:11 Toxic Granulation Not Reportable 05/13/18 15:11 Toxic Vacuolation Not Reportable 05/13/18 15:11 Dohle Bodies Not Reportable 05/13/18 15:11 Pelger-Huet Anomaly Not Reportable 05/13/18 15:11 Wicho Rods Not Reportable 05/13/18 15:11 Platelet Estimate Consistent w auto 05/13/18 15:11 Clumped Platelets Not Reportable 05/13/18 15:11 Plt Clumps, EDTA Not Reportable 05/13/18 15:11 Large Platelets Not Reportable 05/13/18 15:11 Giant Platelets Not Reportable 05/13/18 15:11 Platelet Satelliting Not Reportable 05/13/18 15:11 Plt Morphology Comment Not Reportable 05/13/18 15:11 RBC Morphology Not Reportable 05/13/18 15:11 Dimorphic RBCs Not Reportable 05/13/18 15:11 Polychromasia Not Reportable 05/13/18 15:11 Hypochromasia Not Reportable 05/13/18 15:11 Poikilocytosis Not Reportable 05/13/18 15:11 Anisocytosis 1+ 05/13/18 15:11 Microcytosis Not Reportable 05/13/18 15:11 Macrocytosis 1+ 05/13/18 15:11 Spherocytes Not Reportable 05/13/18 15:11 Pappenheimer Bodies Not Reportable 05/13/18 15:11 Sickle Cells Not Reportable 05/13/18 15:11 Target Cells Not Reportable 05/13/18 15:11 Tear Drop Cells Not Reportable 05/13/18 15:11 Ovalocytes Not Reportable 05/13/18 15:11 Helmet Cells Not Reportable 05/13/18 15:11 [place] Bodies Not Reportable 05/13/18 15:11 [place] Rings Not Reportable 05/13/18 15:11 [place] Cells Not Reportable 05/13/18 15:11 Bite Cells Not Reportable 05/13/18 15:11 Crenated Cell Not Reportable 05/13/18 15:11 Elliptocytes Not Reportable 05/13/18 15:11 Acanthocytes (Spur) Not Reportable 05/13/18 15:11 Rouleaux Not Reportable 05/13/18 15:11 Hemoglobin C Crystals Not Reportable 05/13/18 15:11 Schistocytes Not Reportable 05/13/18 15:11 Malaria parasites Not Reportable 05/13/18 15:11 Angus Bodies Not Reportable 05/13/18 15:11 Hem Pathologist Commnt No 05/13/18 15:11 Sodium 142 mmol/L (137-145) 05/18/18 07:45 Potassium 3.5 mmol/L (3.6-5.0) L 05/18/18 07:45 Chloride 104.9 mmol/L (98-107) 05/18/18 07:45 Carbon Dioxide 23 mmol/L (22-30) 05/18/18 07:45 Anion Gap 18 mmol/L 05/18/18 07:45 BUN 15 mg/dL (9-20) 05/18/18 07:45 Creatinine 0.9 mg/dL (0.8-1.5) 05/18/18 07:45 Estimated GFR > 60 ml/min 05/18/18 07:45 BUN/Creatinine Ratio 17 % 05/18/18 07:45 Glucose 101 mg/dL (75-100) H 05/18/18 07:45 POC Glucose 116 (70-105) H 05/18/18 11:20 Hemoglobin A1c 6.5 % (4-6) H 05/13/18 22:20 Calcium 9.6 mg/dL (8.4-10.2) 05/18/18 07:45 Phosphorus 5.60 mg/dL (2.5-4.5) H 05/13/18 16:32 Magnesium 1.80 mg/dL (1.7-2.3) 05/16/18 06:26 Total Bilirubin 0.70 mg/dL (0.1-1.2) 05/14/18 06:36 AST 124 units/L (5-40) H 05/14/18 06:36 ALT 102 units/L (7-56) H 05/14/18 06:36 Alkaline Phosphatase 58 units/L (35-129) 05/14/18 06:36 Total Creatine Kinase 507 units/L (55-170) H 05/13/18 15:11 Troponin T < 0.010 ng/mL (0.00-0.029) 05/16/18 06:26 Total Protein 6.6 g/dL (6.3-8.2) 05/14/18 06:36 Albumin 4.0 g/dL (3.9-5) 05/14/18 06:36 Albumin/Globulin Ratio 1.5 % 05/14/18 06:36 TSH 2.780 mlU/mL (0.270-4.200) 05/13/18 15:26 Urine Color Yellow (Yellow) 05/13/18 17:11 Urine Turbidity Slightly-cloudy (Clear) 05/13/18 17:11 Urine pH 6.0 (5.0-7.0) 05/13/18 17:11 Ur Specific [place] 1.020 (1.003-1.030) 05/13/18 17:11 Urine Protein 100 mg/dl mg/dL (Negative) 05/13/18 17:11 Urine Glucose (UA) 50 mg/dL (Negative) 05/13/18 17:11 Urine Ketones Tr mg/dL (Negative) 05/13/18 17:11 Urine Blood Sm (Negative) 05/13/18 17:11 Urine Nitrite Neg (Negative) 05/13/18 17:11 Urine Bilirubin Neg (Negative) 05/13/18 17:11 Urine Urobilinogen 2.0 mg/dL (<2.0) 05/13/18 17:11 Ur Leukocyte Esterase Neg (Negative) 05/13/18 17:11 Urine WBC (Auto) 2.0 /HPF (0.0-6.0) 05/13/18 17:11 Urine RBC (Auto) 3.0 /HPF (0.0-6.0) 05/13/18 17:11 U Epithel Cells (Auto) < 1.0 /HPF (0-13.0) 05/13/18 17:11 Granular Casts 15 /LPF 05/13/18 17:11 Urine Mucus Few /HPF 05/13/18 17:11 Urine Opiates Screen Presumptive negative 05/13/18 17:11 Urine Methadone Screen Presumptive negative 05/13/18 17:11 Ur Barbiturates Screen Presumptive negative 05/13/18 17:11 Ur Phencyclidine Scrn Presumptive negative 05/13/18 17:11 Ur Amphetamines Screen Presumptive negative 05/13/18 17:11 U Benzodiazepines Scrn Presumptive negative 05/13/18 17:11 Urine Cocaine Screen Presumptive negative 05/13/18 17:11 U Marijuana (THC) Screen Presumptive negative 05/13/18 17:11 Drugs of Abuse Note Disclamer 05/13/18 17:11 Plasma/Serum Alcohol < 0.01 % (0-0.07) 05/13/18 15:11 Hepatitis A IgM Ab Non-reactive (NonReactive) 05/14/18 06:36 Hep Bs Antigen Non-reactive (Negative) 05/14/18 06:36 Hep B Core IgM Ab Non-reactive (NonReactive) 05/14/18 06:36 Hepatitis C Antibody Reactive (NonReactive) A 05/14/18 06:36 Active Medications - Current Medications Current Medications: Generic Name Dose Route Start Last Admin Trade Name Freq PRN Reason Stop Dose Admin Amlodipine Besylate 10 mg 05/14/18 10:00 05/18/18 13:48 Norvasc FEEDTUBE 10 mg QDAY MINGO Administration Apixaban 5 mg 05/13/18 23:00 05/18/18 11:06 Eliquis PO 5 mg Q12HR MINGO Administration Protocol Dextrose 50 ml 05/14/18 08:39 D50w (25gm) Syringe IV PRN PRN Hypoglycemia Famotidine 20 mg 05/18/18 10:00 05/18/18 11:06 Pepcid PO 20 mg BID MINGO Administration Hydralazine HCl 50 mg 05/14/18 20:00 05/18/18 06:37 Apresoline PO 50 mg Q8HR MINGO Administration Insulin Human Lispro 0 unit 05/14/18 07:30 05/18/18 13:12 Humalog SUB-Q Not Given ACHS MINGO Protocol Labetalol HCl 10 mg 05/15/18 18:13 Normodyne IV Q4H PRN Blood Pressure Levetiracetam 750 mg 05/18/18 22:00 Keppra PO BID MINGO Lorazepam 2 mg 05/13/18 16:29 05/16/18 15:52 Ativan IV 2 mg Q1HR PRN Administration CIWA-Ar 8-15 Lorazepam 4 mg 05/13/18 16:29 Ativan IV Q1HR PRN CIWA-Ar 16-25 Metoprolol Tartrate 25 mg 05/15/18 18:15 05/18/18 08:12 Lopressor PO 25 mg TID MINGO Administration Ondansetron HCl 4 mg 05/13/18 22:10 Zofran IV Q8H PRN Nausea And Vomiting Prednisone 20 mg 05/14/18 10:00 05/18/18 11:07 Deltasone PO 20 mg QDAY MINGO Administration Sodium Chloride 10 ml 05/14/18 10:00 05/18/18 11:07 Sodium Chloride Flush Syringe 10 Ml IV 10 ml BID MINGO Administration Sodium Chloride 10 ml 05/13/18 22:10 Sodium Chloride Flush Syringe 10 Ml IV PRN PRN LINE FLUSH Nutrition/Malnutrition Assess - Dietary Evaluation Nutrition/Malnutrition Findings: Nutrition Notes Start: 05/14/18 11:59 Freq: Status: Active Protocol: Document 05/14/18 11:59 TW (Rec: 05/14/18 12:04 TW [id number]) Co-Sign 05/14/18 11:59 LP Nutrition Notes Need for Assessment generated from: Education Initial or Follow up Brief Note Current Diagnosis Diabetes Current Diet Regular Labs/Tests A1c: 6.5 Pertinent Medications reviewed Subjective/Other Information Consult for new onset DM education. Pt reports not having prior DM education. Discussedwith pt CHO conataining foods and appropriate CHO servings. Burn Absent Trauma Absent #1 Nutrition Diagnosis Food and nutrition-related knowledge deficit Etiology lack of prior DM education As Evidenced by Signs and Symptoms A1c of 6.5, pt report of not having prior DM education Nutrition Intervention Change Diet Order: Change to CHO consistent Teaching Recipient Patient Learning Readiness Fair Teaching Methods Discussion,Handout Response to Teaching Verbalize understanding Education Handouts Provided DM plate, CHO counting for people with DM Barriers to Learning Motivation,Physical, Environmental RD phone number provided Yes Patient aware of follow up options Yes Goal #1 Adherence to CHO consistent diet Anticipated Discharge Needs: CHO consistent diet Revisit per MD consult or patient Sign Off request:
--- NOTE | 2018-05-18 17:04 | Progress Note ---
Subjective Date of service: 05/18/18 Interval history: continues with severe confusion from the seizure hx recommend meds for seizures at time of discharge Objective - Vital Sign Vital Signs - 12hr 05/18/18 05/18/18 05/18/18 05:12 06:37 08:12 Temperature 98.1 F Pulse Rate 70 70 77 Respiratory 20 Rate Blood Pressure 147/99 147/99 134/96 O2 Sat by Pulse 97 Oximetry 05/18/18 13:48 Temperature Pulse Rate 77 Respiratory Rate Blood Pressure 125/88 O2 Sat by Pulse Oximetry - Laboratory Findings CBC and BMP: 05/18/18 07:45 05/18/18 07:45 Abnormal Lab Findings: Abnormal Labs 05/13/18 05/13/18 05/13/18 15:11 15:11 15:11 WBC Hgb Hct 48.5 H MCV 103 H MCH MCHC 31 L Plt Count 137 L [place] % (Auto) Seg Neuts % (Manual) 78.0 H Lymphocytes # (Manual) 1.0 L Potassium 5.1 H Chloride 93.2 L Carbon Dioxide 15 L BUN Creatinine < 0.2 L Glucose 238 H POC Glucose Hemoglobin A1c Phosphorus Magnesium AST 201 H ALT 139 H Total Creatine Kinase 507 H Hepatitis C Antibody 05/13/18 05/13/18 05/14/18 16:32 22:20 06:36 WBC Hgb Hct MCV MCH MCHC Plt Count [place] % (Auto) Seg Neuts % (Manual) Lymphocytes # (Manual) Potassium Chloride Carbon Dioxide BUN Creatinine Glucose 114 H POC Glucose Hemoglobin A1c 6.5 H Phosphorus 5.60 H Magnesium 2.70 H AST 124 H ALT 102 H Total Creatine Kinase Hepatitis C Antibody 05/14/18 05/14/18 05/14/18 06:36 10:26 13:24 WBC Hgb Hct MCV 97 H MCH MCHC Plt Count [place] % (Auto) 12.7 H Seg Neuts % (Manual) Lymphocytes # (Manual) Potassium Chloride Carbon Dioxide BUN Creatinine Glucose POC Glucose 107 H Hemoglobin A1c Phosphorus Magnesium AST ALT Total Creatine Kinase Hepatitis C Antibody Reactive A 05/14/18 05/14/18 05/15/18 16:27 21:30 16:56 WBC Hgb Hct MCV MCH MCHC Plt Count [place] % (Auto) Seg Neuts % (Manual) Lymphocytes # (Manual) Potassium Chloride Carbon Dioxide BUN Creatinine Glucose POC Glucose 115 H 110 H 110 H Hemoglobin A1c Phosphorus Magnesium AST ALT Total Creatine Kinase Hepatitis C Antibody 05/15/18 05/15/18 05/15/18 20:32 20:32 21:44 WBC Hgb Hct MCV 97 H MCH 33 H MCHC Plt Count [place] % (Auto) Seg Neuts % (Manual) Lymphocytes # (Manual) Potassium Chloride Carbon Dioxide BUN 7 L Creatinine Glucose 110 H POC Glucose 113 H Hemoglobin A1c Phosphorus Magnesium AST ALT Total Creatine Kinase Hepatitis C Antibody 05/16/18 05/16/18 05/16/18 06:26 06:26 17:11 WBC 4.4 L Hgb Hct MCV 96 H MCH MCHC Plt Count 138 L [place] % (Auto) Seg Neuts % (Manual) Lymphocytes # (Manual) Potassium Chloride Carbon Dioxide BUN Creatinine Glucose 101 H POC Glucose 110 H Hemoglobin A1c Phosphorus Magnesium AST ALT Total Creatine Kinase Hepatitis C Antibody 05/17/18 05/17/18 05/17/18 06:59 06:59 16:24 WBC Hgb 15.6 H Hct 46.1 H MCV 96 H MCH 33 H MCHC Plt Count [place] % (Auto) Seg Neuts % (Manual) Lymphocytes # (Manual) Potassium Chloride Carbon Dioxide BUN Creatinine Glucose 105 H POC Glucose 123 H Hemoglobin A1c Phosphorus Magnesium AST ALT Total Creatine Kinase Hepatitis C Antibody 05/18/18 05/18/18 05/18/18 07:45 07:45 11:20 WBC 4.4 L Hgb 15.4 H Hct 46.7 H MCV 97 H MCH MCHC Plt Count [place] % (Auto) Seg Neuts % (Manual) Lymphocytes # (Manual) Potassium 3.5 L Chloride Carbon Dioxide BUN Creatinine Glucose 101 H POC Glucose 116 H Hemoglobin A1c Phosphorus Magnesium AST ALT Total Creatine Kinase Hepatitis C Antibody
[2018-05-18] MEDS: KEPPRA PO SCH (23:18)
[2018-05-19] MEDS: APRESOLINE PO SCH ×3 (06:37→21:53)
[2018-05-19] MEDS: HumaLOG SUB-Q SCH ×4 (10:11→21:57)
[2018-05-19] MEDS: PEPCID PO SCH ×2 (10:12→21:54)
[2018-05-19] MEDS: KEPPRA PO SCH ×2 (10:12→21:54)
[2018-05-19] MEDS: LOPRESSOR PO SCH ×3 (10:12→21:54)
[2018-05-19] MEDS: ELIQUIS PO SCH ×2 (10:13→21:54)
[2018-05-19] MEDS: NORVASC FEEDTUBE SCH (10:13)
[2018-05-19] MEDS: DELTASONE PO SCH (10:13)
[2018-05-19] MEDS: SODIUM CHLORIDE FLUSH SYRINGE 10 ML IV SCH (10:14)
--- NOTE | 2018-05-19 13:37 | Progress Note ---
Assessment and Plan - Patient Problems (1) Nonsustained ventricular tachycardia Current Visit: Yes Status: Acute Plan to address problem: Recommend keep the electrolytes are optimal, continue metoprolol 25 mg 3 times a day, and obtain an echocardiogram for left ventricular function assessment. (2) On continuous oral anticoagulation Current Visit: Yes Status: Acute Plan to address problem: Most likely indication at this time for chronic Eliquis therapy would be paroxysmal atrial fibrillation, but we need to obtain his outpatient records for confirmation. Subjective Date of service: 05/19/18 Interval history: The patient has no new cardiac complaints, no further significant ectopy on telemetry monitoring. Objective Vital Signs Temp Pulse Resp BP BP Pulse Ox 05/19/18 11:37 98.0 F 83 20 126/91 94 05/19/18 10:13 148/95 05/19/18 10:12 148/95 05/19/18 10:00 20 05/19/18 06:37 148/95 05/19/18 06:26 98.0 F 69 20 148/95 94 05/19/18 01:40 63 05/18/18 23:17 72 137/95 05/18/18 22:39 98.3 F 67 20 137/95 94 05/18/18 17:28 88 142/102 05/18/18 16:35 97.9 F 88 20 142/102 97 05/18/18 13:48 77 125/88 - Physical Examination General: No Apparent Distress HEENT: Positive: PERRL Neck: Positive: neck supple Cardiac: Positive: Reg Rate and Rhythm Lungs: Positive: Decreased Breath Sounds Neuro: Positive: Grossly Intact Abdomen: Positive: Soft Skin: Positive: Clear Extremities: Absent: edema - Imaging and Cardiology EKG: report reviewed (sinus Tachycardia)
--- NOTE | 2018-05-19 15:22 | XRay Report ---
LEFT FOOT, 2 views: History: Heel pain There is moderate osteopenia and mild diffuse vascular calcifications. No evidence for fracture, bone lesion or erosive joint pathology. Mild osteoarthritic changes are noted at the first metatarsophalangeal joint. Perhaps a tiny plantar spur is identified. IMPRESSION: Tiny plantar spur. Osteopenia. Degenerative changes.
--- NOTE | 2018-05-19 16:03 | Progress Note ---
Assessment and Plan /NSVT on 05/14/18 - Cardiology is following, added Florentin, follow 2d echo result /Hypertension urgency related to DTs: given iv labetalol as needed, now stable /Seizure due to alcohol withdrawal: Continue CIWA protocol, EEG per Neurology, Neurology eval noted /Metabolic Encephalopathy Secondary to seizure disorder and EtOH, now at [facility] /EtOH dependence by history, counseled /Liver Cirrhosis secondary to etoh by history, monitor LFT /Bipolar 1 disorder: Continue Seroquel /Transaminitis: due to alcoholic and hep C CLD monitor closely /Hyperkalemia: monitor bmp, resolved /T2DM (type 2 diabetes mellitus): SSI /Hepatitis C by history /Hx of DVT: placed on ELiQUIS last year, patient does have any further indication to continue AC /DVT/GI prophy Brief History Patient is a 58-year-old -[place] man with history of recurrent ETOH related seizures, bipolar disorder, type 2 diabetes mellitus, h/o right upper extremity DVT, liver cirrhosis and hepatitis C who presents [facility] ED with seizure activity. Hospitalist Physical Gen: NAD, Awake, Alert, orientated x 3 HEENT: NCAT, EOMI, PERRL, OP Clear Neck: supple, no adenopathy, no thyromegaly, no JVD CVS/Heart: regular tachycardia, normal S1S2, pulses present bilaterally Chest/Lungs: diminished Symmetrical chest expansion, good air entry bilaterally GI/Abdomen: distended, nontender, good bowel sounds, no guarding or rebound /Bladder: no suprapubic tenderness, no CVA or paraspinal tenderness Extermity/Skin: no edema, no obvious rash MSK: FROM x 4 Neuro: CN 2-12 grossly intact, no new focal deficits Psych: oriented to time place and person Subjective Date of service: 05/19/18 Interval history: Patient seen and examined Denies any chest pain, No SOB, no further seizure episode Discussed with RN Objective - Constitutional Vitals: Vital Signs - 12hr 05/19/18 05/19/18 05/19/18 06:26 06:37 10:00 Temperature 98.0 F Pulse Rate 69 Respiratory 20 20 Rate Blood Pressure 148/95 148/95 O2 Sat by Pulse 94 Oximetry 05/19/18 05/19/18 05/19/18 10:12 10:13 11:37 Temperature 98.0 F Pulse Rate 83 Respiratory 20 Rate Blood Pressure 148/95 148/95 126/91 O2 Sat by Pulse 94 Oximetry 05/19/18 05/19/18 14:41 14:42 Temperature Pulse Rate 83 83 Respiratory Rate Blood Pressure 126/91 O2 Sat by Pulse Oximetry - Labs CBC & Chem 7: 05/20/18 07:31 05/20/18 07:31
--- NOTE | 2018-05-19 17:05 | Vascular Lab Report ---
PROCEDURE: VL VENOUS DUPLEX UE RT TECHNIQUE: Ultrasound deep venous system right upper extremity with pulsed and color Doppler evaluat ion HISTORY: ?DVT COMPARISONS: FINDINGS: There is normal sonographic appearance and normal vascular waveform from the subclavian through the b rachial veins Within the forearm there is lack of compressibility and lack of normal flow within the cephalic and b asilic veins. IMPRESSION: Findings are positive for superficial venous thrombosis within the cephalic and basilic veins No evidence for deep venous thrombosis. This document is electronically signed by Margarito العلي MD., May 19 2018 05:03:12 PM ET
[2018-05-20] MEDS: SODIUM CHLORIDE FLUSH SYRINGE 10 ML IV SCH ×2 (00:29→11:30)
[2018-05-20] MEDS: LOPRESSOR PO SCH ×2 (08:00→17:09)
[2018-05-20 08:11] LABS: Hematocrit 46.7 % (35.5-45.6); Hemoglobin 15.4 gm/dl (11.8-15.2); Mean Corpuscular HGB Conc 33 % (32-34); Mean Corpuscular Volume 97 fl (84-94); Platelet Count 227 K/mm3 (140-440); Red Blood Count 4.83 M/mm3 (3.65-5.03); Red Cell Distribution Width 13.3 % (13.2-15.2)
[2018-05-20 08:28] LABS: Albumin 3.6 g/dL (3.9-5); BUN/Creatinine Ratio 21; Blood Urea Nitrogen 17 mg/dL (9-20); Calcium 9.4 mg/dL (8.4-10.2); Hemolysis Index 154
[2018-05-20] MEDS: HumaLOG SUB-Q SCH ×3 (08:30→17:00)
[2018-05-20 08:35] LABS: Bilirubin,Direct < 0.2 mg/dL (0-0.2)
[2018-05-20 08:37] LABS: Alanine Aminotransferase 62 units/L (7-56)
[2018-05-20 08:52] LABS: Basophils % (Manual) 0 % (0.0-1.8); Platelet Estimate Consistent w Auto; RBC Morphology Normal; Total Cells Counted 100
[2018-05-20] MEDS: KEPPRA PO SCH (11:23)
[2018-05-20] MEDS: PEPCID PO SCH (11:24)
[2018-05-20] MEDS: NORVASC FEEDTUBE SCH (11:27)
[2018-05-20] MEDS: DELTASONE PO SCH (11:30)
[2018-05-20] MEDS: ELIQUIS PO SCH (11:30)
--- NOTE | 2018-05-20 13:11 | Progress Note ---
Assessment and Plan - Patient Problems (1) Nonsustained ventricular tachycardia Current Visit: Yes Status: Acute Plan to address problem: Patient's left ventricular systolic function is normal, ejection fraction 60- 65%. We'll continue beta bruno therapy, I recommend optimization of electrolytes including potassium and magnesium. No further cardiac workup is indicated. (2) On continuous oral anticoagulation Current Visit: Yes Status: Acute Plan to address problem: Patient has no cardiac indication for oral anticoagulation. No further cardiac workup, will follow on a when necessary basis. Subjective Date of service: 05/20/18 Interval history: No new cardiac complaints, patient's echocardiogram demonstrated normal ejection fraction 60-65%. It is also reported that the chronic oral anticoagulation was indicated for a history of upper extremity venous thrombosis. There is no record of atrial fibrillation. Objective Vital Signs Temp Pulse Resp BP Pulse Ox 05/20/18 11:27 89 126/89 05/20/18 04:44 97.4 F L 65 17 128/87 93 05/19/18 23:13 98.2 F 78 17 139/97 92 05/19/18 22:25 20 05/19/18 21:54 78 121/79 05/19/18 21:53 78 121/79 05/19/18 17:57 98.1 F 78 22 121/79 100 05/19/18 14:42 83 05/19/18 14:41 83 126/91 - Physical Examination General: No Apparent Distress HEENT: Positive: PERRL Neck: Positive: neck supple Cardiac: Positive: Reg Rate and Rhythm Lungs: Positive: Decreased Breath Sounds Neuro: Positive: Grossly Intact Abdomen: Positive: Soft Skin: Positive: Clear Extremities: Absent: edema - Labs and Meds Cardiac Enzymes 05/20/18 Range/Units 07:31 AST 58 H (5-40) units/L CBC 05/20/18 Range/Units 07:31 WBC 6.1 (4.5-11.0) K/mm3 RBC 4.83 (3.65-5.03) M/mm3 Hgb 15.4 H (11.8-15.2) gm/dl Hct 46.7 H (35.5-45.6) % Plt Count 227 (140-440) K/mm3 Lymph # Refractory Tile Helper [place] # Refractory Tile Helper Eos # Refractory Tile Helper Baso # Refractory Tile Helper Comprehensive Metabolic Panel 05/20/18 Range/Units 07:31 Sodium 131 L D (137-145) mmol/L Potassium 4.5 D (3.6-5.0) mmol/L Chloride 101.2 (98-107) mmol/L Carbon Dioxide 16 L D (22-30) mmol/L BUN 17 (9-20) mg/dL Creatinine 0.8 (0.8-1.5) mg/dL Glucose 93 (75-100) mg/dL Calcium 9.4 (8.4-10.2) mg/dL Direct Bilirubin < 0.2 (0-0.2) mg/dL AST 58 H (5-40) units/L ALT 62 H (7-56) units/L Alkaline Phosphatase 57 (35-129) units/L Total Protein 7.3 (6.3-8.2) g/dL Albumin 3.6 L (3.9-5) g/dL - Imaging and Cardiology EKG: report reviewed (sinus Tachycardia)
--- NOTE | 2018-05-20 14:44 | Discharge Summary ---
Providers - Providers Date of Admission: 05/13/18 17:25 Date of discharge: 05/20/18 Attending physician: CHRISTI LAO 05/13/18 Consult to Case Management [CONS] Routine Services Needed at Discharge: Flakeboard Line Tender Notified:: COPY GIVEN Michael Moon 05/14/18 06:23 Consult to Mental Health [CONS] Routine Reason For Exam: etoh dependence Place consult to:: STEWART Notified:: STEWART Phone number called:: [phone] Was contact made?: Yes If yes, spoke with:: STEWART Time called:: 12:03 05/14/18 06:25 Consult to Dietitian/Nutrition [CONS] Routine Physician Instructions: Reason For Exam: New onset DM Reason for Consult: Diet education 05/14/18 08:36 Consult to Physician [CONS] Routine Comment: Consulting Provider: TIFFANIE ARRIAGA Physician Instructions: Reason For Exam: seizure 05/16/18 18:34 Consult to Wound/ET Nurse [CONS] Routine Reason For Exam: wound eval [facility] Reason for admission: seizure Condition: Fair Pertinent studies: UE right venous duplex: Findings are positive for superficial venous thrombosis within the cephalic and basilic veins No evidence for deep venous thrombosis. 2d echo: EF 60-65% Left foot XRY; Tiny plantar spur. Osteopenia. Degenerative changes. CT head : No acute intracranial process noted. Hospital course: Brief History Patient is a 58-year-old -[place] man with history of recurrent ETOH related seizures, bipolar disorder, type 2 diabetes mellitus, h/o right upper extremity DVT, liver cirrhosis and hepatitis C who presents [facility] with seizure activity. He was admitted for further evaluation and management. Placed on kepp pra, CIWA protocol, EEG was normal, evaluated by neurology. On 05/14/18 NSVT noted on tele, cardiology consulted, placed on BB, 2d echo showed preserved EF. He was then discharged home in stable condition with outpt followup. Discharge diagnosis and management: /Seizure due to alcohol withdrawal: Continued on CIWA protocol, EEG normal, Neurology eval noted, continue keppra 750mg BID /Metabolic Encephalopathy Secondary to seizure disorder and EtOH, now at baseline /EtOH dependence by history, counseled /NSVT on 05/14/18 - Cardiology is following, added BBlocker, preserved EF on 2d echo /Hypertension urgency related to DTs: given iv labetalol as needed, now stable /Liver Cirrhosis secondary to etoh by history, monitored LFT, stable /Bipolar 1 disorder: Continue Seroquel /Transaminitis: due to alcoholic and hepatitis C Chronic Liver Disease, monitor closely as outpt /Hyperkalemia: monitor bmp, resolved /T2DM (type 2 diabetes mellitus): managed with as needed SSI, a1c 6.5 /Hepatitis C by history, outpt follow up /Hx of DVT: placed on ELiQUIS last year, patient does have any further indication to continue AC /SVT on cephalic and basalic vein - patient asymptomatic, supportive care /DVT/GI prophylaxis Hospitalist Physical Gen: NAD, Awake, Alert, orientated x 3 HEENT: NCAT, EOMI, PERRL, OP Clear Neck: supple, no adenopathy, no thyromegaly, no JVD CVS/Heart: normal S1S2, pulses present bilaterally Chest/Lungs: Symmetrical chest expansion, good air entry bilaterally GI/Abdomen: nontender, good bowel sounds, no guarding or rebound /Bladder: no suprapubic tenderness, no CVA or paraspinal tenderness Extermity/Skin: no edema, no obvious rash MSK: FROM x 4 Neuro: CN 2-12 grossly intact, no new focal deficits Psych: oriented to time place and person Disposition: DC-01 TO HOME OR SELFCARE Time spent for discharge: 34 minutes Core Measure Documentation - Palliative Care Palliative Care/ Comfort Measures: Not Applicable - Core Measures Any of the following diagnoses?: none Exam - Constitutional Vitals: Temp Pulse Resp BP Pulse Ox 97.4 F L 89 17 126/89 93 05/20/18 04:44 05/20/18 11:27 05/20/18 04:44 05/20/18 11:27 05/20/18 04:44 Plan Activity: advance as tolerated Weight Bearing Status: Weight Bear as Tolerated Diet: low fat, low salt, diabetic Special Instructions: follow up in rehab (for alcohol cessation) Follow up with: MARIJA GEORGE MD [Primary Care Provider] - 3-5 Days Prescriptions: hydrALAZINE [Apresoline TAB] 50 mg PO Q8HR #90 tablet predniSONE [Deltasone] 20 mg PO QDAY #7 tablet levETIRAcetam [Keppra TAB] 750 mg PO BID #60 tablet Metoprolol [Lopressor TAB] 25 mg PO TID #90 tablet amLODIPine [Norvasc] 10 mg FEEDTUBE QDAY #30 tablet Thiamine [Vitamin B-1] 100 mg PO QDAY #30 tablet
--- NOTE | 2018-05-20 15:19 | Progress Note ---
Subjective Date of service: 05/20/18 Interval history: reviewed over the ECHO and fairly unremarkable to explain TIA or syncope still think AMS was from seizure Objective - Vital Sign Vital Signs - 12hr 05/20/18 05/20/18 04:44 11:27 Temperature 97.4 F L Pulse Rate 65 89 Respiratory 17 Rate Blood Pressure 128/87 126/89 O2 Sat by Pulse 93 Oximetry - Laboratory Findings CBC and BMP: 05/20/18 07:31 05/20/18 07:31 Abnormal Lab Findings: Abnormal Labs 05/13/18 05/13/18 05/13/18 15:11 15:11 15:11 WBC Hgb Hct 48.5 H MCV 103 H MCH MCHC 31 L Plt Count 137 L [place] % (Auto) Seg Neuts % (Manual) 78.0 H Monocytes % (Manual) Lymphocytes # (Manual) 1.0 L Sodium Potassium 5.1 H Chloride 93.2 L Carbon Dioxide 15 L BUN Creatinine < 0.2 L Glucose 238 H POC Glucose Hemoglobin A1c Phosphorus Magnesium AST 201 H ALT 139 H Total Creatine Kinase 507 H Albumin Hepatitis C Antibody 05/13/18 05/13/18 05/14/18 16:32 22:20 06:36 WBC Hgb Hct MCV MCH MCHC Plt Count [place] % (Auto) Seg Neuts % (Manual) Monocytes % (Manual) Lymphocytes # (Manual) Sodium Potassium Chloride Carbon Dioxide BUN Creatinine Glucose 114 H POC Glucose Hemoglobin A1c 6.5 H Phosphorus 5.60 H Magnesium 2.70 H AST 124 H ALT 102 H Total Creatine Kinase Albumin Hepatitis C Antibody 05/14/18 05/14/18 05/14/18 06:36 10:26 13:24 WBC Hgb Hct MCV 97 H MCH MCHC Plt Count [place] % (Auto) 12.7 H Seg Neuts % (Manual) Monocytes % (Manual) Lymphocytes # (Manual) Sodium Potassium Chloride Carbon Dioxide BUN Creatinine Glucose POC Glucose 107 H Hemoglobin A1c Phosphorus Magnesium AST ALT Total Creatine Kinase Albumin Hepatitis C Antibody Reactive A 05/14/18 05/14/18 05/15/18 16:27 21:30 16:56 WBC Hgb Hct MCV MCH MCHC Plt Count [place] % (Auto) Seg Neuts % (Manual) Monocytes % (Manual) Lymphocytes # (Manual) Sodium Potassium Chloride Carbon Dioxide BUN Creatinine Glucose POC Glucose 115 H 110 H 110 H Hemoglobin A1c Phosphorus Magnesium AST ALT Total Creatine Kinase Albumin Hepatitis C Antibody 05/15/18 05/15/18 05/15/18 20:32 20:32 21:44 WBC Hgb Hct MCV 97 H MCH 33 H MCHC Plt Count [place] % (Auto) Seg Neuts % (Manual) Monocytes % (Manual) Lymphocytes # (Manual) Sodium Potassium Chloride Carbon Dioxide BUN 7 L Creatinine Glucose 110 H POC Glucose 113 H Hemoglobin A1c Phosphorus Magnesium AST ALT Total Creatine Kinase Albumin Hepatitis C Antibody 05/16/18 05/16/18 05/16/18 06:26 06:26 17:11 WBC 4.4 L Hgb Hct MCV 96 H MCH MCHC Plt Count 138 L [place] % (Auto) Seg Neuts % (Manual) Monocytes % (Manual) Lymphocytes # (Manual) Sodium Potassium Chloride Carbon Dioxide BUN Creatinine Glucose 101 H POC Glucose 110 H Hemoglobin A1c Phosphorus Magnesium AST ALT Total Creatine Kinase Albumin Hepatitis C Antibody 05/17/18 05/17/18 05/17/18 06:59 06:59 16:24 WBC Hgb 15.6 H Hct 46.1 H MCV 96 H MCH 33 H MCHC Plt Count [place] % (Auto) Seg Neuts % (Manual) Monocytes % (Manual) Lymphocytes # (Manual) Sodium Potassium Chloride Carbon Dioxide BUN Creatinine Glucose 105 H POC Glucose 123 H Hemoglobin A1c Phosphorus Magnesium AST ALT Total Creatine Kinase Albumin Hepatitis C Antibody 05/18/18 05/18/18 05/18/18 07:45 07:45 11:20 WBC 4.4 L Hgb 15.4 H Hct 46.7 H MCV 97 H MCH MCHC Plt Count [place] % (Auto) Seg Neuts % (Manual) Monocytes % (Manual) Lymphocytes # (Manual) Sodium Potassium 3.5 L Chloride Carbon Dioxide BUN Creatinine Glucose 101 H POC Glucose 116 H Hemoglobin A1c Phosphorus Magnesium AST ALT Total Creatine Kinase Albumin Hepatitis C Antibody 05/20/18 05/20/18 07:31 07:31 WBC Hgb 15.4 H Hct 46.7 H MCV 97 H MCH MCHC Plt Count [place] % (Auto) Seg Neuts % (Manual) Monocytes % (Manual) 9.0 H Lymphocytes # (Manual) Sodium 131 L D Potassium Chloride Carbon Dioxide 16 L D BUN Creatinine Glucose POC Glucose Hemoglobin A1c Phosphorus Magnesium AST 58 H ALT 62 H Total Creatine Kinase Albumin 3.6 L Hepatitis C Antibody
[2018-05-20] MEDS: APRESOLINE PO SCH (17:09)
[2018-05-20 19:01] VITALS: BP 120/91
== END 2018-05-20 20:00 | disposition home or self-care (01) | DRG 100 ==
LOC: ED 14:24 → 3A 17:25
PROVIDERS: ADMIT Internal Medicine; ATTEND Internal Medicine
DX: G40.909 Epilepsy, unspecified, not intractable, without status epilepticus (principal); G93.41 Metabolic encephalopathy; F10.239 Alcohol dependence with withdrawal, unspecified; K70.30 Alcoholic cirrhosis of liver without ascites; B19.20 Unspecified viral hepatitis C without hepatic coma; E87.5 Hyperkalemia; F31.9 Bipolar disorder, unspecified; E11.9 Type 2 diabetes mellitus without complications; I47.1 Supraventricular tachycardia; I16.0 Hypertensive urgency; R74.0 Nonspecific elevation of levels of transaminase and lactic acid dehydrogenase [LDH]; Z86.718 Personal history of other venous thrombosis and embolism; Z93.1 Gastrostomy status; Z79.899 Other long term (current) drug therapy
CPT/HCPCS: 36415; 70450; 80048; 80053; 80074; 80076; 80307; 80320; 81001; 82550; 82962; 83036; 83735; 84100; 84443; 84484; 85007; 85025; 85027; 93005; 93010; 93308; 93321; 93325; 95819; G0378; G0480; J1953; J2060; J3475; J7030; J7042; J7512

== ENCOUNTER 2018-09-04 12:23 | Inpatient (IN) | payer MEDICAID ==
[2018-09-04] MEDS ORDERED: ATIVAN IV ONE ×2 (12:27)
[2018-09-04] MEDS ORDERED: ATIVAN IV PRN (12:28)
[2018-09-04] MEDS ORDERED: ZOFRAN IV ONE (12:50)
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
[2018-09-04 12:58] LABS: Hematocrit 43.4 % (35.5-45.6); Hemoglobin 14.2 gm/dl (11.8-15.2); Mean Corpuscular HGB Conc 33 % (32-34); Mean Corpuscular Volume 101 fl (84-94); Platelet Count 100 K/mm3 (140-440); Red Blood Count 4.31 M/mm3 (3.65-5.03); Red Cell Distribution Width 13.2 % (13.2-15.2)
[2018-09-04 13:18] LABS: Hemolysis Index 946
[2018-09-04 13:25] LABS: Alanine Aminotransferase TNR units/L (7-56); Albumin TNR g/dL (3.9-5); BUN/Creatinine Ratio TNR; Blood Urea Nitrogen TNR mg/dL (9-20); Calcium TNR mg/dL (8.4-10.2)
[2018-09-04 13:41] LABS: Basophils % (Manual) 0 % (0.0-1.8); Eosinophils % (Manual) 0 % (0.0-4.3); Total Cells Counted 100
[2018-09-04 13:42] LABS: Platelet Estimate Consistent w Auto; RBC Morphology Normal
[2018-09-04] MEDS: ATIVAN IV PRN ×4 (13:45→22:12)
[2018-09-04 14:25] LABS: Alanine Aminotransferase 56 units/L (7-56); BUN/Creatinine Ratio 11; Blood Urea Nitrogen 9 mg/dL (9-20); Calcium 9.1 mg/dL (8.4-10.2); Hemolysis Index 11
[2018-09-04] MEDS ORDERED: APRESOLINE IV ONE (14:27)
[2018-09-04] MEDS ORDERED: APRESOLINE ONE (14:31)
[2018-09-04] MEDS ORDERED: TYLENOL PO ONE (15:59)
[2018-09-04] MEDS ORDERED: NACL 0.9% 1000 ML 1,000 ML IV ONE (15:59)
[2018-09-04] MEDS ORDERED: VITAMIN B-1 100 MG, FOLVITE 1 MG, INFUVITE 10 ML in NACL 0.9% 1000 ML 1,000 ML IV ONE (16:59)
--- NOTE | 2018-09-04 17:16 | Cat Scan Report ---
CT ABDOMEN AND PELVIS WITH CONTRAST HISTORY: Trauma, altered mental status COMPARISON: None TECHNIQUE: Routine abdominal and pelvic CT exam performed with IV contrast. The patient received 100 cc of IV Omnipaque 300. All CT scans at this location are performed using CT dose reduction for ALARA by means of automated exposure control. FINDINGS: CT ABDOMEN: Lung Bases: No significant abnormality. Liver: No significant abnormality. Biliary: No significant abnormality. Spleen: No significant abnormality. Unenlarged. Pancreas: No significant abnormality. Adrenals: No significant abnormality. Kidneys: There are multiple bilateral simple appearing renal cysts. There is no hydronephrosis or radha dence of acute renal injury. Lymphatics: No lymphadenopathy. Vasculature: No significant abnormality. Bowel/Peritoneum: No significant abnormality. No free air. No free fluid. Normal appendix. CT PELVIC: : No significant abnormality. Lymphatics: No lymphadenopathy. Osseous Structures: No aggressive appearing osseous lesions. No acute fractures. There are some old h ealed left lateral rib fractures. There is osteonecrosis of the bilateral femoral heads. Additional Findings: None IMPRESSION: 1. No acute traumatic abnormality in the abdomen and pelvis. 2. Bilateral simple renal cysts. 3. Osteonecrosis of both femoral heads without significant collapse. Signer Name: Sami Soriano MD Signed: 09/04/2018 5:11 PM Workstation Name: [id number]
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
[2018-09-04] MEDS ORDERED: MAXIPIME/NS 2 GM/100 ML 2 GM/100 ML BAG IV ONE (17:36)
[2018-09-04] MEDS: APRESOLINE IV PRN (22:12)
--- NOTE | 2018-09-04 23:06 | History and Physical Report ---
History of Present Illness Date of examination: 09/04/18 Date of admission: 09/04/18 18:06 Chief complaint: Continuous seizures for a couple of hours History of present illness: 58-year-old -[place] male comes in for recurrent seizures. Patient is in status epilepticus. No airway compromise. Patient was seizing while in the emergency room. Patient has severe alcohol dependence and is in withdrawal. No fever or chills. Patient brought in by the EMS. No shortness of breath. Patient has tonic-clonic seizures. Has history of seizures in the past. Noncompliant. Also history of hypertension and bipolar disorder. - Past Medical History Previous Medical History?: Yes Hypertension: Yes Seizures: Yes (Withdrawal) Psychiatric Treatment: Yes (ETOH) Additional medical history: hepatitis. history obtained by sister Surgical History PEG tube Social History Smoking Status: Unknown if ever smoked Substance Use Type: Alcohol dependence--severe Family history Htn Medications Home Medications: Home Medications Medication Instructions Recorded Confirmed Last Taken Type Famotidine [Pepcid] 20 mg PO BID #60 tablet 04/16/18 05/13/18 Unknown Rx Quetiapine Fumarate [Seroquel] 100 mg PO BID #30 tablet 04/16/18 05/13/18 Unknown Rx Metoprolol [Lopressor TAB] 25 mg PO TID #90 tablet 05/20/18 Unknown Rx Thiamine [Vitamin B-1] 100 mg PO QDAY #30 tablet 05/20/18 Unknown Rx amLODIPine [Norvasc] 10 mg FEEDTUBE QDAY #30 tablet 05/20/18 Unknown Rx hydrALAZINE [Apresoline TAB] 50 mg PO Q8HR #90 tablet 05/20/18 Unknown Rx levETIRAcetam [Keppra TAB] 750 mg PO BID #60 tablet 05/20/18 Unknown Rx predniSONE [Deltasone] 20 mg PO QDAY #7 tablet 05/20/18 Unknown Rx Review of Systems ROS: Stated complaint: SEIZURE Other details as noted in HPI Comment: Unobtainable due to pts medical conditions Medications and Allergies Allergies Allergy/AdvReac Type Severity Reaction Status Date / Time No Known Allergies Allergy Verified 10/24/14 23:18 Home Medications Medication Instructions Recorded Confirmed Last Taken Type Famotidine [Pepcid] 20 mg PO BID #60 tablet 04/16/18 05/13/18 Unknown Rx Quetiapine Fumarate [Seroquel] 100 mg PO BID #30 tablet 04/16/18 05/13/18 Unknown Rx Metoprolol [Lopressor TAB] 25 mg PO TID #90 tablet 05/20/18 Unknown Rx Thiamine [Vitamin B-1] 100 mg PO QDAY #30 tablet 05/20/18 Unknown Rx amLODIPine [Norvasc] 10 mg FEEDTUBE QDAY #30 tablet 05/20/18 Unknown Rx hydrALAZINE [Apresoline TAB] 50 mg PO Q8HR #90 tablet 05/20/18 Unknown Rx levETIRAcetam [Keppra TAB] 750 mg PO BID #60 tablet 05/20/18 Unknown Rx predniSONE [Deltasone] 20 mg PO QDAY #7 tablet 05/20/18 Unknown Rx Active Meds: Active Medications Hydralazine HCl (Apresoline) 10 mg IV Q4HR PRN PRN Reason: Blood Pressure Last Admin: 09/04/18 22:12 Dose: 10 mg Documented by: Lorazepam (Ativan) 2 mg IV Q1H PRN PRN Reason: CIWA-Ar 8-15 Last Admin: 09/04/18 22:12 Dose: 2 mg Documented by: Lorazepam (Ativan) 4 mg IV Q1H PRN PRN Reason: CIWA-Ar 16-25 Lorazepam (Ativan) 4 mg IV Q15MIN PRN PRN Reason: CIWA-Ar >25 Exam - Constitutional Vitals: Temp Pulse Resp BP Pulse Ox 101 F H 93 H 16 169/106 100 09/04/18 20:00 09/04/18 22:12 09/04/18 21:00 09/04/18 22:12 09/04/18 21:00 General appearance: Present: mild distress, well-nourished - EENT Eyes: Present: PERRL ENT: hearing intact, clear oral mucosa - Neck Neck: Present: supple, normal ROM - Respiratory Respiratory effort: normal Respiratory: bilateral: CTA - Cardiovascular Heart rate: 121 Rhythm: regular Heart Sounds: Present: S1 & S2. Absent: rub, click - Extremities Extremities: no ischemia, pulses intact, pulses symmetrical, No edema Peripheral Pulses: within normal limits - Abdominal General gastrointestinal: Present: soft, non-tender, non-distended, normal bowel sounds Male genitourinary: Present: normal - Rectal Rectal Exam: deferred - Integumentary Integumentary: Present: clear, warm, dry - Musculoskeletal Musculoskeletal: gait normal, strength equal bilaterally - Psychiatric Psychiatric: appropriate mood/affect, intact judgment & insight - Neurologic Neurologic: CNII-XII intact, moves all extremities - Allied Health Allied health notes reviewed: nursing, case management Results - Labs CBC & Chem 7: 09/04/18 Unknown 09/04/18 Unknown Labs: Laboratory Last Values WBC 7.8 K/mm3 (4.5-11.0) 09/04/18 Unknown RBC 4.31 M/mm3 (3.65-5.03) 09/04/18 Unknown Hgb 14.2 gm/dl (11.8-15.2) 09/04/18 Unknown Hct 43.4 % (35.5-45.6) 09/04/18 Unknown MCV 101 fl (84-94) H 09/04/18 Unknown MCH 33 pg (28-32) H 09/04/18 Unknown MCHC 33 % (32-34) 09/04/18 Unknown RDW 13.2 % (13.2-15.2) 09/04/18 Unknown Plt Count 100 K/mm3 (140-440) L 09/04/18 Unknown [place] % (Auto) Global Marketing Coordinator 09/04/18 Unknown Add Manual Diff Complete 09/04/18 Unknown Total Counted 100 09/04/18 Unknown Seg Neuts % (Manual) 68.0 % (40.0-70.0) 09/04/18 Unknown 0 % 09/04/18 Unknown 17.0 % (13.4-35.0) 09/04/18 Unknown Reactive Lymphs % (Man) 0 % 09/04/18 Unknown 15.0 % (0.0-7.3) H 09/04/18 Unknown 0 % (0.0-4.3) 09/04/18 Unknown 0 % (0.0-1.8) 09/04/18 Unknown 0 % 09/04/18 Unknown 0 % 09/04/18 Unknown 0 % 09/04/18 Unknown 0 % 09/04/18 Unknown Nucleated RBC % Not Reportable 09/04/18 Unknown Seg Neutrophils # Man 5.3 K/mm3 (1.8-7.7) 09/04/18 Unknown Band Neutrophils # 0.0 K/mm3 09/04/18 Unknown 1.3 K/mm3 (1.2-5.4) 09/04/18 Unknown Abs React Lymphs (Man) 0.0 K/mm3 09/04/18 Unknown 1.2 K/mm3 (0.0-0.8) H 09/04/18 Unknown 0.0 K/mm3 (0.0-0.4) 09/04/18 Unknown 0.0 K/mm3 (0.0-0.1) 09/04/18 Unknown 0.0 K/mm3 09/04/18 Unknown 0.0 K/mm3 09/04/18 Unknown 0.0 K/mm3 09/04/18 Unknown Blast Cells # 0.0 K/mm3 09/04/18 Unknown WBC Morphology Not Reportable 09/04/18 Unknown Hypersegmented Neuts Not Reportable 09/04/18 Unknown Hyposegmented Neuts Not Reportable 09/04/18 Unknown Hypogranular Neuts Not Reportable 09/04/18 Unknown Not Reportable 09/04/18 Unknown Not Reportable 09/04/18 Unknown Not Reportable 09/04/18 Unknown Not Reportable 09/04/18 Unknown Not Reportable 09/04/18 Unknown Not Reportable 09/04/18 Unknown Consistent w auto 09/04/18 Unknown Not Reportable 09/04/18 Unknown Plt Clumps, EDTA Not Reportable 09/04/18 Unknown Not Reportable 09/04/18 Unknown Not Reportable 09/04/18 Unknown Not Reportable 09/04/18 Unknown Plt Morphology Comment Not Reportable 09/04/18 Unknown RBC Morphology Normal 09/04/18 Unknown Dimorphic RBCs Not Reportable 09/04/18 Unknown Not Reportable 09/04/18 Unknown Not Reportable 09/04/18 Unknown Not Reportable 09/04/18 Unknown Not Reportable 09/04/18 Unknown Not Reportable 09/04/18 Unknown Not Reportable 09/04/18 Unknown Not Reportable 09/04/18 Unknown Not Reportable 09/04/18 Unknown Not Reportable 09/04/18 Unknown Not Reportable 09/04/18 Unknown Not Reportable 09/04/18 Unknown Not Reportable 09/04/18 Unknown Not Reportable 09/04/18 Unknown Not Reportable 09/04/18 Unknown Not Reportable 09/04/18 Unknown Not Reportable 09/04/18 Unknown Not Reportable 09/04/18 Unknown Not Reportable 09/04/18 Unknown Not Reportable 09/04/18 Unknown Acanthocytes (Spur) Not Reportable 09/04/18 Unknown Rouleaux Not Reportable 09/04/18 Unknown Not Reportable 09/04/18 Unknown Not Reportable 09/04/18 Unknown Not Reportable 09/04/18 Unknown Not Reportable 09/04/18 Unknown Hem Pathologist Commnt No 09/04/18 Unknown Sodium TNR 09/04/18 Unknown Potassium TNR 09/04/18 Unknown Chloride TNR 09/04/18 Unknown Carbon Dioxide TNR 09/04/18 Unknown TNR 09/04/18 Unknown BUN TNR 09/04/18 Unknown TNR 09/04/18 Unknown Estimated GFR TNR 09/04/18 Unknown TNR 09/04/18 Unknown Glucose TNR 09/04/18 Unknown Calcium TNR 09/04/18 Unknown TNR 09/04/18 Unknown AST TNR 09/04/18 Unknown ALT TNR 09/04/18 Unknown TNR 09/04/18 Unknown TNR 09/04/18 Unknown TNR 09/04/18 Unknown TNR 09/04/18 Unknown Salicylates < 0.3 mg/dL (2.8-20.0) L 09/04/18 Unknown Acetaminophen < 5.0 ug/mL (10.0-30.0) L 09/04/18 Unknown Plasma/Serum Alcohol 0.12 % (0-0.07) H 09/04/18 Unknown Short CBC 09/04/18 Range/Units Unknown WBC 7.8 (4.5-11.0) K/mm3 Hgb 14.2 (11.8-15.2) gm/dl Hct 43.4 (35.5-45.6) % Plt Count 100 L (140-440) K/mm3 BMP 09/04/18 09/04/18 13:47 Unknown Sodium 139 TNR Potassium 4.9 TNR Chloride 98.4 TNR Carbon Dioxide 24 TNR BUN 9 TNR Creatinine 0.8 TNR Glucose 113 H TNR Calcium 9.1 TNR Liver Function 09/04/18 09/04/18 Range/Units 13:47 Unknown Total Bilirubin 0.60 TNR (0.1-1.2) mg/dL AST 99 H TNR (5-40) units/L ALT 56 TNR (7-56) units/L Alkaline Phosphatase 83 TNR (35-129) units/L Albumin 4.0 TNR (3.9-5) g/dL - Imaging and Cardiology EKG: report reviewed (EKG sinus tachycardia heart rate of 122 per minute) Imaging and Cardiology: CT abdomen IMPRESSION: 1. No acute traumatic abnormality in the abdomen and pelvis. 2. Bilateral simple renal cysts. 3. Osteonecrosis of both femoral heads without significant collapse. Head CT IMPRESSION: 1. Interval development of left-sided mastoiditis and otitis media when compared to recent previous study 05/13/2018. 2. No acute intracranial abnormalities are identified. 3. Evidence of remote right gangliocapsular infarction. 4. Parenchymal volume loss is present. This is greater than expected for age 58 years. Assessment and Plan Advance Directives: Yes (full code) VTE prophylaxis?: Chemical Plan of care discussed with patient/family: Yes - Patient Problems (1) Encephalopathy Current Visit: Yes Status: Acute Plan to address problem: Secondary to status epilepticus Control seizures IV Keppra 750 every 12 CIWA protocol (2) Seizure due to alcohol withdrawal Current Visit: Yes Status: Acute Qualifiers: Complication of substance-induced condition: with delirium Qualified Code(s): F10.231 - Alcohol dependence with withdrawal delirium Plan to address problem: Patient on IV Keppra (3) Status epilepticus Current Visit: Yes Status: Acute Plan to address problem: IV Keppra Intubation for surgery (4) Left otitis media Current Visit: Yes Status: Acute Qualifiers: Otitis media type: unspecified Qualified Code(s): H66.92 - Otitis media, unspecified, left ear Plan to address problem: IV antibiotics IV Rocephin and vancomycin (5) Acute mastoiditis Current Visit: Yes Status: Acute Qualifiers: Laterality: left Qualified Code(s): H70.002 - Acute mastoiditis without complications, left ear Plan to address problem: Acute mass and is on CT head IV Rocephin and vancomycin Follow-up with ENT as outpatient ID consult requested (6) Hypertension Current Visit: Yes Status: Chronic Qualifiers: Hypertension type: essential hypertension Qualified Code(s): I10 - Essenti al (primary) hypertension Plan to address problem: Continue anti-hypertensives (7) EtOH dependence Current Visit: Yes Status: Chronic Plan to address problem: CIWA protocol (8) Bipolar disorder Current Visit: Yes Status: Chronic Plan to address problem: Continue Seroquel (9) DVT prophylaxis Current Visit: No Status: Acute Plan to address problem: Lovenox 40 mg subcutaneous daily
[2018-09-04] MEDS ORDERED: IBUPROFEN PO PRN (23:17)
[2018-09-04] MEDS ORDERED: SODIUM CHLORIDE FLUSH SYRINGE 10 ML IV PRN (23:17)
[2018-09-04] MEDS ORDERED: VANCOMYCIN PHARMACY TO DOSE IV SCH (23:45)
[2018-09-04] MEDS ORDERED: PEPCID IV SCH (23:45)
[2018-09-05] MEDS ORDERED: VANCOMYCIN 1,750 MG in NACL 0.9% 500 ML 500 ML IV ONE
[2018-09-05] MEDS: ATIVAN IV PRN ×5 (00:45→21:50)
[2018-09-05] MEDS: DILAUDID IV PRN ×2 (00:45→03:49)
[2018-09-05] MEDS: KEPPRA 1,000 MG in D5W 100 ML IV SCH ×2 (00:45→10:13)
[2018-09-05] MEDS: NACL 0.9% 1000 ML 1,000 ML IV SCH ×2 (00:48→20:57)
[2018-09-05] MEDS: APRESOLINE PO SCH ×3 (01:56→15:10)
[2018-09-05] MEDS: APRESOLINE IV PRN (03:50)
[2018-09-05 04:26] LABS: Hematocrit 41.7 % (35.5-45.6); Hemoglobin 13.8 gm/dl (11.8-15.2); Mean Corpuscular HGB Conc 33 % (32-34); Mean Corpuscular Volume 97 fl (84-94); Red Blood Count 4.29 M/mm3 (3.65-5.03); Red Cell Distribution Width 12.8 % (13.2-15.2)
[2018-09-05 04:31] LABS: Platelet Count 85 K/mm3 (140-440)
[2018-09-05 04:44] LABS: Alanine Aminotransferase 46 units/L (7-56); Albumin 3.7 g/dL (3.9-5); BUN/Creatinine Ratio 9; Blood Urea Nitrogen 7 mg/dL (9-20); Calcium 8.9 mg/dL (8.4-10.2); Hemolysis Index 5
[2018-09-05 06:09] LABS: Basophils % (Manual) 0 % (0.0-1.8); Eosinophils % (Manual) 0 % (0.0-4.3); Platelet Estimate Consistent w Auto; RBC Morphology Normal; Total Cells Counted 100
[2018-09-05] MEDS: LOPRESSOR PO SCH ×2 (09:09→15:09)
[2018-09-05] MEDS: VITAMIN B-1 PO SCH (10:15)
[2018-09-05] MEDS: NORVASC FEEDTUBE SCH (10:16)
[2018-09-05] MEDS: DELTASONE PO SCH (10:16)
[2018-09-05] MEDS: PEPCID PO SCH (10:16)
[2018-09-05] MEDS: ROCEPHIN/NS 2 GM/100 ML 2 GM/100 ML BAG IV SCH (10:16)
[2018-09-05] MEDS: SODIUM CHLORIDE FLUSH SYRINGE 10 ML IV SCH (10:18)
--- NOTE | 2018-09-05 10:39 | Consultation ---
History of Present Illness - Reason for Consult Consult date: 09/05/18 Seizure, ETOH abuse Requesting physician: ЕЛЕНА FRIEDMAN - History of Present Illness 58 y/o male, [place] a [place] seizing. Brought in by EMS seizing, not given any meds in the field. Has a known history of seizures. Questionable compliance with medication as an outpatient. Past History Past Medical History: hypertension, seizures, other (psych issues) Medications and Allergies Allergies Allergy/AdvReac Type Severity Reaction Status Date / Time No Known Allergies Allergy Verified 10/24/14 23:18 Home Medications Medication Instructions Recorded Confirmed Last Taken Type Famotidine [Pepcid] 20 mg PO BID #60 tablet 04/16/18 05/13/18 Unknown Rx Quetiapine Fumarate [Seroquel] 100 mg PO BID #30 tablet 04/16/18 05/13/18 Unknown Rx Metoprolol [Lopressor TAB] 25 mg PO TID #90 tablet 05/20/18 Unknown Rx Thiamine [Vitamin B-1] 100 mg PO QDAY #30 tablet 05/20/18 Unknown Rx amLODIPine [Norvasc] 10 mg FEEDTUBE QDAY #30 tablet 05/20/18 Unknown Rx hydrALAZINE [Apresoline TAB] 50 mg PO Q8HR #90 tablet 05/20/18 Unknown Rx levETIRAcetam [Keppra TAB] 750 mg PO BID #60 tablet 05/20/18 Unknown Rx predniSONE [Deltasone] 20 mg PO QDAY #7 tablet 05/20/18 Unknown Rx Active Meds: Active Medications Amlodipine Besylate (Norvasc) 10 mg FEEDTUBE QDAY [facility] Last Admin: 09/05/18 10:16 Dose: 10 mg Documented by: Famotidine (Pepcid) 20 mg PO BID [facility] Last Admin: 09/05/18 10:16 Dose: 20 mg Documented by: Hydralazine HCl (Apresoline) 10 mg IV Q4HR PRN PRN Reason: Blood Pressure Last Admin: 09/05/18 03:50 Dose: 10 mg Documented by: Hydralazine HCl (Apresoline) 50 mg PO Q8HR [facility] Last Admin: 09/05/18 09:09 Dose: 50 mg Documented by: Hydromorphone HCl (Dilaudid) 0.5 mg IV Q3H PRN PRN Reason: Pain , Severe (7-10) Last Admin: 09/05/18 03:49 Dose: 0.5 mg Documented by: Sodium Chloride (Nacl 0.9% 1000 Ml) 1,000 mls @ 75 mls/hr IV DIRECT [facility] Last Admin: 09/05/18 00:48 Dose: 75 mls/hr Documented by: Ceftriaxone Sodium (Rocephin/Ns 2 Gm/100 Ml) 2 gm in 100 mls @ 200 mls/hr IV Q24HR [facility]; Protocol Last Admin: 09/05/18 10:16 Dose: 200 mls/hr Documented by: Levetiracetam 1,000 mg/ (Dextrose) 110 mls @ 400 mls/hr IV Q12HR [facility] Last Admin: 09/05/18 10:13 Dose: 400 mls/hr Documented by: Vancomycin HCl 1,250 mg/ (Sodium Chloride) 275 mls @ 166.667 mls/hr IV Q12H [facility] Ibuprofen (Ibuprofen) 600 mg PO Q6H PRN PRN Reason: Pain, Mild (1-3) Lorazepam (Ativan) 2 mg IV Q1H PRN PRN Reason: CIWA-Ar 8-15 Last Admin: 09/05/18 03:50 Dose: 2 mg Documented by: Lorazepam (Ativan) 4 mg IV Q1H PRN PRN Reason: CIWA-Ar 16-25 Last Admin: 09/05/18 05:00 Dose: 4 mg Documented by: Lorazepam (Ativan) 4 mg IV Q15MIN PRN PRN Reason: CIWA-Ar >25 Metoprolol Tartrate (Lopressor) 25 mg PO TID [facility] Last Admin: 09/05/18 09:09 Dose: 25 mg Documented by: Prednisone (Deltasone) 20 mg PO QDAY [facility] Last Admin: 09/05/18 10:16 Dose: 20 mg Documented by: Quetiapine Fumarate (Seroquel) 100 mg PO BID [facility] Last Admin: 09/05/18 10:15 Dose: 100 mg Documented by: Sodium Chloride (Sodium Chloride Flush Syringe 10 Ml) 10 ml IV BID [facility] Last Admin: 09/05/18 10:18 Dose: 10 ml Documented by: Sodium Chloride (Sodium Chloride Flush Syringe 10 Ml) 10 ml IV PRN PRN PRN Reason: LINE FLUSH Thiamine HCl (Vitamin B-1) 100 mg PO QDAY [facility] Last Admin: 09/05/18 10:15 Dose: 100 mg Documented by: Review of Systems All systems: negative Exam - Constitutional Vitals: Temp Pulse Resp BP Pulse Ox 98.9 F 81 17 154/113 99 09/05/18 08:30 09/05/18 10:16 09/05/18 10:00 09/05/18 10:16 09/05/18 10:00 General appearance: Present: no acute distress, well-nourished - EENT Eyes: Present: PERRL, EOM intact ENT: hearing intact - Neck Neck: Present: supple - Respiratory Respiratory: bilateral: CTA - Cardiovascular Rhythm: regular Heart Sounds: Present: S1 & S2 - Extremities Extremities: pulses intact - Abdominal General gastrointestinal: Present: soft, non-tender Male genitourinary: Present: deferred - Rectal Rectal Exam: deferred Results - Labs CBC & Chem 7: 09/05/18 04:03 09/05/18 04:03 Labs: Abnormal lab results 09/04/18 09/04/18 09/04/18 Range/Units 13:47 23:50 Unknown MCV 101 H (84-94) fl MCH 33 H (28-32) pg RDW (13.2-15.2) % Plt Count 100 L (140-440) K/mm3 Monocytes % (Manual) 15.0 H (0.0-7.3) % Lymphocytes # (Manual) (1.2-5.4) K/mm3 Monocytes # (Manual) 1.2 H (0.0-0.8) K/mm3 Chloride (98-107) mmol/L BUN (9-20) mg/dL Glucose 113 H (75-100) mg/dL Lactic Acid 2.70 H* (0.7-2.0) mmol/L Total Bilirubin (0.1-1.2) mg/dL AST 99 H (5-40) units/L Albumin (3.9-5) g/dL Salicylates (2.8-20.0) mg/dL Acetaminophen (10.0-30.0) ug/mL Plasma/Serum Alcohol (0-0.07) % 09/04/18 09/04/18 09/04/18 Range/Units Unknown Unknown Unknown MCV (84-94) fl MCH (28-32) pg RDW (13.2-15.2) % Plt Count (140-440) K/mm3 Monocytes % (Manual) (0.0-7.3) % Lymphocytes # (Manual) (1.2-5.4) K/mm3 Monocytes # (Manual) (0.0-0.8) K/mm3 Chloride (98-107) mmol/L BUN (9-20) mg/dL Glucose (75-100) mg/dL Lactic Acid (0.7-2.0) mmol/L Total Bilirubin (0.1-1.2) mg/dL AST (5-40) units/L Albumin (3.9-5) g/dL Salicylates < 0.3 L (2.8-20.0) mg/dL Acetaminophen < 5.0 L (10.0-30.0) ug/mL Plasma/Serum Alcohol 0.12 H (0-0.07) % 09/05/18 09/05/18 Range/Units 04:03 04:03 MCV 97 H (84-94) fl MCH (28-32) pg RDW 12.8 L (13.2-15.2) % Plt Count 85 L (140-440) K/mm3 Monocytes % (Manual) 20.0 H (0.0-7.3) % Lymphocytes # (Manual) 0.8 L (1.2-5.4) K/mm3 Monocytes # (Manual) 1.0 H (0.0-0.8) K/mm3 Chloride 97.4 L (98-107) mmol/L BUN 7 L (9-20) mg/dL Glucose 106 H (75-100) mg/dL Lactic Acid (0.7-2.0) mmol/L Total Bilirubin 1.30 H (0.1-1.2) mg/dL AST 67 H (5-40) units/L Albumin 3.7 L (3.9-5) g/dL Salicylates (2.8-20.0) mg/dL Acetaminophen (10.0-30.0) ug/mL Plasma/Serum Alcohol (0-0.07) % - Imaging and Cardiology CT scan - abdomen: report reviewed CT scan - pelvis: report reviewed Assessment and Plan 58 y/o male with known hx of seizure, HTN and psych admitted with recurrent seizures 1. Agree with BID keppra, should transition to PO at some point 2. BP control 3. Continue CIWA 4. Transfer out of unit.
--- NOTE | 2018-09-05 11:45 | Progress Note ---
Assessment and Plan Assessment and plan: (1) Metabolic Encephalopathy Current Visit: Yes Status: Acute Plan to address problem: Secondary to status epilepticus Control seizures IV Keppra 750 every 12 CIWA protocol (2) Seizure due to alcohol withdrawal Current Visit: Yes Status: Acute Qualifiers: Complication of substance-induced condition: with delirium Qualified Code(s): F10.231 - Alcohol dependence with withdrawal delirium Plan to address problem: Patient on IV Keppra (3) Status epilepticus Current Visit: Yes Status: Acute Plan to address problem: IV Keppra Intubation for surgery (4) Left otitis media Current Visit: Yes Status: Acute Qualifiers: Otitis media type: unspecified Qualified Code(s): H66.92 - Otitis media, unspecified, left ear Plan to address problem: IV antibiotics IV Rocephin and vancomycin (5) Acute mastoiditis Current Visit: Yes Status: Acute Qualifiers: Laterality: left Qualified Code(s): H70.002 - Acute mastoiditis without complications, left ear Plan to address problem: Acute mass and is on CT head IV Rocephin and vancomycin Follow-up with ENT as outpatient ID consult requested (6) Hypertension Current Visit: Yes Status: Chronic Qualifiers: Hypertension type: essential hypertension Qualified Code(s): I10 - Essential (primary) hypertension Plan to address problem: Continue anti-hypertensives (7) EtOH dependence Current Visit: Yes Status: Chronic Plan to address problem: CIWA protocol (8) Bipolar disorder Current Visit: Yes Status: Chronic Plan to address problem: Continue Seroquel (9) DVT prophylaxis Current Visit: No Status: Acute Plan to address problem: Lovenox 40 mg subcutaneous daily Critical care time 34 min History Interval history: Patient seen and examined medical records reviewed Admitted with weakness seizures and alcohol withdrawal On CIWA protocol, antiepileptic medications No new episodes of seizures since admission Patient is lethargic easily awakens Vital signs reviewed Hospitalist Physical - Constitutional Vitals: Temp Pulse Resp BP Pulse Ox 98.9 F 81 17 154/113 99 09/05/18 08:30 09/05/18 10:16 09/05/18 10:00 09/05/18 10:16 09/05/18 10:00 General appearance: Present: no acute distress, well-nourished - EENT Eyes: Present: PERRL, EOM intact - Neck Neck: Present: supple, normal ROM - Respiratory Respiratory effort: normal Respiratory: bilateral: diminished, negative: rales, rhonchi, wheezing - Cardiovascular Rhythm: regular Heart Sounds: Present: S1 & S2 - Extremities Extremities: no ischemia, No edema - Abdominal General gastrointestinal: soft, non-tender, non-distended, normal bowel sounds - Integumentary Integumentary: Present: clear, warm - Psychiatric Psychiatric: appropriate mood/affect, cooperative - Neurologic Neurologic: CNII-XII intact, moves all extremities, other (lethergic) Results - Labs CBC & Chem 7: 09/05/18 04:03 09/05/18 04:03 Labs: Laboratory Last Values WBC 4.8 K/mm3 (4.5-11.0) 09/05/18 04:03 RBC 4.29 M/mm3 (3.65-5.03) 09/05/18 04:03 Hgb 13.8 gm/dl (11.8-15.2) 09/05/18 04:03 Hct 41.7 % (35.5-45.6) 09/05/18 04:03 MCV 97 fl (84-94) H 09/05/18 04:03 MCH 32 pg (28-32) 09/05/18 04:03 MCHC 33 % (32-34) 09/05/18 04:03 RDW 12.8 % (13.2-15.2) L 09/05/18 04:03 Plt Count 85 K/mm3 (140-440) L 09/05/18 04:03 [place] % (Auto) Flat [place]oth[place] 09/05/18 04:03 Add Manual Diff Complete 09/05/18 04:03 Total Counted 100 09/05/18 04:03 Seg Neuts % (Manual) 63.0 % (40.0-70.0) 09/05/18 04:03 1.0 % 09/05/18 04:03 16.0 % (13.4-35.0) 09/05/18 04:03 Reactive Lymphs % (Man) 0 % 09/05/18 04:03 20.0 % (0.0-7.3) H 09/05/18 04:03 0 % (0.0-4.3) 09/05/18 04:03 0 % (0.0-1.8) 09/05/18 04:03 0 % 09/05/18 04:03 0 % 09/05/18 04:03 0 % 09/05/18 04:03 0 % 09/05/18 04:03 Nucleated RBC % Not Reportable 09/05/18 04:03 Seg Neutrophils # Man 3.0 K/mm3 (1.8-7.7) 09/05/18 04:03 Band Neutrophils # 0.0 K/mm3 09/05/18 04:03 0.8 K/mm3 (1.2-5.4) L 09/05/18 04:03 Abs React Lymphs (Man) 0.0 K/mm3 09/05/18 04:03 1.0 K/mm3 (0.0-0.8) H 09/05/18 04:03 0.0 K/mm3 (0.0-0.4) 09/05/18 04:03 0.0 K/mm3 (0.0-0.1) 09/05/18 04:03 0.0 K/mm3 09/05/18 04:03 0.0 K/mm3 09/05/18 04:03 0.0 K/mm3 09/05/18 04:03 Blast Cells # 0.0 K/mm3 09/05/18 04:03 WBC Morphology Not Reportable 09/05/18 04:03 Hypersegmented Neuts Not Reportable 09/05/18 04:03 Hyposegmented Neuts Not Reportable 09/05/18 04:03 Hypogranular Neuts Not Reportable 09/05/18 04:03 Not Reportable 09/05/18 04:03 Not Reportable 09/05/18 04:03 Not Reportable 09/05/18 04:03 Not Reportable 09/05/18 04:03 Not Reportable 09/05/18 04:03 Not Reportable 09/05/18 04:03 Consistent w auto 09/05/18 04:03 Not Reportable 09/05/18 04:03 Plt Clumps, EDTA Not Reportable 09/05/18 04:03 Not Reportable 09/05/18 04:03 Not Reportable 09/05/18 04:03 Not Reportable 09/05/18 04:03 Plt Morphology Comment Not Reportable 09/05/18 04:03 RBC Morphology Normal 09/05/18 04:03 Dimorphic RBCs Not Reportable 09/05/18 04:03 Not Reportable 09/05/18 04:03 Not Reportable 09/05/18 04:03 Not Reportable 09/05/18 04:03 Not Reportable 09/05/18 04:03 Not Reportable 09/05/18 04:03 Not Reportable 09/05/18 04:03 Not Reportable 09/05/18 04:03 Not Reportable 09/05/18 04:03 Not Reportable 09/05/18 04:03 Not Reportable 09/05/18 04:03 Not Reportable 09/05/18 04:03 Not Reportable 09/05/18 04:03 Not Reportable 09/05/18 04:03 Not Reportable 09/05/18 04:03 Not Reportable 09/05/18 04:03 Not Reportable 09/05/18 04:03 Not Reportable 09/05/18 04:03 Not Reportable 09/05/18 04:03 Not Reportable 09/05/18 04:03 Acanthocytes (Spur) Not Reportable 09/05/18 04:03 Rouleaux Not Reportable 09/05/18 04:03 Not Reportable 09/05/18 04:03 Not Reportable 09/05/18 04:03 Not Reportable 09/05/18 04:03 Not Reportable 09/05/18 04:03 Hem Pathologist Commnt No 09/05/18 04:03 Sodium 137 mmol/L (137-145) 09/05/18 04:03 Potassium 3.9 mmol/L (3.6-5.0) D 09/05/18 04:03 Chloride 97.4 mmol/L (98-107) L 09/05/18 04:03 Carbon Dioxide 24 mmol/L (22-30) 09/05/18 04:03 20 mmol/L 09/05/18 04:03 BUN 7 mg/dL (9-20) L 09/05/18 04:03 0.8 mg/dL (0.8-1.5) 09/05/18 04:03 Estimated GFR > 60 ml/min 09/05/18 04:03 9 % 09/05/18 04:03 Glucose 106 mg/dL (75-100) H 09/05/18 04:03 Lactic Acid 0.90 mmol/L (0.7-2.0) 09/05/18 04:03 Calcium 8.9 mg/dL (8.4-10.2) 09/05/18 04:03 1.30 mg/dL (0.1-1.2) H 09/05/18 04:03 AST 67 units/L (5-40) H 09/05/18 04:03 ALT 46 units/L (7-56) 09/05/18 04:03 75 units/L (35-129) 09/05/18 04:03 7.8 g/dL (6.3-8.2) 09/05/18 04:03 3.7 g/dL (3.9-5) L 09/05/18 04:03 0.9 % 09/05/18 04:03 Salicylates < 0.3 mg/dL (2.8-20.0) L 09/04/18 Unknown Acetaminophen < 5.0 ug/mL (10.0-30.0) L 09/04/18 Unknown Plasma/Serum Alcohol 0.12 % (0-0.07) H 09/04/18 Unknown Active Medications - Current Medications Current Medications: Generic Name Dose Route Start Last Admin Trade Name Freq PRN Reason Stop Dose Admin Amlodipine Besylate 10 mg 09/05/18 10:00 09/05/18 10:16 Norvasc FEEDTUBE 10 mg QDAY MINGO Administration Famotidine 20 mg 09/05/18 10:00 09/05/18 10:16 Pepcid PO 20 mg BID MINGO Administration Hydralazine HCl 10 mg 09/04/18 21:07 09/05/18 03:50 Apresoline IV 10 mg Q4HR PRN Administration Blood Pressure Hydralazine HCl 50 mg 09/04/18 23:45 09/05/18 09:09 Apresoline PO 50 mg Q8HR MINGO Administration Hydromorphone HCl 0.5 mg 09/04/18 23:17 09/05/18 03:49 Dilaudid IV 0.5 mg Q3H PRN Administration Pain , Severe (7-10) Sodium Chloride 1,000 mls @ 75 mls/hr 09/04/18 23:45 09/05/18 00:48 Nacl 0.9% 1000 Ml IV 75 mls/hr DIRECT MINGO Administration Ceftriaxone Sodium 2 gm in 100 mls @ 200 mls/hr 09/05/18 10:00 09/05/18 10:16 Rocephin/Ns 2 Gm/100 Ml IV 200 mls/hr Q24HR MINGO Administration Protocol Levetiracetam 1,000 mg/ 110 mls @ 400 mls/hr 09/04/18 23:45 09/05/18 10:13 Dextrose IV 400 mls/hr Q12HR MINGO Administration Vancomycin HCl 1,250 mg/ 275 mls @ 166.667 mls/hr 09/05/18 12:00 Sodium Chloride IV Q12H MINGO Ibuprofen 600 mg 09/04/18 23:17 Ibuprofen PO Q6H PRN Pain, Mild (1-3) Lorazepam 2 mg 09/04/18 12:28 09/05/18 03:50 Ativan IV 2 mg Q1H PRN Administration CIWA-Ar 8-15 Lorazepam 4 mg 09/04/18 12:28 09/05/18 05:00 Ativan IV 4 mg Q1H PRN Administration CIWA-Ar 16-25 Lorazepam 4 mg 09/04/18 12:28 Ativan IV Q15MIN PRN CIWA-Ar >25 Metoprolol Tartrate 25 mg 09/05/18 08:00 09/05/18 09:09 Lopressor PO 25 mg TID MINGO Administration Prednisone 20 mg 09/05/18 10:00 09/05/18 10:16 Deltasone PO 20 mg QDAY MINGO Administration Quetiapine Fumarate 100 mg 09/05/18 10:00 09/05/18 10:15 Seroquel PO 100 mg BID MINGO Administration Sodium Chloride 10 ml 09/05/18 10:00 09/05/18 10:18 Sodium Chloride Flush Syringe 10 Ml IV 10 ml BID MINGO Administration Sodium Chloride 10 ml 09/04/18 23:17 Sodium Chloride Flush Syringe 10 Ml IV PRN PRN LINE FLUSH Thiamine HCl 100 mg 09/05/18 10:00 09/05/18 10:15 Vitamin B-1 PO 100 mg QDAY MINGO Administration
[2018-09-05] MEDS: VANCOMYCIN 1,250 MG in NACL 0.9% 250ML 250 ML IV SCH (12:41)
[2018-09-06] MEDS: ATIVAN IV PRN ×2 (00:52→02:01)
--- NOTE | 2018-09-06 08:04 | Progress Note ---
Assessment and Plan Assessment and plan: -- Seizure due to alcohol withdrawal Current Visit: Yes Status: Acute Change IV Keppra to oral, seizure precautions --Status epilepticus Antiepileptic medications seizure precautions/CIWA -- Metabolic Encephalopathy Current Visit: Yes Status: Acute Plan to address problem: Secondary to status epilepticus Alcohol withdrawal,[facility] protocol --Left otitis media Current Visit: Yes Status: Acute IV Rocephin and vancomycin Change to Augmentin, follow ENT upon discharge --Acute mastoiditis Current Visit: Yes Status: Acute Acute mastoiditis on CT head IV Rocephin and vancomycin Follow-up with ENT as outpatient ID consult requested -- Hypertension Current Visit: Yes Status: Chronic Continue anti-hypertensives -- EtOH dependence Current Visit: Yes Status: Chronic Plan to address problem: [facility] protocol -- Bipolar disorder Current Visit: Yes Status: Chronic Plan to address problem: Continue Seroquel -- DVT prophylaxis Current Visit: No Status: Acute Plan to address problem: Lovenox 40 mg subcutaneous daily Critical care time 34 min Transfer to [facility] History Interval history: Patient seen and examined medical records reviewed On [facility] protocol No new episodes of seizures Patient is lethargic, received Ativan per protocol Vital signs reviewed Hospitalist Physical - Constitutional Vitals: Temp Pulse Resp BP Pulse Ox 98.5 F 80 21 194/138 96 09/06/18 03:44 09/06/18 04:11 09/06/18 04:11 09/06/18 04:11 09/06/18 04:11 General appearance: Present: no acute distress, well-nourished, other (lethergic) - EENT Eyes: Present: PERRL, EOM intact - Neck Neck: Present: supple, normal ROM - Respiratory Respiratory effort: normal Respiratory: bilateral: diminished, negative: rales, rhonchi, wheezing - Cardiovascular Rhythm: regular Heart Sounds: Present: S1 & S2 - Extremities Extremities: no ischemia, No edema - Abdominal General gastrointestinal: soft, non-tender, non-distended, normal bowel sounds - Integumentary Integumentary: Present: clear, warm - Psychiatric Psychiatric: other (Let[place]ic) - Neurologic Neurologic: moves all extremities Results - Labs CBC & Chem 7: 09/05/18 04:03 09/05/18 04:03 Labs: Laboratory Last Values WBC 4.8 K/mm3 (4.5-11.0) 09/05/18 04:03 RBC 4.29 M/mm3 (3.65-5.03) 09/05/18 04:03 Hgb 13.8 gm/dl (11.8-15.2) 09/05/18 04:03 Hct 41.7 % (35.5-45.6) 09/05/18 04:03 MCV 97 fl (84-94) H 09/05/18 04:03 MCH 32 pg (28-32) 09/05/18 04:03 MCHC 33 % (32-34) 09/05/18 04:03 RDW 12.8 % (13.2-15.2) L 09/05/18 04:03 Plt Count 85 K/mm3 (140-440) L 09/05/18 04:03 [place] % (Auto) [employer] 09/05/18 04:03 Add Manual Diff Complete 09/05/18 04:03 Total Counted 100 09/05/18 04:03 Seg Neuts % (Manual) 63.0 % (40.0-70.0) 09/05/18 04:03 1.0 % 09/05/18 04:03 16.0 % (13.4-35.0) 09/05/18 04:03 Reactive Lymphs % (Man) 0 % 09/05/18 04:03 20.0 % (0.0-7.3) H 09/05/18 04:03 0 % (0.0-4.3) 09/05/18 04:03 0 % (0.0-1.8) 09/05/18 04:03 0 % 09/05/18 04:03 0 % 09/05/18 04:03 0 % 09/05/18 04:03 0 % 09/05/18 04:03 Nucleated RBC % Not Reportable 09/05/18 04:03 Seg Neutrophils # Man 3.0 K/mm3 (1.8-7.7) 09/05/18 04:03 Band Neutrophils # 0.0 K/mm3 09/05/18 04:03 0.8 K/mm3 (1.2-5.4) L 09/05/18 04:03 Abs React Lymphs (Man) 0.0 K/mm3 09/05/18 04:03 1.0 K/mm3 (0.0-0.8) H 09/05/18 04:03 0.0 K/mm3 (0.0-0.4) 09/05/18 04:03 0.0 K/mm3 (0.0-0.1) 09/05/18 04:03 0.0 K/mm3 09/05/18 04:03 0.0 K/mm3 09/05/18 04:03 0.0 K/mm3 09/05/18 04:03 Blast Cells # 0.0 K/mm3 09/05/18 04:03 WBC Morphology Not Reportable 09/05/18 04:03 Hypersegmented Neuts Not Reportable 09/05/18 04:03 Hyposegmented Neuts Not Reportable 09/05/18 04:03 Hypogranular Neuts Not Reportable 09/05/18 04:03 Not Reportable 09/05/18 04:03 Not Reportable 09/05/18 04:03 Not Reportable 09/05/18 04:03 Not Reportable 09/05/18 04:03 Not Reportable 09/05/18 04:03 Not Reportable 09/05/18 04:03 Consistent w auto 09/05/18 04:03 Not Reportable 09/05/18 04:03 Plt Clumps, EDTA Not Reportable 09/05/18 04:03 Not Reportable 09/05/18 04:03 Not Reportable 09/05/18 04:03 Not Reportable 09/05/18 04:03 Plt Morphology Comment Not Reportable 09/05/18 04:03 RBC Morphology Normal 09/05/18 04:03 Dimorphic RBCs Not Reportable 09/05/18 04:03 Not Reportable 09/05/18 04:03 Not Reportable 09/05/18 04:03 Not Reportable 09/05/18 04:03 Not Reportable 09/05/18 04:03 Not Reportable 09/05/18 04:03 Not Reportable 09/05/18 04:03 Not Reportable 09/05/18 04:03 Not Reportable 09/05/18 04:03 Not Reportable 09/05/18 04:03 Not Reportable 09/05/18 04:03 Not Reportable 09/05/18 04:03 Not Reportable 09/05/18 04:03 Not Reportable 09/05/18 04:03 Not Reportable 09/05/18 04:03 Not Reportable 09/05/18 04:03 Not Reportable 09/05/18 04:03 Not Reportable 09/05/18 04:03 Not Reportable 09/05/18 04:03 Not Reportable 09/05/18 04:03 Acanthocytes (Spur) Not Reportable 09/05/18 04:03 Rouleaux Not Reportable 09/05/18 04:03 Not Reportable 09/05/18 04:03 Not Reportable 09/05/18 04:03 Not Reportable 09/05/18 04:03 Not Reportable 09/05/18 04:03 Hem Pathologist Commnt No 09/05/18 04:03 Sodium 137 mmol/L (137-145) 09/05/18 04:03 Potassium 3.9 mmol/L (3.6-5.0) D 09/05/18 04:03 Chloride 97.4 mmol/L (98-107) L 09/05/18 04:03 Carbon Dioxide 24 mmol/L (22-30) 09/05/18 04:03 20 mmol/L 09/05/18 04:03 BUN 7 mg/dL (9-20) L 09/05/18 04:03 0.8 mg/dL (0.8-1.5) 09/05/18 04:03 Estimated GFR > 60 ml/min 09/05/18 04:03 9 % 09/05/18 04:03 Glucose 106 mg/dL (75-100) H 09/05/18 04:03 Lactic Acid 0.90 mmol/L (0.7-2.0) 09/05/18 04:03 Calcium 8.9 mg/dL (8.4-10.2) 09/05/18 04:03 1.30 mg/dL (0.1-1.2) H 09/05/18 04:03 AST 67 units/L (5-40) H 09/05/18 04:03 ALT 46 units/L (7-56) 09/05/18 04:03 75 units/L (35-129) 09/05/18 04:03 7.8 g/dL (6.3-8.2) 09/05/18 04:03 3.7 g/dL (3.9-5) L 09/05/18 04:03 0.9 % 09/05/18 04:03 Salicylates < 0.3 mg/dL (2.8-20.0) L 09/04/18 Unknown Acetaminophen < 5.0 ug/mL (10.0-30.0) L 09/04/18 Unknown Plasma/Serum Alcohol 0.12 % (0-0.07) H 09/04/18 Unknown Active Medications - Current Medications Current Medications: Generic Name Dose Route Start Last Admin Trade Name Freq PRN Reason Stop Dose Admin Amlodipine Besylate 10 mg 09/05/18 10:00 09/05/18 10:16 Norvasc FEEDTUBE 10 mg QDAY MINGO Administration Famotidine 20 mg 09/05/18 10:00 09/05/18 10:16 Pepcid PO 20 mg BID MINGO Administration Hydralazine HCl 10 mg 09/04/18 21:07 09/05/18 03:50 Apresoline IV 10 mg Q4HR PRN Administration Blood Pressure Hydralazine HCl 50 mg 09/04/18 23:45 09/05/18 15:10 Apresoline PO 50 mg Q8HR MINGO Administration Hydromorphone HCl 0.5 mg 09/04/18 23:17 09/05/18 03:49 Dilaudid IV 0.5 mg Q3H PRN Administration Pain , Severe (7-10) Sodium Chloride 1,000 mls @ 75 mls/hr 09/04/18 23:45 09/05/18 20:57 Nacl 0.9% 1000 Ml IV 75 mls/hr DIRECT MINGO Administration Ceftriaxone Sodium 2 gm in 100 mls @ 200 mls/hr 09/05/18 10:00 09/05/18 10:16 Rocephin/Ns 2 Gm/100 Ml IV 200 mls/hr Q24HR MINGO Administration Protocol Vancomycin HCl 1,250 mg/ 275 mls @ 166.667 mls/hr 09/05/18 12:00 09/05/18 12:41 Sodium Chloride IV 166.667 mls/hr Q12H MINGO Administration Ibuprofen 600 mg 09/04/18 23:17 Ibuprofen PO Q6H PRN Pain, Mild (1-3) Levetiracetam 1,000 mg 09/06/18 10:00 Keppra PO BID MINGO Lorazepam 2 mg 09/04/18 12:28 09/05/18 03:50 Ativan IV 2 mg Q1H PRN Administration CIWA-Ar 8-15 Lorazepam 4 mg 09/04/18 12:28 09/06/18 02:01 Ativan IV 4 mg Q1H PRN Administration CIWA-Ar 16-25 Lorazepam 4 mg 09/04/18 12:28 Ativan IV Q15MIN PRN CIWA-Ar >25 Metoprolol Tartrate 25 mg 09/05/18 08:00 09/05/18 15:09 Lopressor PO 25 mg TID MINGO Administration Prednisone 20 mg 09/05/18 10:00 09/05/18 10:16 Deltasone PO 20 mg QDAY MINGO Administration Quetiapine Fumarate 100 mg 09/05/18 10:00 09/05/18 10:15 Seroquel PO 100 mg BID MINGO Administration Sodium Chloride 10 ml 09/05/18 10:00 09/05/18 10:18 Sodium Chloride Flush Syringe 10 Ml IV 10 ml BID MINGO Administration Sodium Chloride 10 ml 09/04/18 23:17 Sodium Chloride Flush Syringe 10 Ml IV PRN PRN LINE FLUSH Thiamine HCl 100 mg 09/05/18 10:00 09/05/18 10:15 Vitamin B-1 PO 100 mg QDAY MINGO Administration Nutrition/Malnutrition Assess - Dietary Evaluation Nutrition/Malnutrition Findings: Nutrition Notes Start: 09/05/18 11:52 Freq: Status: Active Protocol: Document 09/05/18 11:52 LP (Rec: 09/05/18 11:54 LP [id number]) Nutrition Notes Need for Assessment generated from: overnight babysitter Initial or Follow up Brief Note Current Diagnosis Hypertension Other Pertinent Diagnosis Seizure, ETOH abuse, Encephalopathy, Acute mastoiditis Current Diet Cardiac Subjective/Other Information Screen for MST. Pt sleeping at time of visit. Nutrition Intervention Follow-Up By: 09/08/18 Additional Comments Follow for assessment needs
[2018-09-06] MEDS: LOPRESSOR PO SCH ×4 (08:50→21:09)
[2018-09-06] MEDS: KEPPRA PO SCH ×2 (09:15→21:11)
[2018-09-06] MEDS: VITAMIN B-1 PO SCH (09:16)
[2018-09-06] MEDS: PEPCID PO SCH ×2 (09:16→21:11)
[2018-09-06] MEDS: DELTASONE PO SCH (09:16)
[2018-09-06] MEDS: NORVASC FEEDTUBE SCH (09:17)
[2018-09-06] MEDS: ROCEPHIN/NS 2 GM/100 ML 2 GM/100 ML BAG IV SCH (09:17)
[2018-09-06] MEDS: SODIUM CHLORIDE FLUSH SYRINGE 10 ML IV SCH ×2 (09:18→21:12)
[2018-09-06] MEDS ORDERED: ATIVAN IV PRN (10:38)
[2018-09-06] MEDS: VANCOMYCIN 1,250 MG in NACL 0.9% 250ML 250 ML IV SCH (12:11)
--- NOTE | 2018-09-06 12:40 | Progress Note ---
Assessment and Plan 58 y/o male with known hx of seizure, HTN and psych admitted with recurrent seizures 1. Agree with BID keppra, should transition to PO at some point 2. BP control 3. Continue CIWA 4. Will sign off. Subjective Date of service: 09/06/18 Interval history: No acute events. Transferred to step down this morning. No acute events. Objective - Constitutional Vitals: Vital Signs - 12hr 09/06/18 09/06/18 09/06/18 00:41 00:51 01:01 Temperature Pulse Rate 89 86 81 Pulse Rate [ Apical] Respiratory 15 17 20 Rate Blood Pressure 184/148 201/116 170/114 O2 Sat by Pulse 98 98 90 Oximetry 09/06/18 09/06/18 09/06/18 01:11 01:21 01:30 Temperature Pulse Rate 77 73 83 Pulse Rate [ Apical] Respiratory 17 18 17 Rate Blood Pressure 170/114 184/148 180/104 O2 Sat by Pulse 97 97 96 Oximetry 09/06/18 09/06/18 09/06/18 01:41 01:51 02:01 Temperature Pulse Rate 84 86 82 Pulse Rate [ Apical] Respiratory 15 32 H 14 Rate Blood Pressure 180/104 170/114 194/99 O2 Sat by Pulse 100 100 94 Oximetry 09/06/18 09/06/18 09/06/18 02:11 02:21 02:30 Temperature Pulse Rate 80 81 80 Pulse Rate [ Apical] Respiratory 14 12 24 Rate Blood Pressure 194/99 194/99 195/108 O2 Sat by Pulse 96 99 95 Oximetry 09/06/18 09/06/18 09/06/18 02:41 02:51 03:01 Temperature Pulse Rate 75 77 74 Pulse Rate [ Apical] Respiratory 22 23 21 Rate Blood Pressure 195/108 195/108 210/102 O2 Sat by Pulse 98 98 96 Oximetry 09/06/18 09/06/18 09/06/18 03:11 03:21 03:31 Temperature Pulse Rate 84 78 87 Pulse Rate [ Apical] Respiratory 22 14 16 Rate Blood Pressure 210/102 210/102 179/121 O2 Sat by Pulse 100 97 96 Oximetry 09/06/18 09/06/18 09/06/18 03:41 03:44 03:51 Temperature 98.5 F Pulse Rate 80 71 Pulse Rate [ Apical] Respiratory 14 18 Rate Blood Pressure 174/111 174/111 O2 Sat by Pulse 98 96 Oximetry 09/06/18 09/06/18 09/06/18 04:00 04:01 04:11 Temperature Pulse Rate 87 80 Pulse Rate [ 81 Apical] Respiratory 18 16 21 Rate Blood Pressure 194/138 194/138 O2 Sat by Pulse 98 95 96 Oximetry 09/06/18 09/06/18 09/06/18 04:21 04:31 04:41 Temperature Pulse Rate 80 77 77 Pulse Rate [ Apical] Respiratory 30 H 18 14 Rate Blood Pressure 194/138 155/87 155/87 O2 Sat by Pulse 98 92 97 Oximetry 09/06/18 09/06/18 09/06/18 04:51 05:00 05:11 Temperature Pulse Rate 77 75 73 Pulse Rate [ Apical] Respiratory 15 14 16 Rate Blood Pressure 155/87 158/122 158/122 O2 Sat by Pulse 97 91 96 Oximetry 09/06/18 09/06/18 09/06/18 05:21 05:31 05:40 Temperature Pulse Rate 72 75 73 Pulse Rate [ Apical] Respiratory 13 11 L 15 Rate Blood Pressure 158/122 135/77 158/122 O2 Sat by Pulse 97 91 97 Oximetry 09/06/18 09/06/18 09/06/18 05:51 06:00 06:11 Temperature Pulse Rate 73 66 84 Pulse Rate [ Apical] Respiratory 14 12 16 Rate Blood Pressure 135/77 135/79 135/79 O2 Sat by Pulse 95 90 99 Oximetry 09/06/18 09/06/18 09/06/18 06:21 06:31 06:41 Temperature Pulse Rate 79 78 78 Pulse Rate [ Apical] Respiratory 15 14 12 Rate Blood Pressure 153/94 187/101 187/101 O2 Sat by Pulse 98 94 98 Oximetry 09/06/18 09/06/18 09/06/18 06:51 07:01 07:11 Temperature Pulse Rate 72 66 68 Pulse Rate [ Apical] Respiratory 13 13 13 Rate Blood Pressure 187/101 137/88 137/88 O2 Sat by Pulse 99 94 98 Oximetry 09/06/18 09/06/18 09/06/18 07:21 07:30 07:41 Temperature Pulse Rate 67 73 72 Pulse Rate [ Apical] Respiratory 18 12 16 Rate Blood Pressure 137/88 139/94 139/94 O2 Sat by Pulse 97 96 99 Oximetry 09/06/18 09/06/18 09/06/18 07:51 08:00 08:11 Temperature 97.1 F L Pulse Rate 71 87 161 H Pulse Rate [ 81 Apical] Respiratory 12 29 H 17 Rate Blood Pressure 139/94 145/100 145/100 O2 Sat by Pulse 98 98 98 Oximetry 09/06/18 09/06/18 09/06/18 08:21 08:30 08:41 Temperature Pulse Rate 78 83 77 Pulse Rate [ Apical] Respiratory 13 15 19 Rate Blood Pressure 145/100 149/92 149/92 O2 Sat by Pulse 99 98 98 Oximetry 09/06/18 09/06/18 09/06/18 08:50 08:51 09:01 Temperature Pulse Rate 80 84 75 Pulse Rate [ Apical] Respiratory 13 18 Rate Blood Pressure 149/92 149/92 149/92 O2 Sat by Pulse 99 95 Oximetry 09/06/18 09/06/18 09/06/18 09:11 09:17 09:21 Temperature Pulse Rate 76 75 79 Pulse Rate [ Apical] Respiratory 11 L 13 Rate Blood Pressure 171/102 149/92 171/102 O2 Sat by Pulse 99 98 Oximetry 09/06/18 09/06/18 09/06/18 09:31 09:41 09:51 Temperature Pulse Rate 89 90 Pulse Rate [ Apical] Respiratory 13 13 15 Rate Blood Pressure 171/102 159/108 159/108 O2 Sat by Pulse 96 98 99 Oximetry 09/06/18 09/06/18 09/06/18 10:00 10:01 10:11 Temperature Pulse Rate 70 81 Pulse Rate [ Apical] Respiratory 15 14 Rate Blood Pressure 169/89 169/89 O2 Sat by Pulse 94 97 Oximetry 09/06/18 09/06/18 09/06/18 10:21 11:01 12:00 Temperature 96.6 F L Pulse Rate 79 91 H 73 Pulse Rate [ Apical] Respiratory 16 19 12 Rate Blood Pressure 128/89 132/90 138/96 O2 Sat by Pulse 97 95 95 Oximetry General appearance: Present: no acute distress, obese - EENT Eyes: PERRL ENT: hearing intact - Neck Neck: supple - Respiratory Respiratory effort: normal Respiratory: bilateral: CTA - Breasts Breasts: deferred - Cardiovascular Rhythm: regular Heart Sounds: Present: S1 & S2 Extremities: no ischemia, pulses intact - Gastrointestinal General gastrointestinal: Present: soft Rectal Exam: deferred - Genitourinary Male genitourinary: deferred - Labs CBC & Chem 7: 09/05/18 04:03 09/05/18 04:03 Medications & Allergies - Medications Allergies/Adverse Reactions: Allergies No Known Allergies Allergy (Verified 10/24/14 23:18) Home Medications: Home Medications Medication Instructions Recorded Confirmed Last Taken Type Quetiapine Fumarate [Seroquel] 100 mg PO BID #30 tablet 04/16/18 09/05/18 Unknown Rx Thiamine [Vitamin B-1] 100 mg PO QDAY #30 tablet 05/20/18 09/05/18 Unknown Rx levETIRAcetam [Keppra TAB] 750 mg PO BID #60 tablet 05/20/18 09/05/18 Unknown Rx predniSONE [Deltasone] 20 mg PO QDAY #7 tablet 05/20/18 09/05/18 Unknown Rx Aspirin BABY CHEW TAB 81 mg PO DAILY 09/05/18 09/05/18 Unknown History Claritin 10 mg PO DAILY PRN 09/05/18 09/05/18 Unknown History Folic Acid [Folvite] 1 mg PO DAILY 09/05/18 09/05/18 Unknown History Lactulose 30 mg PO TID 09/05/18 09/05/18 Unknown History Lopressor TAB 100 mg PO BID 09/05/18 09/05/18 Unknown History Multivit with Iron,Minerals 1 tab PO DAILY 09/05/18 09/05/18 Unknown History [Spectravite Senior] Norvasc 10 mg PO DAILY 09/05/18 09/05/18 Unknown History Protonix TAB 40 mg PO DAILY 09/05/18 09/05/18 Unknown History Rifaximin 550 mg PO BID 09/05/18 09/05/18 Unknown History Vit C/Ascorbate Calcium,Sodium 500 mg PO DAILY 09/05/18 09/05/18 Unknown History Zinc Sulfate 220 mg PO DAILY 09/05/18 09/05/18 Unknown History hydrALAZINE 100 mg PO TID 09/05/18 09/05/18 Unknown History Active Medications: Generic Name Dose Route Start Last Admin Trade Name Freq PRN Reason Stop Dose Admin Amlodipine Besylate 10 mg 09/05/18 10:00 09/06/18 09:17 Norvasc FEEDTUBE 10 mg QDAY MINGO Administration Famotidine 20 mg 09/05/18 10:00 09/06/18 09:16 Pepcid PO 20 mg BID MINGO Administration Hydralazine HCl 10 mg 09/04/18 21:07 09/05/18 03:50 Apresoline IV 10 mg Q4HR PRN Administration Blood Pressure Hydralazine HCl 50 mg 09/04/18 23:45 09/05/18 15:10 Apresoline PO 50 mg Q8HR MINGO Administration Hydromorphone HCl 0.5 mg 09/04/18 23:17 09/05/18 03:49 Dilaudid IV 0.5 mg Q3H PRN Administration Pain , Severe (7-10) Sodium Chloride 1,000 mls @ 75 mls/hr 09/04/18 23:45 09/05/18 20:57 Nacl 0.9% 1000 Ml IV 75 mls/hr DIRECT MINGO Administration Ceftriaxone Sodium 2 gm in 100 mls @ 200 mls/hr 09/05/18 10:00 09/06/18 09:17 Rocephin/Ns 2 Gm/100 Ml IV 200 mls/hr Q24HR MINGO Administration Protocol Vancomycin HCl 1,250 mg/ 275 mls @ 166.667 mls/hr 09/05/18 12:00 09/06/18 12:11 Sodium Chloride IV 166.667 mls/hr Q12H MINGO Administration Ibuprofen 600 mg 09/04/18 23:17 Ibuprofen PO Q6H PRN Pain, Mild (1-3) Levetiracetam 1,000 mg 09/06/18 10:00 09/06/18 09:15 Keppra PO 1,000 mg BID MINGO Administration Lorazepam 2 mg 09/04/18 12:28 09/05/18 03:50 Ativan IV 2 mg Q1H PRN Administration CIWA-Ar 8-15 Lorazepam 4 mg 09/04/18 12:28 09/06/18 02:01 Ativan IV 4 mg Q1H PRN Administration CIWA-Ar 16-25 Lorazepam 4 mg 09/04/18 12:28 Ativan IV Q15MIN PRN CIWA-Ar >25 Lorazepam 2 mg 09/06/18 10:38 Ativan IV Q4H PRN Agitation Metoprolol Tartrate 25 mg 09/05/18 08:00 09/06/18 08:50 Lopressor PO 25 mg TID MINGO Administration Prednisone 20 mg 09/05/18 10:00 09/06/18 09:16 Deltasone PO 20 mg QDAY MINGO Administration Quetiapine Fumarate 100 mg 09/05/18 10:00 09/06/18 09:16 Seroquel PO 100 mg BID MINGO Administration Sodium Chloride 10 ml 09/05/18 10:00 09/06/18 09:18 Sodium Chloride Flush Syringe 10 Ml IV 10 ml BID MINGO Administration Sodium Chloride 10 ml 09/04/18 23:17 Sodium Chloride Flush Syringe 10 Ml IV PRN PRN LINE FLUSH Thiamine HCl 100 mg 09/05/18 10:00 09/06/18 09:16 Vitamin B-1 PO 100 mg QDAY MINGO Administration
[2018-09-06] MEDS: APRESOLINE PO SCH ×2 (13:41→21:10)
--- NOTE | 2018-09-06 14:27 | Consultation ---
History of Present Illness - Reason for Consult Consult date: 09/06/18 mastoiditis/otitis Requesting physician: ЕЛЕНА FRIEDMAN - History of Present Illness 58 y/o male with ETOH dependence, bipolar and hypertension admitted on 09/05/2018 with recurrent tonic-clonic seizures. Patient is confused unable to provide a history. In the ED, temp 101.6, HR 123, R 44, BP 197/98 . WBC 7.8. Hg 14. Plat 100. Creat 0.8. ETOH level 0.12. Blood cultures09/05/[address] head shows left sided mastoiditis and otitis media. CT abdomen daniela renal cyst and osteonecrosis femoral heads. Review of Systems: unable to obtain Past History Past Medical History: hypertension, seizures, other (psych issues) Medications and Allergies Allergies Allergy/AdvReac Type Severity Reaction Status Date / Time No Known Allergies Allergy Verified 10/24/14 23:18 Home Medications Medication Instructions Recorded Confirmed Last Taken Type Quetiapine Fumarate [Seroquel] 100 mg PO BID #30 tablet 04/16/18 09/05/18 U nknown Rx Thiamine [Vitamin B-1] 100 mg PO QDAY #30 tablet 05/20/18 09/05/18 Unknown Rx levETIRAcetam [Keppra TAB] 750 mg PO BID #60 tablet 05/20/18 09/05/18 Unknown Rx predniSONE [Deltasone] 20 mg PO QDAY #7 tablet 05/20/18 09/05/18 Unknown Rx Aspirin BABY CHEW TAB 81 mg PO DAILY 09/05/18 09/05/18 Unknown History Claritin 10 mg PO DAILY PRN 09/05/18 09/05/18 Unknown History Folic Acid [Folvite] 1 mg PO DAILY 09/05/18 09/05/18 Unknown History Lactulose 30 mg PO TID 09/05/18 09/05/18 Unknown History Lopressor TAB 100 mg PO BID 09/05/18 09/05/18 Unknown History Multivit with Iron,Minerals 1 tab PO DAILY 09/05/18 09/05/18 Unknown History [Spectravite Senior] Norvasc 10 mg PO DAILY 09/05/18 09/05/18 Unknown History Protonix TAB 40 mg PO DAILY 09/05/18 09/05/18 Unknown History Rifaximin 550 mg PO BID 09/05/18 09/05/18 Unknown History Vit C/Ascorbate Calcium,Sodium 500 mg PO DAILY 09/05/18 09/05/18 Unknown History Zinc Sulfate 220 mg PO DAILY 09/05/18 09/05/18 Unknown History hydrALAZINE 100 mg PO TID 09/05/18 09/05/18 Unknown History Active Meds: Active Medications Amlodipine Besylate (Norvasc) 10 mg FEEDTUBE QDAY [facility] Last Admin: 09/06/18 09:17 Dose: 10 mg Documented by: Famotidine (Pepcid) 20 mg PO BID [facility] Last Admin: 09/06/18 09:16 Dose: 20 mg Documented by: Hydralazine HCl (Apresoline) 10 mg IV Q4HR PRN PRN Reason: Blood Pressure Last Admin: 09/05/18 03:50 Dose: 10 mg Documented by: Hydralazine HCl (Apresoline) 50 mg PO Q8HR [facility] Last Admin: 09/06/18 13:41 Dose: 50 mg Documented by: Hydromorphone HCl (Dilaudid) 0.5 mg IV Q3H PRN PRN Reason: Pain , Severe (7-10) Last Admin: 09/05/18 03:49 Dose: 0.5 mg Documented by: Sodium Chloride (Nacl 0.9% 1000 Ml) 1,000 mls @ 75 mls/hr IV DIRECT MINGO Last Admin: 09/05/18 20:57 Dose: 75 mls/hr Documented by: Ceftriaxone Sodium (Rocephin/Ns 2 Gm/100 Ml) 2 gm in 100 mls @ 200 mls/hr IV Q24HR [facility]; Protocol Last Admin: 09/06/18 09:17 Dose: 200 mls/hr Documented by: Vancomycin HCl 1,250 mg/ (Sodium Chloride) 275 mls @ 166.667 mls/hr IV Q12H [facility] Last Admin: 09/06/18 12:11 Dose: 166.667 mls/hr Documented by: Ibuprofen (Ibuprofen) 600 mg PO Q6H PRN PRN Reason: Pain, Mild (1-3) Levetiracetam (Keppra) 1,000 mg PO BID [facility] Last Admin: 09/06/18 09:15 Dose: 1,000 mg Documented by: Lorazepam (Ativan) 2 mg IV Q1H PRN PRN Reason: CIWA-Ar 8-15 Last Admin: 09/05/18 03:50 Dose: 2 mg Documented by: Lorazepam (Ativan) 4 mg IV Q1H PRN PRN Reason: CIWA-Ar 16-25 Last Admin: 09/06/18 02:01 Dose: 4 mg Documented by: Lorazepam (Ativan) 4 mg IV Q15MIN PRN PRN Reason: CIWA-Ar >25 Lorazepam (Ativan) 2 mg IV Q4H PRN PRN Reason: Agitation Metoprolol Tartrate (Lopressor) 25 mg PO TID [facility] Last Admin: 09/06/18 13:41 Dose: 25 mg Documented by: Prednisone (Deltasone) 20 mg PO QDAY [facility] Last Admin: 09/06/18 09:16 Dose: 20 mg Documented by: Quetiapine Fumarate (Seroquel) 100 mg PO BID [facility] Last Admin: 09/06/18 09:16 Dose: 100 mg Documented by: Sodium Chloride (Sodium Chloride Flush Syringe 10 Ml) 10 ml IV BID [facility] Last Admin: 09/06/18 09:18 Dose: 10 ml Documented by: Sodium Chloride (Sodium Chloride Flush Syringe 10 Ml) 10 ml IV PRN PRN PRN Reason: LINE FLUSH Thiamine HCl (Vitamin B-1) 100 mg PO QDAY [facility] Last Admin: 09/06/18 09:16 Dose: 100 mg Documented by: Physical Examination - Physical Exam Narrative exam: General appearance: somnolent in NAD Eyes: anicteric sclerae, moist conjunctivae; no lid-lag; PERRLA HENT: Atraumatic; oropharynx limited Neck: Trachea midline; supple, no thyromegaly or lymphadenopathy Lungs: CTA CV: RRR no murmur Abdomen: Soft, non-tender; no masses or hepatosplenomegaly Extremities: no edema, cyanosis Skin: Normal temperature, turgor and texture; no rash, ulcers or subcutaneous nodules Psych:no agitated. Neuro: somnolent - Constitutional Vitals: Vital Signs Temp Pulse Resp BP Pulse Ox 96.6 F L 79 16 121/93 98 09/06/18 13:41 09/06/18 13:41 09/06/18 12:00 09/06/18 13:41 09/06/18 12:00 Temperature -Last 24 Hours Temperature 96.6 F Temperature 96.6 F Temperature 97.1 F Temperature 98.5 F Temperature 97.2 F Temperature 97.9 F Temperature 97.6 F Results - Labs CBC & Chem 7: 09/05/18 04:03 09/05/18 04:03 Assessment and Plan Cultures: Blood cultures09/05/2018 no growth. Assessment: 58 y/o male with ETOH dependence, bipolar and hypertension admitted on 09/05/2018 with recurrent tonic-clonic seizures and noted with fever: 1) Severe Sepsis: Present on admission, manifested by fever, tachycardia, increased lactate. Etiology unclear ? left sided mastoiditis and otitis media v/s aspiration pneumonia v/s meningitis (less likely) 2) Left sided mastoiditis and otitis media? CT head shows left sided mastoiditis and otitis media. 3) Acute encephalopathy: multifactorial ETOH, otitis. 4) Status epilecticus 5) ETOH dependance 6) Thrombocytopenia Recommendations: follow-up blood cultures CXR and UA/urine culture continue ceftriaxone and vancomycin for now add flagyl until asp pneumonia is r/o if not better in 48h consider lumbar puncture Will follow. Nicole Suarez MD Infectious Diseases [employer] Equipment [employer] [facility] ([facility]) [phone] O [phone]
--- NOTE | 2018-09-06 18:01 | XRay Report ---
. CHEST 2 VIEWS INDICATION / CLINICAL INFORMATION: eval for pneumonia. COMPARISON: None available. FINDINGS: SUPPORT DEVICES: None. HEART / MEDIASTINUM: Slightly enlarged but stable. LUNGS / PLEURA: No significant pulmonary or pleural abnormality. No pneumothorax. ADDITIONAL FINDINGS: No significant additional findings. IMPRESSION: 1. No acute findings. Signer Name: Bruno Seay MD Signed: 09/06/2018 5:56 PM Workstation Name: [id number]
[2018-09-06 18:03] LABS: Bilirubin,Urine NEG (Negative); Blood,Urine NEG (Negative); Color,Urine Yellow (Yellow); Protein,Urine <15 mg/dL mg/dL (Negative)
[2018-09-07] MEDS: APRESOLINE IV PRN (01:09)
[2018-09-07] MEDS: ATIVAN IV PRN (01:10)
[2018-09-07] MEDS: APRESOLINE PO SCH ×3 (05:44→22:03)
[2018-09-07] MEDS: LOPRESSOR PO SCH ×3 (08:07→19:51)
--- NOTE | 2018-09-07 08:36 | Progress Note ---
Assessment and Plan Cultures: Blood cultures09/05/2018 no growth. Assessment: 58 y/o male with ETOH dependence, bipolar and hypertension admitted on 09/05/2018 with recurrent tonic-clonic seizures and noted with fever: 1) Sepsis: fever, tachycardia and increased lactate all back to normal. Etiology unclear ? left sided mastoiditis and otitis media v/s aspiration pneumonia v/s meningitis (less likely). CXR no consolidations. UA neg. 2) Left sided mastoiditis and otitis media? CT head shows left sided mastoiditis and otitis media. 3) Acute encephalopathy: multifactorial ETOH, otitis, seizures. 4) Status epilecticus 5) ETOH dependance 6) Thrombocytopenia: from liver disease Recommendations: follow-up blood culture continue ceftriaxone/flagyl and vancomycin for now D2 check MRSA PCR monitor mentation Will follow. Nicole Suarez MD Infectious Diseases [employer] Equipment [employer] [facility] ([facility]) [phone] O [phone] Subjective Date of service: 09/07/18 Principal diagnosis: sepsis Interval history: Patient remains sleepy but more arousable unintelligible speech, no fever, no pressors. Objective - Exam Narrative Exam: General appearance: more alert in NAD unintellegible speech Eyes: anicteric sclerae, moist conjunctivae; no lid-lag; PERRLA HENT: Atraumatic; oropharynx poor dentition Neck: Trachea midline; supple, no thyromegaly or lymphadenopathy Lungs: CTA CV: RRR no murmur Abdomen: Soft, non-tender; no masses or hepatosplenomegaly Extremities: no edema, cyanosis Skin: Normal temperature, turgor and texture; no rash, ulcers or subcutaneous nodules Psych:no agitated. Neuro: somnolent moving all extremities - Constitutional Vitals: Vital Signs Temp Pulse Resp BP Pulse Ox 97.9 F 77 14 149/84 99 09/07/18 07:37 09/07/18 08:07 09/07/18 08:00 09/07/18 08:07 09/07/18 08:00 Temperature -Last 24 Hours Temperature 97.9 F Temperature 97.5 F Temperature 98.8 F Temperature 98.4 F Temperature 97.9 F Temperature 97.9 F Temperature 96.6 F Temperature 96.6 F - Labs CBC & Chem 7: 09/05/18 04:03 09/05/18 04:03
[2018-09-07] MEDS: ROCEPHIN/NS 2 GM/100 ML 2 GM/100 ML BAG IV SCH (09:21)
[2018-09-07] MEDS: KEPPRA PO SCH ×2 (09:22→22:14)
[2018-09-07] MEDS: VITAMIN B-1 PO SCH (09:22)
[2018-09-07] MEDS: NORVASC FEEDTUBE SCH (09:23)
[2018-09-07] MEDS: PEPCID PO SCH ×2 (09:24→22:03)
[2018-09-07] MEDS: SODIUM CHLORIDE FLUSH SYRINGE 10 ML IV SCH ×2 (09:24→22:06)
[2018-09-07] MEDS: DELTASONE PO SCH (09:24)
--- NOTE | 2018-09-07 11:15 | Progress Note ---
Assessment and Plan Assessment and plan: -- Seizure due to alcohol withdrawal Current Visit: Yes Status: Acute Change IV Keppra to oral, seizure precautions --Status epilepticus Antiepileptic medications seizure precautions/CIWA -- Metabolic Encephalopathy Current Visit: Yes Status: Acute Plan to address problem: Secondary to status epilepticus Alcohol withdrawal,CIWA protocol --Left otitis media Current Visit: Yes Status: Acute IV Rocephin and vancomycin Change to Augmentin, follow ENT upon discharge --Acute mastoiditis Current Visit: Yes Status: Acute Acute mastoiditis on CT head IV Rocephin and vancomycin Follow-up with ENT as outpatient ID consult requested -- Hypertension Current Visit: Yes Status: Chronic Continue anti-hypertensives -- EtOH dependence Current Visit: Yes Status: Chronic Plan to address problem: CIWA protocol -- Bipolar disorder Current Visit: Yes Status: Chronic Plan to address problem: Continue Seroquel -- DVT prophylaxis Current Visit: No Status: Acute Plan to address problem: Lovenox 40 mg subcutaneous daily Critical care time 34 min Transfer to [facility] History Interval history: Patient seen and examined medical records reviewed Patient feels slightly better no new complaints Vital signs noted Hospitalist Physical - Constitutional Vitals: Temp Pulse Resp BP Pulse Ox 97.9 F 79 16 141/61 98 09/07/18 07:37 09/07/18 10:00 09/07/18 08:00 09/07/18 09:23 09/07/18 08:00 General appearance: Present: no acute distress, well-nourished, obese - EENT Eyes: Present: PERRL, EOM intact - Neck Neck: Present: supple, normal ROM - Respiratory Respiratory effort: normal Respiratory: bilateral: diminished, negative: rales, rhonchi, wheezing - Cardiovascular Rhythm: regular Heart Sounds: Present: S1 & S2 - Extremities Extremities: no ischemia, No edema - Abdominal General gastrointestinal: soft, non-tender, non-distended, normal bowel sounds - Integumentary Integumentary: Present: clear, warm - Psychiatric Psychiatric: appropriate mood/affect, other (confused at times) - Neurologic Neurologic: moves all extremities Results - Labs CBC & Chem 7: 09/05/18 04:03 09/05/18 04:03 Labs: Laboratory Last Values WBC 4.8 K/mm3 (4.5-11.0) 09/05/18 04:03 RBC 4.29 M/mm3 (3.65-5.03) 09/05/18 04:03 Hgb 13.8 gm/dl (11.8-15.2) 09/05/18 04:03 Hct 41.7 % (35.5-45.6) 09/05/18 04:03 MCV 97 fl (84-94) H 09/05/18 04:03 MCH 32 pg (28-32) 09/05/18 04:03 MCHC 33 % (32-34) 09/05/18 04:03 RDW 12.8 % (13.2-15.2) L 09/05/18 04:03 Plt Count 85 K/mm3 (140-440) L 09/05/18 04:03 [place] % (Auto) [place] 09/05/18 04:03 Add Manual Diff Complete 09/05/18 04:03 Total Counted 100 09/05/18 04:03 Seg Neuts % (Manual) 63.0 % (40.0-70.0) 09/05/18 04:03 1.0 % 09/05/18 04:03 16.0 % (13.4-35.0) 09/05/18 04:03 Reactive Lymphs % (Man) 0 % 09/05/18 04:03 20.0 % (0.0-7.3) H 09/05/18 04:03 0 % (0.0-4.3) 09/05/18 04:03 0 % (0.0-1.8) 09/05/18 04:03 0 % 09/05/18 04:03 0 % 09/05/18 04:03 0 % 09/05/18 04:03 0 % 09/05/18 04:03 Nucleated RBC % Not Reportable 09/05/18 04:03 Seg Neutrophils # Man 3.0 K/mm3 (1.8-7.7) 09/05/18 04:03 Band Neutrophils # 0.0 K/mm3 09/05/18 04:03 0.8 K/mm3 (1.2-5.4) L 09/05/18 04:03 Abs React Lymphs (Man) 0.0 K/mm3 09/05/18 04:03 1.0 K/mm3 (0.0-0.8) H 09/05/18 04:03 0.0 K/mm3 (0.0-0.4) 09/05/18 04:03 0.0 K/mm3 (0.0-0.1) 09/05/18 04:03 0.0 K/mm3 09/05/18 04:03 0.0 K/mm3 09/05/18 04:03 0.0 K/mm3 09/05/18 04:03 Blast Cells # 0.0 K/mm3 09/05/18 04:03 WBC Morphology Not Reportable 09/05/18 04:03 Hypersegmented Neuts Not Reportable 09/05/18 04:03 Hyposegmented Neuts Not Reportable 09/05/18 04:03 Hypogranular Neuts Not Reportable 09/05/18 04:03 Not Reportable 09/05/18 04:03 Not Reportable 09/05/18 04:03 Not Reportable 09/05/18 04:03 Not Reportable 09/05/18 04:03 Not Reportable 09/05/18 04:03 Not Reportable 09/05/18 04:03 Consistent w auto 09/05/18 04:03 Not Reportable 09/05/18 04:03 Plt Clumps, EDTA Not Reportable 09/05/18 04:03 Not Reportable 09/05/18 04:03 Not Reportable 09/05/18 04:03 Not Reportable 09/05/18 04:03 Plt Morphology Comment Not Reportable 09/05/18 04:03 RBC Morphology Normal 09/05/18 04:03 Dimorphic RBCs Not Reportable 09/05/18 04:03 Not Reportable 09/05/18 04:03 Not Reportable 09/05/18 04:03 Not Reportable 09/05/18 04:03 Not Reportable 09/05/18 04:03 Not Reportable 09/05/18 04:03 Not Reportable 09/05/18 04:03 Not Reportable 09/05/18 04:03 Not Reportable 09/05/18 04:03 Not Reportable 09/05/18 04:03 Not Reportable 09/05/18 04:03 Not Reportable 09/05/18 04:03 Not Reportable 09/05/18 04:03 Not Reportable 09/05/18 04:03 Not Reportable 09/05/18 04:03 Not Reportable 09/05/18 04:03 Not Reportable 09/05/18 04:03 Not Reportable 09/05/18 04:03 Not Reportable 09/05/18 04:03 Not Reportable 09/05/18 04:03 Acanthocytes (Spur) Not Reportable 09/05/18 04:03 Rouleaux Not Reportable 09/05/18 04:03 Not Reportable 09/05/18 04:03 Not Reportable 09/05/18 04:03 Not Reportable 09/05/18 04:03 Not Reportable 09/05/18 04:03 Hem Pathologist Commnt No 09/05/18 04:03 Sodium 137 mmol/L (137-145) 09/05/18 04:03 Potassium 3.9 mmol/L (3.6-5.0) D 09/05/18 04:03 Chloride 97.4 mmol/L (98-107) L 09/05/18 04:03 Carbon Dioxide 24 mmol/L (22-30) 09/05/18 04:03 20 mmol/L 09/05/18 04:03 BUN 7 mg/dL (9-20) L 09/05/18 04:03 0.8 mg/dL (0.8-1.5) 09/05/18 04:03 Estimated GFR > 60 ml/min 09/05/18 04:03 9 % 09/05/18 04:03 Glucose 106 mg/dL (75-100) H 09/05/18 04:03 Lactic Acid 0.90 mmol/L (0.7-2.0) 09/05/18 04:03 Calcium 8.9 mg/dL (8.4-10.2) 09/05/18 04:03 1.30 mg/dL (0.1-1.2) H 09/05/18 04:03 AST 67 units/L (5-40) H 09/05/18 04:03 ALT 46 units/L (7-56) 09/05/18 04:03 75 units/L (35-129) 09/05/18 04:03 7.8 g/dL (6.3-8.2) 09/05/18 04:03 3.7 g/dL (3.9-5) L 09/05/18 04:03 0.9 % 09/05/18 04:03 Yellow (Yellow) 09/06/18 16:27 Clear (Clear) 09/06/18 16:27 7.0 (5.0-7.0) 09/06/18 16:27 Ur Specific [place] 1.010 (1.003-1.030) 09/06/18 16:27 <15 mg/dl mg/dL (Negative) 09/06/18 16:27 Neg mg/dL (Negative) 09/06/18 16:27 Neg mg/dL (Negative) 09/06/18 16:27 Neg (Negative) 09/06/18 16:27 Neg (Negative) 09/06/18 16:27 Neg (Negative) 09/06/18 16:27 2.0 mg/dL (<2.0) 09/06/18 16:27 Ur Leukocyte Esterase Neg (Negative) 09/06/18 16:27 2.0 /HPF (0.0-6.0) 09/06/18 16:27 10.0 /HPF (0.0-6.0) 09/06/18 16:27 U Epithel Cells (Auto) < 1.0 /HPF (0-13.0) 09/06/18 16:27 Salicylates < 0.3 mg/dL (2.8-20.0) L 09/04/18 Unknown Acetaminophen < 5.0 ug/mL (10.0-30.0) L 09/04/18 Unknown Plasma/Serum Alcohol 0.12 % (0-0.07) H 09/04/18 Unknown Active Medications - Current Medications Current Medications: Generic Name Dose Route Start Last Admin Trade Name Freq PRN Reason Stop Dose Admin Amlodipine Besylate 10 mg 09/05/18 10:00 09/07/18 09:23 Norvasc FEEDTUBE 10 mg QDAY MINGO Administration Famotidine 20 mg 09/05/18 10:00 09/07/18 09:24 Pepcid PO 20 mg BID MINGO Administration Hydralazine HCl 10 mg 09/04/18 21:07 09/07/18 01:09 Apresoline IV 10 mg Q4HR PRN Administration Blood Pressure Hydralazine HCl 50 mg 09/04/18 23:45 09/07/18 05:44 Apresoline PO 50 mg Q8HR MINGO Administration Hydromorphone HCl 0.5 mg 09/04/18 23:17 09/05/18 03:49 Dilaudid IV 0.5 mg Q3H PRN Administration Pain , Severe (7-10) Sodium Chloride 1,000 mls @ 75 mls/hr 09/04/18 23:45 09/05/18 20:57 Nacl 0.9% 1000 Ml IV 75 mls/hr DIRECT MINGO Administration Ceftriaxone Sodium 2 gm in 100 mls @ 200 mls/hr 09/05/18 10:00 09/07/18 09:21 Rocephin/Ns 2 Gm/100 Ml IV 200 mls/hr Q24HR MINGO Administration Protocol Vancomycin HCl 1,250 mg/ 275 mls @ 166.667 mls/hr 09/05/18 12:00 09/07/18 00:00 Sodium Chloride IV 166.667 mls/hr Q12H MINGO Administration Ibuprofen 600 mg 09/04/18 23:17 Ibuprofen PO Q6H PRN Pain, Mild (1-3) Levetiracetam 1,000 mg 09/06/18 10:00 09/07/18 09:22 Keppra PO 1,000 mg BID MINGO Administration Lorazepam 2 mg 09/06/18 10:38 Ativan IV Q4H PRN Agitation Lorazepam 2 mg 09/07/18 11:12 Ativan IV Q4H PRN Agitation Metoprolol Tartrate 25 mg 09/05/18 08:00 09/07/18 08:07 Lopressor PO 25 mg TID MINGO Administration Prednisone 20 mg 09/05/18 10:00 09/07/18 09:24 Deltasone PO 20 mg QDAY MINGO Administration Quetiapine Fumarate 100 mg 09/05/18 10:00 09/07/18 09:23 Seroquel PO 100 mg BID MINGO Administration Sodium Chloride 10 ml 09/05/18 10:00 09/07/18 09:24 Sodium Chloride Flush Syringe 10 Ml IV 10 ml BID MINGO Administration Sodium Chloride 10 ml 09/04/18 23:17 Sodium Chloride Flush Syringe 10 Ml IV PRN PRN LINE FLUSH Thiamine HCl 100 mg 09/05/18 10:00 09/07/18 09:22 Vitamin B-1 PO 100 mg QDAY MINGO Administration Nutrition/Malnutrition Assess - Dietary Evaluation Nutrition/Malnutrition Findings: Nutrition Notes Start: 09/05/18 11:52 Freq: Status: Active Protocol: Document 09/05/18 11:52 LP (Rec: 09/05/18 11:54 LP [id number]) Nutrition Notes Need for Assessment generated from: restuarant crew worker Initial or Follow up Brief Note Current Diagnosis Hypertension Other Pertinent Diagnosis Seizure, ETOH abuse, Encephalopathy, Acute mastoiditis Current Diet Cardiac Subjective/Other Information Screen for MST. Pt sleeping at time of visit. Nutrition Intervention Follow-Up By: 09/08/18 Additional Comments Follow for assessment needs
[2018-09-07] MEDS ORDERED: ATIVAN IV PRN (12:00)
[2018-09-07] MEDS: VANCOMYCIN 1,250 MG in NACL 0.9% 250ML 250 ML IV SCH ×2 (12:28)
[2018-09-07] MEDS: NACL 0.9% 1000 ML 1,000 ML IV SCH (22:01)
[2018-09-08] MEDS: VANCOMYCIN 1,250 MG in NACL 0.9% 250ML 250 ML IV SCH ×2 (02:00→13:01)
[2018-09-08] MEDS: APRESOLINE PO SCH ×4 (06:45→23:04)
[2018-09-08] MEDS: LOPRESSOR PO SCH ×3 (08:35→20:11)
--- NOTE | 2018-09-08 09:55 | Progress Note ---
Assessment and Plan Assessment and plan: -- Seizure due to alcohol withdrawal Current Visit: Yes Status: Acute Change IV Keppra to oral, seizure precautions --Status epilepticus Antiepileptic medications seizure precautions/CIWA -- Metabolic Encephalopathy Current Visit: Yes Status: Acute Plan to address problem: Secondary to status epilepticus Alcohol withdrawal,CIWA protocol --Left otitis media Current Visit: Yes Status: Acute IV Rocephin and vancomycin Change to Augmentin, follow ENT upon discharge --Acute mastoiditis Current Visit: Yes Status: Acute Acute mastoiditis on CT head IV Rocephin and vancomycin Follow-up with ENT as outpatient ID consult requested -- Hypertension Current Visit: Yes Status: Chronic Continue anti-hypertensives -- EtOH dependence Current Visit: Yes Status: Chronic Plan to address problem: CIWA protocol -- Bipolar disorder Current Visit: Yes Status: Chronic Plan to address problem: Continue Seroquel -- DVT prophylaxis Current Visit: No Status: Acute Plan to address problem: Lovenox 40 mg subcutaneous daily Disposition; follow ID recommendations Discharged in medically stable History Interval history: Patient seen and examined medical records reviewed Patient remains lethargic response to simple questions Vital signs reviewed Hospitalist Physical - Constitutional Vitals: Temp Pulse Resp BP Pulse Ox 97.9 F 79 13 101/65 98 09/08/18 08:00 09/08/18 08:35 09/08/18 06:01 09/08/18 08:35 09/08/18 06:01 General appearance: Present: no acute distress, well-nourished, obese - EENT Eyes: Present: PERRL, EOM intact - Neck Neck: Present: supple, normal ROM - Respiratory Respiratory effort: normal Respiratory: bilateral: diminished, negative: rales, rhonchi, wheezing - Cardiovascular Rhythm: regular Heart Sounds: Present: S1 & S2 - Extremities Extremities: no ischemia, No edema - Abdominal General gastrointestinal: soft, non-tender, non-distended, normal bowel sounds - Integumentary Integumentary: Present: clear, warm - Psychiatric Psychiatric: other (minimally communicative,) - Neurologic Neurologic: moves all extremities Results - Labs CBC & Chem 7: 09/05/18 04:03 09/05/18 04:03 Labs: Laboratory Last Values WBC 4.8 K/mm3 (4.5-11.0) 09/05/18 04:03 RBC 4.29 M/mm3 (3.65-5.03) 09/05/18 04:03 Hgb 13.8 gm/dl (11.8-15.2) 09/05/18 04:03 Hct 41.7 % (35.5-45.6) 09/05/18 04:03 MCV 97 fl (84-94) H 09/05/18 04:03 MCH 32 pg (28-32) 09/05/18 04:03 MCHC 33 % (32-34) 09/05/18 04:03 RDW 12.8 % (13.2-15.2) L 09/05/18 04:03 Plt Count 85 K/mm3 (140-440) L 09/05/18 04:03 [place] % (Auto) [employer] 09/05/18 04:03 Add Manual Diff Complete 09/05/18 04:03 Total Counted 100 09/05/18 04:03 Seg Neuts % (Manual) 63.0 % (40.0-70.0) 09/05/18 04:03 1.0 % 09/05/18 04:03 16.0 % (13.4-35.0) 09/05/18 04:03 Reactive Lymphs % (Man) 0 % 09/05/18 04:03 20.0 % (0.0-7.3) H 09/05/18 04:03 0 % (0.0-4.3) 09/05/18 04:03 0 % (0.0-1.8) 09/05/18 04:03 0 % 09/05/18 04:03 0 % 09/05/18 04:03 0 % 09/05/18 04:03 0 % 09/05/18 04:03 Nucleated RBC % Not Reportable 09/05/18 04:03 Seg Neutrophils # Man 3.0 K/mm3 (1.8-7.7) 09/05/18 04:03 Band Neutrophils # 0.0 K/mm3 09/05/18 04:03 0.8 K/mm3 (1.2-5.4) L 09/05/18 04:03 Abs React Lymphs (Man) 0.0 K/mm3 09/05/18 04:03 1.0 K/mm3 (0.0-0.8) H 09/05/18 04:03 0.0 K/mm3 (0.0-0.4) 09/05/18 04:03 0.0 K/mm3 (0.0-0.1) 09/05/18 04:03 0.0 K/mm3 09/05/18 04:03 0.0 K/mm3 09/05/18 04:03 0.0 K/mm3 09/05/18 04:03 Blast Cells # 0.0 K/mm3 09/05/18 04:03 WBC Morphology Not Reportable 09/05/18 04:03 Hypersegmented Neuts Not Reportable 09/05/18 04:03 Hyposegmented Neuts Not Reportable 09/05/18 04:03 Hypogranular Neuts Not Reportable 09/05/18 04:03 Not Reportable 09/05/18 04:03 Not Reportable 09/05/18 04:03 Not Reportable 09/05/18 04:03 Not Reportable 09/05/18 04:03 Not Reportable 09/05/18 04:03 Not Reportable 09/05/18 04:03 Consistent w auto 09/05/18 04:03 Not Reportable 09/05/18 04:03 Plt Clumps, EDTA Not Reportable 09/05/18 04:03 Not Reportable 09/05/18 04:03 Not Reportable 09/05/18 04:03 Not Reportable 09/05/18 04:03 Plt Morphology Comment Not Reportable 09/05/18 04:03 RBC Morphology Normal 09/05/18 04:03 Dimorphic RBCs Not Reportable 09/05/18 04:03 Not Reportable 09/05/18 04:03 Not Reportable 09/05/18 04:03 Not Reportable 09/05/18 04:03 Not Reportable 09/05/18 04:03 Not Reportable 09/05/18 04:03 Not Reportable 09/05/18 04:03 Not Reportable 09/05/18 04:03 Not Reportable 09/05/18 04:03 Not Reportable 09/05/18 04:03 Not Reportable 09/05/18 04:03 Not Reportable 09/05/18 04:03 Not Reportable 09/05/18 04:03 Not Reportable 09/05/18 04:03 Not Reportable 09/05/18 04:03 Not Reportable 09/05/18 04:03 Not Reportable 09/05/18 04:03 Not Reportable 09/05/18 04:03 Not Reportable 09/05/18 04:03 Not Reportable 09/05/18 04:03 Acanthocytes (Spur) Not Reportable 09/05/18 04:03 Rouleaux Not Reportable 09/05/18 04:03 Not Reportable 09/05/18 04:03 Not Reportable 09/05/18 04:03 Not Reportable 09/05/18 04:03 Not Reportable 09/05/18 04:03 Hem Pathologist Commnt No 09/05/18 04:03 Sodium 137 mmol/L (137-145) 09/05/18 04:03 Potassium 3.9 mmol/L (3.6-5.0) D 09/05/18 04:03 Chloride 97.4 mmol/L (98-107) L 09/05/18 04:03 Carbon Dioxide 24 mmol/L (22-30) 09/05/18 04:03 20 mmol/L 09/05/18 04:03 BUN 7 mg/dL (9-20) L 09/05/18 04:03 0.8 mg/dL (0.8-1.5) 09/05/18 04:03 Estimated GFR > 60 ml/min 09/05/18 04:03 9 % 09/05/18 04:03 Glucose 106 mg/dL (75-100) H 09/05/18 04:03 Lactic Acid 0.90 mmol/L (0.7-2.0) 09/05/18 04:03 Calcium 8.9 mg/dL (8.4-10.2) 09/05/18 04:03 1.30 mg/dL (0.1-1.2) H 09/05/18 04:03 AST 67 units/L (5-40) H 09/05/18 04:03 ALT 46 units/L (7-56) 09/05/18 04:03 75 units/L (35-129) 09/05/18 04:03 7.8 g/dL (6.3-8.2) 09/05/18 04:03 3.7 g/dL (3.9-5) L 09/05/18 04:03 0.9 % 09/05/18 04:03 Yellow (Yellow) 09/06/18 16:27 Clear (Clear) 09/06/18 16:27 7.0 (5.0-7.0) 09/06/18 16:27 Ur Specific [place] 1.010 (1.003-1.030) 09/06/18 16:27 <15 mg/dl mg/dL (Negative) 09/06/18 16:27 Neg mg/dL (Negative) 09/06/18 16:27 Neg mg/dL (Negative) 09/06/18 16:27 Neg (Negative) 09/06/18 16:27 Neg (Negative) 09/06/18 16:27 Neg (Negative) 09/06/18 16:27 2.0 mg/dL (<2.0) 09/06/18 16:27 Ur Leukocyte Esterase Neg (Negative) 09/06/18 16:27 2.0 /HPF (0.0-6.0) 09/06/18 16:27 10.0 /HPF (0.0-6.0) 09/06/18 16:27 U Epithel Cells (Auto) < 1.0 /HPF (0-13.0) 09/06/18 16:27 Vancomycin Trough 11.9 ug/mL (5.0-20.0) 09/07/18 11:16 Salicylates < 0.3 mg/dL (2.8-20.0) L 09/04/18 Unknown Acetaminophen < 5.0 ug/mL (10.0-30.0) L 09/04/18 Unknown Plasma/Serum Alcohol 0.12 % (0-0.07) H 09/04/18 Unknown Active Medications - Current Medications Current Medications: Generic Name Dose Route Start Last Admin Trade Name Freq PRN Reason Stop Dose Admin Amlodipine Besylate 10 mg 09/05/18 10:00 09/07/18 09:23 Norvasc FEEDTUBE 10 mg QDAY MINGO Administration Famotidine 20 mg 09/05/18 10:00 09/07/18 22:03 Pepcid PO 20 mg BID MINGO Administration Hydralazine HCl 10 mg 09/04/18 21:07 09/07/18 01:09 Apresoline IV 10 mg Q4HR PRN Administration Blood Pressure Hydralazine HCl 50 mg 09/04/18 23:45 09/08/18 06:45 Apresoline PO 50 mg Q8HR MINGO Administration Hydromorphone HCl 0.5 mg 09/04/18 23:17 09/05/18 03:49 Dilaudid IV 0.5 mg Q3H PRN Administration Pain , Severe (7-10) Sodium Chloride 1,000 mls @ 75 mls/hr 09/04/18 23:45 09/07/18 22:01 Nacl 0.9% 1000 Ml IV 75 mls/hr DIRECT MINGO Administration Ceftriaxone Sodium 2 gm in 100 mls @ 200 mls/hr 09/05/18 10:00 09/07/18 09:21 Rocephin/Ns 2 Gm/100 Ml IV 200 mls/hr Q24HR MINGO Administration Protocol Vancomycin HCl 1,250 mg/ 275 mls @ 166.667 mls/hr 09/05/18 12:00 09/08/18 02:00 Sodium Chloride IV 166.667 mls/hr Q12H MINGO Administration Ibuprofen 600 mg 09/04/18 23:17 Ibuprofen PO Q6H PRN Pain, Mild (1-3) Levetiracetam 1,000 mg 09/06/18 10:00 09/07/18 22:14 Keppra PO 1,000 mg BID MINGO Administration Lorazepam 2 mg 09/07/18 12:00 Ativan IV Q4H PRN Agitation Metoprolol Tartrate 25 mg 09/05/18 08:00 09/08/18 08:35 Lopressor PO 25 mg TID MINGO Administration Prednisone 20 mg 09/05/18 10:00 09/07/18 09:24 Deltasone PO 20 mg QDAY MINGO Administration Quetiapine Fumarate 100 mg 09/05/18 10:00 09/07/18 22:03 Seroquel PO 100 mg BID MINGO Administration Sodium Chloride 10 ml 09/05/18 10:00 09/07/18 22:06 Sodium Chloride Flush Syringe 10 Ml IV 10 ml BID MINGO Administration Sodium Chloride 10 ml 09/04/18 23:17 Sodium Chloride Flush Syringe 10 Ml IV PRN PRN LINE FLUSH Thiamine HCl 100 mg 09/05/18 10:00 09/07/18 09:22 Vitamin B-1 PO 100 mg QDAY MINGO Administration Nutrition/Malnutrition Assess - Dietary Evaluation Nutrition/Malnutrition Findings: Nutrition Notes Start: 09/05/18 11:52 Freq: Status: Active Protocol: Document 09/05/18 11:52 LP (Rec: 09/05/18 11:54 LP [id number]) Nutrition Notes Need for Assessment generated from: automation qa lead Initial or Follow up Brief Note Current Diagnosis Hypertension Other Pertinent Diagnosis Seizure, ETOH abuse, Encephalopathy, Acute mastoiditis Current Diet Cardiac Subjective/Other Information Screen for MST. Pt sleeping at time of visit. Nutrition Intervention Follow-Up By: 09/08/18 Additional Comments Follow for assessment needs
[2018-09-08] MEDS: PEPCID PO SCH ×3 (10:28→23:10)
[2018-09-08] MEDS: SODIUM CHLORIDE FLUSH SYRINGE 10 ML IV SCH ×3 (10:29→23:03)
[2018-09-08] MEDS: DELTASONE PO SCH (10:29)
[2018-09-08] MEDS: ROCEPHIN/NS 2 GM/100 ML 2 GM/100 ML BAG IV SCH (10:29)
[2018-09-08] MEDS: NORVASC FEEDTUBE SCH (10:30)
[2018-09-08] MEDS: KEPPRA PO SCH ×2 (10:30→22:01)
[2018-09-08] MEDS: VITAMIN B-1 PO SCH (10:30)
--- NOTE | 2018-09-08 14:03 | Progress Note ---
Assessment and Plan Cultures: Blood cultures09/05/2018 no growth. Urine cultures09/06/2018 no growth. Assessment: 58 y/o male with ETOH dependence, bipolar and hypertension admitted on 09/05/2018 with recurrent tonic-clonic seizures and noted with fever: 1) Sepsis: resolved. Etiology unclear ? left sided mastoiditis and otitis media v/s aspiration pneumonia v/s meningitis (less likely). CXR no consolidat ions. UA neg. 2) Left sided mastoiditis and otitis media? CT head shows left sided mastoiditis and otitis media. 3) Acute encephalopathy: multifactorial ETOH, otitis, seizures. 4) Status epilecticus 5) ETOH dependance 6) Thrombocytopenia: from liver disease Recommendations: follow-up blood culture continue ceftriaxone/flagyl D3 stop vancomycin monitor mentation at discharge will do augmentin 875 mg po bid total 10 days until 09/15/2018 Will follow. Nicole Suarez MD Infectious Diseases [employer] [facility] ([facility]) M [phone] O [phone] Subjective Date of service: 09/08/18 Principal diagnosis: sepsis Interval history: Patient more alert, talking, no fever, no pressors. Objective - Exam Narrative Exam: General appearance: more alert in NAD unintellegible speech Eyes: anicteric sclerae, moist conjunctivae; no lid-lag; PERRLA HENT: Atraumatic; oropharynx poor dentition Neck: Trachea midline; supple, no thyromegaly or lymphadenopathy Lungs: CTA CV: RRR no murmur Abdomen: Soft, non-tender; no masses or hepatosplenomegaly Extremities: no edema, cyanosis Skin: Normal temperature, turgor and texture; no rash, ulcers or subcutaneous nodules Psych:no agitated. Neuro: somnolent moving all extremities - Constitutional Vitals: Vital Signs Temp Pulse Resp BP Pulse Ox 98.0 F 75 15 113/89 98 09/08/18 12:00 09/08/18 13:00 09/08/18 13:00 09/08/18 13:00 09/08/18 13:00 Temperature -Last 24 Hours Temperature 98.0 F Temperature 98 F Temperature 97.9 F Temperature 98.8 F Temperature 97.7 F Temperature 97.4 F - Labs CBC & Chem 7: 09/05/18 04:03 09/05/18 04:03
[2018-09-09 05:36] LABS: Basophils % (Auto) 0.5 % (0.0-1.8); Eosinophils % (Auto) 0.7 % (0.0-4.3); Hematocrit 43.5 % (35.5-45.6); Hemoglobin 14.5 gm/dl (11.8-15.2); Lymphocytes % (Auto) 18.1 % (13.4-35.0); Mean Corpuscular HGB Conc 33 % (32-34); Mean Corpuscular Volume 99 fl (84-94); Monocytes # (Auto) 0.8 K/mm3 (0.0-0.8); Monocytes % (Auto) 14.7 % (0.0-7.3); Platelet Count 226 K/mm3 (140-440); Red Blood Count 4.39 M/mm3 (3.65-5.03); Red Cell Distribution Width 12.8 % (13.2-15.2)
[2018-09-09 06:07] LABS: Alanine Aminotransferase 44 units/L (7-56); Albumin 3.7 g/dL (3.9-5); BUN/Creatinine Ratio 20; Blood Urea Nitrogen 16 mg/dL (9-20); Calcium 9.5 mg/dL (8.4-10.2); Hemolysis Index 26
[2018-09-09] MEDS: APRESOLINE PO SCH ×4 (06:15→22:50)
--- NOTE | 2018-09-09 09:24 | Progress Note ---
Assessment and Plan Assessment and plan: 58-year-old -[place] male comes in for recurrent seizures. Patient is in status epilepticus. No airway compromise. Patient was seizing while in the emergency room. Patient has severe alcohol dependence and is in withdrawal. Had witnessed seizures in the emergency room, also has history of seizures Evaluated admitted to ICU for close observation, placed on antiseizure medications. Patient was in severe metabolic encephalopathy, CT head negative for acute abnormality except for otitis media and mastoiditis, started on empiric antibiotics, evaluation by ID, patient's symptoms significantly improved Today patient is more alert and, recommend PT and OT, possibly discharge in 1-2 days if stable with home health versus subacute rehabilitation -- Seizure due to alcohol withdrawal Current Visit: Yes Status: Acute Change IV Keppra to oral, seizure precautions No new episodes of seizure --Status epilepticus Antiepileptic medications seizure precautions, Ativan as needed Continue Keppra, no new episodes of seizure -- Metabolic Encephalopathy Current Visit: Yes Status: Acute Plan to address problem: More alert and awake responding appropriately --Left otitis media Current Visit: Yes Status: Acute IV Rocephin and vancomycin Change to Augmentin, follow ENT upon discharge --Acute mastoiditis Current Visit: Yes Status: Acute Acute mastoiditis on CT head IV Rocephin , Flagyl DC'd by ID [ s/p vancomycin] discharge on Augmentin Follow-up with ENT as outpatient -- Hypertension Current Visit: Yes Status: Chronic Continue anti-hypertensives -- EtOH withdrawal symptoms Current Visit: Yes Status: Chronic Plan to address problem: on [facility] protocol, resolved --Chronic Alcohol use; preventative education will be given when patient is more alert and awake -- Bipolar disorder Current Visit: Yes Status: Chronic Plan to address problem: Continue Seroquel --Full Code: -- DVT prophylaxis Lovenox 40 mg subcutaneous daily Disposition; physical therapy occupational therapy Possible discharge in 1-2 days home with home health History Interval history: Patient seen and examined medical records reviewed Patient is more alert and awake, responding appropriately No new episodes of seizure, not needing any Ativan per [facility] Vital signs reviewed Hospitalist Physical - Constitutional Vitals: Temp Pulse Resp BP Pulse Ox 97.9 F 71 15 163/102 99 09/09/18 04:00 09/09/18 06:15 09/09/18 06:00 09/09/18 06:15 09/09/18 06:00 General appearance: Present: no acute distress, well-nourished, obese - EENT Eyes: Present: PERRL, EOM intact - Neck Neck: Present: supple, normal ROM - Respiratory Respiratory effort: normal Respiratory: bilateral: diminished, negative: rales, rhonchi, wheezing - Cardiovascular Rhythm: regular Heart Sounds: Present: S1 & S2 - Extremities Extremities: no ischemia, No edema - Abdominal General gastrointestinal: soft, non-tender, non-distended, normal bowel sounds - Integumentary Integumentary: Present: clear, warm - Psychiatric Psychiatric: appropriate mood/affect, cooperative - Neurologic Neurologic: CNII-XII intact, moves all extremities Results - Labs CBC & Chem 7: 09/09/18 05:16 09/09/18 05:16 Labs: Laboratory Last Values WBC 5.3 K/mm3 (4.5-11.0) 09/09/18 05:16 RBC 4.39 M/mm3 (3.65-5.03) 09/09/18 05:16 Hgb 14.5 gm/dl (11.8-15.2) 09/09/18 05:16 Hct 43.5 % (35.5-45.6) 09/09/18 05:16 MCV 99 fl (84-94) H 09/09/18 05:16 MCH 33 pg (28-32) H 09/09/18 05:16 MCHC 33 % (32-34) 09/09/18 05:16 RDW 12.8 % (13.2-15.2) L 09/09/18 05:16 Plt Count 226 K/mm3 (140-440) 09/09/18 05:16 Lymph % (Auto) 18.1 % (13.4-35.0) 09/09/18 05:16 [place] % (Auto) 14.7 % (0.0-7.3) H 09/09/18 05:16 Eos % (Auto) 0.7 % (0.0-4.3) 09/09/18 05:16 Baso % (Auto) 0.5 % (0.0-1.8) 09/09/18 05:16 Lymph # 1.0 K/mm3 (1.2-5.4) L 09/09/18 05:16 [place] # 0.8 K/mm3 (0.0-0.8) 09/09/18 05:16 Eos # 0.0 K/mm3 (0.0-0.4) 09/09/18 05:16 Baso # 0.0 K/mm3 (0.0-0.1) 09/09/18 05:16 Add Manual Diff Complete 09/05/18 04:03 Total Counted 100 09/05/18 04:03 Seg Neutrophils % 66.0 % (40.0-70.0) 09/09/18 05:16 Seg Neuts % (Manual) 63.0 % (40.0-70.0) 09/05/18 04:03 1.0 % 09/05/18 04:03 16.0 % (13.4-35.0) 09/05/18 04:03 Reactive Lymphs % (Man) 0 % 09/05/18 04:03 20.0 % (0.0-7.3) H 09/05/18 04:03 0 % (0.0-4.3) 09/05/18 04:03 0 % (0.0-1.8) 09/05/18 04:03 0 % 09/05/18 04:03 0 % 09/05/18 04:03 0 % 09/05/18 04:03 0 % 09/05/18 04:03 Nucleated RBC % Not Reportable 09/05/18 04:03 Seg Neutrophils # 3.5 K/mm3 (1.8-7.7) 09/09/18 05:16 Seg Neutrophils # Man 3.0 K/mm3 (1.8-7.7) 09/05/18 04:03 Band Neutrophils # 0.0 K/mm3 09/05/18 04:03 0.8 K/mm3 (1.2-5.4) L 09/05/18 04:03 Abs React Lymphs (Man) 0.0 K/mm3 09/05/18 04:03 1.0 K/mm3 (0.0-0.8) H 09/05/18 04:03 0.0 K/mm3 (0.0-0.4) 09/05/18 04:03 0.0 K/mm3 (0.0-0.1) 09/05/18 04:03 0.0 K/mm3 09/05/18 04:03 0.0 K/mm3 09/05/18 04:03 0.0 K/mm3 09/05/18 04:03 Blast Cells # 0.0 K/mm3 09/05/18 04:03 WBC Morphology Not Reportable 09/05/18 04:03 Hypersegmented Neuts Not Reportable 09/05/18 04:03 Hyposegmented Neuts Not Reportable 09/05/18 04:03 Hypogranular Neuts Not Reportable 09/05/18 04:03 Not Reportable 09/05/18 04:03 Not Reportable 09/05/18 04:03 Not Reportable 09/05/18 04:03 Not Reportable 09/05/18 04:03 Not Reportable 09/05/18 04:03 Not Reportable 09/05/18 04:03 Consistent w auto 09/05/18 04:03 Not Reportable 09/05/18 04:03 Plt Clumps, EDTA Not Reportable 09/05/18 04:03 Not Reportable 09/05/18 04:03 Not Reportable 09/05/18 04:03 Not Reportable 09/05/18 04:03 Plt Morphology Comment Not Reportable 09/05/18 04:03 RBC Morphology Normal 09/05/18 04:03 Dimorphic RBCs Not Reportable 09/05/18 04:03 Not Reportable 09/05/18 04:03 Not Reportable 09/05/18 04:03 Not Reportable 09/05/18 04:03 Not Reportable 09/05/18 04:03 Not Reportable 09/05/18 04:03 Not Reportable 09/05/18 04:03 Not Reportable 09/05/18 04:03 Not Reportable 09/05/18 04:03 Not Reportable 09/05/18 04:03 Not Reportable 09/05/18 04:03 Not Reportable 09/05/18 04:03 Not Reportable 09/05/18 04:03 Not Reportable 09/05/18 04:03 Not Reportable 09/05/18 04:03 Not Reportable 09/05/18 04:03 Not Reportable 09/05/18 04:03 Not Reportable 09/05/18 04:03 Not Reportable 09/05/18 04:03 Not Reportable 09/05/18 04:03 Acanthocytes (Spur) Not Reportable 09/05/18 04:03 Rouleaux Not Reportable 09/05/18 04:03 Not Reportable 09/05/18 04:03 Not Reportable 09/05/18 04:03 Not Reportable 09/05/18 04:03 Not Reportable 09/05/18 04:03 Hem Pathologist Commnt No 09/05/18 04:03 Sodium 143 mmol/L (137-145) 09/09/18 05:16 Potassium 3.9 mmol/L (3.6-5.0) 09/09/18 05:16 Chloride 104.5 mmol/L (98-107) 09/09/18 05:16 Carbon Dioxide 23 mmol/L (22-30) 09/09/18 05:16 19 mmol/L 09/09/18 05:16 BUN 16 mg/dL (9-20) 09/09/18 05:16 0.8 mg/dL (0.8-1.5) 09/09/18 05:16 Estimated GFR > 60 ml/min 09/09/18 05:16 20 % 09/09/18 05:16 Glucose 95 mg/dL (75-100) 09/09/18 05:16 POC Glucose 93 (70-105) 09/09/18 05:44 Lactic Acid 0.90 mmol/L (0.7-2.0) 09/05/18 04:03 Calcium 9.5 mg/dL (8.4-10.2) 09/09/18 05:16 0.50 mg/dL (0.1-1.2) 09/09/18 05:16 AST 48 units/L (5-40) H 09/09/18 05:16 ALT 44 units/L (7-56) 09/09/18 05:16 72 units/L (35-129) 09/09/18 05:16 7.4 g/dL (6.3-8.2) 09/09/18 05:16 3.7 g/dL (3.9-5) L 09/09/18 05:16 1.0 % 09/09/18 05:16 Yellow (Yellow) 09/06/18 16:27 Clear (Clear) 09/06/18 16:27 7.0 (5.0-7.0) 09/06/18 16:27 Ur Specific [place] 1.010 (1.003-1.030) 09/06/18 16:27 <15 mg/dl mg/dL (Negative) 09/06/18 16:27 Neg mg/dL (Negative) 09/06/18 16:27 Neg mg/dL (Negative) 09/06/18 16:27 Neg (Negative) 09/06/18 16:27 Neg (Negative) 09/06/18 16:27 Neg (Negative) 09/06/18 16:27 2.0 mg/dL (<2.0) 09/06/18 16:27 Ur Leukocyte Esterase Neg (Negative) 09/06/18 16:27 2.0 /HPF (0.0-6.0) 09/06/18 16:27 10.0 /HPF (0.0-6.0) 09/06/18 16:27 U Epithel Cells (Auto) < 1.0 /HPF (0-13.0) 09/06/18 16:27 Vancomycin Trough 11.9 ug/mL (5.0-20.0) 09/07/18 11:16 Salicylates < 0.3 mg/dL (2.8-20.0) L 09/04/18 Unknown Acetaminophen < 5.0 ug/mL (10.0-30.0) L 09/04/18 Unknown Plasma/Serum Alcohol 0.12 % (0-0.07) H 09/04/18 Unknown Active Medications - Current Medications Current Medications: Generic Name Dose Route Start Last Admin Trade Name Martirq PRN Reason Stop Dose Admin Amlodipine Besylate 10 mg 09/05/18 10:00 09/08/18 10:30 Norvasc FEEDTUBE 10 mg QDAY MINGO Administration Famotidine 20 mg 09/05/18 10:00 09/08/18 23:10 Pepcid PO 20 mg BID MINGO Administration Hydralazine HCl 10 mg 09/04/18 21:07 09/07/18 01:09 Apresoline IV 10 mg Q4HR PRN Administration Blood Pressure Hydralazine HCl 50 mg 09/04/18 23:45 09/09/18 06:15 Apresoline PO 50 mg Q8HR MINGO Administration Hydromorphone HCl 0.5 mg 09/04/18 23:17 09/05/18 03:49 Dilaudid IV 0.5 mg Q3H PRN Administration Pain , Severe (7-10) Sodium Chloride 1,000 mls @ 75 mls/hr 09/04/18 23:45 09/07/18 22:01 Nacl 0.9% 1000 Ml IV 75 mls/hr DIRECT MINGO Administration Ceftriaxone Sodium 2 gm in 100 mls @ 200 mls/hr 09/05/18 10:00 09/08/18 10:29 Rocephin/Ns 2 Gm/100 Ml IV 09/15/18 10:29 200 mls/hr Q24HR MINGO Administration Protocol Ibuprofen 600 mg 09/04/18 23:17 Ibuprofen PO Q6H PRN Pain, Mild (1-3) Levetiracetam 1,000 mg 09/06/18 10:00 09/08/18 22:01 Keppra PO 1,000 mg BID MINGO Administration Lorazepam 2 mg 09/07/18 12:00 Ativan IV Q4H PRN Agitation Metoprolol Tartrate 25 mg 09/05/18 08:00 09/08/18 20:11 Lopressor PO 25 mg TID MINGO Administration Prednisone 20 mg 09/05/18 10:00 09/08/18 10:29 Deltasone PO 20 mg QDAY MINGO Administration Quetiapine Fumarate 100 mg 09/05/18 10:00 09/08/18 23:02 Seroquel PO 100 mg BID MINGO Administration Sodium Chloride 10 ml 09/05/18 10:00 09/08/18 23:03 Sodium Chloride Flush Syringe 10 Ml IV 10 ml BID MINGO Administration Sodium Chloride 10 ml 09/04/18 23:17 Sodium Chloride Flush Syringe 10 Ml IV PRN PRN LINE FLUSH Thiamine HCl 100 mg 09/05/18 10:00 09/08/18 10:30 Vitamin B-1 PO 100 mg QDAY MINGO Administration Nutrition/Malnutrition Assess - Dietary Evaluation Nutrition/Malnutrition Findings: Nutrition Notes Start: 09/05/18 1 1:52 Freq: Status: Active Protocol: Document 09/08/18 12:36 VALENTINA (Rec: 09/08/18 12:47 VALENTINA [email or web address]) Nutrition Notes Initial or Follow up Assessment Current Diagnosis Hypertension Other Pertinent Diagnosis EtOH withdrawal, status epilepticus, metabolic encephalopathy Current Diet Cardiac Labs/Tests No recent available Pertinent Medications Prednisone, Thiamine Height 5 ft 9 in Weight 89.5 kg [place] Body Weight (kg) 72.72 BMI 29.1 Subjective/Other Information Pt tends to drift to sleep, so he requires constant coaching during meal times, per RN report. Pt has been eating 50 -75% meals. He may benefit from an ONS. Burn Absent Trauma Absent #1 Nutrition Diagnosis Inadequate protein intake Etiology hx of EtOH dependence, EtOH withdrawal As Evidenced by Signs and Symptoms estimated PO intake likely not meeting pro needs Is patient on ventilator? No Is Patient Ambulatory and/or Out of Bed No [facility] Calculation Used for Recommendations [facility] Additional Notes Pro needs 1.2-2g/k-179g/ day Fluid needs 1ml/kcal Nutrition Intervention Change Diet Order: Continue current diet Add Supplement/Snack (indicate name/kcal Ensure Enlive BID /protein ) Provides kCal: 700 Provides Protein (gm) 40 Goal #1 PO intake of meals plus ONS to meet at least 75% energy and pro needs Anticipated Discharge Needs: Unable to identify at this time Follow-Up By: 09/10/18 Additional Comments F/U: intakes
[2018-09-09] MEDS: APRESOLINE IV PRN (09:37)
[2018-09-09] MEDS: NACL 0.9% 1000 ML 1,000 ML IV SCH (09:38)
[2018-09-09] MEDS: SODIUM CHLORIDE FLUSH SYRINGE 10 ML IV SCH ×2 (09:39→22:54)
[2018-09-09] MEDS: PEPCID PO SCH ×2 (10:52→22:54)
[2018-09-09] MEDS: NORVASC FEEDTUBE SCH (10:52)
[2018-09-09] MEDS: AUGMENTIN 875 MG PO SCH ×2 (10:52→22:50)
[2018-09-09] MEDS: VITAMIN B-1 PO SCH (10:52)
[2018-09-09] MEDS: DELTASONE PO SCH (10:52)
[2018-09-09] MEDS: LOPRESSOR PO SCH ×3 (10:52→22:51)
[2018-09-09] MEDS: KEPPRA PO SCH ×2 (10:53→22:50)
--- NOTE | 2018-09-09 11:33 | Progress Note ---
Assessment and Plan Cultures: Blood cultures09/05/2018 no growth. Urine cultures09/06/2018 no growth. Assessment: 58 y/o male with ETOH dependence, bipolar and hypertension admitted on 09/05/2018 with recurrent tonic-clonic seizures and noted with fever: 1) Sepsis: resolved. Etiology unclear ? left sided mastoiditis and otitis media v/s aspiration pneumonia v/s meningitis (less likely). CXR no consolidati ons. UA neg. 2) Left sided mastoiditis and otitis media? CT head shows left sided mastoiditis and otitis media. 3) Acute encephalopathy: multifactorial ETOH, otitis, seizures. 4) Status epilecticus 5) ETOH dependance 6) Thrombocytopenia: from liver disease Recommendations: follow-up blood culture discontinue ceftriaxone and flagyl monitor mentation Start Augmentin 875 mg po bid Anticipate discharge on Augmentin 875 mg PO BID total 10 days until 09/15/2018 [facility] M: [phone] O:[phone] Subjective Date of service: 09/09/18 Principal diagnosis: sepsis Interval history: Patient seen and examined. No acute distress reported. Responds to simple commands. No fevers. Objective - Exam Narrative Exam: General appearance: more alert in NAD unintellegible speech Eyes: anicteric sclerae, moist conjunctivae; no lid-lag; PERRLA HENT: Atraumatic; oropharynx poor dentition Neck: Trachea midline; supple, no thyromegaly or lymphadenopathy Lungs: CTA CV: RRR no murmur Abdomen: Soft, non-tender; no masses or hepatosplenomegaly Extremities: no edema, cyanosis Skin: Normal temperature, turgor and texture; no rash, ulcers or subcutaneous nodules Psych:no agitated. Neuro: Awake, responding to simple commands - Constitutional Vitals: Vital Signs Temp Pulse Resp BP Pulse Ox 97.9 F 106 H 15 172/105 99 09/09/18 04:00 09/09/18 09:37 09/09/18 06:00 09/09/18 09:37 09/09/18 06:00 Temperature -Last 24 Hours Temperature 97.9 F Temperature 98.1 F Temperature 98.7 F Temperature 98.3 F Temperature 98.0 F Temperature 98 F - Labs CBC & Chem 7: 09/09/18 05:16 09/09/18 05:16 Labs: Abnormal lab results 09/08/18 09/09/18 09/09/18 Range/Units 18:27 05:16 05:16 MCV 99 H (84-94) fl MCH 33 H (28-32) pg RDW 12.8 L (13.2-15.2) % [place] % (Auto) 14.7 H (0.0-7.3) % Lymph # 1.0 L (1.2-5.4) K/mm3 POC Glucose 132 H (70-105) AST 48 H (5-40) units/L Albumin 3.7 L (3.9-5) g/dL
--- NOTE | 2018-09-09 15:39 | Event Note ---
Date: 09/09/18 Physician Attestation: I have personally seen and examined patient. I personally discussed and directed assessment and management with DOLL SURGEON Mar. Nicole Suarez MD Infectious Diseases Library Media Assistant [facility], [place] [facility] M [phone] O [phone]
[2018-09-10] MEDS: APRESOLINE PO SCH ×3 (06:28→22:32)
[2018-09-10] MEDS: LOPRESSOR PO SCH ×3 (08:51→20:00)
[2018-09-10] MEDS: AUGMENTIN 875 MG PO SCH ×2 (11:19→22:30)
[2018-09-10] MEDS: PEPCID PO SCH ×2 (11:20→22:30)
[2018-09-10] MEDS: KEPPRA PO SCH ×2 (11:20→22:29)
[2018-09-10] MEDS: DELTASONE PO SCH (11:20)
[2018-09-10] MEDS: SODIUM CHLORIDE FLUSH SYRINGE 10 ML IV SCH ×2 (11:21→22:34)
[2018-09-10] MEDS: VITAMIN B-1 PO SCH (11:21)
[2018-09-10] MEDS: NORVASC FEEDTUBE SCH (11:24)
[2018-09-10] MEDS: NACL 0.9% 1000 ML 1,000 ML IV SCH ×2 (12:31→22:34)
--- NOTE | 2018-09-10 18:47 | Progress Note ---
Assessment and Plan 58-year-old -[place] male comes in for recurrent seizures. Patient is in status epilepticus. No airway compromise. Patient was seizing while in the emergency room. Patient has severe alcohol dependence and is in withdrawal. Nael anna witnessed seizures in the emergency room, also has history of seizures Evaluated admitted to ICU for close observation, placed on antiseizure medications. Patient was in severe metabolic encephalopathy, CT head negative for acute abnormality except for otitis media and mastoiditis, started on emp iric antibiotics, evaluation by ID, patient's symptoms significantly improved Today patient is more alert and, recommend PT and OT, possibly discharge in 1-2 days if stable with home health versus subacute rehabilitation -- Seizure due to alcohol withdrawal Current Visit: Yes Status: Acute Change IV Keppra to oral, seizure precautions No new episodes of seizure --Status epilepticus Antiepileptic medications seizure precautions, Ativan as needed Continue Keppra, no new episodes of seizure -- Metabolic Encephalopathy Current Visit: Yes Status: Acute Plan to address problem: More alert and awake responding appropriately --Left otitis media Current Visit: Yes Status: Acute IV Rocephin and vancomycin Change to Augmentin, follow ENT upon discharge --Acute mastoiditis Current Visit: Yes Status: Acute Acute mastoiditis on CT head IV Rocephin , Flagyl DC'd by ID [ s/p vancomycin] discharge on Augmentin Follow-up with ENT as outpatient -- Hypertension Current Visit: Yes Status: Chronic Continue anti-hypertensives -- EtOH withdrawal symptoms Current Visit: Yes Status: Chronic Plan to address problem: on [facility] protocol, resolved --Chronic Alcohol use; preventative education will be given when patient is more alert and awake -- Bipolar disorder Current Visit: Yes Status: Chronic Plan to address problem: Continue Seroquel --Full Code: -- DVT prophylaxis Lovenox 40 mg subcutaneous daily Disposition; physical therapy occupational therapy Possible discharge in 1-2 days home with home health - Patient Problems (1) Encephalopathy Current Visit: Yes Status: Deleted Plan to address problem: Secondary to status epilepticus Control seizures IV Keppra 750 every 12 [facility] protocol (2) Seizure due to alcohol withdrawal Current Visit: Yes Status: Deleted Qualifiers: Complication of substance-induced condition: with unspecified complication Qualified Code(s): F10.239 - Alcohol dependence with withdrawal, unspecified; R56.9 - Unspecified convulsions Plan to address problem: Patient on IV Keppra (3) Status epilepticus Current Visit: Yes Status: Deleted Plan to address problem: IV Keppra Intubation for surgery (4) Left otitis media Current Visit: Yes Status: Deleted Qualifiers: Otitis media type: unspecified Qualified Code(s): H66.92 - Otitis media, unspecified, left ear Plan to address problem: IV antibiotics IV Rocephin and vancomycin (5) Acute mastoiditis Current Visit: Yes Status: Deleted Qualifiers: Laterality: left Qualified Code(s): H70.002 - Acute mastoiditis without complications, left ear Plan to address problem: Acute mass and is on CT head IV Rocephin and vancomycin Follow-up with ENT as outpatient ID consult requested (6) Hypertension Current Visit: Yes Status: Deleted Qualifiers: Hypertension type: essential hypertension Qualified Code(s): I10 - Essential (primary) hypertension Plan to address problem: Continue anti-hypertensives (7) EtOH dependence Current Visit: Yes Status: Deleted Plan to address problem: [facility] protocol (8) Bipolar disorder Current Visit: Yes Status: Deleted Plan to address problem: Continue Seroquel (9) DVT prophylaxis Current Visit: No Status: Deleted Plan to address problem: Lovenox 40 mg subcutaneous daily Subjective Date of service: 09/10/18 Principal diagnosis: sepsis Interval history: Sx better Objective - Constitutional Vitals: Vital Signs - 12hr 09/10/18 09/10/18 09/10/18 07:00 08:00 08:01 Temperature 97.7 F Pulse Rate 72 71 Pulse Rate [ 83 Apical] Respiratory 13 15 10 L Rate Blood Pressure 199/127 199/127 O2 Sat by Pulse 97 98 98 Oximetry 09/10/18 09/10/18 09/10/18 08:51 09:01 10:00 Temperature Pulse Rate 83 86 91 H Pulse Rate [ Apical] Respiratory 16 Rate Blood Pressure 155/98 193/122 O2 Sat by Pulse 100 Oximetry 09/10/18 09/10/18 09/10/18 10:01 11:01 11:24 Temperature Pulse Rate 108 H 111 H Pulse Rate [ Apical] Respiratory 27 H 13 Rate Blood Pressure 152/100 145/91 145/91 O2 Sat by Pulse 99 98 Oximetry 09/10/18 09/10/18 09/10/18 12:00 12:01 13:01 Temperature 97.4 F L Pulse Rate 83 101 H Pulse Rate [ 91 H Apical] Respiratory 14 14 19 Rate Blood Pressure 133/84 125/83 O2 Sat by Pulse 99 99 100 Oximetry 09/10/18 09/10/18 09/10/18 14:01 14:40 14:41 Temperature Pulse Rate 97 H 77 77 Pulse Rate [ Apical] Respiratory 14 Rate Blood Pressure 125/83 119/86 119/86 O2 Sat by Pulse Oximetry 09/10/18 09/10/18 09/10/18 15:00 16:00 17:01 Temperature Pulse Rate 77 76 104 H Pulse Rate [ Apical] Respiratory 13 14 18 Rate Blood Pressure 123/90 143/92 143/92 O2 Sat by Pulse 96 100 99 Oximetry General appearance: Present: no acute distress, well-nourished - EENT Eyes: PERRL, EOM intact ENT: hearing intact, clear oral mucosa Ears: bilateral: normal - Neck Neck: supple, normal ROM - Respiratory Respiratory effort: normal Respiratory: bilateral: CTA - Breasts Breasts: normal - Cardiovascular Rhythm: regular Heart Sounds: Present: S1 & S2. Absent: gallop, rub Extremities: pulses intact, No edema, normal color, Full ROM - Gastrointestinal General gastrointestinal: Present: soft, non-tender, non-distended, normal bowel sounds - Genitourinary Male genitourinary: normal - Integumentary Integumentary: clear, warm, dry - Musculoskeletal Musculoskeletal: 1, strength equal bilaterally - Neurologic Neurologic: moves all extremities - Psychiatric Psychiatric: memory intact, appropriate mood/affect, intact judgment & insight - Labs CBC & Chem 7: 09/12/18 04:44 09/12/18 04:44 Labs: Abnormal lab results 09/09/18 09/10/18 Range/Units 23:26 11:43 POC Glucose 116 H 107 H (70-105)
[2018-09-10] MEDS: COZAAR PO SCH (20:00)
[2018-09-10] MEDS: COREG PO SCH (20:00)
[2018-09-11] MEDS: APRESOLINE PO SCH ×3 (06:50→22:25)
[2018-09-11 07:08] LABS: Alanine Aminotransferase 48 units/L (7-56); Albumin 3.9 g/dL (3.9-5); BUN/Creatinine Ratio 21; Blood Urea Nitrogen 17 mg/dL (9-20); Calcium 9.9 mg/dL (8.4-10.2); Hemolysis Index 27
[2018-09-11 07:15] LABS: Basophils % (Auto) 0.5 % (0.0-1.8); Eosinophils % (Auto) 0.7 % (0.0-4.3); Hematocrit 44.2 % (35.5-45.6); Hemoglobin 15.1 gm/dl (11.8-15.2); Lymphocytes # (Auto) 1.1 K/mm3 (1.2-5.4); Lymphocytes % (Auto) 17.5 % (13.4-35.0); Mean Corpuscular HGB Conc 34 % (32-34); Mean Corpuscular Volume 97 fl (84-94); Monocytes # (Auto) 0.9 K/mm3 (0.0-0.8); Monocytes % (Auto) 13.9 % (0.0-7.3); Platelet Count 293 K/mm3 (140-440); Red Blood Count 4.57 M/mm3 (3.65-5.03); Red Cell Distribution Width 12.7 % (13.2-15.2)
[2018-09-11] MEDS: LOPRESSOR PO SCH ×3 (08:53→22:26)
[2018-09-11] MEDS: KEPPRA PO SCH ×2 (10:37→22:29)
[2018-09-11] MEDS: NORVASC FEEDTUBE SCH (10:38)
[2018-09-11] MEDS: VITAMIN B-1 PO SCH (10:39)
[2018-09-11] MEDS: DELTASONE PO SCH (10:39)
[2018-09-11] MEDS: PEPCID PO SCH ×2 (10:39→22:26)
[2018-09-11] MEDS: AUGMENTIN 875 MG PO SCH ×2 (10:39→22:26)
[2018-09-11] MEDS: COREG PO SCH ×2 (10:39→22:29)
[2018-09-11] MEDS: COZAAR PO SCH (10:39)
[2018-09-11] MEDS: SODIUM CHLORIDE FLUSH SYRINGE 10 ML IV SCH ×2 (10:40→22:26)
[2018-09-11] MEDS: NACL 0.9% 1000 ML 1,000 ML IV SCH (10:42)
--- NOTE | 2018-09-11 17:48 | Progress Note ---
Assessment and Plan 58-year-old -[place] male comes in for recurrent seizures. Patient is in status epilepticus. No airway compromise. Patient was seizing while in the emergency room. Patient has severe alcohol dependence and is in withdrawal. Nael anna witnessed seizures in the emergency room, also has history of seizures Evaluated admitted to ICU for close observation, placed on antiseizure medications. Patient was in severe metabolic encephalopathy, CT head negative for acute abnormality except for otitis media and mastoiditis, started on emp iric antibiotics, evaluation by ID, patient's symptoms significantly improved Today patient is more alert and, recommend PT and OT, possibly discharge in 1-2 days if stable with home health versus subacute rehabilitation -- Seizure due to alcohol withdrawal Current Visit: Yes Status: Acute Change IV Keppra to oral, seizure precautions No new episodes of seizure --Status epilepticus Antiepileptic medications seizure precautions, Ativan as needed Continue Keppra, no new episodes of seizure -- Metabolic Encephalopathy Current Visit: Yes Status: Acute Plan to address problem: More alert and awake responding appropriately --Left otitis media Current Visit: Yes Status: Acute IV Rocephin and vancomycin Change to Augmentin, follow ENT upon discharge --Acute mastoiditis Current Visit: Yes Status: Acute Acute mastoiditis on CT head IV Rocephin , Flagyl DC'd by ID [ s/p vancomycin] discharge on Augmentin Follow-up with ENT as outpatient -- Hypertension Current Visit: Yes Status: Chronic Continue anti-hypertensives -- EtOH withdrawal symptoms Current Visit: Yes Status: Chronic Plan to address problem: on CIWA protocol, resolved --Chronic Alcohol use; preventative education will be given when patient is more alert and awake -- Bipolar disorder Current Visit: Yes Status: Chronic Plan to address problem: Continue Seroquel --Full Code: -- DVT prophylaxis Lovenox 40 mg subcutaneous daily Disposition; physical therapy occupational therapy Possible discharge in 1-2 days home with home health Subjective Date of service: 09/11/18 Principal diagnosis: sepsis Interval history: Sx better Objective - Constitutional Vitals: Vital Signs - 12hr 09/11/18 09/11/18 09/11/18 06:50 08:53 10:34 Temperature Pulse Rate 67 Respiratory Rate Blood Pressure 155/105 155/105 126/91 O2 Sat by Pulse Oximetry 09/11/18 09/11/18 09/11/18 10:38 10:39 11:48 Temperature 97.8 F Pulse Rate 71 Respiratory 18 Rate Blood Pressure 126/91 126/91 148/97 O2 Sat by Pulse 98 Oximetry 09/11/18 09/11/18 14:40 14:41 Temperature Pulse Rate 77 Respiratory Rate Blood Pressure 89/52 89/52 O2 Sat by Pulse Oximetry General appearance: Present: no acute distress, well-nourished - EENT Eyes: PERRL, EOM intact ENT: hearing intact, clear oral mucosa Ears: bilateral: normal - Neck Neck: supple, normal ROM - Respiratory Respiratory effort: normal Respiratory: bilateral: CTA - Breasts Breasts: normal - Cardiovascular Rhythm: regular Heart Sounds: Present: S1 & S2. Absent: gallop, rub Extremities: pulses intact, No edema, normal color, Full ROM - Gastrointestinal General gastrointestinal: Present: soft, non-tender, non-distended, normal bowel sounds - Genitourinary Male genitourinary: normal - Integumentary Integumentary: clear, warm, dry - Musculoskeletal Musculoskeletal: 1, strength equal bilaterally - Neurologic Neurologic: moves all extremities - Psychiatric Psychiatric: memory intact, appropriate mood/affect, intact judgment & insight - Labs CBC & Chem 7: 09/11/18 05:40 09/11/18 05:40 Labs: Abnormal lab results 09/11/18 09/11/18 Range/Units 05:40 05:40 MCV 97 H (84-94) fl MCH 33 H (28-32) pg RDW 12.7 L (13.2-15.2) % [place] % (Auto) 13.9 H (0.0-7.3) % Lymph # 1.1 L (1.2-5.4) K/mm3 [place] # 0.9 H (0.0-0.8) K/mm3 Carbon Dioxide 18 L (22-30) mmol/L AST 47 H (5-40) units/L
[2018-09-12 05:29] LABS: Basophils % (Auto) 0.6 % (0.0-1.8); Eosinophils % (Auto) 0.4 % (0.0-4.3); Hemoglobin 13.9 gm/dl (11.8-15.2); Lymphocytes # (Auto) 0.9 K/mm3 (1.2-5.4); Lymphocytes % (Auto) 14.5 % (13.4-35.0); Monocytes # (Auto) 0.9 K/mm3 (0.0-0.8); Monocytes % (Auto) 14.4 % (0.0-7.3)
[2018-09-12] MEDS: NACL 0.9% 1000 ML 1,000 ML IV SCH ×2 (05:53→22:00)
[2018-09-12] MEDS: APRESOLINE PO SCH ×3 (05:54→21:00)
[2018-09-12 06:12] LABS: Alanine Aminotransferase 48 units/L (7-56); Albumin 3.7 g/dL (3.9-5); BUN/Creatinine Ratio 23; Blood Urea Nitrogen 16 mg/dL (9-20); Calcium 9.5 mg/dL (8.4-10.2); Hemolysis Index 34
[2018-09-12 06:19] LABS: Hematocrit 42.5 % (35.5-45.6); Mean Corpuscular HGB Conc 33 % (32-34); Mean Corpuscular Volume 99 fl (84-94); Platelet Count 358 K/mm3 (140-440); Red Blood Count 4.29 M/mm3 (3.65-5.03); Red Cell Distribution Width 12.9 % (13.2-15.2)
[2018-09-12] MEDS: COZAAR PO SCH (10:52)
[2018-09-12] MEDS: DELTASONE PO SCH (10:53)
[2018-09-12] MEDS: PEPCID PO SCH ×2 (10:53→21:00)
[2018-09-12] MEDS: COREG PO SCH ×2 (10:53→21:00)
[2018-09-12] MEDS: KEPPRA PO SCH ×2 (10:53→21:00)
[2018-09-12] MEDS: VITAMIN B-1 PO SCH (10:53)
[2018-09-12] MEDS: AUGMENTIN 875 MG PO SCH ×2 (10:53→21:00)
[2018-09-12] MEDS: LOPRESSOR PO SCH ×3 (10:53→20:37)
[2018-09-12] MEDS: NORVASC FEEDTUBE SCH (10:54)
[2018-09-12] MEDS: SODIUM CHLORIDE FLUSH SYRINGE 10 ML IV SCH ×2 (10:54→21:00)
--- NOTE | 2018-09-12 15:32 | Discharge Summary ---
Providers - Providers Date of Admission: 09/04/18 18:06 Date of discharge: 09/12/18 Attending physician: ЕЛЕНА FRIEDMAN 09/04/18 23:30 Consult to Physician [CONS] Routine Comment: Consulting Provider: KANIKA DEJESUS Physician Instructions: Reason For Exam: Mastoiditis/Otitis media 09/08/18 17:56 Occupational Therapy Evaluate and Treat [CONS] Routine Comment: Reason For Exam: debility/ataxia Physical Therapy Evaluation and Treat [CONS] Routine Comment: Reason For Exam: debility/ataxia 09/11/18 09:30 Physical Therapy Evaluation and Treat [CONS] Routine Comment: Reason For Exam: eval & treat [facility] Hospital[facility] Condition: Critical Hospital course: - Seizure due to alcohol withdrawal Current Visit: Yes Status: Acute D/c on {p Keppra --Status epilepticus Antiepileptic medications seizure precautions, Ativan as needed Continue Keppra, no new episodes of seizure -- Metabolic Encephalopathy Current Visit: Yes Status: Acute Plan to address problem: More alert and awake responding appropriately --Left otitis media Current Visit: Yes Status: Acute IV Rocephin and vancomycin Change to Augmentin, follow ENT upon discharge --Acute mastoiditis Current Visit: Yes Status: Acute Acute mastoiditis on CT head IV Rocephin , Flagyl DC'd by ID [ s/p vancomycin] discharge on Augmentin Follow-up with ENT as outpatient -- Hypertension Current Visit: Yes Status: Chronic Continue anti-hypertensives -- EtOH withdrawal symptoms Current Visit: Yes Status: Chronic Plan to address problem: on CIWA protocol, resolved --Chronic Alcohol use; preventative education will be given when patient is more alert and awake -- Bipolar disorder Current Visit: Yes Status: Chronic Plan to address problem: Continue Seroquel --Full Code: Disposition: DC-01 TO HOME OR SELFCARE Core Measure Documentation - Palliative Care Palliative Care/ Comfort Measures: Not Applicable - Core Measures Any of the following diagnoses?: none Exam - Constitutional Vitals: Temp Pulse Resp BP Pulse Ox 97.6 F 89 20 124/81 96 09/12/18 11:28 09/12/18 11:28 09/12/18 11:28 09/12/18 11:28 09/12/18 11:28 General appearance: Present: no acute distress, well-nourished - EENT Eyes: Present: PERRL ENT: hearing intact, clear oral mucosa - Neck Neck: Present: supple, normal ROM - Respiratory Respiratory effort: normal Respiratory: bilateral: CTA - Cardiovascular Heart Sounds: Present: S1 & S2. Absent: rub, click - Extremities Extremities: pulses symmetrical, No edema Peripheral Pulses: within normal limits - Abdominal General gastrointestinal: Present: soft, non-tender, non-distended, normal bowel sounds Male genitourinary: Present: normal - Integumentary Integumentary: Present: clear, warm, dry - Musculoskeletal Musculoskeletal: gait normal, strength equal bilaterally - Psychiatric Psychiatric: appropriate mood/affect, intact judgment & insight - Neurologic Neurologic: CNII-XII intact, moves all extremities Plan Activity: no restrictions Diet: regular [facility]Primary Care Provider] - 7 Days Prescriptions: Aspirin BABY CHEW TAB 81 mg PO DAILY #100 LORazepam [Ativan] 0.5 mg PO TID #100 tab Amoxicillin/K Clav Tab [Augmentin 875MG TAB] 1 each PO Q12HR #16 tablet Carvedilol [Coreg] 12.5 mg PO BID #60 tablet Folic Acid [Folvite] 1 mg PO DAILY #30 tablet levETIRAcetam [Keppra TAB] 750 mg PO BID #60 tablet Lopressor TAB 100 mg PO BID #60 amLODIPine [Norvasc] 10 mg FEEDTUBE QDAY #30 tablet Norvasc 10 mg PO DAILY #30 Protonix TAB 40 mg PO DAILY #30 QUEtiapine [SEROquel] 100 mg PO BID #60 tablet Vit C/Ascorbate Calcium,Sodium 500 mg PO DAILY #30 Thiamine [Vitamin B-1] 100 mg PO QDAY #30 tablet Zinc Sulfate 220 mg PO DAILY #30 tablet
[2018-09-13] MEDS: APRESOLINE PO SCH ×3 (05:31→22:07)
[2018-09-13] MEDS: NACL 0.9% 1000 ML 1,000 ML IV SCH ×2 (10:38→23:55)
[2018-09-13] MEDS: COZAAR PO SCH (10:39)
[2018-09-13] MEDS: PEPCID PO SCH ×2 (10:39→22:08)
[2018-09-13] MEDS: NORVASC FEEDTUBE SCH (10:39)
[2018-09-13] MEDS: VITAMIN B-1 PO SCH (10:40)
[2018-09-13] MEDS: AUGMENTIN 875 MG PO SCH ×2 (10:40→22:09)
[2018-09-13] MEDS: DELTASONE PO SCH (10:40)
[2018-09-13] MEDS: KEPPRA PO SCH ×2 (10:40→22:08)
[2018-09-13] MEDS: COREG PO SCH ×2 (10:41→22:08)
[2018-09-13] MEDS: LOPRESSOR PO SCH ×3 (10:43→20:11)
[2018-09-13] MEDS: SODIUM CHLORIDE FLUSH SYRINGE 10 ML IV SCH ×2 (10:44→22:09)
--- NOTE | 2018-09-13 12:02 | Progress Note ---
Assessment and Plan 58-year-old -Malag[place] male comes in for recurrent seizures. Patient is in status epilepticus. No airway compromise. Patient was seizing while in the emergency room. Patient has severe alcohol dependence and is in withdrawal. Nael anna witnessed seizures in the emergency room, also has history of seizures Evaluated admitted to ICU for close observation, placed on antiseizure medications. Patient was in severe metabolic encephalopathy, CT head negative for acute abnormality except for otitis media and mastoiditis, started on emp iric antibiotics, evaluation by ID, patient's symptoms significantly improved Today patient is more alert and, recommend PT and OT, possibly discharge in 1-2 days if stable with home health versus subacute rehabilitation -- Seizure due to alcohol withdrawal Current Visit: Yes Status: Acute Change IV Keppra to oral, seizure precautions No new episodes of seizure --Status epilepticus Antiepileptic medications seizure precautions, Ativan as needed Continue Keppra, no new episodes of seizure -- Metabolic Encephalopathy Current Visit: Yes Status: Acute Plan to address problem: More alert and awake responding appropriately --Left otitis media Current Visit: Yes Status: Acute IV Rocephin and vancomycin Change to Augmentin, follow ENT upon discharge --Acute mastoiditis Current Visit: Yes Status: Acute Acute mastoiditis on CT head IV Rocephin , Flagyl DC'd by ID [ s/p vancomycin] discharge on Augmentin Follow-up with ENT as outpatient -- Hypertension Current Visit: Yes Status: Chronic Continue anti-hypertensives -- EtOH withdrawal symptoms Current Visit: Yes Status: Chronic Plan to address problem: on CIWA protocol, resolved --Chronic Alcohol use; preventative education will be given when patient is more alert and awake -- Bipolar disorder Current Visit: Yes Status: Chronic Plan to address problem: Continue Seroquel --Full Code: -- DVT prophylaxis Lovenox 40 mg subcutaneous daily Disposition; physical therapy occupational therapy Requwsting subacute rehab Subjective Date of service: 09/12/18 Principal diagnosis: sepsis Interval history: Sx better Objective - Constitutional Vitals: Vital Signs - 12hr 09/13/18 09/13/18 09/13/18 02:57 05:18 05:31 Temperature 98.2 F Pulse Rate 71 73 Respiratory 20 Rate Blood Pressure 150/91 150/91 O2 Sat by Pulse 95 Oximetry 07/28/19 07/28/19 07/28/19 10:39 10:41 10:43 Temperature Pulse Rate 73 73 73 Respiratory Rate Blood Pressure 150/91 150/91 150/91 O2 Sat by Pulse Oximetry 09/13/18 11:35 Temperature 98.7 F Pulse Rate 77 Respiratory 20 Rate Blood Pressure 134/88 O2 Sat by Pulse 93 Oximetry General appearance: Present: no acute distress, well-nourished - EENT Eyes: PERRL, EOM intact ENT: hearing intact, clear oral mucosa Ears: bilateral: normal - Neck Neck: supple, normal ROM - Respiratory Respiratory effort: normal Respiratory: bilateral: CTA - Breasts Breasts: normal - Cardiovascular Heart rate: 78 Rhythm: regular Heart Sounds: Present: S1 & S2. Absent: gallop, rub Extremities: no ischemia, pulses intact, No edema, normal color, Full ROM - Gastrointestinal General gastrointestinal: Present: deferred, soft, non-tender, non-distended, normal bowel sounds Rectal Exam: deferred - Genitourinary Male genitourinary: normal - Integumentary Integumentary: clear, warm, dry - Musculoskeletal Musculoskeletal: 1, strength equal bilaterally - Neurologic Neurologic: moves all extremities - Psychiatric Psychiatric: memory intact, appropriate mood/affect, intact judgment & insight - Labs CBC & Chem 7: 09/12/18 04:44 09/12/18 04:44
--- NOTE | 2018-09-13 12:07 | Progress Note ---
Assessment and Plan 58-year-old -[place] male comes in for recurrent seizures. Patient is in status epilepticus. No airway compromise. Patient was seizing while in the emergency room. Patient has severe alcohol dependence and is in withdrawal. Nael anna witnessed seizures in the emergency room, also has history of seizures Evaluated admitted to ICU for close observation, placed on antiseizure medications. Patient was in severe metabolic encephalopathy, CT head negative for acute abnormality except for otitis media and mastoiditis, started on emp iric antibiotics, evaluation by ID, patient's symptoms significantly improved Today patient is more alert and, recommend PT and OT, possibly discharge in 1-2 days if stable with home health versus subacute rehabilitation -- Seizure due to alcohol withdrawal Current Visit: Yes Status: Acute Change IV Keppra to oral, seizure precautions No new episodes of seizure --Status epilepticus Antiepileptic medications seizure precautions, Ativan as needed Continue Keppra, no new episodes of seizure -- Metabolic Encephalopathy Current Visit: Yes Status: Acute Plan to address problem: More alert and awake responding appropriately --Left otitis media Current Visit: Yes Status: Acute IV Rocephin and vancomycin Change to Augmentin, follow ENT upon discharge --Acute mastoiditis Current Visit: Yes Status: Acute Acute mastoiditis on CT head IV Rocephin , Flagyl DC'd by ID [ s/p vancomycin] discharge on Augmentin Follow-up with ENT as outpatient -- Hypertension Current Visit: Yes Status: Chronic Continue anti-hypertensives -- EtOH withdrawal symptoms Current Visit: Yes Status: Chronic Plan to address problem: on CIWA protocol, resolved --Chronic Alcohol use; preventative education will be given when patient is more alert and awake -- Bipolar disorder Current Visit: Yes Status: Chronic Plan to address problem: Continue Seroquel --Full Code: -- DVT prophylaxis Lovenox 40 mg subcutaneous daily Disposition; physical therapy occupational therapy Requesting subacute rehab Subjective Date of service: 09/13/18 Principal diagnosis: sepsis Interval history: Sx better Objective - Constitutional Vitals: Vital Signs - 12hr 09/13/18 09/13/18 09/13/18 02:57 05:18 05:31 Temperature 98.2 F Pulse Rate 71 73 Respiratory 20 Rate Blood Pressure 150/91 150/91 O2 Sat by Pulse 95 Oximetry 09/13/18 09/13/18 09/13/18 10:39 10:41 10:43 Temperature Pulse Rate 73 73 73 Respiratory Rate Blood Pressure 150/91 150/91 150/91 O2 Sat by Pulse Oximetry 09/13/18 11:35 Temperature 98.7 F Pulse Rate 77 Respiratory 20 Rate Blood Pressure 134/88 O2 Sat by Pulse 93 Oximetry General appearance: Present: no acute distress, well-nourished - EENT Eyes: PERRL, EOM intact ENT: hearing intact, clear oral mucosa Ears: bilateral: normal - Neck Neck: supple, normal ROM - Respiratory Respiratory effort: normal Respiratory: bilateral: CTA - Breasts Breasts: normal - Cardiovascular Heart rate: 78 Rhythm: regular Heart Sounds: Present: S1 & S2. Absent: gallop, rub Extremities: pulses intact, No edema, normal color, Full ROM - Gastrointestinal General gastrointestinal: Present: soft, non-tender, non-distended, normal bowel sounds - Genitourinary Male genitourinary: normal - Integumentary Integumentary: clear, warm, dry - Musculoskeletal Musculoskeletal: 1, strength equal bilaterally - Neurologic Neurologic: moves all extremities - Psychiatric Psychiatric: memory intact, appropriate mood/affect, intact judgment & insight - Labs CBC & Chem 7: 09/12/18 04:44 09/12/18 04:44
[2018-09-14] MEDS: APRESOLINE PO SCH (06:32)
[2018-09-14] MEDS: COZAAR PO SCH (09:09)
[2018-09-14] MEDS: VITAMIN B-1 PO SCH (09:10)
[2018-09-14] MEDS: NORVASC FEEDTUBE SCH (09:10)
[2018-09-14] MEDS: LOPRESSOR PO SCH (09:10)
[2018-09-14] MEDS: PEPCID PO SCH (09:10)
[2018-09-14] MEDS: AUGMENTIN 875 MG PO SCH (09:10)
[2018-09-14] MEDS: KEPPRA PO SCH (09:10)
[2018-09-14] MEDS: DELTASONE PO SCH (09:10)
[2018-09-14] MEDS: COREG PO SCH (09:11)
[2018-09-14] MEDS: SODIUM CHLORIDE FLUSH SYRINGE 10 ML IV SCH (09:19)
[2018-09-14 12:46] VITALS: BP 109/76
--- NOTE | 2018-09-14 13:50 | Discharge Summary ---
Providers - Providers Date of Admission: 09/04/18 18:06 Date of discharge: 09/14/18 Attending physician: ЕЛЕНА FRIEDMAN 09/04/18 23:30 Consult to Physician [CONS] Routine Comment: Consulting Provider: KANIKA DEJESUS Physician Instructions: Reason For Exam: Mastoiditis/Otitis media 09/08/18 17:56 Occupational Therapy Evaluate and Treat [CONS] Routine Comment: Reason For Exam: debility/ataxia Physical Therapy Evaluation and Treat [CONS] Routine Comment: Reason For Exam: debility/ataxia 09/11/18 09:30 Physical Therapy Evaluation and Treat [CONS] Routine Comment: Reason For Exam: eval & treat [facility] Condition: Critical Hospital course: Seizure due to alcohol withdrawal Current Visit: Yes Status: Acute D/c on Ativan 0.5 mg po q12h --Status epilepticus Antiepileptic medications seizure precautions, Ativan as needed Continue Keppra, no new episodes of seizure -- Metabolic Encephalopathy Current Visit: Yes Status: Acute Plan to address problem: More alert and awake responding appropriately --Left otitis media Current Visit: Yes Status: Acute IV Rocephin and vancomycin Abx course finished follow ENT upon discharge --Acute mastoiditis Current Visit: Yes Status: Acute Acute mastoiditis on CT head Abx course finished follow ENT upon discharge Follow-up with ENT as outpatient -- Hypertension Current Visit: Yes Status: Chronic Continue anti-hypertensives -- EtOH withdrawal symptoms Current Visit: Yes Status: Chronic Plan to address problem: D/c on Ativan Chronic Alcohol use; education /counselling given -- Bipolar disorder Current Visit: Yes Status: Chronic Plan to address problem: Continue Seroquel --Full Code: Disposition: DC-01 TO HOME OR SELFCARE Disposition: DC-01 TO HOME OR SELFCARE Core Measure Documentation - Palliative Care Palliative Care/ Comfort Measures: Not Applicable - Core Measures Any of the following diagnoses?: none Exam - Constitutional Vitals: Temp Pulse Resp BP Pulse Ox 98.6 F 78 20 109/76 95 09/14/18 11:35 09/14/18 11:35 09/14/18 11:35 09/14/18 11:35 09/14/18 11:35 General appearance: Present: no acute distress, well-nourished - EENT Eyes: Present: PERRL ENT: hearing intact, clear oral mucosa - Neck Neck: Present: supple, normal ROM - Respiratory Respiratory effort: normal Respiratory: bilateral: CTA - Cardiovascular Heart Sounds: Present: S1 & S2. Absent: rub, click - Extremities Extremities: pulses symmetrical, No edema Peripheral Pulses: within normal limits - Abdominal General gastrointestinal: Present: soft, non-tender, non-distended, normal bowel sounds Male genitourinary: Present: normal - Integumentary Integumentary: Present: clear, warm, dry - Musculoskeletal Musculoskeletal: gait normal, strength equal bilaterally - Psychiatric Psychiatric: appropriate mood/affect, intact judgment & insight - Neurologic Neurologic: CNII-XII intact, moves all extremities Plan Activity: no restrictions Diet: regular [facility] - 7 Days Prescriptions: Aspirin BABY CHEW TAB 81 mg PO DAILY #100 LORazepam [Ativan] 0.5 mg PO TID #100 tab Amoxicillin/K Clav Tab [Augmentin 875MG TAB] 1 each PO Q12HR #16 tablet Carvedilol [Coreg] 12.5 mg PO BID #60 tablet Folic Acid [Folvite] 1 mg PO DAILY #30 tablet levETIRAcetam [Keppra TAB] 750 mg PO BID #60 tablet Lopressor TAB 100 mg PO BID #60 amLODIPine [Norvasc] 10 mg FEEDTUBE QDAY #30 tablet Norvasc 10 mg PO DAILY #30 Protonix TAB 40 mg PO DAILY #30 QUEtiapine [SEROquel] 100 mg PO BID #60 tablet Vit C/Ascorbate Calcium,Sodium 500 mg PO DAILY #30 Thiamine [Vitamin B-1] 100 mg PO QDAY #30 tablet Zinc Sulfate 220 mg PO DAILY #30 tablet
== END 2018-09-14 15:48 | disposition home or self-care (01) | DRG 871 ==
LOC: ED 12:23 → CC1 18:06 → IMCU 09-06 11:12 → 3A 09-10 21:20
PROVIDERS: ADMIT Internal Medicine; ATTEND Internal Medicine
DX: A41.9 Sepsis, unspecified organism (principal); G93.41 Metabolic encephalopathy; H66.92 Otitis media, unspecified, left ear; H70.009 Acute mastoiditis without complications, unspecified ear; G40.901 Epilepsy, unspecified, not intractable, with status epilepticus; F10.231 Alcohol dependence with withdrawal delirium; Y90.9 Presence of alcohol in blood, level not specified; H70.002 Acute mastoiditis without complications, left ear; I10 Essential (primary) hypertension; R65.20 Severe sepsis without septic shock; D69.6 Thrombocytopenia, unspecified; F31.9 Bipolar disorder, unspecified; Z82.49 Family history of ischemic heart disease and other diseases of the circulatory system; Z79.899 Other long term (current) drug therapy
CPT/HCPCS: 36415; 70450; 71046; 74177; 80053; 80202; 80320; 81001; 82140; 82962; 85007; 85025; 87040; 87086; 93005; 93010; 96365; 96366; 96375; 96376; G0378; G0480; J0360; J0692; J0696; J1170; J1953; J2060; J2405; J3370; J3411; J7030; J7040; J7050; J7512; Q9967